=== PATIENT | female | born 1985 | race Caucasian/White ===

== ENCOUNTER → 2020-08-26 15:55 | Outpatient (BNVA) | payer OTHER, SELFPAY | PROVIDERS: PCP Hospitalist; Visit Provider Internal Medicine Pulmonary Disease | DX: J30.2 Other seasonal allergic rhinitis (principal); J45.50 Severe persistent asthma, uncomplicated | CPT/HCPCS: 99212 ==

== ENCOUNTER → 2020-09-17 13:44 | Outpatient (BNVA) | payer OTHER, SELFPAY | PROVIDERS: PCP Hospitalist; Visit Provider Internal Medicine Pulmonary Disease | DX: J45.50 Severe persistent asthma, uncomplicated (principal); J30.2 Other seasonal allergic rhinitis; Z79.899 Other long term (current) drug therapy | CPT/HCPCS: 99212 ==

== ENCOUNTER 2021-01-05 08:18 | Emergency (ER) | payer OTHER, SELFPAY ==
[2021-01-05 08:37] VITALS: BP 130/92; PULSE 104; RESP 18; TEMP 36.5; O2SAT 97; BMI 40.4
--- NOTE | 2021-01-05 09:25 | ED_ITS ---
HPI - General Adult General Chief complaint: General Medical Stated complaint: needle stick Time Seen by Provider: 01/05/21 09:10 Source: patient Mode of arrival: ambulatory Limitations: no limitations History of Present Illness HPI narrative: 35-year-old female with a past medical history of asthma here with needlestick to the heel which occurred just prior to arrival. Patient tells me she was walking outside with her daughter with sandals on. She tells me that she felt a poking sensation in her heel and when she looked down she noticed that she had been stuck by a needle that was on the street. The site did bleed. Tetanus status unknown . Related Data Home Medications Medication Instructions Recorded Confirmed alcohol swabs pad TOPICAL DIRECTED 07/23/20 empty container ea MISCELLANEOUS DAILY 07/23/20 Previous Rx's Medication Instructions Recorded albuterol sulfate 2.5 mg INHALATION Q6H #90 ml 01/20/20 cetirizine 10 mg tablet 10 mg PO DAILY #30 tab 01/20/20 montelukast 10 mg tablet 10 mg PO BEDTIME #30 tab 01/20/20 budesonide-formoterol HFA 160 2 puff INHALATION BID #10.2 g 03/27/20 mcg-4.5 mcg/actuation aerosol inhaler (Symbicort) fluticasone propionate 50 1 spray INTRANASAL DAILY 30 Days 04/15/20 mcg/actuation nasal #9.9 ml spray,suspension triamcinolone acetonide 0.025 % 1 appl TOPICAL BID #15 g 05/15/20 topical cream sumatriptan succinate 50 mg tablet See Rx Instructions PO .COMPLEX 30 07/23/20 Days #10 tab dupilumab 300 mg/2 mL subcutaneous 300 mg SUBCUT Q2W #4 ml 07/30/20 syringe (Dupixent) prednisone 10 mg tablet 40 mg PO DAILY 5 Days #20 tab 09/17/20 albuterol sulfate 90 mcg/actuation 2 puff PO Q4-6H PRN #8.5 g 09/21/20 aerosol inhaler (ProAir HFA) tiotropium bromide 2.5 2 puff INHALATION QAM #4 ml 09/22/20 mcg/actuation mist for inhalation (Spiriva Respimat) loratadine 10 mg tablet 10 mg PO DAILY #30 tab 10/08/20 topiramate 50 mg tablet 50 mg PO BID 30 Days #60 tab 10/08/20 famotidine 40 mg tablet 40 mg PO DAILY #30 tab 10/20/20 ipratropium 20 mcg-albuterol 100 1 puff PO Q6H PRN #4 ml 11/17/20 mcg/actuation mist for inhalation (Combivent Respimat) Allergies Allergy/AdvReac Type Severity Reaction Status Date / Time No Known Allergies Allergy Verified 09/17/20 13:48 [No Known Allergies*] Review of Systems Review of Systems: Yes all other systems are reviewed and are negative Constitutional: Constitutional: Reports no additional constitutional complaints, Denies body ache(s), Denies chills, Denies fever(s), Denies head ache(s) and Denies weakness Eyes: Eyes: Reports no additional eye complaints and Denies change in vision ENT: Reports system reviewed and no additional complaints, except as documented, Denies dizziness, Denies headache(s), Denies nasal congestion, Denies nasal discharge and Denies neck pain Cardiovascular: Cardiovascular: Reports no additional cardiovascular complaints, Denies chest pain, Denies leg edema and Denies dyspnea Respiratory: Respiratory: Reports no additional respiratory complaints, Denies cough and Denies dyspnea Gastrointestinal: Gastrointestinal: Reports no additional gastrointestinal complaints, Denies abdominal pain, Denies diarrhea, Denies nausea and Denies vomiting Genitourinary: Genitourinary: Reports no additional female genitourinary complaints and Denies urinary incontinence Musculoskeletal: Musculoskeletal: Reports no additional musculoskeletal complaints, Denies back pain, Denies arthralgias, Denies joint swelling, Denies neck pain, Denies numbness and Denies tingling Integumentary/Breasts: Skin/Breast: Reports system reviewed and no additional complaints, except as docu and Denies rash Neurologic: Reports system reviewed and no additional complaints, except as documented, Denies Abnormal speech present, Denies dizziness, Denies headache(s), Denies numbness, Denies tingling and Denies weakness PMF Past Medical History Attestation statement: The following information was validated with the patient. Source: old records reviewed and nursing notes reviewed Medical History Asthma Social History Social History Advance Directives: No Advance Directives Information Provided: No Patient : No Physical Exam Vital Signs: Vital Signs: Last Vital Signs Temp 97.7 F 01/05/21 08:37 Pulse 104 H 01/05/21 08:37 Resp 18 01/05/21 08:37 BP 130/92 H 01/05/21 08:37 Pulse Ox 97 01/05/21 08:37 Body Mass Index 40.4 Const: General: cooperative, healthy appearing, comfortable and no acute distress Orientation/consciousness: patient oriented x3 Limitations: no limitations HENMT: Head: Yes normal to inspection Ears: hearing grossly normal bilaterally General nose exam: Normal external nose present Face and sinus: Yes normal facial exam Mouth: Normal oral and palatal mucosa present Throat: Yes posterior oropharynx normal Eyes: General: appearance normal, both eyes and all related structures Pupils: Equal, round and reactive pupils present Neck: Neck: Yes normal visual inspection Chest: Chest palpation & inspection: normal inspection of the chest Resp: Effort & Inspection: normal respiratory effort Auscultation: clear to auscultation bilaterally Cardio: Rate: regular rate Rhythm: regular rhythm Peripheral pulses: Peripheral pulses 2+ throughout GI: Inspection: Yes normal to inspection Palpation (GI): Soft to palpation and nontender Auscultation: normal bowel sounds Back/Spine/Pelvis: Thoracic/Lumbar Spine: thoracic and lumbar spine normal to inspection Skin: General skin exam: no rashes or lesions noted Neuro: General: patient oriented x3, no focal motor deficits and normal sensation to monofilament Cranial nerves: Yes Equal, round and reactive pupils present Cognition (Neuro): normal cognition Speech: No Abnormal speech present Gait exam (Neuro): Normal gait present Motor exam (neuro): 5/5 motor strength present throughout Extrem: Other: Puncture site noted to the right heel. No active bleeding. No palpable foreign body General: Yes normal to inspection Course Course Course Narrative: 35-year-old female here with needlestick to the right heel from the street. Will need labs including hepatitis and HIV panel, urine . Will need PEP kit and tetanus updated. 1010-Reviewed labs and PEP kit with patient. Tetanus updated. Referred to PCP for follow-up. Reviewed worrisome signs and symptoms of when to return to the emergency department. Comfortable discharge home. Medical Decision Making Medical Records Medical records reviewed: Yes I reviewed the patient's medical records. Lab Data Lab results reviewed: Yes I reviewed the patient's lab results. Result diagrams: 01/05/21 09:37 01/05/21 09:37 Labs: Lab Results 01/05/21 01/05/21 01/05/21 Range/Units 09:37 09:37 09:46 WBC 12.0 H (4.8-10.8) X10*3/uL RBC 4.84 (4.20-5.50) X10*6/uL Hgb 14.7 (12.0-16.0) g/dl Hct 43.5 (37-47) % MCV 89.9 (80-98) fL MCH 30.4 (27.0-33.0) pg MCHC 33.8 (31.0-35.0) g/dl RDW 13.2 (11.0-16.0) % Plt Count 368 (160-400) X10*3/uL MPV 11.0 (9.4-12.3) fL Immature Gran % (Auto) 0.4 (0.0-0.4) % Neut % (Auto) 65.4 (45-73) % Lymph % (Auto) 25.7 (20-40) % [place] % (Auto) 5.9 (2-11) % Eos % (Auto) 2.3 (0-4) % Baso % (Auto) 0.3 (0-2) % Lymph # (Auto) 3.1 (1.2-4.9) X10*3/uL [place] # (Auto) 0.7 (0.1-1.2) X10*3/uL Eos # (Auto) 0.3 (0.0-0.4) X10*3/uL Baso # (Auto) 0.0 (0.0-0.2) X10*3/uL Abs Immat Gran (auto) 0.05 H (0.00-0.03) X10*3/uL Absolute Neuts (auto) 7.8 (2.0-8.3) X10*3/uL Absolute Nucleated RBC 0.000 (0.0-0.012) X10*3/uL Nucleated RBC % (auto) 0.0 (0.0-0.2) /100WBC Sodium 140 (135-145) mmol/L Potassium 4.3 (3.3-5.1) mmol/L Chloride 109 H (96-108) mmol/L Carbon Dioxide 22 (22-29) mmol/L Anion Gap 13 (12-20) BUN 15 (9-16) mg/dL Creatinine 0.85 (0.5-1.4) mg/dL Estim Creat Clear Calc 137.1 Estimated GFR > 60 Random Glucose 89 (60-115) mg/dL Calcium 9.2 (8.4-10.2) mg/dL Total Bilirubin 0.5 (0.0-1.0) mg/dL Direct Bilirubin 0.2 (0.0-0.5) mg/dL AST 23 (5-31) U/L ALT 28 (0-31) U/L Alkaline Phosphatase 118 H (39-117) U/L Total Protein 7.9 (6.5-8.0) g/dL Albumin 4.5 (3.5-5.0) g/dL Urine Test NEGATIVE (NEGATIVE) Discharge Plan Discharge Clinical Impression: Accidental hypodermic needlestick injury Patient Disposition: Home, Self-Care Instructions: Needle Stick Injuries (ED) Additional Instructions: Take the kit as prescribed You will need to take these medications for 30 days (we have provided you with a four day supply). Call your primary care doctor for additional prescription as discussed. Take them with food. These medications are antivirals which are for HIV prophy laxis. Prescriptions: No Action cetirizine 10 mg tablet 10 mg PO DAILY Qty: 30 RF: 0 albuterol sulfate 2.5 mg /3 mL (0.083 %) solution for nebulization 2.5 mg inhalation Q6H Qty: 90 RF: 0 montelukast 10 mg tablet 10 mg PO BEDTIME Qty: 30 RF: 0 budesonide-formoterol [Symbicort] 160-4.5 mcg/actuation HFA aerosol inhaler 2 puff inhalation BID Qty: 10.2 RF: 0 fluticasone propionate 50 mcg/actuation spray,suspension 1 spray intranasal DAILY 30 Days Qty: 9.9 RF: 6 triamcinolone acetonide 0.025 % cream 1 appl topical BID Qty: 15 RF: 0 dupilumab [Dupixent Syringe] 300 mg/2 mL syringe 300 mg subcut Q2W Qty: 4 RF: 12 albuterol sulfate [ProAir HFA] 90 mcg/actuation HFA aerosol inhaler 2 puff PO Q4-6H PRN (Reason: for wheezing) Qty: 8.5 RF: 11 tiotropium bromide [Spiriva Respimat] 2.5 mcg/actuation mist 2 puff inhalation QAM Qty: 4 RF: 3 loratadine 10 mg tablet 10 mg PO DAILY Qty: 30 RF: 2 topiramate 50 mg tablet 50 mg PO BID 30 Days Qty: 60 RF: 1 famotidine 40 mg tablet 40 mg PO DAILY Qty: 30 RF: 5 Combivent Respimat 20-100 mcg/actuation mist 1 puff PO Q6H PRN (Reason: for wheezing) Qty: 4 RF: 6 alcohol swabs Pads, Medicated topical DIRECTED RF: 0 Sharps Container Misc miscellaneous DAILY RF: 0 sumatriptan succinate 50 mg tablet See Rx Instructions PO .COMPLEX 30 Days Qty: 10 RF: 0 prednisone 10 mg tablet 40 mg PO DAILY 5 Days Qty: 20 RF: 0 Referrals: Lolly Brown NP [Primary Care Provider] - 2 days Interventions: ED Discharge Assessment Last Done: 01/05/21 10:05 Discharge Date/Time: 01/05/21 10:06
[2021-01-05 09:41] LABS: MANUAL DIFF FLAG NO
[2021-01-05] MEDS: Diphth,Pertus(ACell),Tet Adult 0.5 ML SYRINGE IM (09:47)
[2021-01-05] MEDS: Post Exposure Medication Kit 1 KIT PO (09:47)
[2021-01-05 09:57] LABS: Alanine Aminotransferase 28 U/L (0-31); Albumin Level 4.5 g/dL (3.5-5.0); Alkaline Phosphatase 118 U/L (39-117); Anion Gap 13 (12-20); Aspartate Amino Transferase 23 U/L (5-31); Bilirubin Direct 0.2 mg/dL (0.0-0.5); Bilirubin Total 0.5 mg/dL (0.0-1.0); Blood Urea Nitrogen 15 mg/dL (9-16); Calcium 9.2 mg/dL (8.4-10.2); Carbon Dioxide 22 mmol/L (22-29); Chloride 109 mmol/L (96-108); Creatinine Clr Calc Pharmacy 137.1; Estimated Glomerular Filt Rate > 60; Glucose Random 89 mg/dL (60-115); Potassium 4.3 mmol/L (3.3-5.1); Sodium 140 mmol/L (135-145); Total Protein 7.9 g/dL (6.5-8.0)
[2021-01-05 10:02] LABS: UPreg QC Valid YES; Urine Pregnancy NEGATIVE (NEGATIVE)
[2021-01-05 10:05] LABS: Basophils Percent Auto 0.3 % (0-2); Eosinophils Absolute Auto 0.3 X10*3/uL (0.0-0.4); Eosinophils Percent Auto 2.3 % (0-4); Hematocrit 43.5 % (37-47); Hemoglobin 14.7 g/dl (12.0-16.0); Imm Gran Abs Auto 0.05 X10*3/uL (0.00-0.03); Imm Gran Pct Auto 0.4 % (0.0-0.4); Lymphocytes Absolute Auto 3.1 X10*3/uL (1.2-4.9); Lymphocytes Percent Auto 25.7 % (20-40); Mean Corpuscular HGB Conc 33.8 g/dl (31.0-35.0); Mean Corpuscular Hemoglobin 30.4 pg (27.0-33.0); Mean Corpuscular Volume 89.9 fL (80-98); Monocytes Absolute Auto 0.7 X10*3/uL (0.1-1.2); Monocytes Percent Auto 5.9 % (2-11); Neutrophils Absolute Auto 7.8 X10*3/uL (2.0-8.3); Neutrophils Percent Auto 65.4 % (45-73); Platelet Count 368 X10*3/uL (160-400); Red Blood Count 4.84 X10*6/uL (4.20-5.50); Red Cell Distribution Width 13.2 % (11.0-16.0)
[2021-01-05 10:20] LABS: HBsAGNum1 0.21 S/CO (0.00-0.99); Hepatitis B Core Antibody Nonreactive (Nonreactive); Hepatitis B Surface Antigen Negative (Negative); ~Hepatitis C Antibody Nonreactive (Nonreactive)
[2021-01-05 10:24] LABS: HBS Num1 35.13 mIU/mL (0-7.99); HIV AB/AG Nonreactive (Nonreactive); HIV Num 1 0.08 S/CO (0.00-0.99); ~Hepatitis B Surface Antibody REACTIVE (Nonreactive)
== END 2021-01-05 10:06 | disposition home or self-care (01) ==
PROVIDERS: Nurse Practitioner Family; Emergency Provider Emergency Medicine; PCP Hospitalist
DX: S91.331A Puncture wound without foreign body, right foot, initial encounter (principal); M79.671 Pain in right foot; Y28.9XXA Contact with unspecified sharp object, undetermined intent, initial encounter; Y93.9 Activity, unspecified; Y92.410 Unspecified street and highway as the place of occurrence of the external cause; Y99.9 Unspecified external cause status; Z20.9 Contact with and (suspected) exposure to unspecified communicable disease; Z23 Encounter for immunization
CPT/HCPCS: 36415; 80048; 80076; 81025; 85025; 86704; 86706; 86803; 87340; 87389; 90471; 90715; 99283; 99284

== ENCOUNTER → 2021-01-20 15:43 | Outpatient (BNVA) | payer OTHER, SELFPAY | PROVIDERS: PCP Hospitalist; Visit Provider Internal Medicine Pulmonary Disease | DX: J45.50 Severe persistent asthma, uncomplicated (principal); J30.2 Other seasonal allergic rhinitis; F17.210 Nicotine dependence, cigarettes, uncomplicated | CPT/HCPCS: 99212 ==

== ENCOUNTER → 2021-07-27 08:53 | Outpatient (BNVA) | payer OTHER, SELFPAY | PROVIDERS: PCP Hospitalist; Visit Provider Internal Medicine Pulmonary Disease | DX: J45.50 Severe persistent asthma, uncomplicated (principal); J30.2 Other seasonal allergic rhinitis; G47.33 Obstructive sleep apnea (adult) (pediatric); F17.210 Nicotine dependence, cigarettes, uncomplicated; Z79.899 Other long term (current) drug therapy | CPT/HCPCS: 99212 ==

== ENCOUNTER → 2021-09-07 10:57 | Outpatient (REF) | payer OTHER, SELFPAY | LOC: HO.SL 10:57 | PROVIDERS: PCP Hospitalist; Visit Provider Internal Medicine Pulmonary Disease | DX: G47.33 Obstructive sleep apnea (adult) (pediatric) (principal) | CPT/HCPCS: 95806 ==

== ENCOUNTER 2022-02-24 08:51 | Outpatient (REF) | payer OTHER, SELFPAY ==
[2022-02-24 12:16] LABS: Influenza A PCR POSITIVE (Negative); Influenza B PCR NEGATIVE (Negative); Resp Syncy Virus RNA Qual PCR NEGATIVE (Negative); SARS COV2 PCR INHOUSE NEGATIVE (Negative)
== END 2022-02-24 08:52 | disposition home or self-care (01) ==
LOC: HO.LAB 08:51
PROVIDERS: Visit Provider Nurse Practitioner Family
DX: Z20.822 Contact with and (suspected) exposure to COVID-19 (principal)
CPT/HCPCS: 0241U

== ENCOUNTER 2022-03-09 22:34 | Emergency (ER) | payer OTHER, SELFPAY ==
--- NOTE | 2022-03-09 | ECG_ITS ---
Test Reason : SOA Blood Pressure : / mmHG Vent. Rate : 095 BPM Atrial Rate : 095 BPM P-R Int : 150 ms QRS Dur : 074 ms QT Int : 352 ms P-R-T Axes : 058 035 053 degrees QTc Int : 442 ms Normal sinus rhythm Low voltage QRS Borderline ECG When compared with ECG of 23-JUN-2019 13:16, No significant change was found Referred By: Generic ED Physician Electronically Signed By:Alejandro Daniel
--- NOTE | ~2022-03-09 | XR_ITS ---
EXAMINATION: XR CHEST CLINICAL INFORMATION: Shortness of breath COMPARISON: 06/23/2019 TECHNIQUE: Frontal view of the chest was obtained. FINDINGS: The lungs are clear with no focal consolidation. No evidence of pneumothorax, pulmonary edema, or pleural effusions. The cardiomediastinal silhouette is unremarkable. No acute osseous findings. XR/XR chest 1V IMPRESSION: No acute cardiopulmonary findings.
[2022-03-09 22:36] VITALS: BP 158/107; PULSE 110; RESP 22; TEMP 36.5; O2SAT 93; BMI 41.3
--- NOTE | 2022-03-09 22:59 | ED.ASTHMA ---
HPI - Asthma General Chief Complaint: Asthma Stated Complaint: Asthma attack Time Seen by Provider: 03/09/22 22:53 Source: patient Mode of arrival: ambulatory Limitations: no limitations History of Present Illness HPI Narrative: Patient has history of asthma been feeling increased short of breath for last 2 days with dry cough use her inhaler and nebulizing treatment without much relief no other family member sick Related Data Home Medications Medication Instructions Recorded Confirmed alcohol swabs pad topical DIRECTED 07/23/20 01/07/21 empty container ea miscellaneous DAILY 07/23/20 01/07/21 Previous Rx's Medication Instructions Recorded albuterol sulfate 2.5 mg/3 mL 2.5 mg (3 mL) inhalation Q6H #90 mL 01/20/20 (0.083 %) solution for nebulization cetirizine 10 mg tablet 10 mg PO DAILY #30 tabs 01/20/20 famotidine 40 mg tablet 40 mg PO DAILY #30 tabs 10/20/20 raltegravir 400 mg tablet 400 mg PO BID Post exposure 01/07/21 prophylaxis 1 month #60 tabs sumatriptan succinate 50 mg tablet See Rx Instructions PO .COMPLEX 30 01/11/21 days #10 tabs topiramate 50 mg tablet 50 mg PO BID 30 days #60 tabs 01/11/21 emtricitabine 200 mg capsule 200 mg PO DAILY Post exposure 01/12/21 prophylaxis 1 month #30 caps tenofovir disoproxil fumarate 300 300 mg PO DAILY 1 month #30 tabs 01/29/21 mg tablet fluticasone propionate 50 1 spray intranasal DAILY #16 mL 04/15/21 mcg/actuation nasal spray,suspension dupilumab 300 mg/2 mL subcutaneous 300 mg (2 mL) subcut Q2W #4 mL 08/05/21 syringe (Dupixent) nicotine See Rx Instructions transdermal 09/02/21 21mg/24hr-14mg/24hr-7mg/24hr daily .COMPLEX 28 days #56 patches transderm patches,sequentl Combivent Respimat 20 mcg-100 1 puff PO Q6H PRN for wheezing #4 10/19/21 mcg/actuation solution for grams inhalation (ipratropium-albuterol) albuterol sulfate 90 mcg/actuation 2 puff PO Q4-6H PRN for wheezing 01/31/22 aerosol inhaler #1 ea azithromycin 250 mg tablet See Rx Instructions PO .COMPLEX #6 02/24/22 (Zithromax Z-Talat) tabs oseltamivir 75 mg capsule (Tamiflu) 75 mg PO BID 5 days #10 caps 02/24/22 benzonatate 200 mg capsule 200 mg PO TID PRN cough #30 caps 03/10/22 prednisone 20 mg tablet 40 mg PO DAILY #10 tabs 03/10/22 Allergies Allergy/AdvReac Type Severity Reaction Status Date / Time No Known Allergies Allergy Verified 02/24/22 08:41 [No Known Allergies*] Review of Systems Review of Systems: Yes all other systems are reviewed and are negative [facility] Past Medical History Medical History Asthma Social History Social History Housing: House Patient Tobacco Use Status: Never used Tobacco Cigarettes Per Day: 7 Advance Directives: No Current occupational status: employed Physical Exam Vital Signs: Vital Signs: Last Vital Signs Temp 97.7 F 03/09/22 22:36 Pulse 100 03/09/22 23:29 Resp 16 03/09/22 23:29 BP 158/107 H 03/09/22 22:36 Pulse Ox 93 03/09/22 22:36 O2 Del Method 03/09/22 22:36 BMI result Body Mass Index 41.3 Appearance: Alert. Oriented X3. No acute distress. Eyes: PERRLA, No Nystagmus ENT: Pharynx normal. Oral Mucosa moist Neck: Normal inspection. Neck supple. CVS: Normal heart rate and rhythm. Pulses normal. Respiratory: No respiratory distress. Bilateral wheezing and rhonchi no rales Abdomen: Soft and nontender. Bowel sounds are present, no mass palpable, no CVA tenderness Skin: Skin warm and dry. Normal skin color. Normal skin turgor. Extremities: No lower extremity edema. No calf tenderness Neuro: Oriented X 3. No motor deficit. Medications Administered Discontinued Medications Generic Name Dose Route Start Last Admin Trade Name Freq PRN Reason Stop Dose Admin Albuterol Sulfate 2.5 mg/ 0 mg 03/09/22 23:02 03/09/22 23:22 Albuterol/Ipratropium 3 ml INHALE 03/09/22 23:03 1 each ONCE ONE Administration Dexamethasone 10 mg 03/09/22 23:02 03/09/22 23:10 Dexamethasone 2 Mg Tablet PO 03/09/22 23:03 10 mg ONCE ONE Administration MDM - Asthma MDM Narrative Medical decision making narrative: Patient with asthma comes here for worsening of wheezing chest x-rays negative patient responded to prednisone and albuterol today on discharge patient home Differential Diagnosis Differential diagnosis: Likely Acute exacerbation Lab Data Attestation: I reviewed the patient's lab results. Labs: Lab Results 03/10/22 Range/Units 00:01 COVID-19 ([facility]) Negative (Negative) COVID-19 Clin Com See Note Discharge Plan Discharge Clinical Impression: Asthma with acute exacerbation Patient Disposition: Home, Self-Care Additional Instructions: Continue nebulizing treatment at home start taking prednisone for 5 days as prescribed Cough drops as prescribed Follow-up with PCP if not better Prescriptions: New benzonatate 200 mg capsule 200 mg PO TID PRN (Reason: cough) Qty: 30 0RF prednisone 20 mg tablet 40 mg PO DAILY Qty: 10 0RF No Action cetirizine 10 mg tablet 10 mg PO DAILY Qty: 30 0RF albuterol sulfate 2.5 mg /3 mL (0.083 %) solution for nebulization 2.5 mg inhalation Q6H Qty: 90 0RF famotidine 40 mg tablet 40 mg PO DAILY Qty: 30 5RF topiramate 50 mg tablet 50 mg PO BID 30 Days Qty: 60 5RF sumatriptan succinate 50 mg tablet See Rx Instructions PO .COMPLEX 30 Days Qty: 10 0RF Rx Instructions: take 1 tab at onset of headache; if no relief may repeat 1 tab after at least 2 hrs; max = 3 tabs/24 hr PO emtricitabine 200 mg capsule 200 mg PO DAILY 30 Days Qty: 30 0RF tenofovir disoproxil fumarate 300 mg tablet 300 mg PO DAILY 30 Days Qty: 30 0RF fluticasone propionate 50 mcg/actuation spray,suspension 1 spray intranasal DAILY Qty: 16 6RF Dupixent Syringe 300 mg/2 mL syringe 300 mg subcut Q2W Qty: 4 11RF nicotine 21-14-7 mg/24 hr patch, TD daily, sequential See Rx Instructions transdermal .COMPLEX 28 Days Qty: 56 0RF Rx Instructions: apply 1-21 mg NICOTINE PATCH daily for 28 days; follow with 1-14 mg PATCH daily for 14 days, then 1-7mg PATCH daily for 14 days transdermal Combivent Respimat 20-100 mcg/actuation mist 1 puff PO Q6H PRN (Reason: for wheezing) Qty: 4 6RF albuterol sulfate 90 mcg/actuation HFA aerosol inhaler 2 puff PO Q4-6H PRN (Reason: for wheezing) Qty: 1 11RF oseltamivir [Tamiflu] 75 mg capsule 75 mg PO BID 5 Days Qty: 10 0RF alcohol swabs Pads, Medicated topical DIRECTED Sharps Container Misc miscellaneous DAILY raltegravir 400 mg tablet 400 mg PO BID 30 Days Qty: 60 0RF azithromycin [Zithromax Z-Talat] 250 mg tablet See Rx Instructions PO .COMPLEX Qty: 6 0RF Rx Instructions: For 250 mg dose pack: take 500 mg today (day 1), then 250 mg for 4 days (days 2-5) PO Interventions: ED Discharge Assessment Last Done: 03/10/22 00:29 Discharge Date/Time: 03/10/22 00:30
[2022-03-09] MEDS: dexAMETHasone 2 MG TABLET 10 MG PO (23:10)
[2022-03-09] MEDS: Albuterol Sulfate 2.5 MG, Albuterol/Iprat 2.5/0.5MG 3 ML 3 ML INHALE (23:22)
[2022-03-09 23:29] VITALS: PULSE 100; RESP 16; O2SAT 95
[2022-03-10 00:20] LABS: COVID-19 Test Negative (Negative); IDNOW Serial# BCCEAD1C
== END 2022-03-10 00:30 | disposition home or self-care (01) ==
PROVIDERS: Emergency Provider Internal Medicine; PCP Hospitalist
DX: J45.901 Unspecified asthma with (acute) exacerbation (principal); Z20.822 Contact with and (suspected) exposure to COVID-19
CPT/HCPCS: 71045; 87635; 93005; 94640; 99284; J8540

== ENCOUNTER 2022-10-27 09:51 | Outpatient (AMB) | payer OTHER, SELFPAY ==
--- NOTE | 2022-10-27 10:03 | A.OFFVIS_ITS ---
Intake Vital Signs 10/27/22 10:04 Height 5 ft 9 in Weight 297 lb BMI 43.9 BP 128/90 H Pulse 109 H Pulse Oximetry (%) 96 Intake Visit Reasons: Check up Intake Note: pt continues to get injections she is doing well on them. she is still using her combivent and albuterol inhaler. pt has yet to know sleep study results. Allergies No Known Allergies [No Known Allergies*] Allergy (Verified 10/27/22 10:03) HPI Check up HPI Details 37-year-old lady active 10+ pack-year smoker followed for severe allergic asthma and environmental allergies. She has been using Dupixent and Combivent with good control of her underlying symptoms. the recently she has been using her albuterol twice per day. . She denies recent exacerbations. [facility] Medical History Asthma Social History Housing: House Patient Tobacco Use Status: Never used Tobacco Cigarettes Per Day: 7 Current occupational status: employed Review of Systems Const Denies daytime sleepiness, Denies excessive sweating, Denies fatigue, Denies fever(s), Denies lethargy, Denies malaise, Denies night sweats, Denies snoring and Denies weight loss Eyes Denies blurry vision and Denies itchy eyes ENT Denies nasal congestion, Denies post nasal drip, Denies sinus pain, Denies sinus pressure and Denies other ( Thrush) Card Denies chest pain, Denies pedal edema, Denies dyspnea, Denies orthopnea and Denies paroxysmal nocturnal dyspnea Resp Denies cough, Denies hemoptysis, Denies excessive phlegm production, Denies dyspnea, Denies snoring and Denies wheezing GI Denies abdominal pain and Denies heartburn Musc Denies myalgias, Denies arthralgias and Denies joint swelling Skin/Breast Denies rash Neuro Denies memory loss and Denies seizure-like activity Psych Denies abnormal sleep pattern, Denies anxiety and Denies memory loss Endo Denies excessive sweating, Denies fatigue and Denies heat intolerance Sukumar/Lymph Denies easy bruising Aller/Immun Denies itchy eyes, Denies seasonal rhinorrhea and Denies wheezing Physical Exam Vital Signs: Last Vital Signs Pulse 109 H 10/27/22 10:04 BP 128/90 H 10/27/22 10:04 Pulse Ox 96 10/27/22 10:04 BMI result Body Mass Index 43.9 Const General: no acute distress and alert Nutritional Appearance: obese Orientation/consciousness: Other orientation findings ( oriented) HEENT Head: Yes atraumatic Eyes General: appearance normal, both eyes and all related structures Sclerae: sclerae normal EOM: EOMs intact bilaterally Neck Neck: Yes supple Lymphatic: no lymphadenopathy noted Resp Effort & Inspection: normal respiratory effort and no use of accessory muscles Auscultation: clear to auscultation bilaterally Cardio Rate: regular rate Rhythm: regular rhythm Heart sounds: no gallops, no murmurs and no rubs Skin General skin exam: other ( warm) Extrem General: No clubbing, No cyanosis and No edema Assessment & Plan Assessment & Plan (1) Severe persistent allergic asthma: Code(s): J45.50 - Severe persistent asthma, uncomplicated Plan: Reasonable, but suboptimal control on Dupixent and Combivent. Will add Breo. Continue albuterol MDI. (2) Seasonal allergies: Code(s): J30.2 - Other seasonal allergic rhinitis Plan: Significantly improved control on Dupixent. Continue current regimen. Medications: New Breo Ellipta 200-25 mcg/dose (fluticasone furoate-vilanterol) 1 inh inhalation DAILY 1 ea 6RF 30 days NS ipratropium-albuterol 0.5 mg-3 mg(2.5 mg base)/3 mL 3 mL inhalation Q4-6H PRN 270 mL 6RF wheezing 30 days Coding Level of Care Code Est Pt Level 4 (76693) Diagnoses Severe persistent allergic asthma J45.50 Seasonal allergies J30.2
[2022-10-27 10:04] VITALS: BP 128/90; PULSE 109; O2SAT 96; BMI 43.9
== END 2022-10-27 10:27 | disposition home or self-care (01) ==
PROVIDERS: PCP Hospitalist; Visit Provider Internal Medicine Pulmonary Disease
DX: J45.50 Severe persistent asthma, uncomplicated (principal); J30.2 Other seasonal allergic rhinitis
CPT/HCPCS: 99214

== ENCOUNTER → 2022-10-27 09:51 | Outpatient (BNVA) | payer OTHER, SELFPAY | PROVIDERS: PCP Hospitalist; Visit Provider Internal Medicine Pulmonary Disease | DX: J45.50 Severe persistent asthma, uncomplicated (principal); J30.2 Other seasonal allergic rhinitis | CPT/HCPCS: 99212 ==

== ENCOUNTER 2022-11-16 16:21 | Outpatient (AMB) | payer OTHER, SELFPAY ==
[2022-11-16 16:23] VITALS: BP 132/74; PULSE 122; TEMP 36.1; O2SAT 98; BMI 42.7
--- NOTE | 2022-11-16 16:23 | MHC.PC.OV ---
Vital Signs 11/16/22 16:23 Height 5 ft 9 in Weight 289 lb BMI 42.7 BP 132/74 Blood Pressure Location Lt brachial Position Sitting Pulse 122 H Pulse Source Pulse Oximeter Temp 97.0 F Temp Source Temporal Artery Scan Pulse Oximetry (%) 98 Oxygen Delivery Method Room Air Intake Visit Reasons: Severe headaches daily Intake Note: Patient reports severe headaches/ migraines x3 weeks. Patient has tried ibuprofen/tylenol and the headache will partially subside and return stronger. Patient was prescribed sumatriptan and topiramate in the past for migraines. 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 Accompanied by: Self / Same As Patient Allergies No Known Allergies [No Known Allergies*] Allergy (Verified 11/16/22 16:33) Medication List - Last Reconciled 11/16/22 by Jake Coy CNP albuterol sulfate 2.5 mg (3 mL) inhalation Q6H alcohol swabs pad topical DIRECTED Breo Ellipta 200-25 mcg/dose (fluticasone furoate-vilanterol) 1 inh inhalation DAILY 30 days NS cetirizine 10 mg PO DAILY Combivent Respimat 20-100 mcg/actuation (ipratropium-albuterol) 1 puff PO Q6H PRN NS Dupixent Syringe (dupilumab) 300 mg (2 mL) subcut Q2W NS empty container ea miscellaneous DAILY emtricitabine 200 mg PO DAILY 1 month famotidine 40 mg PO DAILY fluticasone propionate 50 mcg/actuation 1 spray intranasal DAILY ipratropium-albuterol 0.5 mg-3 mg(2.5 mg base)/3 mL 3 mL inhalation Q4-6H PRN 30 days raltegravir 400 mg PO BID 1 month sumatriptan succinate take 1 tab at onset of headache; if no relief may repeat 1 tab after at least 2 hrs; max = 3 tabs/24 hr PO 30 days tenofovir disoproxil fumarate 300 mg PO DAILY 1 month topiramate 50 mg PO BID 30 days Ventolin HFA 90 mcg/actuation (albuterol sulfate) 2 puffs PO Q4-6H PRN NS Tobacco use date assessed: 11/16/22 Dental Screening Dental Screen Date: 11/16/22 Did you have a dental visit in the last 12 months?: Yes Did you have a dental problem in the last 6 months where you did not have access to dental care?: No Was dental information given to patient?: Patient has dentist HPI HPI Comments History of Present Illness Details 37-year-old female presents with complaints of intermittent headaches. She notes that her symptoms have been persistent in the past 3 weeks. The pain is usually localized to her left temporal region. Tylenol and Ibuprofen provide temporal relief. She denies visual disturbances, dizziness, n/v or any other associated symptoms. She has h/o migraines, was on sumatriptan and topiramate which she notes were ineffective. FORMERLY [facility] Medical History Asthma Social History Housing: House Patient Tobacco Use Status: Never used Tobacco Cigarettes Per Day: 7 e-Cigarette/Vaping Use: Former Use service: No Current occupational status: employed Cognitive needs: No Hearing needs: No Vision needs: No Questionnaire Thrive Questionnaire Date Thrive assessed: 01/07/21 CRISTELA-7 AMB Questionnaire CRISTELA-7 Date CRISTELA - 7 assessed: 01/07/21 Source: Developed by Drs. Perfecto Flowers, Catherine Ortiz, Dakota Mcfarland and colleagues, with an educational jermaine from [employer]. Review of Systems Const Details: Const Denies chills, Denies fatigue, Denies fever(s), Denies headache(s) and Denies weakness ENT Reports as per HPI Card Denies chest pain, Denies lightheadedness, Denies dyspnea and Denies other (Palpitations) Resp Denies cough, Denies dyspnea, Denies wheezing and Denies other ( shortness of breath) GI Denies abdominal pain, Denies melena, Denies hematochezia, Denies change in bowel habits, Denies dyspepsia and Denies nausea Denies hematuria and Denies dysuria Musc Denies abnormal gait, Denies myalgias, Denies arthralgias, Denies numbness and Denies tingling Skin/Breast Denies rash, Denies unusual bruising and Denies wounds Neuro Denies abnormal gait, Denies dizziness, Denies headache(s), Denies memory loss, Denies numbness, Denies Sensory deficit (Neuro), Denies tingling and Denies weakness Psych Denies anxiety, Denies depression, Denies memory loss Endo Denies cold intolerance, Denies fatigue, Denies heat intolerance, Denies polydipsia and Denies polyuria Aller/Immun Denies wheezing Physical exam (Primary Care) Vital Signs: Last Vital Signs Temp 97.0 F 11/16/22 16:23 Pulse 122 H 11/16/22 16:23 BP 132/74 11/16/22 16:23 Pulse Ox 98 11/16/22 16:23 Oxygen Delivery Method Room Air 11/16/22 16:23 BMI result Body Mass Index 42.7 Tobacco/Smoking Status: Tobacco use Status Tobacco use date assessed 11/16/22 11/16/22 16:30 Patient Tobacco Use Status Never used Tobacco 11/16/22 16:30 e-Cigarette/Vaping Use Former Use 11/16/22 16:30 Thrive Assessment: Date of Thrive Assessment Date Thrive assessed 01/07/21 11/16/22 16:30 Const Other: General: no acute distress and well developed Nutritional Appearance: well nourished Orientation/consciousness: patient oriented x3 HENMT Head is normocephalic Bilateral ear canal and TM are normal Nasal turbinates and oropharynx are pink and moist Sinuses are nontender with palpation No auricular or cervical lymphadenopathy Eyes General: appearance normal, both eyes and all related structures Pupils: Equal, round and reactive pupils present EOM: EOMs intact bilaterally Resp Effort & Inspection: normal respiratory effort Auscultation: clear to auscultation bilaterally Cardio Rate: regular rate Rhythm: regular rhythm Heart sounds: S1 normal heart sound present, S2 normal heart sound present, no gallops, no murmurs and no rubs GI Palpation (GI): No Abdominal aortic bruit present, Soft to palpation, nontender, No hepatosplenomegaly present and No Rebound tenderness present Auscultation: normal bowel sounds General: Yes no CVA tenderness Back/Spine/Pelvis Back: no CVA tenderness Cervical Spine: cervical ROM normal and No Cervical spine tenderness Thoracic/Lumbar Spine: thoraco-lumbar ROM normal, No pain with thoraco-lumbar ROM, No thoracic spinal tenderness and No lumbar spinal tenderness Extrem General: Yes normal to inspection, No edema and No calf tenderness Skin General: warm and dry. Normal skin color. Normal skin turgor Lesions: no lesions Rashes: no rashes Neuro General: patient oriented x3, gait normal and no focal neuro deficit Cranial nerves: Yes Equal, round and reactive pupils present Cognition (Neuro): normal cognition Gait exam (Neuro): Normal gait present Sensory Exam: No Sensory deficit (Neuro) Psych Appearance: grossly normal Affect: normal affect Attitude: cooperative Thought process: Normal thought process present Assessment and Plan Assessment & Plan (1) Migraine: Code(s): G43.909 - Migraine, unspecified, not intractable, without status migrainosus Plan: Reports persistent headache to the temporal region for the past 3 weeks. No associated symptoms. Likely migraines Magnesium oxide and riboflavin ordered May take Tylenol or Motrin Follow-up with worsening or new symptoms Verbalized understanding and agreed with treatment plan. Medications: New riboflavin (vitamin B2) 400 mg PO DAILY 30 tabs 3RF 30 days magnesium oxide 400 mg PO DAILY 30 tabs 3RF 30 days Discontinued raltegravir Discontinued Reason: Patient no longer taking 400 mg PO BID 60 tabs 0RF Post exposure prophylaxis 1 month Coding Level of Care Code Est Pt Level 3 (84138) Diagnoses Migraine G43.909
== END 2022-11-16 16:46 | disposition home or self-care (01) ==
PROVIDERS: PCP Hospitalist; Visit Provider Nurse Practitioner Family
DX: G43.909 Migraine, unspecified, not intractable, without status migrainosus (principal)
CPT/HCPCS: 99213

== ENCOUNTER 2022-11-30 18:56 | Emergency (ER) | payer OTHER, SELFPAY ==
[2022-11-30 19:03] VITALS: PULSE 120; O2SAT 98
[2022-11-30 19:07] VITALS: BMI 40.6
[2022-11-30 19:12] VITALS: BP 137/96; PULSE 104; RESP 20; TEMP 36.4; O2SAT 97
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
== END 2022-11-30 19:56 | disposition home or self-care (01) ==
PROVIDERS: Emergency Provider Emergency Medicine; PCP Hospitalist
DX: Z04.1 Encounter for examination and observation following transport accident (principal); M25.512 Pain in left shoulder; F17.210 Nicotine dependence, cigarettes, uncomplicated; Z79.899 Other long term (current) drug therapy
CPT/HCPCS: 99282

== ENCOUNTER 2023-02-15 09:52 | Outpatient (AMB) | payer OTHER, SELFPAY ==
[2023-02-15 09:54] VITALS: BP 138/90; PULSE 105; O2SAT 96; BMI 42.5
--- NOTE | 2023-02-15 09:54 | MHC.OFFVIS ---
Intake Vital Signs 02/15/23 09:54 Height 5 ft 9 in Weight 287 lb 11.252 oz BMI 42.5 BP 138/90 H Blood Pressure Location Rt brachial Position Sitting Pulse 105 H Pulse Oximetry (%) 96 Oxygen Delivery Method Room Air Intake Visit Reasons: Asthma Allergies No Known Allergies [No Known Allergies*] Allergy (Verified 02/15/23 09:55) HPI Asthma HPI Details 37-year-old lady active 10+ pack-year smoker followed for severe allergic asthma and environmental allergies. She has been using Dupixent and Combivent with good control of her underlying symptoms. After the last office visit she was started on Breo, however patient states that she does not seem to derive any symptomatic benefit from it. She denies acute exacerbations. FORMERLY [facility], [facility] Medical History (Updated 02/15/23 @ 10:11 by Manny Sams MD) Asthma Social History (Reviewed 02/15/23 @ 09:56 by Patricia Kirkland [facility]) Housing: House Patient Tobacco Use Status: Never used Tobacco Cigarettes Per Day: 7 e-Cigarette/Vaping Use: Former Use service: No Current occupational status: employed Cognitive needs: No Hearing needs: No Vision needs: No Review of Systems Const Denies daytime sleepiness, Denies excessive sweating, Denies fatigue, Denies fever(s), Denies lethargy, Denies malaise, Denies night sweats, Denies snoring and Denies weight loss Eyes Denies blurry vision and Denies itchy eyes ENT Denies nasal congestion, Denies post nasal drip, Denies sinus pain, Denies sinus pressure and Denies other ( Thrush) Card Denies chest pain, Denies pedal edema, Denies dyspnea, Denies orthopnea and Denies paroxysmal nocturnal dyspnea Resp Reports cough, Denies hemoptysis, Denies excessive phlegm production, Denies dyspnea, Denies snoring and Denies wheezing GI Denies abdominal pain and Denies heartburn Musc Denies myalgias, Denies arthralgias and Denies joint swelling Skin/Breast Denies rash Neuro Denies memory loss and Denies seizure-like activity Psych Denies abnormal sleep pattern, Denies anxiety and Denies memory loss Endo Denies excessive sweating, Denies fatigue and Denies heat intolerance Sukumar/Lymph Denies easy bruising Aller/Immun Denies itchy eyes, Denies seasonal rhinorrhea and Denies wheezing Physical Exam Vital Signs: Last Vital Signs Pulse 105 H 02/15/23 09:54 BP 138/90 H 02/15/23 09:54 Pulse Ox 96 02/15/23 09:54 Oxygen Delivery Method Room Air 02/15/23 09:54 BMI result Body Mass Index 42.5 Const General: no acute distress and alert Nutritional Appearance: obese Orientation/consciousness: Other orientation findings ( oriented) HEENT Head: Yes atraumatic Eyes General: appearance normal, both eyes and all related structures Sclerae: sclerae normal EOM: EOMs intact bilaterally Neck Neck: Yes supple Lymphatic: no lymphadenopathy noted Resp Effort & Inspection: normal respiratory effort and no use of accessory muscles Auscultation: clear to auscultation bilaterally Cardio Rate: regular rate Rhythm: regular rhythm Heart sounds: no gallops, no murmurs and no rubs Skin General skin exam: other ( warm) Extrem General: No clubbing, No cyanosis and No edema Assessment & Plan Assessment & Plan (1) Severe persistent asthma: Code(s): J45.50 - Severe persistent asthma, uncomplicated Plan: Well controlled on Dupixent and albuterol MDI/nebs. Start Breo. (2) Environmental allergies: Code(s): Z91.09 - Other allergy status, other than to drugs and biological substances Plan: Well controlled on Dupixent, if control starts to worsen, will consider switching to Xolair. Medications: New prednisone 40 mg (2 x 20 mg) PO DAILY 10 tabs 0RF 5 days Coding Level of Care Code Est Pt Level 4 (79737) Diagnoses Severe persistent asthma J45.50 Environmental allergies Z91.09
== END 2023-02-15 10:11 | disposition home or self-care (01) ==
PROVIDERS: PCP Hospitalist; Visit Provider Internal Medicine Pulmonary Disease
DX: J45.50 Severe persistent asthma, uncomplicated (principal); Z91.09 Other allergy status, other than to drugs and biological substances
CPT/HCPCS: 99214

== ENCOUNTER → 2023-02-15 09:52 | Outpatient (BNVA) | payer OTHER, SELFPAY | PROVIDERS: PCP Hospitalist; Visit Provider Internal Medicine Pulmonary Disease | DX: J45.50 Severe persistent asthma, uncomplicated (principal); Z91.09 Other allergy status, other than to drugs and biological substances | CPT/HCPCS: 99212 ==

== ENCOUNTER 2023-04-15 14:13 | Emergency (ER) | payer OTHER, SELFPAY ==
--- NOTE | 2023-04-15 15:01 | ED.URI ---
HPI - URI/Sore Throat General Chief Complaint: Dyspnea Stated Complaint: diff breathing Time Seen by Provider: 04/15/23 15:32 Source: patient Mode of arrival: ambulatory Limitations: no limitations History of Present Illness HPI Narrative: Patient is a 38 year old assigned female at with a history of asthma presenting to the emergency department today with increased wheezing. Patient states that over the last 2 months she has had increased wheezing and is almost out of her inhaler. Patient denies any dizziness, lightheadedness, abdominal pain, nausea, vomiting, fever, chills, blurry vision, double vision, loss of vision, chest pain, difficulty breathing, shortness of breath, back pain, night sweats, pain with urination, increased urinary frequency, increased urinary urgency, blood in her urine or stool, syncope or a near syncopal episode, recent trauma or falls, bowel incontinence, bladder incontinence, bowel retention, bladder retention, or any other complaints at this time. Pertinent past history: asthma Onset (ago): month(s) (2) Consistency: constant Severity: mild Able to tolerate fluids by mouth: No Treatments prior to arrival: none Related Data Home Medications Medication Instructions Recorded Confirmed alcohol swabs pad topical DIRECTED 07/23/20 11/16/22 empty container ea miscellaneous DAILY 07/23/20 11/16/22 Previous Rx's Medication Instructions Recorded cetirizine 10 mg tablet 10 mg PO DAILY #30 tabs 01/20/20 famotidine 40 mg tablet 40 mg PO DAILY #30 tabs 10/20/20 sumatriptan succinate 50 mg tablet See Rx Instructions PO .COMPLEX 30 01/11/21 days #10 tabs topiramate 50 mg tablet 50 mg PO BID 30 days #60 tabs 01/11/21 emtricitabine 200 mg capsule 200 mg PO DAILY Post exposure 01/12/21 prophylaxis 1 month #30 caps tenofovir disoproxil fumarate 300 300 mg PO DAILY 1 month #30 tabs 01/29/21 mg tablet fluticasone propionate 50 1 spray intranasal DAILY #16 mL 04/15/21 mcg/actuation nasal spray,suspension Dupixent Syringe 300 mg/2 mL 300 mg (2 mL) subcut Q2W #4 mL 08/15/22 subcutaneous syringe (dupilumab) albuterol sulfate 2.5 mg/3 mL 2.5 mg (3 mL) inhalation Q6H #90 mL 09/20/22 (0.083 %) solution for nebulization Breo Ellipta 200 mcg-25 mcg/dose 1 inh inhalation DAILY 30 days #1 10/27/22 powder for inhalation (fluticasone ea furoate-vilanterol) ipratropium 0.5 mg-albuterol 3 mg 3 ml inhalation Q4-6H PRN wheezing 10/27/22 (2.5 mg base)/3 mL nebulization 30 days #270 mL soln magnesium oxide 400 mg PO DAILY 30 days #30 tabs 11/16/22 riboflavin (vitamin B2) 400 mg 400 mg PO DAILY 30 days #30 tabs 11/16/22 tablet ipratropium 20 mcg-albuterol 100 1 puff PO Q6H PRN for wheezing #4 01/30/23 mcg/actuation mist for inhalation mL (Combivent Respimat) prednisone 20 mg tablet 40 mg (2 x 20 mg) PO DAILY 5 days 02/15/23 #10 tabs Ventolin HFA 90 mcg/actuation 2 puff PO Q4-6H PRN for wheezing 04/06/23 aerosol inhaler (albuterol sulfate) #18 ea albuterol sulfate 90 mcg/actuation 1 puff inhalation QID #8.5 grams 04/15/23 aerosol inhaler prednisone 20 mg tablet 20 mg PO DAILY 7 days #7 tabs 04/15/23 Allergies Allergy/AdvReac Type Severity Reaction Status Date / Time No Known Allergies Allergy Verified 04/15/23 15:02 [No Known Allergies*] Review of Systems Constitutional: Constitutional: Reports no additional constitutional complaints, Denies chills, Denies fever(s) and Denies night sweats Eyes: Eyes: Reports no additional eye complaints, Denies blurry vision, Denies change in vision, Denies diplopia, Denies eye discharge, Denies loss of vision and Denies eye pain ENT: Denies dizziness Cardiovascular: Cardiovascular: Reports no additional cardiovascular complaints, Denies chest pain, Denies lightheadedness and Denies Loss of Consciousness Respiratory: Respiratory: Reports no additional respiratory complaints and Reports wheezing Gastrointestinal: Gastrointestinal: Reports no additional gastrointestinal complaints, Denies abdominal pain, Denies melena, Denies hematochezia, Denies change in bowel habits and Denies change in stool character Genitourinary: Genitourinary: Denies hematuria, Denies urinary frequency, Denies dysuria, Denies urinary incontinence, Denies urinary hesitancy and Denies urinary urgency Musculoskeletal: Musculoskeletal: Reports no additional musculoskeletal complaints, Denies numbness and Denies tingling Neurologic: Denies dizziness, Denies loss of vision, Denies numbness and Denies tingling Psychiatric: Psychiatric: Reports no additional psychiatric complaints Endocrine: Endocrine: Reports no additional endocrine complaints Hematologic/Lymphatic: Hematologic/Lymphatic: Reports no additional hematologic/lymphatic complaints Allergic/Immunologic: Allergic/Immunologic: Reports no additional allergic/immunologic complaints and Reports wheezing PMFSH Past Medical History Attestation statement: The following information was validated with the patient. Source: old records reviewed and nursing notes reviewed Onset Date is defined in the Problem List Problems that require an onset date and time if occurred within 24 hrs of arrival to the ED Aortic Dissection and Rupture; Neurologic impairment; Cardiopulmonary Arrest; Endotracheal Intubation; Insertion or Replacement of Mechanical Circulatory Assist Device Medical History Severe persistent asthma Bilateral otitis media Upper respiratory infection Screening due Needle stick injury with contaminated needle Seasonal allergies Asthma Social History Social History Housing: House Patient Tobacco Use Status: Never used Tobacco Cigarettes Per Day: 7 e-Cigarette/Vaping Use: Former Use Advance Directives: No Advance Directives Information Provided: No service: No Current occupational status: employed Cognitive needs: No Hearing needs: No Vision needs: No Physical Exam Vital Signs: Vital Signs: Last Vital Signs Temp 98.4 F 04/15/23 15:02 Pulse 127 H 04/15/23 16:27 Resp 18 04/15/23 16:27 BP 126/75 04/15/23 15:02 Pulse Ox 93 04/15/23 15:02 O2 Del Method Room Air 04/15/23 15:02 BMI result Body Mass Index 42.7 Const: General: cooperative, no acute distress, alert and awake Nutritional Appearance: well nourished Orientation/consciousness: patient oriented x3 Limitations: no limitations HEENT: Head: Yes normal to inspection and Yes atraumatic Ears: hearing grossly normal bilaterally and external ears normal General nose exam: Normal external nose present, no nasal discharge noted and no epistaxis Face and sinus: Yes normal facial exam, No abrasion and No laceration Mouth: Normal oral and palatal mucosa present, no drooling and no muffled voice Eyes: General: appearance normal, both eyes and all related structures Periorbital: periorbital findings normal Eyelids: Yes eyelids normal Conjunctivae: conjunctivae normal Pupils: Equal, round and reactive pupils present EOM: EOMs intact bilaterally Neck: Neck: Yes normal visual inspection, Yes full ROM and Yes no lymphadenopathy Chest: Chest palpation & inspection: normal inspection of the chest Resp: Effort & Inspection: normal respiratory effort and able to speak in complete sentences Auscultation: wheezes scattered wheezes GI: Inspection: Yes normal to inspection Neuro: General: patient oriented x3 and moves all extremities Cranial nerves: Yes Equal, round and reactive pupils present Cognition (Neuro): normal cognition Motor exam (neuro): 5/5 motor strength present throughout Sensory Exam: Normal double simultaneous stimulation for sensation Coordination: [id number] test normal Extrem: General: Yes normal to inspection, Yes full ROM and Yes capillary refill normal Psych: Appearance: grossly normal Mental Status: mental status grossly normal Affect: normal affect Attitude: cooperative Thought process: Normal thought process present Thought content: Normal thought content present Insight: Good insight present (Psych) Course Course Course Narrative: This is a rapid medical exam. Deferred additional HPI, ROS, PE to primary provider. 38 yo female with history of asthma here with complaints of diff breathing, cough since last evening. Nebulizer machine is broken. No relief from albuterol MDI. No fevers, chills. Will obtain viral testing VSS Medications Administered Discontinued Medications Generic Name Dose Route Start Last Admin Trade Name Kee PRN Reason Stop Dose Admin Albuterol Sulfate 2.5 mg/ 0 mg 04/15/23 15:50 04/15/23 15:55 Albuterol/Ipratropium 3 ml INHALE 04/15/23 15:51 5 dose ONCE ONE Administration Levalbuterol HCl 2.5 mg 04/15/23 16:24 04/15/23 16:27 Levalbuterol Hcl 1.25 Mg/3 Ml Vial.Neb INHALE 04/15/23 16:25 2.5 mg ONCE ONE Administration Methylprednisolone Sodium Succinate 60 mg 04/15/23 15:32 04/15/23 16:30 Methylprednisolone Sod Succ 125 Mg/2 Ml Vial IM 04/15/23 15:33 60 mg ONCE ONE Administration Medical Decision Making Medical Decision Making [facility] Narrative: Patient is a 38 year old assigned female at with a history of asthma presenting to the emergency department today with worsening asthma. Patient's physical exam showed scattered wheezing. Patient's COVID-19, influenza, and RSV swabs were negative. I explained my physical exam findings as well as all test results to the patient. I answered all questions asked by the patient. I stressed the importance of the patient taking her medication as prescribed. I stressed the importance of the patient following up with her primary care provider. I stressed the importance of the patient returning to the emergency department immediately if her symptoms were to worsen or if she were to develop any dizziness, shortness of breath, difficulty breathing, chest pain, blurry vision, loss of vision, nausea, vomiting, abdominal pain, fever, chills, back pain, or any other complaints. Patient verbalized agreement and understanding with this treatment plan and discharge. Differential Diagnosis Differential Diagnoses: The differential diagnosis associated with the presentation includes Asthma Asthma exacerbation RSV COVID-19 Influenza Admission/Observation Consideration of admission/observation: Escalation of care including admission/observation considered Patient would have been admitted to the hospital had her work up had any findings where hospital admission was appropriate and her clinical presentation warranted hospital admission. Lab Data [facility] Lab Attestation statement: I reviewed the patient's lab results. My interpretation of these results are in the [facility] Rationale portion of this note. Labs: Lab Results 04/15/23 Range/Units 15:15 Influenza Type A (PCR) NEGATIVE (Negative) Influenza Type B (PCR) NEGATIVE (Negative) RSV RNA Qual (PCR) NEGATIVE (Negative) SARS-CoV-2 RNA (RT-PCR) NEGATIVE (Negative) Discharge Plan Discharge Clinical Impression: Asthma exacerbation Patient Disposition: Home, Self-Care Instructions: Asthma (DC) Additional Instructions: Follow up with your primary care provider. Return to the emergency department immediately if your symptoms worsen or if you develop any dizziness, shortness of breath, difficulty breathing, chest pain, blurry vision, loss of vision, nausea, vomiting, abdominal pain, fever, chills, back pain, or any other complaints. Prescriptions: New prednisone 20 mg tablet 20 mg PO DAILY 7 Days Qty: 7 0RF albuterol sulfate 90 mcg/actuation HFA aerosol inhaler 1 puff inhalation QID Qty: 8.5 0RF No Action cetirizine 10 mg tablet 10 mg PO DAILY Qty: 30 0RF famotidine 40 mg tablet 40 mg PO DAILY Qty: 30 5RF topiramate 50 mg tablet 50 mg PO BID 30 Days Qty: 60 5RF sumatriptan succinate 50 mg tablet See Rx Instructions PO .COMPLEX 30 Days Qty: 10 0RF Rx Instructions: take 1 tab at onset of headache; if no relief may repeat 1 tab after at least 2 hrs; max = 3 tabs/24 hr PO emtricitabine 200 mg capsule 200 mg PO DAILY 30 Days Qty: 30 0RF tenofovir disoproxil fumarate 300 mg tablet 300 mg PO DAILY 30 Days Qty: 30 0RF fluticasone propionate 50 mcg/actuation spray,suspension 1 spray intranasal DAILY Qty: 16 6RF Dupixent Syringe 300 mg/2 mL syringe 300 mg subcut Q2W Qty: 4 11RF albuterol sulfate 2.5 mg /3 mL (0.083 %) solution for nebulization 2.5 mg inhalation Q6H Qty: 90 0RF Combivent Respimat 20-100 mcg/actuation mist 1 puff PO Q6H PRN (Reason: for wheezing) Qty: 4 0RF albuterol sulfate [Ventolin HFA] 90 mcg/actuation HFA aerosol inhaler 2 puff PO Q4-6H PRN (Reason: for wheezing) Qty: 18 0RF alcohol swabs Pads, Medicated topical DIRECTED [employer] Misc miscellaneous DAILY riboflavin (vitamin B2) 400 mg tablet 400 mg PO DAILY 30 Days Qty: 30 3RF magnesium oxide 400 mg magnesium tablet 400 mg PO DAILY 30 Days Qty: 30 3RF fluticasone furoate-vilanterol [Breo Ellipta] 200-25 mcg/dose blister with device 1 inh inhalation DAILY 30 Days Qty: 1 6RF ipratropium-albuterol 0.5 mg-3 mg(2.5 mg base)/3 mL solution for nebulization 3 ml inhalation Q4-6H PRN (Reason: wheezing) 30 Days Qty: 270 6RF prednisone 20 mg tablet 40 mg PO DAILY 5 Days Qty: 10 0RF Referrals: [facility] [Provider Group] (Call to establish and follow up with a primary care provider. If you already have a primary care provider, please follow up with them.) [facility] [[facility]] (Call to establish and follow up with a primary care provider. If you already have a primary care provider, please follow up with them.) [facility] [Provider Group] (Call to establish and follow up with a primary care provider. If you already have a primary care provider, please follow up with them.) Stand Alone Forms: Work/School Release Interventions: ED Discharge Assessment Last Done: 04/15/23 17:01 Discharge Date/Time: 04/15/23 17:03 Print Language: Divehi
[2023-04-15 15:02] VITALS: BP 126/75; PULSE 115; RESP 20; TEMP 36.9; O2SAT 93; BMI 42.7
--- NOTE | 2023-04-15 15:05 | PC.NURSE ---
slight wheeze upper lobes. unlabored resp with ambulation
[2023-04-15 15:55] VITALS: PULSE 106; RESP 18; O2SAT 93
[2023-04-15 16:27] VITALS: PULSE 127; RESP 18; O2SAT 94
== END 2023-04-15 17:03 | disposition home or self-care (01) ==
PROVIDERS: Emergency Provider Student in an Organized Health Care Education/Training Program
DX: J45.901 Unspecified asthma with (acute) exacerbation (principal); Z20.822 Contact with and (suspected) exposure to COVID-19; Z20.828 Contact with and (suspected) exposure to other viral communicable diseases
CPT/HCPCS: 0241U; 94640; 96372; 99284; J2930

== ENCOUNTER 2023-06-22 08:44 | Emergency (ER) | payer OTHER, SELFPAY ==
[2023-06-22] VITALS (7 sets, daily range): BP systolic 118–150; BP diastolic 71–96; PULSE 87–106; RESP 16–20; TEMP 36.6–36.8; O2SAT 90–96; BMI 43.7
--- NOTE | ~2023-06-22 | XR_ITS ---
EXAMINATION: XR CHEST CLINICAL INFORMATION: SOB COMPARISON: Chest x-ray March 09, 2022 TECHNIQUE: 2 views of the chest were obtained. FINDINGS: Cardiac silhouette is normal in size. The lungs are well aerated. There is no lobar consolidation. No pleural effusion or pneumothorax. Mild degenerative changes of the spine. XR/XR chest 2V IMPRESSION: No acute pulmonary pathology.
--- NOTE | 2023-06-22 09:50 | ED_ITS ---
HPI - General Adult General Chief complaint: Dyspnea Stated complaint: SOB - asthma Time Seen by Provider: 06/22/23 09:41 History of Present Illness HPI narrative: The patient is a 38-year-old female with a history of asthma who has felt short of breath over the last 24 hours. Says that she has been coughing and when she coughs her chest hurts. She feels like this is an exacerbation of her asthma. She is frustrated because she says that for the last 5 months she has had what she considers recurrent episodes of shortness of breath that she attributes to asthma. She has been on multiple courses of prednisone over the last several months. Her last course of prednisone apparently finished a proximally 2 weeks ago. She has had a dry cough. No fever. No abdominal pain. No nausea or vomiting. No pain or swelling in her calves. The patient was last seen in the emergency room for something similar on April 15. At that time she was treated as an outpatient for an asthma exacerbation. She says that since that ER visit she has had other visits either with her PCP or at urgent care where she has been prescribed prednisone. Related Data Home Medications Medication Instructions Recorded Confirmed alcohol swabs pad topical DIRECTED 07/23/20 11/16/22 empty container ea miscellaneous DAILY 07/23/20 11/16/22 Previous Rx's Medication Instructions Recorded cetirizine 10 mg tablet 10 mg PO DAILY #30 tabs 01/20/20 sumatriptan succinate 50 mg tablet See Rx Instructions PO .COMPLEX 30 01/11/21 days #10 tabs topiramate 50 mg tablet 50 mg PO BID 30 days #60 tabs 01/11/21 emtricitabine 200 mg capsule 200 mg PO DAILY Post exposure 01/12/21 prophylaxis 1 month #30 caps tenofovir disoproxil fumarate 300 300 mg PO DAILY 1 month #30 tabs 01/29/21 mg tablet fluticasone propionate 50 1 spray intranasal DAILY #16 mL 04/15/21 mcg/actuation nasal spray,suspension Dupixent Syringe 300 mg/2 mL 300 mg (2 mL) subcut Q2W #4 mL 08/15/22 subcutaneous syringe (dupilumab) albuterol sulfate 2.5 mg/3 mL 2.5 mg (3 mL) inhalation Q6H #90 mL 09/20/22 (0.083 %) solution for nebulization Breo Ellipta 200 mcg-25 mcg/dose 1 inh inhalation DAILY 30 days #1 10/27/22 powder for inhalation (fluticasone ea furoate-vilanterol) ipratropium 0.5 mg-albuterol 3 mg 3 ml inhalation Q4-6H PRN wheezing 10/27/22 (2.5 mg base)/3 mL nebulization 30 days #270 mL soln magnesium oxide 400 mg PO DAILY 30 days #30 tabs 11/16/22 riboflavin (vitamin B2) 400 mg 400 mg PO DAILY 30 days #30 tabs 11/16/22 tablet prednisone 20 mg tablet 40 mg (2 x 20 mg) PO DAILY 5 days 02/15/23 #10 tabs albuterol sulfate 90 mcg/actuation 1 puff inhalation QID #8.5 grams 04/15/23 aerosol inhaler prednisone 20 mg tablet 20 mg PO DAILY 7 days #7 tabs 04/15/23 famotidine 40 mg tablet 40 mg PO DAILY #30 tabs 06/06/23 Ventolin HFA 90 mcg/actuation 2 puff PO Q4-6H PRN for wheezing 06/13/23 aerosol inhaler (albuterol sulfate) #18 ea ipratropium 20 mcg-albuterol 100 1 puff PO Q6H PRN for wheezing #4 06/13/23 mcg/actuation mist for inhalation mL (Combivent Respimat) azithromycin 250 mg tablet 250 mg PO DAILY 4 days #4 tabs 06/22/23 prednisone 20 mg tablet 40 mg (2 x 20 mg) PO DAILY 5 days 06/22/23 #10 tabs Allergies Allergy/AdvReac Type Severity Reaction Status Date / Time No Known Allergies Allergy Verified 04/15/23 15:02 [No Known Allergies*] Review of Systems Review of Systems: Yes all other systems are reviewed and are negative PMFSH Past Medical History Medical History Severe persistent asthma Bilateral otitis media Upper respiratory infection Screening due Needle stick injury with contaminated needle Seasonal allergies Asthma Social History Social History Housing: House Patient Tobacco Use Status: Never used Tobacco Cigarettes Per Day: 7 e-Cigarette/Vaping Use: Former Use Advance Directives: No Advance Directives Information Provided: Yes service: No Current occupational status: employed Cognitive needs: No Hearing needs: No Vision needs: No Physical Exam ED Vital Signs: Vital Signs - 24 hr 06/22/23 08:56 06/22/23 09:15 06/22/23 10:11 Temperature 98.2 F 98.1 F Pulse Rate 106 H 94 87 Respiratory Rate 18 20 16 Blood Pressure 150/96 H 131/91 H Pulse Oximetry 96 95 Oxygen Delivery Method Room Air Room Air 06/22/23 11:17 06/22/23 13:20 06/22/23 13:59 Temperature 97.8 F Pulse Rate 88 88 95 Respiratory Rate 18 20 20 Blood Pressure 118/92 H Pulse Oximetry 95 Oxygen Delivery Method Room Air BMI result Body Mass Index 43.7 Const Other: The patient is awake and alert. The patient does not appear in overt distress. There is occasional dry cough HENMT Other: Face is symmetrical. Mucous membranes moist. Pharynx unremarkable Eyes Other: Pupils are round equal, conjunctivae clear Neck Other: No significant adenopathy Resp Other: No obvious increased work of breathing. Diminished air entry bilaterally. Slight scattered wheezes bilaterally Cardio Other: The patient has a regular rate and rhythm with no murmur GI Other: Abdomen is soft and nontender Skin Other: Skin is dry and unremarkable Neuro Other: The patient is awake, alert, with a normal mental status. Cranial nerves are grossly intact. She moves all 4 extremities normally with normal coordination. She seems grossly neurologically intact. Extrem Other: No calf swelling or tenderness, no calf asymmetry, no edema. Medications Administered Discontinued Medications Generic Name Dose Route Start Last Admin Trade Name Freq PRN Reason Stop Dose Admin Albuterol Sulfate 5 mg 06/22/23 13:49 06/22/23 13:58 Albuterol Sulfate (0.083%) 2.5 Mg/3 Ml Vial.Neb INHALE 06/22/23 13:50 5 mg ONCE ONE Administration Albuterol/Ipratropium 3 ml 06/22/23 09:48 06/22/23 10:11 Albuterol/Iprat 2.5/0.5mg 3 Ml Ampul.Neb INHALE 06/22/23 09:49 3 ml ONCE ONE Administration Azithromycin 500 mg 06/22/23 12:31 06/22/23 13:42 Azithromycin 500 Mg Tablet PO 06/22/23 12:32 500 mg ONCE ONE Administration Albuterol Sulfate 2.5 mg/ 0 mg 06/22/23 12:43 06/22/23 12:46 Albuterol/Ipratropium 3 ml INHALE 06/22/23 12:44 1 dose ONCE ONE Administration Prednisone 60 mg 06/22/23 12:31 06/22/23 13:41 Prednisone 20 Mg Tablet PO 06/22/23 12:32 60 mg ONCE ONE Administration Medical Decision Making Medical Decision Making MDM Narrative: The patient presents with complaint of shortness of breath associated with wheezing. She feels this is similar to previous asthma exacerbations. She notes that she has had a lot of asthma exacerbations over the last 5 months and has been on several courses of prednisone. She says that very soon after finishing a course of prednisone her asthma seems to reactivate. Her last prednisone was 2 months ago. On exam today the patient has diminished air entry bilaterally with scattered wheezes bilaterally. She did not look acutely ill. Her exam seems consistent with asthma. Chest x-ray is negative. She is negative for influenza, RSV, and Covid. She was given updraft treatments here. She seemed to feel little bit better. Her oxygen saturation seems sufficiently adequate for outpatient management. She will be prescribed prednisone and azithromycin. 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 Given that she has had multiple asthma exacerbations and multiple courses of prednisone I have advised her to contact her hot metal mixer operator helper's office for follow-up. Lab Data Labs: Lab Results 06/22/23 Range/Units 09:19 Influenza Type A (PCR) NEGATIVE (Negative) Influenza Type B (PCR) NEGATIVE (Negative) RSV RNA Qual (PCR) NEGATIVE (Negative) SARS-CoV-2 RNA (RT-PCR) NEGATIVE (Negative) Discharge Plan Discharge Clinical Impression: Acute asthmatic bronchitis Patient Disposition: Home, Self-Care Instructions: Asthma (ED) Additional Instructions: You have been started on another course of prednisone. Please the prescription from the pharmacy and take your next dose tomorrow. You have also been started on a course of the antibiotic azithromycin. This alsi is once a day and next dose is tomorrow. Use your albuterol every 4 hours as needed for shortness of breath and wheezing. Please contact your pulmonology office and your primary care office. Please make sure you get follow-up with either or both next week. Return to the emergency room if significantly worse. Prescriptions: New prednisone 20 mg tablet 40 mg PO DAILY 5 Days Qty: 10 0RF azithromycin 250 mg tablet 250 mg PO DAILY 4 Days Qty: 4 0RF Rx Instructions: start on day 2 of therapy No Action cetirizine 10 mg tablet 10 mg PO DAILY Qty: 30 0RF topiramate 50 mg tablet 50 mg PO BID 30 Days Qty: 60 5RF sumatriptan succinate 50 mg tablet See Rx Instructions PO .COMPLEX 30 Days Qty: 10 0RF Rx Instructions: take 1 tab at onset of headache; if no relief may repeat 1 tab after at least 2 hrs; max = 3 tabs/24 hr PO emtricitabine 200 mg capsule 200 mg PO DAILY 30 Days Qty: 30 0RF tenofovir disoproxil fumarate 300 mg tablet 300 mg PO DAILY 30 Days Qty: 30 0RF fluticasone propionate 50 mcg/actuation spray,suspension 1 spray intranasal DAILY Qty: 16 6RF Dupixent Syringe 300 mg/2 mL syringe 300 mg subcut Q2W Qty: 4 11RF albuterol sulfate 2.5 mg /3 mL (0.083 %) solution for nebulization 2.5 mg inhalation Q6H Qty: 90 0RF famotidine 40 mg tablet 40 mg PO DAILY Qty: 30 5RF albuterol sulfate [Ventolin HFA] 90 mcg/actuation HFA aerosol inhaler 2 puff PO Q4-6H PRN (Reason: for wheezing) Qty: 18 0RF Combivent Respimat 20-100 mcg/actuation mist 1 puff PO Q6H PRN (Reason: for wheezing) Qty: 4 0RF prednisone 20 mg tablet 20 mg PO DAILY 7 Days Qty: 7 0RF albuterol sulfate 90 mcg/actuation HFA aerosol inhaler 1 puff inhalation QID Qty: 8.5 0RF alcohol swabs Pads, Medicated topical DIRECTED [employer] Misc miscellaneous DAILY riboflavin (vitamin B2) 400 mg tablet 400 mg PO DAILY 30 Days Qty: 30 3RF magnesium oxide 400 mg magnesium tablet 400 mg PO DAILY 30 Days Qty: 30 3RF fluticasone furoate-vilanterol [Breo Ellipta] 200-25 mcg/dose blister with device 1 inh inhalation DAILY 30 Days Qty: 1 6RF ipratropium-albuterol 0.5 mg-3 mg(2.5 mg base)/3 mL solution for nebulization 3 ml inhalation Q4-6H PRN (Reason: wheezing) 30 Days Qty: 270 6RF prednisone 20 mg tablet 40 mg PO DAILY 5 Days Qty: 10 0RF Referrals: Ryanne Guo MD [Primary Care Provider] - (recurrent asthma) Manny Sams MD [Physician] - (asthma, recurrent, persistent)
[2023-06-22 10:11] LABS: Influenza A PCR NEGATIVE (Negative); Influenza B PCR NEGATIVE (Negative); Resp Syncy Virus RNA Qual PCR NEGATIVE (Negative); SARS COV2 PCR INHOUSE NEGATIVE (Negative)
[2023-06-22] MEDS: Albuterol/Iprat 2.5/0.5MG 3 ML AMPUL.NEB INHALE (10:11)
[2023-06-22] MEDS: Albuterol Sulfate 2.5 MG, Albuterol/Iprat 2.5/0.5MG 3 ML 3 ML INHALE (12:46)
[2023-06-22] MEDS: predniSONE 20 MG TABLET 60 MG PO (13:41)
[2023-06-22] MEDS: Azithromycin 500 MG TABLET PO (13:42)
[2023-06-22] MEDS: Albuterol Sulfate (0.083%) 2.5 MG/3 ML VIAL.NEB 5 MG INHALE (13:58)
== END 2023-06-22 14:40 | disposition home or self-care (01) ==
PROVIDERS: Emergency Provider Emergency Medicine; PCP Internal Medicine
DX: J45.909 Unspecified asthma, uncomplicated (principal); R06.02 Shortness of breath; Z11.52 Encounter for screening for COVID-19; Z20.822 Contact with and (suspected) exposure to COVID-19
CPT/HCPCS: 0241U; 71046; 94640; 99283; 99285

== ENCOUNTER 2023-07-07 17:09 | Emergency (ER) | payer OTHER, SELFPAY ==
[2023-07-07] VITALS (7 sets, daily range): BP systolic 119–137; BP diastolic 68–86; PULSE 80–107; RESP 17–24; TEMP 36.7–36.8; O2SAT 91–96; BMI 43.1
--- NOTE | 2023-07-07 17:29 | PC.NURSE ---
Pt presents to ED from home via EMS for SOB since last night. Pt has hx of asthma with 2 past intubations, tried multiple treatments of albuterol at home with no improvements. EMS gave 1 duoneb and 125 mg of solu -medrol via IVP, pt reports some improvements after treatments but still feels short of breath. Pt also reports right sided sharp chest pains, 5/10, with breathing. Pt is alert and oriented, breathing slightly labored and elevated, skin clammy. Pt reports feeling anxious. Pt placed on bedside library monitor, NSR. RA SPO2 88-93%
[2023-07-07] MEDS: Magnesium Sulfate/H2O 2 GM/50 ML PIGGYBACK IV (18:00)
[2023-07-07] MEDS: Albuterol Sulfate 2.5 MG, Albuterol/Iprat 2.5/0.5MG 3 ML 3 ML INHALE (18:04)
--- NOTE | 2023-07-07 18:45 | ED.GENADULT ---
HPI - General Adult General Chief complaint: Dyspnea Stated complaint: Asthma exacerbation, on duo neb at 96% Time Seen by Provider: 07/07/23 17:34 Source: patient, RN notes reviewed and old records reviewed Mode of arrival: EMS Limitations: no limitations History of Present Illness HPI narrative: 38-year-old female presents for evaluation of shortness of breath. Patient reports that she has a long history of asthma. She reports that she uses albuterol, Dupixent and Breo for her asthma. She reports persistent asthma exacerbations over the last month or so. 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 Patient went to urgent care today and was told that she could not take prednisone because she was recently on it She states that after that visit she started to have a panic attack in her car and felt more shortness of breath prompting her to call an ambulance to come to the hospital Patient reports that at urgent care she was tested for COVID, influenza and was reportedly negative She denies any fevers, chest pain, leg swelling Related Data Home Medications Medication Instructions Recorded Confirmed alcohol swabs pad topical DIRECTED 07/23/20 11/16/22 empty container ea miscellaneous DAILY 07/23/20 11/16/22 Previous Rx's Medication Instructions Recorded cetirizine 10 mg tablet 10 mg PO DAILY #30 tabs 01/20/20 sumatriptan succinate 50 mg tablet See Rx Instructions PO .COMPLEX 30 01/11/21 days #10 tabs topiramate 50 mg tablet 50 mg PO BID 30 days #60 tabs 01/11/21 emtricitabine 200 mg capsule 200 mg PO DAILY Post exposure 01/12/21 prophylaxis 1 month #30 caps tenofovir disoproxil fumarate 300 300 mg PO DAILY 1 month #30 tabs 01/29/21 mg tablet fluticasone propionate 50 1 spray intranasal DAILY #16 mL 04/15/21 mcg/actuation nasal spray,suspension Dupixent Syringe 300 mg/2 mL 300 mg (2 mL) subcut Q2W #4 mL 08/15/22 subcutaneous syringe (dupilumab) albuterol sulfate 2.5 mg/3 mL 2.5 mg (3 mL) inhalation Q6H #90 mL 09/20/22 (0.083 %) solution for nebulization Breo Ellipta 200 mcg-25 mcg/dose 1 inh inhalation DAILY 30 days #1 10/27/22 powder for inhalation (fluticasone ea furoate-vilanterol) ipratropium 0.5 mg-albuterol 3 mg 3 ml inhalation Q4-6H PRN wheezing 10/27/22 (2.5 mg base)/3 mL nebulization 30 days #270 mL soln magnesium oxide 400 mg PO DAILY 30 days #30 tabs 11/16/22 riboflavin (vitamin B2) 400 mg 400 mg PO DAILY 30 days #30 tabs 11/16/22 tablet prednisone 20 mg tablet 40 mg (2 x 20 mg) PO DAILY 5 days 02/15/23 #10 tabs albuterol sulfate 90 mcg/actuation 1 puff inhalation QID #8.5 grams 04/15/23 aerosol inhaler prednisone 20 mg tablet 20 mg PO DAILY 7 days #7 tabs 04/15/23 famotidine 40 mg tablet 40 mg PO DAILY #30 tabs 06/06/23 ipratropium 20 mcg-albuterol 100 1 puff PO Q6H PRN for wheezing #4 06/13/23 mcg/actuation mist for inhalation mL (Combivent Respimat) azithromycin 250 mg tablet 250 mg PO DAILY 4 days #4 tabs 06/22/23 prednisone 20 mg tablet 40 mg (2 x 20 mg) PO DAILY 5 days 06/22/23 #10 tabs Ventolin HFA 90 mcg/actuation 2 puff PO Q4-6H PRN for wheezing 07/03/23 aerosol inhaler (albuterol sulfate) #18 ea prednisone 20 mg tablet 40 mg (2 x 20 mg) PO DAILY #10 tabs 07/07/23 Allergies Allergy/AdvReac Type Severity Reaction Status Date / Time No Known Allergies Allergy Verified 04/15/23 15:02 [No Known Allergies*] Review of Systems Constitutional: Constitutional: Denies body ache(s), Denies chills and Denies fever(s) ENT: Denies sore throat Cardiovascular: Cardiovascular: Denies chest pain and Reports dyspnea Respiratory: Respiratory: Reports dyspnea and Reports wheezing Gastrointestinal: Gastrointestinal: Denies abdominal pain and Denies nausea Musculoskeletal: Musculoskeletal: Denies back pain Integumentary/Breasts: Skin/Breast: Denies rash Allergic/Immunologic: Allergic/Immunologic: Reports wheezing PMFSH Past Medical History Medical History Severe persistent asthma Bilateral otitis media Upper respiratory infection Screening due Needle stick injury with contaminated needle Seasonal allergies Asthma Social History Social History Housing: House Patient Tobacco Use Status: Never used Tobacco Cigarettes Per Day: 7 Smoked in Last 30 Days: No e-Cigarette/Vaping Use: Former Use Use of substances other than those prescribed or required for medical reasons: No Advance Directives: No Advance Directives Information Provided: No service: No Current occupational status: employed Cognitive needs: No Hearing needs: No Vision needs: No Physical Exam ED Vital Signs: Vital Signs - 24 hr 07/07/23 17:18 07/07/23 17:27 07/07/23 18:06 Temperature 98.1 F 98.1 F Pulse Rate 100 96 80 Respiratory Rate 24 H 22 H 18 Blood Pressure 119/86 119/86 Pulse Oximetry 93 91 L Oxygen Delivery Method Room Air Room Air BMI result Body Mass Index 43.1 Const General: healthy appearing, no acute distress, alert and awake Nutritional Appearance: well nourished Orientation/consciousness: patient oriented x3 HENMT Head: Yes normocephalic and Yes atraumatic Eyes Eyelids: Yes eyelids normal Conjunctivae: conjunctivae normal Sclerae: sclerae normal Corneas: corneas normal Pupils: Equal, round and reactive pupils present EOM: EOMs intact bilaterally Neck Neck: Yes full ROM Resp Other: Slightly diminished breath sounds throughout. The patient does have bilateral wheezing in the expiratory phase.. She is able to speak in full sentences Effort & Inspection: normal respiratory effort, able to speak in complete sentences and not labored Cardio Rate: regular rate Rhythm: regular rhythm GI Inspection: No distended Palpation (GI): Soft to palpation, not firm, nontender, no guarding and not rigid Skin General skin exam: elasticity normal Neuro General: patient oriented x3 Cranial nerves: Yes Equal, round and reactive pupils present and Yes Bilaterally intact EOM present Cognition (Neuro): normal cognition Extrem Other: Moving all extremities well without any obvious deformities Medications Administered Generic Name Dose Route Start Last Admin Trade Name Freq PRN Reason Stop Dose Admin Magnesium Sulfate 2 gm in 50 mls @ 25 mls/hr 07/07/23 17:39 07/07/23 18:00 Magnesium Sulfate/H2o IV 07/07/23 19:38 25 mls/hr ONCE ONE Administration Discontinued Medications Generic Name Dose Route Start Last Admin Trade Name Kee PRN Reason Stop Dose Admin Albuterol Sulfate 2.5 mg/ 0 mg 07/07/23 18:02 07/07/23 18:04 Albuterol/Ipratropium 3 ml INHALE 07/07/23 18:03 1 dose ONCE ONE Administration Medical Decision Making Medical Decision Making [facility] Narrative: 38-year-old female with a long history of asthma presents for evaluation of shortness of breath. Clinically her exam is consistent with an asthma exacerbation. She was given a DuoNeb and Solu-Medrol from EMS prior to arrival. She reports feeling better already. She still has some wheeze on exam, so I will add on bronchodilator protocol and magnesium to be given IV. She has not tachycardic, her oxygen saturations around 91-94% on room air. Plan for treatment and re-evaluation, she had a chest x-ray 2 weeks ago, she is afebrile and denies coughing, I did not hear any unilateral adventitious breath sounds to suggest infectious cause. Will defer imaging at this time. I did discuss the patient avoidance of triggers such as smoking and secondhand smoke, PET dander and taking a daily allergy medication Differential Diagnosis Differential Diagnoses: The differential diagnosis associated with the presentation includes Asthma exacerbation Upper respiratory infection Bronchitis Pneumonia COVID-19 Influenza Tests considered The following testing was considered but not selected: Considered chest x-ray but ultimately deferred. Considered viral swabs however the patient had this done earlier today Discharge Plan Discharge Clinical Impression: Asthma Patient Disposition: Home, Self-Care Instructions: Asthma (ED) Additional Instructions: Take prednisone 40 mg daily for the next 5 days. Follow-up with your university demonstrator on Monday as planned I recommend taking daily allergy medication Use your inhalers as prescribed Return for new or worsening symptoms Prescriptions: New prednisone 20 mg tablet 40 mg PO DAILY Qty: 10 0RF No Action cetirizine 10 mg tablet 10 mg PO DAILY Qty: 30 0RF topiramate 50 mg tablet 50 mg PO BID 30 Days Qty: 60 5RF sumatriptan succinate 50 mg tablet See Rx Instructions PO .COMPLEX 30 Days Qty: 10 0RF Rx Instructions: take 1 tab at onset of headache; if no relief may repeat 1 tab after at least 2 hrs; max = 3 tabs/24 hr PO emtricitabine 200 mg capsule 200 mg PO DAILY 30 Days Qty: 30 0RF tenofovir disoproxil fumarate 300 mg tablet 300 mg PO DAILY 30 Days Qty: 30 0RF fluticasone propionate 50 mcg/actuation spray,suspension 1 spray intranasal DAILY Qty: 16 6RF Dupixent Syringe 300 mg/2 mL syringe 300 mg subcut Q2W Qty: 4 11RF albuterol sulfate 2.5 mg /3 mL (0.083 %) solution for nebulization 2.5 mg inhalation Q6H Qty: 90 0RF famotidine 40 mg tablet 40 mg PO DAILY Qty: 30 5RF Combivent Respimat 20-100 mcg/actuation mist 1 puff PO Q6H PRN (Reason: for wheezing) Qty: 4 0RF albuterol sulfate [Ventolin HFA] 90 mcg/actuation HFA aerosol inhaler 2 puff PO Q4-6H PRN (Reason: for wheezing) Qty: 18 0RF prednisone 20 mg tablet 40 mg PO DAILY 5 Days Qty: 10 0RF azithromycin 250 mg tablet 250 mg PO DAILY 4 Days Qty: 4 0RF Rx Instructions: start on day 2 of therapy prednisone 20 mg tablet 20 mg PO DAILY 7 Days Qty: 7 0RF albuterol sulfate 90 mcg/actuation HFA aerosol inhaler 1 puff inhalation QID Qty: 8.5 0RF alcohol swabs Pads, Medicated topical DIRECTED [employer] Misc miscellaneous DAILY riboflavin (vitamin B2) 400 mg tablet 400 mg PO DAILY 30 Days Qty: 30 3RF magnesium oxide 400 mg magnesium tablet 400 mg PO DAILY 30 Days Qty: 30 3RF fluticasone furoate-vilanterol [Breo Ellipta] 200-25 mcg/dose blister with device 1 inh inhalation DAILY 30 Days Qty: 1 6RF ipratropium-albuterol 0.5 mg-3 mg(2.5 mg base)/3 mL solution for nebulization 3 ml inhalation Q4-6H PRN (Reason: wheezing) 30 Days Qty: 270 6RF prednisone 20 mg tablet 40 mg PO DAILY 5 Days Qty: 10 0RF
--- NOTE | 2023-07-07 19:47 | MHC.EDTECH ---
Pt ambulated 100 ft with O2 being monitored. Pt tolerated activity well and O2 remained at a steady 96.
== END 2023-07-07 20:33 | disposition home or self-care (01) ==
PROVIDERS: Emergency Provider Internal Medicine; PCP Internal Medicine
DX: J45.50 Severe persistent asthma, uncomplicated (principal); R06.02 Shortness of breath; Z79.899 Other long term (current) drug therapy
CPT/HCPCS: 94640; 94664; 96374; 99284; 99285; J3475

== ENCOUNTER 2023-07-12 10:39 | Outpatient (AMB) | payer OTHER, SELFPAY ==
[2023-07-12 10:44] VITALS: BP 122/78; PULSE 104; O2SAT 97; BMI 42.1
--- NOTE | 2023-07-12 10:44 | MHC.OFFVIS ---
Intake Vital Signs 07/12/23 10:44 Height 5 ft 10 in Weight 293 lb 3.437 oz BMI 42.1 BP 122/78 Blood Pressure Location Rt brachial Position Sitting Pulse 104 H Pulse Source Doppler Pulse Oximetry (%) 97 Oxygen Delivery Method Room Air Intake Visit Reasons: Asthma follow-up Allergies No Known Allergies [No Known Allergies*] Allergy (Verified 07/12/23 10:48) HPI HPI Comments History of Present Illness Details 38-year-old lady active 10+ pack-year smoker followed for severe allergic asthma and environmental allergies. She has been using Breo, Dupixent, and Combivent previously with good control of her underlying symptoms. She has had a recent exacerbation treated with a course of prednisone. [facility] Medical History Severe persistent asthma Bilateral otitis media Upper respiratory infection Screening due Needle stick injury with contaminated needle Seasonal allergies Asthma Social History Housing: House Patient Tobacco Use Status: Never used Tobacco Cigarettes Per Day: 7 e-Cigarette/Vaping Use: Former Use service: No Current occupational status: employed Cognitive needs: No Hearing needs: No Vision needs: No Review of Systems Const Denies daytime sleepiness, Denies excessive sweating, Denies fatigue, Denies fever(s), Denies lethargy, Denies malaise, Denies night sweats, Denies snoring and Denies weight loss Eyes Denies blurry vision and Denies itchy eyes ENT Denies nasal congestion, Denies post nasal drip, Denies sinus pain, Denies sinus pressure and Denies other ( Thrush) Card Denies chest pain, Denies pedal edema, Denies dyspnea, Denies orthopnea and Denies paroxysmal nocturnal dyspnea Resp Denies cough, Denies hemoptysis, Denies excessive phlegm production, Denies dyspnea, Denies snoring and Denies wheezing GI Denies abdominal pain and Denies heartburn Musc Denies myalgias, Denies arthralgias and Denies joint swelling Skin/Breast Denies rash Neuro Denies memory loss and Denies seizure-like activity Psych Denies abnormal sleep pattern, Denies anxiety and Denies memory loss Endo Denies excessive sweating, Denies fatigue and Denies heat intolerance Sukumar/Lymph Denies easy bruising Aller/Immun Denies itchy eyes, Denies seasonal rhinorrhea and Denies wheezing Physical Exam Vital Signs: Last Vital Signs Pulse 104 H 07/12/23 10:44 BP 122/78 07/12/23 10:44 Pulse Ox 97 07/12/23 10:44 Oxygen Delivery Method Room Air 07/12/23 10:44 BMI result Body Mass Index 42.1 Const General: no acute distress and alert Nutritional Appearance: not obese Orientation/consciousness: Other orientation findings ( oriented) HEENT Head: Yes atraumatic Eyes General: appearance normal, both eyes and all related structures Sclerae: sclerae normal EOM: EOMs intact bilaterally Neck Neck: Yes supple Lymphatic: no lymphadenopathy noted Resp Effort & Inspection: normal respiratory effort and no use of accessory muscles Auscultation: clear to auscultation bilaterally Cardio Rate: regular rate Rhythm: regular rhythm Heart sounds: no gallops, no murmurs and no rubs Skin General skin exam: other ( warm) Extrem General: No clubbing, No cyanosis and No edema Assessment & Plan Assessment & Plan (1) Asthma: Code(s): J45.909 - Unspecified asthma, uncomplicated Plan: Now worsening control on Dupixent, Breo, albuterol MDI/nebs. Will request Xolair approval. (2) Environmental allergies: Code(s): Z91.09 - Other allergy status, other than to drugs and biological substances Plan: Worsening control on Dupixent, Zyrtec, Flonase. Will request Xolair approval. Coding Level of Care Code Est Pt Level 4 (18627) Diagnoses Asthma J45.909 Environmental allergies Z91.09
== END 2023-07-12 10:55 | disposition home or self-care (01) ==
PROVIDERS: PCP Internal Medicine; Visit Provider Internal Medicine Pulmonary Disease
DX: J45.909 Unspecified asthma, uncomplicated (principal); Z91.09 Other allergy status, other than to drugs and biological substances
CPT/HCPCS: 99214

== ENCOUNTER → 2023-07-12 10:39 | Outpatient (BNVA) | payer OTHER, SELFPAY | PROVIDERS: PCP Internal Medicine; Visit Provider Internal Medicine Pulmonary Disease | DX: J45.909 Unspecified asthma, uncomplicated (principal); Z91.09 Other allergy status, other than to drugs and biological substances | CPT/HCPCS: 99212 ==

== ENCOUNTER 2023-09-14 11:21 | Outpatient (AMB) | payer OTHER, SELFPAY ==
[2023-09-14 11:26] VITALS: BP 122/74; PULSE 116; O2SAT 96; BMI 41.4
--- NOTE | 2023-09-14 11:26 | MHC.OFFVIS ---
Vital Signs 09/14/23 11:26 Height 5 ft 10 in Weight 288 lb 12.889 oz BMI 41.4 BP 122/74 Blood Pressure Location Rt radial Position Sitting Pulse 116 H Pulse Source Doppler Pulse Oximetry (%) 96 Oxygen Delivery Method Room Air Intake Visit Reasons: Asthma Allergies No Known Allergies [No Known Allergies*] Allergy (Verified 07/12/23 10:48) HPI HPI Asthma: Details: 38-year-old lady active 10+ pack-year smoker followed for severe allergic asthma and environmental allergies. after the last office visit her Dupixent has been changed to Tezspire. She also continued on Breo and Combivent now with good control of her underlying asthma symptoms. patient also uses Zyrtec and Flonase for underlying environmental allergies. She denies any recent exacerbations. [facility] Medical History Severe persistent asthma Bilateral otitis media Upper respiratory infection Screening due Needle stick injury with contaminated needle Seasonal allergies Asthma Social History Housing: House Patient Tobacco Use Status: Never used Tobacco Cigarettes Per Day: 7 e-Cigarette/Vaping Use: Former Use service: No Current occupational status: employed Cognitive needs: No Hearing needs: No Vision needs: No Review of Systems Const Denies daytime sleepiness, Denies excessive sweating, Denies fatigue, Denies fever(s), Denies lethargy, Denies malaise, Denies night sweats, Denies snoring and Denies weight loss Eyes Denies blurry vision and Denies itchy eyes ENT Denies nasal congestion, Denies post nasal drip, Denies sinus pain, Denies sinus pressure and Denies other ( Thrush) Card Denies chest pain, Denies pedal edema, Denies dyspnea, Denies orthopnea and Denies paroxysmal nocturnal dyspnea Resp Denies cough, Denies hemoptysis, Denies excessive phlegm production, Denies dyspnea, Denies snoring and Denies wheezing GI Denies abdominal pain and Denies heartburn Musc Denies myalgias, Denies arthralgias and Denies joint swelling Skin/Breast Denies rash Neuro Denies memory loss and Denies seizure-like activity Psych Denies abnormal sleep pattern, Denies anxiety and Denies memory loss Endo Denies excessive sweating, Denies fatigue and Denies heat intolerance Sukumar/Lymph Denies easy bruising Aller/Immun Denies itchy eyes, Denies seasonal rhinorrhea and Denies wheezing Physical Exam Vital Signs: Last Vital Signs Pulse 116 H 09/14/23 11:26 BP 122/74 09/14/23 11:26 Pulse Ox 96 09/14/23 11:26 Oxygen Delivery Method Room Air 09/14/23 11:26 BMI result Body Mass Index 41.4 Const General: no acute distress and alert Nutritional Appearance: obese Orientation/consciousness: Other orientation findings ( oriented) HEENT Head: Yes atraumatic Eyes General: appearance normal, both eyes and all related structures Sclerae: sclerae normal EOM: EOMs intact bilaterally Neck Neck: Yes supple Lymphatic: no lymphadenopathy noted Resp Effort & Inspection: normal respiratory effort and no use of accessory muscles Auscultation: clear to auscultation bilaterally Cardio Rate: regular rate Rhythm: regular rhythm Heart sounds: no gallops, no murmurs and no rubs Skin General skin exam: other ( warm) Extrem General: No clubbing, No cyanosis and No edema Assessment & Plan Assessment & Plan (1) Asthma: Code(s): J45.909 - Unspecified asthma, uncomplicated Category: Medical Plan: Significantly improved control after switching Dupixent to Tezspire. continue current regimen including Breo, duo nebs, Combivent, and Tezspire. (2) Environmental allergies: Code(s): Z91.09 - Other allergy status, other than to drugs and biological substances Category: Medical Plan: Improved control after switching Dupixent to Tezspire. continue as needed Zyrtec and Flonase. Medications: Changed From albuterol sulfate 90 mcg/actuation 1 puff inhalation QID 8.5 grams 0RF To albuterol sulfate 90 mcg/actuation 1 puff inhalation QID PRN 8.5 grams 6RF shortness of breath or wheezing Refilled ipratropium-albuterol 20-100 mcg/actuation (Combivent Respimat) 1 puff PO Q6H PRN 4 mL 6RF for wheezing Breo Ellipta 200-25 mcg/dose (fluticasone furoate-vilanterol) 1 inh inhalation DAILY 1 ea 6RF 30 days NS Coding Level of Care Code Est Pt Level 4 (89653) Diagnoses Asthma J45.909 Environmental allergies Z91.09
== END 2023-09-14 11:38 | disposition home or self-care (01) ==
PROVIDERS: PCP Internal Medicine; Visit Provider Internal Medicine Pulmonary Disease
DX: J45.909 Unspecified asthma, uncomplicated (principal); Z91.09 Other allergy status, other than to drugs and biological substances
CPT/HCPCS: 99214

== ENCOUNTER → 2023-09-14 11:21 | Outpatient (BNVA) | payer OTHER, SELFPAY | PROVIDERS: PCP Internal Medicine; Visit Provider Internal Medicine Pulmonary Disease | DX: J45.909 Unspecified asthma, uncomplicated (principal); Z91.09 Other allergy status, other than to drugs and biological substances | CPT/HCPCS: 99212 ==

== ENCOUNTER 2024-02-27 16:09 | Outpatient (REF) | payer OTHER, SELFPAY | END 2024-02-27 16:10 | disposition home or self-care (01) | LOC: HO.LNP 16:09 | PROVIDERS: Visit Provider Internal Medicine Pulmonary Disease | DX: Z13.89 Encounter for screening for other disorder (principal) ==

== ENCOUNTER 2024-03-10 09:20 | Emergency (ER) | payer OTHER, SELFPAY ==
--- NOTE | ~2024-03-10 | XR_ITS ---
EXAMINATION: XR CHEST CLINICAL INFORMATION: cough COMPARISON: CXR on 06/22/23 TECHNIQUE: 2 views of the chest were obtained. FINDINGS: The cardiac silhouette is normal. There is mild diffuse bronchial wall thickening. There is consolidation in the lingula. There are no pleural effusions or pneumothoraces. The bones and soft tissues are unremarkable for the patient's age. XR/XR chest 2V IMPRESSION: Lingular pneumonia. Electronically signed by: Margret Junior MD 03/10/2024 09:56 AM [facility]
[2024-03-10 09:24] VITALS: BP 143/94; PULSE 126; RESP 20; TEMP 36.4; O2SAT 95; BMI 40.2
[2024-03-10 09:54] LABS: MANUAL DIFF FLAG NO
[2024-03-10 09:56] LABS: Basophils Absolute Auto 0.1 X10*3/uL (0.0-0.2); Basophils Percent Auto 0.3 % (0-2); Eosinophils Absolute Auto 0.4 X10*3/uL (0.0-0.4); Eosinophils Percent Auto 1.8 % (0-4); Hematocrit 43.2 % (37.0-47.0); Hemoglobin 14.8 g/dl (12.0-16.0); Imm Gran Pct Auto 0.5 % (0.0-0.4); Lymphocytes Absolute Auto 3.6 X10*3/uL (1.2-4.9); Lymphocytes Percent Auto 17.5 % (20-40); Mean Corpuscular HGB Conc 34.3 g/dl (31.0-35.0); Mean Corpuscular Volume 87.4 fL (80.0-98.0); Mean Platelet Volume 10.4 fL (9.4-12.3); Monocytes Absolute Auto 1.2 X10*3/uL (0.1-1.2); Neutrophils Absolute Auto 15.4 x10*3/uL (2.0-8.3); Neutrophils Percent Auto 73.9 % (45-73); Platelet Count 349 X10*3/uL (160-400); Red Blood Count 4.94 X10*6/uL (4.20-5.50); Red Cell Distribution Width 13.5 % (11.0-16.0); White Blood Count 20.8 X10*3/uL (4.8-10.8)
[2024-03-10 10:04] LABS: IDNOW Serial# 58CA691E; Strep A Nucleic Acid Negative (Negative)
[2024-03-10 10:18] LABS: Anion Gap 15 (12-20); Calcium 9.3 mg/dL (8.4-10.2); Carbon Dioxide 19 mmol/L (22-29); Chloride 107 mmol/L (96-108); Glucose Random 95 mg/dL (60-115); Potassium 3.7 mmol/L (3.3-5.1); Sodium 137 mmol/L (135-145)
[2024-03-10] MEDS: Albuterol Sulfate 2.5 MG, Albuterol/Iprat 2.5/0.5MG 3 ML 3 ML INHALE (10:18)
--- NOTE | 2024-03-10 10:19 | ED_ITS ---
HPI - General Adult General Chief complaint: Upper Respiratory Symptoms Stated complaint: sinus pressure,sob Time Seen by Provider: 03/10/24 09:46 Source: patient Mode of arrival: ambulatory Limitations: no limitations History of Present Illness ED Provider: Rhys Deleon PA-C HPI narrative: 39-year-old female with severe asthma, recent diagnosis of COVID 2 weeks ago presents to ED now with coughing up yellow phlegm, headache, sinus pain, body aches, chills, and slight shortness of breath due to asthma. Patient denies any leg swelling, calf pain, pleurisy, or coughing up blood. Patient was treated with Paxlovid for COVID. Patient was diagnosed with sinusitis yesterday at urgent care and prescribed Augmentin. Related Data Home Medications ?Medication ?Instructions ?Recorded ?Confirmed alcohol swabs pad topical DIRECTED 07/23/20 11/16/22 empty container ea miscellaneous DAILY 07/23/20 11/16/22 Previous Rx's ?Medication ?Instructions ?Recorded cetirizine 10 mg tablet 10 mg PO DAILY #30 tabs 01/20/20 sumatriptan succinate 50 mg tablet See Rx Instructions PO .COMPLEX 30 01/11/21 days #10 tabs topiramate 50 mg tablet 50 mg PO BID 30 days #60 tabs 01/11/21 emtricitabine 200 mg capsule 200 mg PO DAILY Post exposure 01/12/21 prophylaxis 1 month #30 caps tenofovir disoproxil fumarate 300 300 mg PO DAILY 1 month #30 tabs 01/29/21 mg tablet fluticasone propionate 50 1 spray intranasal DAILY #16 mL 04/15/21 mcg/actuation nasal spray,suspension albuterol sulfate 2.5 mg/3 mL 2.5 mg (3 mL) inhalation Q6H #90 mL 09/20/22 (0.083 %) solution for nebulization magnesium oxide 400 mg PO DAILY 30 days #30 tabs 11/16/22 riboflavin (vitamin B2) 400 mg 400 mg PO DAILY 30 days #30 tabs 11/16/22 tablet prednisone 20 mg tablet 20 mg PO DAILY 7 days #7 tabs 04/15/23 azithromycin 250 mg tablet 250 mg PO DAILY 4 days #4 tabs 06/22/23 tezepelumab-ekko 210 mg/1.91 mL 210 mg (1.91 mL) subcut Q4W 28 07/20/23 (110 mg/mL) subcutaneous syringe days #1.91 mL (Tezspire) Ventolin HFA 90 mcg/actuation 2 puff PO Q4-6H PRN for wheezing 08/31/23 aerosol inhaler (albuterol sulfate) #18 ea ipratropium 0.5 mg-albuterol 3 mg 3 ml inhalation Q4-6H PRN wheezing 09/13/23 (2.5 mg base)/3 mL nebulization 30 days #270 mL soln Breo Ellipta 200 mcg-25 mcg/dose 1 inh inhalation DAILY 30 days #1 09/14/23 powder for inhalation (fluticasone ea furoate-vilanterol) ipratropium 20 mcg-albuterol 100 1 puff PO Q6H PRN for wheezing #4 09/14/23 mcg/actuation mist for inhalation mL (Combivent Respimat) albuterol sulfate 90 mcg/actuation 1 puff inhalation QID PRN 10/30/23 aerosol inhaler shortness of breath or wheezing #8.5 grams famotidine 40 mg tablet 40 mg PO DAILY #90 tabs 12/08/23 nirmatrelvir 300 mg (150 mg See Rx Instructions PO .COMPLEX 02/28/24 x2)-ritonavir 100 mg tablet,dose #30 ea pack (Paxlovid) prednisone 20 mg tablet 40 mg (2 x 20 mg) PO DAILY #10 tabs 02/28/24 codeine 10 mg-guaifenesin 100 mg/5 5 ml PO Q6H PRN cold symptoms #118 03/10/24 mL oral liquid (Guaifenesin AC) mL doxycycline hyclate 100 mg tablet 100 mg PO BID 7 days #14 tabs 03/10/24 prednisone 20 mg tablet 40 mg (2 x 20 mg) PO DAILY 5 days 03/10/24 #10 tabs Allergies Allergy/AdvReac Type Severity Reaction Status Date / Time No Known Allergies Allergy Verified 03/10/24 09:26 [No Known Allergies*] Review of Systems 2 Review of Systems: Coughing, coughing yellow phlegm, body aches, chills, sinus pain Yes all other systems are reviewed and are negative PMFSH Past Medical History Medical History Severe persistent asthma Bilateral otitis media Upper respiratory infection Screening due Needle stick injury with contaminated needle Seasonal allergies Asthma Social History Social History Housing: House Patient Tobacco Use Status: Never used Tobacco Cigarettes Per Day: 7 Smoked in Last 30 Days: No e-Cigarette/Vaping Use: Former Use Use of substances other than those prescribed or required for medical reasons: No Advance Directives: No Advance Directives Information Provided: Yes Patient : No service: No Current occupational status: employed Cognitive needs: No Hearing needs: No Vision needs: No Physical Exam ED Vital Signs: Vital Signs - 24 hr 03/10/24 09:24 03/10/24 10:20 03/10/24 11:35 Temperature 97.5 F 97.7 F Pulse Rate 126 H 103 H 128 H Respiratory Rate 20 20 18 Blood Pressure 143/94 H 134/81 Pulse Oximetry 95 96 Oxygen Delivery Method Room Air Room Air 03/10/24 11:36 03/10/24 12:36 Temperature 97.7 F Pulse Rate 124 H Respiratory Rate 18 Blood Pressure 134/81 Pulse Oximetry 97 97 Oxygen Delivery Method Room Air BMI result Body Mass Index 40.2 Const General: cooperative, healthy appearing, comfortable, no acute distress, well developed, alert, awake and Physically active Orientation/consciousness: patient oriented x3 HENMT Head: Yes normal to inspection, Yes No palpable skull fracture present, Yes normocephalic and Yes atraumatic Throat: Yes posterior oropharynx normal, Yes tonsils normal and Yes uvula midline Eyes General: appearance normal, both eyes and all related structures Neck Neck: Yes normal visual inspection, Yes full ROM, Yes no lymphadenopathy, Yes no meningeal signs, Yes trachea midline, Yes supple, No anterior neck swelling and No tender Chest Chest palpation & inspection: normal inspection of the chest and normal palpation of entire chest wall Resp Effort & Inspection: normal respiratory effort and able to speak in complete sentences Auscultation: wheezes (Slight wheezing) Cardio Jugular venous distension: no JVD Heart sounds: S1 normal heart sound present and S2 normal heart sound present GI Inspection: Yes normal to inspection Palpation (GI): Soft to palpation, not firm, nontender, no guarding and not rigid General: Yes no CVA tenderness Back/Spine/Pelvis Back: no CVA tenderness and No back tenderness Skin General skin exam: no rashes or lesions noted, elasticity normal and turgor normal Neuro General: patient oriented x3, gait normal, tone normal, moves all extremities, Normal light touch and pain sensation, no meningeal signs, no focal motor deficits, CN's II-XI intact bilaterally and normal sensation to monofilament Extrem General: Yes normal to inspection, Yes full ROM and Yes capillary refill normal Psych Appearance: grossly normal, well kempt and not disheveled Medications Administered Discontinued Medications Generic Name Dose Route Start Last Admin Trade Name Kee PRN Reason Stop Dose Admin Acetaminophen 975 mg 03/10/24 11:09 03/10/24 11:13 Acetaminophen 325 Mg Tablet PO 03/10/24 11:10 975 mg ONCE ONE Administration Albuterol Sulfate 2.5 mg/ 0 mg 03/10/24 10:15 03/10/24 10:18 Albuterol/Ipratropium 3 ml INHALE 03/10/24 10:16 5 dose ONCE ONE Administration Sodium Chloride 1,000 mls @ 999 mls/hr 03/10/24 10:22 03/10/24 11:55 Ns IV 03/10/24 11:22 Infused .Q1H1M STA Infusion Medical Decision Making Medical Decision Making MDM Narrative: 39-year-old female presents to ED for shortness of breath with coughing yellow phlegm body aches and chills. Initial chest x-ray [place] [id number] tachycardic 126. Will add lactic and blood culture albuterol treatment ambulatory oxygen test and fluids. 12:04pm: Patient's oxygen saturation maintain at at 97% on ambulation test. Patient is not in any respiratory distress. Lactic acid is negative. Case discussed with hospitalist Bernard who states on the unlikely patient will be admitted but recommend speaking with supervising attending to evaluate patient. Case discussed with supervising Dr. Youssef who agree patient could be discharged but recommend adding doxycycline. Patient was prescribed augmentin yesterday. Patient had COVID about a week and half ago no need for Decadron. Patient informed to follow-up with her legal editor tomorrow Dr. Sams. Not suspecting PE, myocarditis, CHF, pericarditis, myocardial infarction, pneumothorax, hemothroax. Patient explained worrisome signs and informed to return to the ED immediately. Patient informed to continue taking her Augmentin and also take doxycycline. Patient has sustained tachycardia due to albuterol inhaler. 12;41pm: Patient states she was informed by pharmacy that they do not cover benzonatate coughing medication. Patient has severe coughing wants medication to help with coughing sleep. guasenefine witht codeine was sent to the pharmacy. Patient informed to take as prescribed and only for 3 days days. Patient explained risk of respiratory compromise/depression if she overdose on coughing medication. Differential Diagnosis Differential Diagnoses: The differential diagnosis associated with the presentation includes (Pneumonia) Admission/Observation Consideration of admission/observation: Escalation of care including admission/observation considered Consult Healthcare Provider Management of the patient was discussed with: Hospitalist (Dr. Wagner) Lab Data MDM Lab Attestation statement: I reviewed the patient's lab results. 03/10/24 09:50 03/10/24 09:50 Labs: Lab Results 03/10/24 03/10/24 Range/Units 09:50 10:43 WBC 20.8 H (4.8-10.8) X10*3/uL RBC 4.94 (4.20-5.50) X10*6/uL Hgb 14.8 (12.0-16.0) g/dl Hct 43.2 (37.0-47.0) % MCV 87.4 (80.0-98.0) fL MCH 30.0 (27.0-33.0) pg MCHC 34.3 (31.0-35.0) g/dl RDW 13.5 (11.0-16.0) % Plt Count 349 (160-400) X10*3/uL MPV 10.4 (9.4-12.3) fL Immature Gran % (Auto) 0.5 H (0.0-0.4) % Neut % (Auto) 73.9 H (45-73) % Lymph % (Auto) 17.5 L (20-40) % [place] % (Auto) 6.0 (2-11) % Eos % (Auto) 1.8 (0-4) % Baso % (Auto) 0.3 (0-2) % Lymph # (Auto) 3.6 (1.2-4.9) X10*3/uL [place] # (Auto) 1.2 (0.1-1.2) X10*3/uL Eos # (Auto) 0.4 (0.0-0.4) X10*3/uL Baso # (Auto) 0.1 (0.0-0.2) X10*3/uL Abs Immat Gran (auto) 0.10 H (0.00-0.03) X10*3/uL Absolute Neuts (auto) 15.4 H (2.0-8.3) x10*3/uL Absolute Nucleated RBC 0.000 (0.0-0.012) X10*3/uL Nucleated RBC % (auto) 0.0 (0.0-0.2) /100WBC Sodium 137 (135-145) mmol/L Potassium 3.7 (3.3-5.1) mmol/L Chloride 107 (96-108) mmol/L Carbon Dioxide 19 L (22-29) mmol/L Anion Gap 15 (12-20) BUN 12 (9-16) mg/dL Creatinine 0.89 (0.5-1.4) mg/dL Estim Creat Clear Calc 125.5 Estimated GFR > 60 Random Glucose 95 (60-115) mg/dL Lactic Acid 1.2 (0.5-2.0) mmol/L Calcium 9.3 (8.4-10.2) mg/dL Influenza Type A (PCR) NEGATIVE (Negative) Influenza Type B (PCR) NEGATIVE (Negative) RSV RNA Qual (PCR) NEGATIVE (Negative) SARS-CoV-2 RNA (RT-PCR) POSITIVE A (Negative) S. pyogenes GrpA DAVID Negative (Negative) Independent Interpretation I performed an independent interpretation of an: Plain X-Ray Radiology Impression Discussion of test interpretation with radiology: I have reviewed the radiologist's reading. Independent Historian Clinical information obtained from an independent historian. History obtained from or confirmed by: Other (patient) External Record Review External record reviewed: Other (Prior visits) Prescription Management I considered prescription management with: Antibiotic Discharge Plan Discharge Clinical Impression: Pneumonia Patient Disposition: Home, Self-Care Instructions: Community Acquired Pneumonia (ED), COVID-19 (Coronavirus Disease 2019) (ED) Additional Instructions: You still tested positive COVID which is not unusual due to you testing positive for COVID on the 02/26. Paxlovid can cause balance by COVID symptoms. Your chest x-ray did show a new pneumonia. Continue taking Augmentin you were prescribed yesterday. Doxycycline will be added for you to take. Recommend calling your legal editor Dr. Sams tomorrow for immediate follow-up. Return to ED immeteiadely for Shortness of breath, coughing up blood, calf pain, fever, chills, weakness, dizziness, chest pain, or any other concerning symptoms. FINDINGS: The cardiac silhouette is normal. There is mild diffuse bronchial wall thickening. There is consolidation in the lingula. There are no pleural effusions or pneumothoraces. The bones and soft tissues are unremarkable for the patient's age. XR/XR chest 2V IMPRESSION: Lingular pneumonia. Electronically signed by: Margret Junior MD 03/10/2024 09:56 AM [facility] [place]criptions: New doxycycline hyclate 100 mg tablet 100 mg PO BID 7 Days Qty: 14 0RF prednisone 20 mg tablet 40 mg PO DAILY 5 Days Qty: 10 0RF codeine-guaifenesin [Guaifenesin AC] 10-100 mg/5 mL liquid 5 ml PO Q6H PRN (Reason: cold symptoms) Qty: 118 0RF No Action cetirizine 10 mg tablet 10 mg PO DAILY Qty: 30 0RF topiramate 50 mg tablet 50 mg PO BID 30 Days Qty: 60 5RF sumatriptan succinate 50 mg tablet See Rx Instructions PO .COMPLEX 30 Days Qty: 10 0RF Rx Instructions: take 1 tab at onset of headache; if no relief may repeat 1 tab after at least 2 hrs; max = 3 tabs/24 hr PO emtricitabine 200 mg capsule 200 mg PO DAILY 30 Days Qty: 30 0RF tenofovir disoproxil fumarate 300 mg tablet 300 mg PO DAILY 30 Days Qty: 30 0RF fluticasone propionate 50 mcg/actuation spray,suspension 1 spray intranasal DAILY Qty: 16 6RF albuterol sulfate 2.5 mg /3 mL (0.083 %) solution for nebulization 2.5 mg inhalation Q6H Qty: 90 0RF Tezspire 210 mg/1.91 mL (110 mg/mL) syringe 210 mg subcut Q4W 28 Days Qty: 1.91 12RF albuterol sulfate [Ventolin HFA] 90 mcg/actuation HFA aerosol inhaler 2 puff PO Q4-6H PRN (Reason: for wheezing) Qty: 18 0RF ipratropium-albuterol 0.5 mg-3 mg(2.5 mg base)/3 mL solution for nebulization 3 ml inhalation Q4-6H PRN (Reason: wheezing) 30 Days Qty: 270 6RF albuterol sulfate 90 mcg/actuation HFA aerosol inhaler 1 puff inhalation QID PRN (Reason: shortness of breath or wheezing) Qty: 8.5 6RF famotidine 40 mg tablet 40 mg PO DAILY Qty: 90 1RF Paxlovid 300 mg (150 mg x 2)-100 mg tablets,dose pack See Rx Instructions PO .COMPLEX Qty: 30 0RF Rx Instructions: take TWO 150 mg tablets of nirmatrelvir with ONE 100 mg tablet of ritonavir twice daily for 5 days PO prednisone 20 mg tablet 40 mg PO DAILY Qty: 10 0RF azithromycin 250 mg tablet 250 mg PO DAILY 4 Days Qty: 4 0RF Rx Instructions: start on day 2 of therapy prednisone 20 mg tablet 20 mg PO DAILY 7 Days Qty: 7 0RF alcohol swabs Pads, Medicated topical DIRECTED [employer] Misc miscellaneous DAILY riboflavin (vitamin B2) 400 mg tablet 400 mg PO DAILY 30 Days Qty: 30 3RF magnesium oxide 400 mg magnesium tablet 400 mg PO DAILY 30 Days Qty: 30 3RF fluticasone furoate-vilanterol [Breo Ellipta] 200-25 mcg/dose blister with device 1 inh inhalation DAILY 30 Days Qty: 1 6RF Combivent Respimat 20-100 mcg/actuation mist 1 puff PO Q6H PRN (Reason: for wheezing) Qty: 4 6RF Referrals: Ryanne Guo MD [Primary Care Provider] - (COVID with superimposed pneumonia) Manny Sams MD [Physician] - (COVID with now superimposed pneumonia) Stand Alone Forms: Work/School Release Interventions: ED Discharge Assessment Last Done: 03/10/24 12:36 Discharge Date/Time: 03/10/24 12:38 Print Language: Stateless
[2024-03-10 10:20] VITALS: PULSE 103; RESP 20; O2SAT 95
[2024-03-10 10:33] LABS: Influenza A PCR NEGATIVE (Negative); Influenza B PCR NEGATIVE (Negative); Resp Syncy Virus RNA Qual PCR NEGATIVE (Negative); SARS COV2 PCR INHOUSE POSITIVE (Negative)
[2024-03-10 10:38] LABS: Blood Urea Nitrogen 12 mg/dL (9-16); Creatinine Clr Calc Pharmacy 125.5; Estimated Glomerular Filt Rate > 60
[2024-03-10] MEDS: 0.9 % Sodium Chloride 1,000 ML 999 ML IV (10:55)
[2024-03-10 11:04] LABS: Lactic Acid 1.2 mmol/L (0.5-2.0)
[2024-03-10] MEDS: Acetaminophen 325 MG TABLET 975 MG PO (11:13)
[2024-03-10 11:35] VITALS: BP 134/81; PULSE 128; RESP 18; TEMP 36.5; O2SAT 96
[2024-03-10 11:36] VITALS: O2SAT 97
[2024-03-10 12:36] VITALS: BP 134/81; PULSE 124; RESP 18; TEMP 36.5; O2SAT 97
== END 2024-03-10 12:38 | disposition home or self-care (01) ==
PROVIDERS: Physician Assistant; Emergency Provider Emergency Medicine; PCP Internal Medicine
DX: J18.9 Pneumonia, unspecified organism (principal); R05.9 Cough, unspecified; M79.10 Myalgia, unspecified site; R51.9 Headache, unspecified; Z03.818 Encounter for observation for suspected exposure to other biological agents ruled out; Z79.899 Other long term (current) drug therapy
CPT/HCPCS: 0241U; 36415; 71046; 80048; 83605; 85025; 87040; 87651; 94640; 96360; 99284; 99285

== ENCOUNTER 2024-03-12 19:39 | Inpatient (IN) | payer OTHER, SELFPAY ==
--- NOTE | ~2024-03-12 | CT_ITS ---
EXAMINATION: CT ANGIOGRAM OF THE CHEST WITH AND WITHOUT CONTRAST (CT PULMONARY ANGIOGRAM FOR PE) CLINICAL INFORMATION: Hypoxia after COVID COMPARISON: Chest radiograph 03/10/2024, CT PE study 04/11/2017 TECHNIQUE: Prior to contrast administration, noncontrast localization images were obtained. Subsequently, multidetector volumetric imaging was performed from the thoracic inlet to the pubic symphysis through the chest, abdomen, and pelvis following the administration of 85 mL Omnipaque 350 intravenous contrast. No contrast reaction reported Sagittal, coronal, and MIP oblique sagittal (through the chest only) reformatted images were obtained on the CT workstation, uploaded to PACS, and reviewed. This CT examination was performed using dose optimization techniques as appropriate, variously including the following: *Automated exposure control *Adjustment of mA and/or kV according to patient size (this includes techniques or standardized protocols for targeted exams where dose is matched to indication/reason for exam; i.e. extremities or head) *Use of iterative reconstruction technique Total exam dose-length product: 352 mGy-cm FINDINGS: QUALITY OF STUDY/CONTRAST BOLUS: Borderline PULMONARY ARTERIES: No central or segmental pulmonary emboli. CORONARY ARTERY CALCIUM: None appreciated THORACIC AORTA: No aneurysm or dissection. Marked artifact present in the thoracic aorta LUNG: There is mild emphysema and bronchial thickening. There is a left upper lobe groundglass opacity measuring 0.8 x 1.3 x 1.0 cm (6:105+ rodriguez image). No solid nodules. PLEURA: No pleural effusion or pneumothorax. MEDIASTINUM: Normal heart size. No pericardial effusion. No hilar or mediastinal lymphadenopathy. No evidence of septal bowing or right heart strain. CHEST WALL/AXILLA: No axillary or internal mammary lymphadenopathy. OSSEOUS STRUCTURES: No acute or suspicious osseous abnormality. VISUALIZED ABDOMEN: No significant findings in the upper abdomen. CT/CT angio chest PE protocol IMPRESSION: 1. No evidence of pulmonary emboli. 2. Mild emphysema and bronchial thickening. 3. Left upper lobe groundglass opacity measuring 0.8 x 1.3 x 1.0 cm. VTE: negative. Fleischner guidelines were followed. Electronically signed by: Mitchell Collins MD 03/13/2024 12:[address] [facility]
[2024-03-12 19:49] VITALS: BP 122/53; BP 137/80; PULSE 120; PULSE 124; RESP 17; TEMP 36.8; O2SAT 92; O2SAT 93; BMI 40.2
[2024-03-12 20:00] VITALS: PULSE 118
[2024-03-12] MEDS: 0.9 % Sodium Chloride 1,000 ML 999 ML IV (20:13)
[2024-03-12] MEDS: methylPREDNISolone Sod Succ 125 MG/2 ML VIAL 60 MG IVPUSH (20:13)
[2024-03-12] MEDS: cefTRIAXone sodium 1 GM VIAL IVPUSH (20:13)
[2024-03-12] MEDS: Magnesium Sulfate/H2O 2 GM/50 ML PIGGYBACK IV (20:13)
[2024-03-12 20:16] LABS: MANUAL DIFF FLAG NO
[2024-03-12 20:19] LABS: Basophils Percent Auto 0.2 % (0-2); Hematocrit 40.2 % (37.0-47.0); Hemoglobin 13.7 g/dl (12.0-16.0); Imm Gran Abs Auto 0.11 X10*3/uL (0.00-0.03); Imm Gran Pct Auto 0.6 % (0.0-0.4); Lymphocytes Absolute Auto 1.8 X10*3/uL (1.2-4.9); Lymphocytes Percent Auto 10.3 % (20-40); Mean Corpuscular HGB Conc 34.1 g/dl (31.0-35.0); Mean Corpuscular Volume 88.2 fL (80.0-98.0); Mean Platelet Volume 10.1 fL (9.4-12.3); Monocytes Absolute Auto 0.4 X10*3/uL (0.1-1.2); Monocytes Percent Auto 2.3 % (2-11); Neutrophils Absolute Auto 15.2 x10*3/uL (2.0-8.3); Neutrophils Percent Auto 86.6 % (45-73); Platelet Count 355 X10*3/uL (160-400); Red Blood Count 4.56 X10*6/uL (4.20-5.50); Red Cell Distribution Width 13.7 % (11.0-16.0); White Blood Count 17.6 X10*3/uL (4.8-10.8)
--- NOTE | 2024-03-12 20:35 | ED.SOB ---
HPI - SOB/Dyspnea General Chief Complaint: Dyspnea Stated Complaint: Asthma exacerbation Time Seen by Provider: 03/12/24 19:42 Source: patient, EMS and old records reviewed Mode of arrival: EMS Limitations: no limitations History of Present Illness ED Provider: KASI HUGHES Narrative: 39 yo female with PMH of severe allergic asthma managed by Dr. Sams she receives Tezspire, breo and combivent - she is vaccinated against COVID. She is a 10+ pack year smoker. She was sick with COVID since 02/26 and ever since then she cannot get better. She was started on augmentin 03/09 for sinusitis, seen here 03/10 and started on 5 day prednisone and doxy for lingula pneumonia. She states she is using her nebs all day. O2 sats are 89-93% on RA. She states she is exhausted she gets tearful at times. Placed on 2L NC by EMS for 89% and given meredith VORA elicited complaint: shortness of breath and cough Pertinent past history: asthma Onset (ago): week(s) (since 02/26) Context: recent illness Timing: progressively worsening Severity: severe Exacerbating factors: exertion, movement and coughing Relieving factors: rest and bronchodilators Known history of: asthma Associated symptoms: cough, wheezing and sputum production Treatment prior to arrival: oxygen and bronchodilator Related Data Home Medications ?Medication ?Instructions ?Recorded ?Confirmed alcohol swabs pad topical DIRECTED 07/23/20 11/16/22 empty container ea miscellaneous DAILY 07/23/20 11/16/22 Previous Rx's ?Medication ?Instructions ?Recorded cetirizine 10 mg tablet 10 mg PO DAILY #30 tabs 01/20/20 sumatriptan succinate 50 mg tablet See Rx Instructions PO .COMPLEX 30 01/11/21 days #10 tabs topiramate 50 mg tablet 50 mg PO BID 30 days #60 tabs 01/11/21 emtricitabine 200 mg capsule 200 mg PO DAILY Post exposure 01/12/21 prophylaxis 1 month #30 caps tenofovir disoproxil fumarate 300 300 mg PO DAILY 1 month #30 tabs 01/29/21 mg tablet fluticasone propionate 50 1 spray intranasal DAILY #16 mL 04/15/21 mcg/actuation nasal spray,suspension albuterol sulfate 2.5 mg/3 mL 2.5 mg (3 mL) inhalation Q6H #90 mL 09/20/22 (0.083 %) solution for nebulization magnesium oxide 400 mg PO DAILY 30 days #30 tabs 11/16/22 riboflavin (vitamin B2) 400 mg 400 mg PO DAILY 30 days #30 tabs 11/16/22 tablet prednisone 20 mg tablet 20 mg PO DAILY 7 days #7 tabs 04/15/23 azithromycin 250 mg tablet 250 mg PO DAILY 4 days #4 tabs 06/22/23 tezepelumab-ekko 210 mg/1.91 mL 210 mg (1.91 mL) subcut Q4W 28 07/20/23 (110 mg/mL) subcutaneous syringe days #1.91 mL (Tezspire) Ventolin HFA 90 mcg/actuation 2 puff PO Q4-6H PRN for wheezing 08/31/23 aerosol inhaler (albuterol sulfate) #18 ea ipratropium 0.5 mg-albuterol 3 mg 3 ml inhalation Q4-6H PRN wheezing 09/13/23 (2.5 mg base)/3 mL nebulization 30 days #270 mL soln Breo Ellipta 200 mcg-25 mcg/dose 1 inh inhalation DAILY 30 days #1 09/14/23 powder for inhalation (fluticasone ea furoate-vilanterol) ipratropium 20 mcg-albuterol 100 1 puff PO Q6H PRN for wheezing #4 09/14/23 mcg/actuation mist for inhalation mL (Combivent Respimat) albuterol sulfate 90 mcg/actuation 1 puff inhalation QID PRN 10/30/23 aerosol inhaler shortness of breath or wheezing #8.5 grams famotidine 40 mg tablet 40 mg PO DAILY #90 tabs 12/08/23 nirmatrelvir 300 mg (150 mg See Rx Instructions PO .COMPLEX 02/28/24 x2)-ritonavir 100 mg tablet,dose #30 ea pack (Paxlovid) prednisone 20 mg tablet 40 mg (2 x 20 mg) PO DAILY #10 tabs 02/28/24 codeine 10 mg-guaifenesin 100 mg/5 5 ml PO Q6H PRN cold symptoms #118 03/10/24 mL oral liquid (Guaifenesin AC) mL doxycycline hyclate 100 mg tablet 100 mg PO BID 7 days #14 tabs 03/10/24 prednisone 20 mg tablet 40 mg (2 x 20 mg) PO DAILY 5 days 03/10/24 #10 tabs Allergies Allergy/AdvReac Type Severity Reaction Status Date / Time No Known Allergies Allergy Verified 03/12/24 19:51 [No Known Allergies*] Review of Systems Review of Systems: Constitutional : No Fever, pos Chills ENT/Mouth : No Hoarseness, No sore throat, pos Rhinorrhea Eyes: No Redness, No Discharge, No Vision Changes Cardiovascular : No Chest Pain, positive SOB, positive Dyspnea on Exertion, No Edema Respiratory : positive Cough, pos Sputum, positive Wheezing, Gastrointestinal : No Nausea, No Vomiting, No Diarrhea, No abdominal Pain Genitourinary : No Dysuria, No Hematuria Musculoskeletal : No joint pain, No Myalgias Skin : No rash Neuro : No Weakness, No Numbness, No Headache Psych : No anxiety, depression Heme/Lymph: No Bruising, No Bleeding Endocrine : No Polyuria, No Polydipsia All other systems reviewed and are negative PMFSH Past Medical History Attestation statement: The following information was validated with the patient. Source: old records reviewed Medical History Severe persistent asthma Bilateral otitis media Upper respiratory infection Screening due Needle stick injury with contaminated needle Seasonal allergies Asthma Social History Social History Housing: House Patient Tobacco Use Status: Never used Tobacco Cigarettes Per Day: 7 e-Cigarette/Vaping Use: Former Use service: No Current occupational status: employed Cognitive needs: No Hearing needs: No Vision needs: No Physical Exam Vital Signs: Vital Signs: Last Vital Signs Temp 98.2 F 03/12/24 19:49 Pulse 124 H 03/12/24 19:49 Resp 17 03/12/24 19:49 BP 137/0 L 03/12/24 19:49 Pulse Ox 93 03/12/24 19:49 O2 Del Method Room Air 03/12/24 19:49 BMI result Body Mass Index 40.2 Appearance: Alert. Oriented X3. Mild acute distress. Eyes: Pupils equal, round and reactive to light. ENT: Pharynx normal. Neck: Normal inspection. Neck supple. CVS: tachycardic heart rate and rhythm. Pulses normal. Respiratory: Mild respiratory distress - tachypnea and retractions. Breath sounds coarse and exp wheezes throughout Abdomen: Soft and non-tender. Skin: Skin warm and dry. Normal skin color. Extremities: No lower extremity edema. Neuro: Oriented X 3. No motor deficit. No sensory deficit. Course Course Course Narrative: signed out to Monty PENG pending labs and CTA. Medications Administered Generic Name Dose Route Start Last Admin Trade Name Freq PRN Reason Stop Dose Admin Sodium Chloride 1,000 mls @ 999 mls/hr 03/12/24 19:52 03/12/24 20:13 Ns IV 03/12/24 20:52 999 mls/hr .Q1H1M ONE Administration Discontinued Medications Generic Name Dose Route Start Last Admin Trade Name Freq PRN Reason Stop Dose Admin Ceftriaxone Sodium 1 gm 03/12/24 19:52 03/12/24 20:13 Ceftriaxone Sodium 1 Gm Vial IVPUSH 03/12/24 19:53 1 gm ONCE ONE Administration Magnesium Sulfate 2 gm in 50 mls @ 150 mls/hr 03/12/24 19:56 03/12/24 20:13 Magnesium Sulfate/H2o IV 03/12/24 20:15 150 mls/hr ONCE ONE Administration Methylprednisolone Sodium Succinate 60 mg 03/12/24 19:52 03/12/24 20:13 Methylprednisolone Sod Succ 125 Mg/2 Ml Vial IVPUSH 03/12/24 19:53 60 mg ONCE ONE Administration Medical Decision Making Medical Decision Making [facility] Narrative: 39 yo female with PMH of severe allergic asthma managed by Dr. Sams here with c/o worsening asthma, dyspnea since 02/26 - at this time will need basic labs, cultures, lactic acid, IV steroids, IV magnesium, empiric ceftriaxone given her presentation and symptoms persistent and no improvement with treatments after starting with COVID I am going to obtain CTA of chest. Differential Diagnosis Differential Diagnoses: The differential diagnosis associated with the presentation includes pneumonia, asthma, VTE Admission/Observation Consideration of admission/observation: Escalation of care including admission/observation considered Lab Data [facility] Lab Attestation statement: I reviewed the patient's lab results. 03/12/24 20:09 03/12/24 20:09 Labs: Lab Results 03/12/24 Range/Units 20:09 WBC 17.6 H (4.8-10.8) X10*3/uL RBC 4.56 (4.20-5.50) X10*6/uL Hgb 13.7 (12.0-16.0) g/dl Hct 40.2 (37.0-47.0) % MCV 88.2 (80.0-98.0) fL MCH 30.0 (27.0-33.0) pg MCHC 34.1 (31.0-35.0) g/dl RDW 13.7 (11.0-16.0) % Plt Count 355 (160-400) X10*3/uL MPV 10.1 (9.4-12.3) fL Immature Gran % (Auto) 0.6 H (0.0-0.4) % Neut % (Auto) 86.6 H (45-73) % Lymph % (Auto) 10.3 L (20-40) % [place] % (Auto) 2.3 (2-11) % Eos % (Auto) 0.0 (0-4) % Baso % (Auto) 0.2 (0-2) % Lymph # (Auto) 1.8 (1.2-4.9) X10*3/uL [place] # (Auto) 0.4 (0.1-1.2) X10*3/uL Eos # (Auto) 0.0 (0.0-0.4) X10*3/uL Baso # (Auto) 0.0 (0.0-0.2) X10*3/uL Abs Immat Gran (auto) 0.11 H (0.00-0.03) X10*3/uL Absolute Neuts (auto) 15.2 H (2.0-8.3) x10*3/uL Absolute Nucleated RBC 0.000 (0.0-0.012) X10*3/uL Nucleated RBC % (auto) 0.0 (0.0-0.2) /100WBC Independent Historian Clinical information obtained from an independent historian. History obtained from or confirmed by: Spouse and EMS External Record Review External record reviewed: Outpatient record Discharge Plan Discharge Clinical Impression: Asthma with exacerbation, Acidosis, lactic, Hypoxia Patient Disposition: Still a Patient Prescriptions: No Action cetirizine 10 mg tablet 10 mg PO DAILY Qty: 30 0RF topiramate 50 mg tablet 50 mg PO BID 30 Days Qty: 60 5RF sumatriptan succinate 50 mg tablet See Rx Instructions PO .COMPLEX 30 Days Qty: 10 0RF Rx Instructions: take 1 tab at onset of headache; if no relief may repeat 1 tab after at least 2 hrs; max = 3 tabs/24 hr PO emtricitabine 200 mg capsule 200 mg PO DAILY 30 Days Qty: 30 0RF tenofovir disoproxil fumarate 300 mg tablet 300 mg PO DAILY 30 Days Qty: 30 0RF fluticasone propionate 50 mcg/actuation spray,suspension 1 spray intranasal DAILY Qty: 16 6RF albuterol sulfate 2.5 mg /3 mL (0.083 %) solution for nebulization 2.5 mg inhalation Q6H Qty: 90 0RF Tezspire 210 mg/1.91 mL (110 mg/mL) syringe 210 mg subcut Q4W 28 Days Qty: 1.91 12RF albuterol sulfate [Ventolin HFA] 90 mcg/actuation HFA aerosol inhaler 2 puff PO Q4-6H PRN (Reason: for wheezing) Qty: 18 0RF ipratropium-albuterol 0.5 mg-3 mg(2.5 mg base)/3 mL solution for nebulization 3 ml inhalation Q4-6H PRN (Reason: wheezing) 30 Days Qty: 270 6RF albuterol sulfate 90 mcg/actuation HFA aerosol inhaler 1 puff inhalation QID PRN (Reason: shortness of breath or wheezing) Qty: 8.5 6RF famotidine 40 mg tablet 40 mg PO DAILY Qty: 90 1RF Paxlovid 300 mg (150 mg x 2)-100 mg tablets,dose pack See Rx Instructions PO .COMPLEX Qty: 30 0RF Rx Instructions: take TWO 150 mg tablets of nirmatrelvir with ONE 100 mg tablet of ritonavir twice daily for 5 days PO prednisone 20 mg tablet 40 mg PO DAILY Qty: 10 0RF azithromycin 250 mg tablet 250 mg PO DAILY 4 Days Qty: 4 0RF Rx Instructions: start on day 2 of therapy doxycycline hyclate 100 mg tablet 100 mg PO BID 7 Days Qty: 14 0RF prednisone 20 mg tablet 40 mg PO DAILY 5 Days Qty: 10 0RF codeine-guaifenesin [Guaifenesin AC] 10-100 mg/5 mL liquid 5 ml PO Q6H PRN (Reason: cold symptoms) Qty: 118 0RF prednisone 20 mg tablet 20 mg PO DAILY 7 Days Qty: 7 0RF alcohol swabs Pads, Medicated topical DIRECTED [employer] Misc miscellaneous DAILY riboflavin (vitamin B2) 400 mg tablet 400 mg PO DAILY 30 Days Qty: 30 3RF magnesium oxide 400 mg magnesium tablet 400 mg PO DAILY 30 Days Qty: 30 3RF fluticasone furoate-vilanterol [Breo Ellipta] 200-25 mcg/dose blister with device 1 inh inhalation DAILY 30 Days Qty: 1 6RF Combivent Respimat 20-100 mcg/actuation mist 1 puff PO Q6H PRN (Reason: for wheezing) Qty: 4 6RF Print Language: Prydeinig
[2024-03-12 20:43] LABS: Alanine Aminotransferase 35 U/L (0-31); Alkaline Phosphatase 84 U/L (39-117); Anion Gap 14 (12-20); Aspartate Amino Transferase 25 U/L (5-31); Bilirubin Direct < 0.2 mg/dL (0.0-0.5); Bilirubin Total 0.2 mg/dL (0.0-1.0); Blood Urea Nitrogen 20 mg/dL (9-16); Carbon Dioxide 23 mmol/L (22-29); Chloride 106 mmol/L (96-108); Creatinine Clr Calc Pharmacy 124.1; Estimated Glomerular Filt Rate > 60; Glucose Random 182 mg/dL (60-115); Magnesium 1.9 mg/dL (1.6-2.6); Potassium 3.9 mmol/L (3.3-5.1); Sodium 139 mmol/L (135-145); Total Protein 7.4 g/dL (6.5-8.0)
[2024-03-12 20:45] LABS: Lactic Acid 2.7 mmol/L (0.5-2.0)
[2024-03-12] MEDS: ALPRAZolam 0.5 MG TABLET PO (20:57)
[2024-03-12 20:58] LABS: Influenza A PCR NEGATIVE (Negative); Influenza B PCR NEGATIVE (Negative); Resp Syncy Virus RNA Qual PCR NEGATIVE (Negative); SARS COV2 PCR INHOUSE NEGATIVE (Negative)
[2024-03-12 21:05] LABS: Troponin-I High Sensitivity < 2.7 ng/L (<3.5-17.0)
[2024-03-12 21:07] LABS: HCG Quantitative < 2 mIU/mL
[2024-03-12] MEDS: iohexoL 350 MG/ML 100 ML INFUS..BTL IV (21:24)
[2024-03-12 22:03] VITALS: BP 131/73; PULSE 100; RESP 16; TEMP 36.9; O2SAT 94
[2024-03-12 22:15] LABS: Reflex Lactate? Lactic Acid Added
[2024-03-12 22:20] LABS: Appearance Urine Clear; Color Urine Yellow; Glucose Urine UA Negative (Negative); Leukocyte Esterase Urine Negative (Negative); Nitrite Urine Negative (Negative); Specific Gravity - Urine >= 1.030 (1.005-1.025); Urine Blood Negative (Negative); Urine Ketones Negative (Negative); Urine Protein Trace mg/dL (Neg-Trace)
[2024-03-12 22:52] VITALS: BP 117/72; PULSE 100; RESP 18; O2SAT 94
[2024-03-12 22:53] VITALS: BP 133/74; PULSE 100; RESP 18; O2SAT 95
[2024-03-12 22:54] LABS: ~Lactic Acid-LAB USE ONLY 2.6 mmol/L (0.5-2.0)
[2024-03-13] VITALS (8 sets, daily range): BP systolic 110–136; BP diastolic 57–89; PULSE 82–101; RESP 16–18; TEMP 36.2–37; O2SAT 93–97
[2024-03-13 00:25] LABS: Reflex Lactate? 2 Y
[2024-03-13] MEDS: Albuterol Sulfate 5 MG, Albuterol/Iprat 2.5/0.5MG 3 ML 3 ML INHALE (01:39)
--- NOTE | 2024-03-13 02:24 | PM.IMHP ---
History of Present Illness Date of Service: 03/13/24 Attending physician on admission: Elvin Rouse Chief Complaint: SOB, wheezing Patient is a 39-year-old female with a past medical history significant for severe asthma followed by Dr. Sams, migraines and recently diagnosed with post COVID pneumonia and sinusitis, who presented to the ED today with worsening shortness of breath since yesterday. She reports that she has been using her nebulizer at home almost every hour without any improvement. She was started on doxycycline and Augmentin for the sinusitis and pneumonia. She has also been taking prednisone 40 mg daily. She reports the wheezing and shortness of breath worsened to which brought her back to the ED. She continues to have a productive cough with yellow sputum. No fever, chills, abdominal pain, nausea, vomiting, diarrhea, lower extremity edema. She reports a history of ICU admissions due to her asthma, no known history of intubation. Review of Systems Constitutional: Constitutional: Denies chills, Denies fatigue, Denies fever(s) and Reports headache(s) Eyes: Eyes: Denies change in vision ENT: Reports headache(s), Denies nasal congestion, Denies nasal discharge, Reports sinus pain and Denies sore throat Cardiovascular: Cardiovascular: Denies chest pain, Denies lightheadedness and Reports dyspnea Respiratory: Respiratory: Reports chest congestion, Reports cough, Reports pain with cough, Reports dyspnea and Reports wheezing Gastrointestinal: Gastrointestinal: Denies constipation, Denies diarrhea, Denies nausea and Denies vomiting Genitourinary: Genitourinary: Denies difficulty voiding, Denies dysuria and Denies urinary urgency Musculoskeletal: Musculoskeletal: Denies myalgias Integumentary/Breasts: Skin/Breast: Denies rash Neurologic: Denies confusion and Reports headache(s) Psychiatric: Psychiatric: Denies confusion Endocrine: Endocrine: Denies fatigue Hematologic/Lymphatic: Hematologic/Lymphatic: Denies easy bleeding and Denies easy bruising Allergic/Immunologic: Allergic/Immunologic: Reports wheezing [facility] Medical History (Updated 03/13/24 @ 02:43 by Maria Hilliard PA-C) Migraine Severe persistent asthma Bilateral otitis media Upper respiratory infection Screening due Needle stick injury with contaminated needle Seasonal allergies Asthma Functional capacity: independent ambulation Social History Housing: House Patient Tobacco Use Status: Never used Tobacco Cigarettes Per Day: 7 Smoked in Last 30 Days: No e-Cigarette/Vaping Use: Former Use Use of substances other than those prescribed or required for medical reasons: No Advance Directives: No Advance Directives Information Provided: No Do you have a plan to hurt others: No Plan service: No Current occupational status: employed Cognitive needs: No Hearing needs: No Vision needs: No Meds Allergies Allergy/AdvReac Type Severity Reaction Status Date / Time No Known Allergies Allergy Verified 03/12/24 19:51 [No Known Allergies*] Home Medications ?Medication ?Instructions ?Recorded ?Confirmed ?Last Taken ?Type alcohol swabs pad topical DIRECTED 07/23/20 11/16/22 Unknown History empty container ea miscellaneous DAILY 07/23/20 11/16/22 Unknown History Physical Exam Vital Signs and Narrative: Vital Signs: Last Vital Signs Temp 97.5 F 03/13/24 02:10 Pulse 99 03/13/24 02:10 Resp 16 03/13/24 02:10 BP 124/57 L 03/13/24 02:10 Pulse Ox 95 03/13/24 02:10 O2 Del Method Nasal Cannula 03/13/24 02:10 O2 Flow Rate 2 03/13/24 02:10 BMI result Body Mass Index 40.2 General: AOx3, no acute distress Resp: crackles bilateral lung bases, mild inspiratory and expiratory wheezing throughout CVS: S1, S2, RRR GI: +BS, NT, no distention Skin: Warm, dry Neuro: Cranial nerves II-XII grossly intact bilaterally. Motor grossly intact bilaterally Extremities: No LE edema Psych: Appropriate affect Const: General: No confusion Orientation/consciousness: No confusion Neuro: General: No confusion Results Labs 03/12/24 20:09 03/12/24 20:09 Labs: Laboratory Results - last 24 hr 03/12/24 03/12/24 03/12/24 20:09 22:05 22:22 MCV 88.2 MCH 30.0 MCHC 34.1 RDW 13.7 Plt Count 355 MPV 10.1 Immature Gran % (Auto) 0.6 H Neut % (Auto) 86.6 H Lymph % (Auto) 10.3 L [place] % (Auto) 2.3 Eos % (Auto) 0.0 Baso % (Auto) 0.2 Lymph # (Auto) 1.8 [place] # (Auto) 0.4 Eos # (Auto) 0.0 Baso # (Auto) 0.0 Abs Immat Gran (auto) 0.11 H Absolute Neuts (auto) 15.2 H Absolute Nucleated RBC 0.000 Nucleated RBC % (auto) 0.0 Anion Gap 14 Estim Creat Clear Calc 124.1 Estimated GFR > 60 Random Glucose 182 H Lactic Acid 2.7 H* Lactic Acid F/U @ 2Hr 2.6 H* Calcium 9.0 Magnesium 1.9 Total Bilirubin 0.2 Direct Bilirubin < 0.2 AST 25 ALT 35 H Alkaline Phosphatase 84 Troponin I High Sens < 2.7 Total Protein 7.4 Albumin 4.0 Beta HCG, Quant < 2 Urine Color Yellow Urine Appearance Clear Urine pH 6.0 Ur Specific [place] >= 1.030 H Urine Protein Trace Urine Glucose (UA) Negative Urine Ketones Negative Urine Blood Negative Urine Nitrite Negative Ur Leukocyte Esterase Negative Influenza Type A (PCR) NEGATIVE Influenza Type B (PCR) NEGATIVE RSV RNA Qual (PCR) NEGATIVE SARS-CoV-2 RNA (RT-PCR) NEGATIVE Imaging Radiologist's Impressions: Impressions Chest CTA 03/12/24 19:57 IMPRESSION: 1. No evidence of pulmonary emboli. 2. Mild emphysema and bronchial thickening. 3. Left upper lobe groundglass opacity measuring 0.8 x 1.3 x 1.0 cm. VTE: negative. Fleischner guidelines were followed. Electronically signed by: Mitchell Collins MD 03/13/2024 12:46 AM [facility] Assessment and Plan (1) Acute hypoxic respiratory failure: Status: Acute (2) Asthma with exacerbation: Qualifiers: Asthma persistence: persistent Asthma severity: severe Qualified Code(s): J45.51 - Severe persistent asthma with (acute) exacerbation Status: Acute (3) Pneumonia: Status: Acute (4) Morbid obesity with BMI of 40.0-44.9, adult: Status: Chronic Plan Patient is a 39-year-old female with a past medical history significant for severe asthma followed by Dr. Sams, and obesity, recently diagnosed with post COVID pneumonia and sinusitis, who presented to the ED today with worsening shortness of breath since yesterday. Now presenting with acute asthma exacerbation with pneumonia and hypoxic respiratory failure and new O2 requirement. acute asthma exacerbation and recently diagnosed pneumonia - leukocytosis secondary to prednisone use, tachycardia and elevated lactic acid due to albuterol and hypoxia, not sepsis, blood cultures x2 pending - CTA negative for PE - CXR from 03/10 with lingular pneumonia, on doxy and augmentin - COVID/flu/RSV negative, COVID was + on 03/10 but pt reported +02/25 at home - given IV mag in ED, duoneb and solumedrol 60mg - continue duonebs Q4H while awake - solumedrol 40mg BID - continue ceftraixone and doxycycline for previously diagnosed pneumonia - monitor CBC and BMP full code VTE prophy: lovenox Patient with severe asthma and acute asthma exacerbation complicated by post COVID pneumonia requiring admission for at least 2 midnights stay for IV steroids, antibiotics and breathing treatments. Quality Stroke Does the patient have a stroke diagnosis?: No VTE Prior VTE?: No VTE Risk Level:: Medical - moderate - high VTE Device Contraindication: Treatment Not Indicated VTE Drug Contraindication: N/A - Med Ordered
[2024-03-13 03:42] LABS: Procalcitonin 0.03 ng/mL
[2024-03-13] MEDS: Enoxaparin Sodium 40 MG/0.4 ML SYRINGE SUBCUT (04:26)
[2024-03-13 04:46] LABS: MANUAL DIFF FLAG NO
[2024-03-13 04:47] LABS: Basophils Percent Auto 0.1 % (0-2); Hemoglobin 13.3 g/dl (12.0-16.0); Imm Gran Abs Auto 0.18 X10*3/uL (0.00-0.03); Imm Gran Pct Auto 1.1 % (0.0-0.4); Lymphocytes Absolute Auto 1.7 X10*3/uL (1.2-4.9); Lymphocytes Percent Auto 10.4 % (20-40); Mean Corpuscular HGB Conc 33.3 g/dl (31.0-35.0); Mean Corpuscular Hemoglobin 29.7 pg (27.0-33.0); Mean Corpuscular Volume 89.3 fL (80.0-98.0); Mean Platelet Volume 10.4 fL (9.4-12.3); Monocytes Absolute Auto 0.3 X10*3/uL (0.1-1.2); Monocytes Percent Auto 1.7 % (2-11); Neutrophils Absolute Auto 14.4 x10*3/uL (2.0-8.3); Neutrophils Percent Auto 86.7 % (45-73); Platelet Count 353 X10*3/uL (160-400); Red Blood Count 4.48 X10*6/uL (4.20-5.50); Red Cell Distribution Width 13.7 % (11.0-16.0); White Blood Count 16.6 X10*3/uL (4.8-10.8)
[2024-03-13 05:03] LABS: Anion Gap 16 (12-20); Blood Urea Nitrogen 18 mg/dL (9-16); Calcium 9.2 mg/dL (8.4-10.2); Carbon Dioxide 20 mmol/L (22-29); Chloride 107 mmol/L (96-108); Creatinine Clr Calc Pharmacy 129.9; Estimated Glomerular Filt Rate > 60; Glucose Random 140 mg/dL (60-115); Potassium 4.5 mmol/L (3.3-5.1); Sodium 138 mmol/L (135-145)
[2024-03-13 06:19] LABS: Estimated Average Glucose 111 mg/dL; Hemoglobin A1C 129.0457 umol/L; Hemoglobin A1c % 5.5 % (<6.0)
[2024-03-13] MEDS: methylPREDNISolone Sod Succ 40 MG/ML VIAL IVPUSH ×2 (08:49→21:53)
[2024-03-13] MEDS: 0.9 % Sodium Chloride Flush 3 ML SYRINGE IVFLUSH ×2 (08:50→15:36)
[2024-03-13] MEDS: Acetaminophen 325 MG TABLET 650 MG PO ×2 (08:51→22:01)
[2024-03-13] MEDS: Doxycycline Hyclate 100 MG in 0.9 % Sodium Chloride 250 ML 166.67 MG IV (08:52)
--- NOTE | 2024-03-13 09:40 | PHA.MEDREC ---
Addendum entered by Nedra Han RPh 03/13/24 09:59: Note correction: Prednisone 20mg tabs (40 mg daily), not prednisone 2 mg Med rec was reviewed by [facility]. Original Note: Pharmacy Consult ? Medication Reconciliation Pharmacy has completed the medication reconciliation. Confirmed medications with patient. She confirmed she is still taking the Amoxicillin 875mg tab once BID and states she started that Monday night 03/09 and stated she had once tab to take tonight and one more for tomorrow morning and then she was gonna be done with that medication. She confirmed the Doxycycline 100mg tab once BID and states she started that on Monday and confirmed she has 4 days left of that medication. She confirmed she is taking the Prednisone 2mg tab 2 tabs daily and confirmed she started that Monday and has 2 days left of that. She confirmed her Tezspire injection once every 4 weeks and she confirmed she just got it 03/06 and has an appointment set up April 04 for the next one. She confirmed she took her Antibiotics last yesterday morning and the rest of her medications 2 days ago.
--- NOTE | 2024-03-13 09:58 | P.EN_ITS ---
Event Note Date of Service: 03/13/24 Event Note: Admitted due to persistent worsening shortness of breath, with underlying history of asthma and recently diagnosed to have pneumonia failed outpatient antibiotics. On examination feeling better, less shortness of breath,, no fevers, no chills. Lungs. Bilateral expiratory wheeze. 39-year-old female with a past medical history significant for severe asthma followed by Dr. Sams, and obesity, recently diagnosed with post COVID pneumonia and sinusitis, who presented to the ED today with worsening shortness of breath since yesterday. Now presenting with acute asthma exacerbation with pneumonia and hypoxic respiratory failure and new O2 requirement. acute asthma exacerbation and recently diagnosed pneumonia - leukocytosis secondary to prednisone use, tachycardia and elevated lactic acid due to albuterol and hypoxia, not sepsis, blood cultures x2 pending - CTA negative for PE - CXR from 03/10 with lingular pneumonia, on doxy and augmentin - COVID/flu/RSV negative, COVID was + on 03/10 but pt reported +02/25 at home - given IV mag in ED, duoneb and solumedrol 60mg - continue duonebs Q4H while awake,iv solumedrol 40mg BID, add cough medication - continue ceftraixone and doxycycline for previously diagnosed pneumonia - monitor CBC and BMP -med reconciliation done full code VTE prophy: lovenox Patient with severe asthma and acute asthma exacerbation complicated by post COVID pneumonia requiring admission for at least 2 midnights stay for IV st eroids, antibiotics and breathing treatments. Time Spent With Patient Time: Total time managing care of this patient today ____ minutes.
[2024-03-13] MEDS: Albuterol/Iprat 2.5/0.5MG 3 ML AMPUL.NEB INHALE ×3 (11:16→20:06)
[2024-03-13] MEDS: cefTRIAXone sodium 1 GM VIAL IVPUSH (21:53)
[2024-03-13] MEDS: Doxycycline Hyclate 100 MG in 0.9 % Sodium Chloride 250 ML 166.6 MG IV (21:53)
[2024-03-13] MEDS: Calcium Carbonate 750 MG TAB.CHEW PO (22:02)
[2024-03-14] VITALS (8 sets, daily range): BP systolic 135–138; BP diastolic 67–79; PULSE 79–109; RESP 16–18; TEMP 36.8–37.2; O2SAT 93–98
[2024-03-14] MEDS: 0.9 % Sodium Chloride Flush 3 ML SYRINGE IVFLUSH ×2 (00:08→19:51)
[2024-03-14] MEDS: Enoxaparin Sodium 40 MG/0.4 ML SYRINGE SUBCUT (02:09)
[2024-03-14] MEDS: Famotidine 20 MG TABLET 40 MG PO ×2 (03:26→20:51)
--- NOTE | 2024-03-14 07:27 | P.CDIM_ITS ---
PROVIDER RESPONSE TEXT: To clarify, the appropriate diagnosis supported by the clinical indicators: Severe persistent QUERY TEXT: PHYSICIAN'S DOCUMENTATION REQUEST Date of Query: 03/14/2024 07:16 AM EST Patient Name: Norma Olsno Admit Date: 03/13/2024 Dear Eleonora Vargas MD, A review of the medical record indicates additional documentation may be needed. Please review below and update the documentation accordingly. Clinical indicators: Acute asthma exacerbation Duonebs, solumedrol, and cough medication. Patient with severe asthma and acute asthma exacerbation complicated by COVID pneumonia. Based on the above, please clarify in the Progress Notes further specificity regarding the type of as thma: Mild intermittent Mild persistent Moderate persistent Severe persistent Exercise induced Other (explain) Clinically unable to determine (explain) Thank you, Madelin Alfaro, CCS, CDIS Use of terms such as suspected, likely, concern for, or probable (associated with a specific diagnosi s that is being evaluated, monitored, or treated as if it exists) are acceptable and can be coded in the inpatient se tting, when documented at the time of discharge. Please use your independent medical judgment in providing your response. THIS QUERY IS PART OF THE PERMANENT MEDICAL RECORD
[2024-03-14 07:53] LABS: MANUAL DIFF FLAG NO
[2024-03-14 08:17] LABS: Basophils Percent Auto 0.2 % (0-2); Eosinophils Percent Auto 0.1 % (0-4); Hematocrit 42.2 % (37.0-47.0); Hemoglobin 13.8 g/dl (12.0-16.0); Imm Gran Abs Auto 0.24 X10*3/uL (0.00-0.03); Imm Gran Pct Auto 1.2 % (0.0-0.4); Lymphocytes Absolute Auto 3.2 X10*3/uL (1.2-4.9); Lymphocytes Percent Auto 16.2 % (20-40); Mean Corpuscular HGB Conc 32.7 g/dl (31.0-35.0); Mean Corpuscular Hemoglobin 29.6 pg (27.0-33.0); Mean Corpuscular Volume 90.6 fL (80.0-98.0); Mean Platelet Volume 11.2 fL (9.4-12.3); Monocytes Percent Auto 5.3 % (2-11); Neutrophils Absolute Auto 15.1 x10*3/uL (2.0-8.3); Platelet Count 345 X10*3/uL (160-400); Red Blood Count 4.66 X10*6/uL (4.20-5.50); Red Cell Distribution Width 13.8 % (11.0-16.0); White Blood Count 19.6 X10*3/uL (4.8-10.8)
[2024-03-14] MEDS: methylPREDNISolone Sod Succ 40 MG/ML VIAL IVPUSH ×2 (08:27→20:52)
[2024-03-14] MEDS: Doxycycline Hyclate 100 MG in 0.9 % Sodium Chloride 250 ML 166.6 MG IV ×2 (08:27→20:53)
[2024-03-14] MEDS: Albuterol/Iprat 2.5/0.5MG 3 ML AMPUL.NEB INHALE ×4 (08:35→19:40)
[2024-03-14] MEDS: Fluticasone/Vilanterol 200/25 BLST.W.DEV 1 PUFF INHALE (08:51)
[2024-03-14 10:34] LABS: Anion Gap 12 (12-20); Blood Urea Nitrogen 14 mg/dL (9-16); Carbon Dioxide 28 mmol/L (22-29); Chloride 104 mmol/L (96-108); Creatinine Clr Calc Pharmacy 136.3; Estimated Glomerular Filt Rate > 60; Glucose Random 97 mg/dL (60-115); Potassium 4.3 mmol/L (3.3-5.1); Sodium 140 mmol/L (135-145)
[2024-03-14] MEDS: Loratadine 10 MG TABLET PO (10:51)
[2024-03-14] MEDS: Fluticasone Propionate Nasal 16 GM SPRAY 1 SPRAY NOSTRIL-B ×2 (10:51→20:52)
--- NOTE | 2024-03-14 11:15 | MHC.CM.PN ---
PATIENT LIVES IN A MULTIFAMILY HOME ON 2ND FLOOR W/ HER PARTNER AND 2 YOUNG CHILDREN. MOTHER LIVES ON THE FIRST FLOOR. FUNCTIONALLY INDEPENDENT. HAS A NEBULIZER AND RECEIVES SUPPLIES THROUGH [employer]. PCP IVETT DELGADO MD REPORTS SHE HAS AN HCP NAMING HER [facility]. COPY REQUESTED. DP: GOAL IS HOME SELF CARE, FAMILY TO TRANSPORT. CM WILL CONTINUE TO FOLLOW.
--- NOTE | 2024-03-14 11:59 | HO.PM.IMPN ---
Subjective Subjective Date of Service: 03/14/24 Interval History: Complaining of shortness of breath, nasal stuffiness blocked ears, feels she is struggling to breathe, denies fever, no chills, no allergy symptoms. Review of Systems All other system reviewed and are negative. Constitutional Constitutional: Denies chills, Denies fatigue, Denies fever(s) and Reports headache(s) Eyes Eyes: Denies change in vision ENT Ears, Nose, Mouth, and Throat: Reports headache(s), Denies nasal congestion, Denies nasal discharge, Reports sinus pain and Denies sore throat Cardiovascular Cardiovascular: Denies chest pain, Denies lightheadedness and Reports dyspnea Respiratory Respiratory: Reports chest congestion, Reports cough, Reports pain with cough, Reports dyspnea and Reports wheezing Gastrointestinal Gastrointestinal: Denies constipation, Denies diarrhea, Denies nausea and Denies vomiting Musculoskeletal Musculoskeletal: Denies myalgias Integumentary/Breasts Skin/Breast: Denies rash Neurologic Neurologic: Denies confusion and Reports headache(s) Psychiatric Psychiatric: Denies confusion Endocrine Endocrine: Denies fatigue Hematologic/Lymphatic Hematologic/Lymphatic: Denies easy bleeding and Denies easy bruising Allergic/Immunologic Allergic/Immunologic: Reports wheezing Physical Exam Vital Signs: Vital Signs: Last Vital Signs Temp 98.9 F 03/14/24 08:15 Pulse 107 H 03/14/24 11:56 Resp 16 03/14/24 11:56 BP 138/79 03/14/24 08:15 Pulse Ox 96 03/14/24 08:15 O2 Del Method Nasal Cannula 03/14/24 08:15 O2 Flow Rate 2 03/14/24 08:15 BMI result Body Mass Index 40.2 Const: Other: General resting comfortably in no acute distress. Neck supple no JVD. CVS regular rate rhythm, Respiratory lungs clear to auscultation, no respiratory distress, occasional wheeze. Gastrointestinal abdomen soft, non tender, bowel sounds audible. Extremities no edema. Neuro non focal Skin no rash General: No confusion Orientation/consciousness: No confusion Neuro: General: No confusion Objective Data Active Medications Acetaminophen (Acetaminophen 325 Mg Tablet) 650 mg PO Q6H PRN PRN Reason: Pain, Mild (Pain Scale 1-3), fever or headache Last Admin: 03/13/24 22:01 Dose: 650 mg Documented By: SARAY Albuterol/Ipratropium (Albuterol/Iprat 2.5/0.5mg 3 Ml Ampul.Neb) 3 ml INHALE RQ4H WHILE AWAKE [facility] Last Admin: 03/14/24 11:55 Dose: 3 ml Documented By: VITOR Calcium Carbonate (Calcium Carbonate 750 Mg Tab.Chew) 750 mg PO Q4H PRN PRN Reason: Heartburn Last Admin: 03/13/24 22:02 Dose: 750 mg Documented By: SARAY Ceftriaxone Sodium (Ceftriaxone Sodium 1 Gm Vial) 1 gm IVPUSH Q24H [facility] Last Admin: 03/13/24 21:53 Dose: 1 gm Documented By: SARAY Enoxaparin Sodium (Enoxaparin Sodium 40 Mg/0.4 Ml Syringe) 40 mg SUBCUT Q24H [facility] Last Admin: 03/14/24 02:09 Dose: 40 mg Documented By: SARAY Famotidine (Famotidine 20 Mg Tablet) 40 mg PO BEDTIME [facility] Last Admin: 03/14/24 03:26 Dose: 40 mg Documented By: SARAY Fluticasone Propionate (Fluticasone Propionate Nasal 16 Gm [place]) 1 spray NOSTRIL-B BID [facility] Last Admin: 03/14/24 10:51 Dose: 1 spray Documented By: CHRISS Fluticasone/Vilanterol (Fluticasone/Vilanterol 200/25 Blst.W.Dev) 1 puff INHALE RDAILY [facility] Last Admin: 03/14/24 08:51 Dose: 1 puff Documented By: VITOR Doxycycline Hyclate 100 mg/ (Sodium Chloride) 250 mls @ 166.67 mls/hr IV BID [facility] Last Infusion: 03/14/24 09:58 Dose: Infused Documented By: CHRISS Ketorolac Tromethamine (Ketorolac Tromethamine 30 Mg/Ml Vial) 30 mg IVPUSH Q6H PRN PRN Reason: Pain, Moderate(Pain Scale 4-6) Stop: 03/18/24 02:47 Loratadine (Loratadine 10 Mg Tablet) 10 mg PO DAILY [facility] Last Admin: 03/14/24 10:51 Dose: 10 mg Documented By: CHRISS Magnesium Hydroxide (Milk Of Magnesia 30 Ml Oral.Susp) 30 ml PO DAILY PRN PRN Reason: Constipation Melatonin (Melatonin 3 Mg Tablet) 6 mg PO BEDTIME PRN PRN Reason: Insomnia Methylprednisolone Sodium Succinate (Methylprednisolone Sod Succ 40 Mg/Ml Vial) 40 mg IVPUSH BID [facility] Last Admin: 03/14/24 08:27 Dose: 40 mg Documented By: CHRISS Ondansetron HCl (Ondansetron Hcl 4 Mg/2 Ml Vial) 4 mg IVPUSH Q8H PRN PRN Reason: Nausea and Vomiting Oxycodone HCl (Oxycodone Hcl Immed Release 5 Mg Tablet) 5 mg PO Q6H PRN PRN Reason: Pain, Severe (Pain Scale 7-10) Sodium Chloride (0.9 % Sodium Chloride Flush 3 Ml Syringe) 3 ml IVFLUSH QSHIFT [facility] Last Admin: 03/14/24 07:19 Dose: Not Given Documented By: CHRISS Non-Admin Reason: Previously Administered Sodium Chloride (Sodium Chloride 0.65 % Nasal 44 Ml Sprbtl) 1 spray NOSTRIL-B Q1H PRN PRN Reason: congestion Labs 03/14/24 06:29 03/14/24 09:18 Labs: Laboratory Results - last 24 hr 03/14/24 03/14/24 06:29 09:18 MCV 90.6 MCH 29.6 MCHC 32.7 RDW 13.8 Plt Count 345 MPV 11.2 Immature Gran % (Auto) 1.2 H Neut % (Auto) 77.0 H Lymph % (Auto) 16.2 L [place] % (Auto) 5.3 Eos % (Auto) 0.1 Baso % (Auto) 0.2 Lymph # (Auto) 3.2 [place] # (Auto) 1.0 Eos # (Auto) 0.0 Baso # (Auto) 0.0 Abs Immat Gran (auto) 0.24 H Absolute Neuts (auto) 15.1 H Absolute Nucleated RBC 0.000 Nucleated RBC % (auto) 0.0 Anion Gap 12 Estim Creat Clear Calc 136.3 Estimated GFR > 60 Random Glucose 97 Calcium 9.0 Microbiology Microbiology Results: Microbiology 03/12/24 20:09 Blood Culture - Preliminary Blood - Venous No growth after 24 hours. 03/12/24 20:09 Blood Culture - Preliminary Blood - Venous No growth after 24 hours. Assessment and Plan (1) Pneumonia: Status: Acute (2) Acute hypoxic respiratory failure: Status: Acute Plan Patient is a 39-year-old female with a past medical history significant for severe asthma followed by Dr. Sams, and obesity, recently diagnosed with post COVID pneumonia and sinusitis, who presented to the ED today with worsening shortness of breath since yesterday. Now presenting with acute asthma exacerbation with pneumonia and hypoxic respiratory failure and new O2 requirement. acute severe persistent asthma exacerbation and recently diagnosed pneumonia - complaining of nasal congestion/blocked ear , sounds congested - leukocytosis secondary to prednisone use, tachycardia and elevated lactic acid due to albuterol and hypoxia, no sepsis, blood cultures x2 neg - CTA negative for PE, left upper lobe ground-glass opacity - CXR from 03/10 with lingular pneumonia, on doxy and augmentin - COVID/flu/RSV negative, COVID was + on 03/10 but pt reported +02/25 at home - continue duonebs Q4H while awake, solumedrol 40mg BID - continue ceftraixone and doxycycline d2 (on abx since 03/10) -will add nasal saline spray, Flonase and Claritin for nasal stuffiness -recommend out of bed to chair and ambulation as tolerated -possible discharge at a.m. if continue to improve on tapering dose of steroids, antibiotics and updraft Acute hypoxic respiratory failure wean oxygen as tolerated, not on home O2 Class 3 obesity recommend low-calorie diet and exercise. full code VTE prophy: lovenox Patient with severe asthma and acute asthma exacerbation complicated by post COVID pneumonia requiring continued inpatient hospitalization for IV steroids, antibiotics and breathing treatments. Quality Stroke Does the patient have a stroke diagnosis?: No VTE Prior VTE?: No VTE Risk Level:: Medical - moderate - high VTE Device Contraindication: Treatment Not Indicated VTE Drug Contraindication: N/A - Med Ordered
--- NOTE | 2024-03-14 18:39 | PC.NURSE ---
Pt was unable to be weaned off O2 this shift. While on room air, pt desat to 90%.
[2024-03-14] MEDS: Acetaminophen 325 MG TABLET 650 MG PO (19:50)
[2024-03-14] MEDS: Calcium Carbonate 750 MG TAB.CHEW PO (19:51)
[2024-03-14] MEDS: cefTRIAXone sodium 1 GM VIAL IVPUSH (19:51)
[2024-03-15] MEDS: Enoxaparin Sodium 40 MG/0.4 ML SYRINGE SUBCUT (03:53)
[2024-03-15 03:59] VITALS: BP 114/79; PULSE 90; RESP 18; TEMP 36.4; O2SAT 96
[2024-03-15 06:12] LABS: MANUAL DIFF FLAG NO
[2024-03-15 06:35] LABS: Anion Gap 13 (12-20); Blood Urea Nitrogen 16 mg/dL (9-16); Calcium 9.3 mg/dL (8.4-10.2); Carbon Dioxide 23 mmol/L (22-29); Chloride 105 mmol/L (96-108); Creatinine Clr Calc Pharmacy 141.4; Estimated Glomerular Filt Rate > 60; Glucose Random 126 mg/dL (60-115); Potassium 4.4 mmol/L (3.3-5.1); Sodium 137 mmol/L (135-145)
[2024-03-15 07:06] LABS: Basophils Absolute Auto 0.1 X10*3/uL (0.0-0.2); Basophils Percent Auto 0.2 % (0-2); Hematocrit 44.2 % (37.0-47.0); Hemoglobin 14.7 g/dl (12.0-16.0); Imm Gran Abs Auto 0.37 X10*3/uL (0.00-0.03); Imm Gran Pct Auto 1.5 % (0.0-0.4); Lymphocytes Absolute Auto 3.9 X10*3/uL (1.2-4.9); Lymphocytes Percent Auto 16.2 % (20-40); Mean Corpuscular HGB Conc 33.3 g/dl (31.0-35.0); Mean Corpuscular Hemoglobin 29.8 pg (27.0-33.0); Mean Corpuscular Volume 89.7 fL (80.0-98.0); Mean Platelet Volume 10.4 fL (9.4-12.3); Monocytes Absolute Auto 1.1 X10*3/uL (0.1-1.2); Monocytes Percent Auto 4.3 % (2-11); Neutrophils Absolute Auto 18.8 x10*3/uL (2.0-8.3); Neutrophils Percent Auto 77.8 % (45-73); Platelet Count 400 X10*3/uL (160-400); Red Blood Count 4.93 X10*6/uL (4.20-5.50); Red Cell Distribution Width 13.8 % (11.0-16.0); White Blood Count 24.2 X10*3/uL (4.8-10.8)
[2024-03-15] MEDS: Albuterol/Iprat 2.5/0.5MG 3 ML AMPUL.NEB INHALE ×3 (08:07→15:08)
[2024-03-15] MEDS: Doxycycline Hyclate 100 MG in 0.9 % Sodium Chloride 250 ML 166.6 MG IV (08:09)
[2024-03-15 08:10] VITALS: BP 132/63; PULSE 87; RESP 18; TEMP 36.2; O2SAT 93
[2024-03-15] MEDS: 0.9 % Sodium Chloride Flush 3 ML SYRINGE IVFLUSH ×2 (08:10→17:33)
[2024-03-15] MEDS: methylPREDNISolone Sod Succ 40 MG/ML VIAL IVPUSH (08:10)
[2024-03-15] MEDS: Loratadine 10 MG TABLET PO (08:10)
[2024-03-15] MEDS: Fluticasone/Vilanterol 200/25 BLST.W.DEV 1 PUFF INHALE (09:00)
[2024-03-15 09:05] VITALS: PULSE 88; RESP 16; O2SAT 95
[2024-03-15] MEDS: Fluticasone Propionate Nasal 16 GM SPRAY 1 SPRAY NOSTRIL-B (10:19)
[2024-03-15 11:31] VITALS: PULSE 111; RESP 16; O2SAT 97
--- NOTE | 2024-03-15 11:51 | P.DS_ITS ---
DS: Providers Provider Date of Service: 03/15/24 Date of admission: 03/13/24 02:48 Primary care physician: Ryanne Guo MD DS: Diagnosis Discharge Diagnosis (1) Pneumonia: Status: Acute (2) Acute hypoxic respiratory failure: Status: Acute DS: Summary Hospital Course Hospital Course: admission hpi Chief Complaint: SOB, wheezing Patient is a 39-year-old female with a past medical history significant for severe asthma followed by Dr. Sams, migraines and recently diagnosed with post COVID pneumonia and sinusitis, who presented to the ED today with worsening shortness of breath since yesterday. She reports that she has been using her nebulizer at home almost every hour without any improvement. She was started on doxycycline and Augmentin for the sinusitis and pneumonia. She has also been taking prednisone 40 mg daily. She reports the wheezing and shortness of breath worsened to which brought her back to the ED. She continues to have a productive cough with yellow sputum. No fever, chills, abdominal pain, nausea, vomiting, diarrhea, lower extremity edema. She reports a history of ICU admissions due to her asthma, no known history of intubation. hospital course: Patient is a 39-year-old female with a past medical history significant for severe asthma followed by Dr. Sams, and obesity, recently diagnosed with post COVID pneumonia and sinusitis, who presented to the ED today with worsening shortness of breath since yesterday. Now presenting with acute asthma exacerbation with pneumonia and hypoxic respiratory failure and new O2 requirement. acute severe persistent asthma exacerbation and recently diagnosed pneumonia - complaining of nasal congestion/blocked ear , sounds congested - leukocytosis secondary to prednisone use, tachycardia and elevated lactic acid due to albuterol and hypoxia, no sepsis, blood cultures x2 neg - CTA negative for PE, left upper lobe ground-glass opacity - CXR from 03/10 with lingular pneumonia, on doxy and augmentin - COVID/flu/RSV negative, COVID was + on 03/10 but pt reported +02/25 at home - continue duonebs Q4H while awake, solumedrol 40mg BID - continue ceftraixone and doxycycline d2 (on abx since 03/10) -will add nasal saline spray, Flonase and Claritin for nasal stuffiness -recommend out of bed to chair and ambulation as tolerated -possible discharge at a.m. if continue to improve on tapering dose of steroids, antibiotics and updraft Acute hypoxic respiratory failure wean oxygen as tolerated, not on home O2 Class 3 obesity recommend low-calorie diet and exercise. Time Attestation Discharge Coordination Time (in mins): 35 Quality: Safe Use of Opioids Does Pt have an Active Cancer Diagnosis on the Problem List?: No Quality: Stroke Does the patient have a stroke diagnosis?: No Physical Exam Vital Signs: Vital Signs: Last Vital Signs Temp 97.1 F 03/15/24 08:10 Pulse 111 H 03/15/24 11:31 Resp 16 03/15/24 11:31 BP 132/63 03/15/24 08:10 Pulse Ox 93 03/15/24 08:10 O2 Del Method Nasal Cannula 03/15/24 08:10 O2 Flow Rate 2 03/15/24 08:10 BMI result Body Mass Index 40.2 Const: Other: General: AO X 3, no acute distress Resp: CTA bilateral CVS: S1,S2,RRR GI: +BS, NT, no distention Skin: No rash Neuro: motor grossly intact Psych: appropriate affect DS: Data Data Completed and Pending Labs on day of discharge: Laboratory Results - last 24 hr 03/15/24 05:31 WBC 24.2 H RBC 4.93 Hgb 14.7 Hct 44.2 MCV 89.7 MCH 29.8 MCHC 33.3 RDW 13.8 Plt Count 400 MPV 10.4 Immature Gran % (Auto) 1.5 H Neut % (Auto) 77.8 H Lymph % (Auto) 16.2 L [place] % (Auto) 4.3 Eos % (Auto) 0.0 Baso % (Auto) 0.2 Lymph # (Auto) 3.9 [place] # (Auto) 1.1 Eos # (Auto) 0.0 Baso # (Auto) 0.1 Abs Immat Gran (auto) 0.37 H Absolute Neuts (auto) 18.8 H Absolute Nucleated RBC 0.000 Nucleated RBC % (auto) 0.0 Sodium 137 Potassium 4.4 Chloride 105 Carbon Dioxide 23 Anion Gap 13 BUN 16 Creatinine 0.79 Estim Creat Clear Calc 141.4 Estimated GFR > 60 Random Glucose 126 H Calcium 9.3 Preliminary micro results at discharge 03/12/24 20:09 Blood Culture - Preliminary Blood - Venous No growth after 48 hours. 03/12/24 20:09 Blood Culture - Preliminary Blood - Venous No growth after 48 hours. Discharge Plan Discharge Anticipated Discharge Date/Time: 03/15/24 11:49 Patient Disposition: Home, Self-Care Discharge Diagnosis: Acute hypoxic respiratory failure, asthma exacerbation, pneumonia Referrals: Ryanne Guo MD [Primary Care Provider] - 1 Week Discharge Medications: No Action cetirizine 10 mg tablet 10 mg PO DAILY Qty: 30 0RF fluticasone propionate 50 mcg/actuation spray,suspension 1 spray intranasal DAILY Qty: 16 6RF albuterol sulfate 2.5 mg /3 mL (0.083 %) solution for nebulization 2.5 mg inhalation Q6H Qty: 90 0RF Tezspire 210 mg/1.91 mL (110 mg/mL) syringe 210 mg subcut Q4W 28 Days Qty: 1.91 12RF ipratropium-albuterol 0.5 mg-3 mg(2.5 mg base)/3 mL solution for nebulization 3 ml inhalation Q4-6H PRN (Reason: wheezing) 30 Days Qty: 270 6RF albuterol sulfate 90 mcg/actuation HFA aerosol inhaler 1 puff inhalation QID PRN (Reason: shortness of breath or wheezing) Qty: 8.5 6RF famotidine 40 mg tablet 40 mg PO DAILY Qty: 90 1RF prednisone 20 mg tablet 40 mg PO DAILY 5 Days Qty: 10 0RF codeine-guaifenesin [Guaifenesin AC] 10-100 mg/5 mL liquid 5 ml PO Q6H PRN (Reason: cold symptoms) Qty: 118 0RF amoxicillin 875 mg tablet 875 mg PO BID doxycycline hyclate 100 mg tablet 100 mg PO BID fluticasone furoate-vilanterol [Breo Ellipta] 200-25 mcg/dose blister with device 1 inh inhalation DAILY 30 Days Qty: 1 6RF Combivent Respimat 20-100 mcg/actuation mist 1 puff PO Q6H PRN (Reason: for wheezing) Qty: 4 6RF Diet: Advance to usual diet Activity on Discharge: As tolerated Stand Alone Forms: Patient Portal Discharge page Print Language: Mauritian Care Plan Goals: Recovery from asthma exacerbation, pneumonia and acute hypoxic respiratory failure. Health Concerns: Asthma, pneumonia, respiratory failure, Plan of Treatment: Continue inhalers as before, finish the course of antibiotics. Follow-up with your primary care doctor within a week, call for appointment. Assessment: See above
--- NOTE | 2024-03-15 14:44 | MHC.CM.PN ---
Patient not medically cleared for dc at this time. CM will continue to follow.
[2024-03-15 15:08] VITALS: PULSE 78; RESP 18; O2SAT 96
[2024-03-15 16:19] VITALS: BP 117/69; PULSE 108; RESP 18; TEMP 36.7; O2SAT 93
== END 2024-03-15 17:47 | disposition home or self-care (01) | DRG 139 ==
LOC: HO.ED 21:10 → HO.EDOVER 03-13 02:56 → HO.S3 03-13 06:32
PROVIDERS: Emergency Medicine; Admitting Provider Physician Assistant; Emergency Provider Internal Medicine; PCP Internal Medicine; Visit Provider Internal Medicine
DX: J18.9 Pneumonia, unspecified organism (principal); J45.51 Severe persistent asthma with (acute) exacerbation; U09.9 Post COVID-19 condition, unspecified; E66.813 Obesity, class 3; Z71.3 Dietary counseling and surveillance; Z20.822 Contact with and (suspected) exposure to COVID-19; Z68.41 Body mass index [BMI] 40.0-44.9, adult; Z79.51 Long term (current) use of inhaled steroids; Z87.891 Personal history of nicotine dependence; Z79.899 Other long term (current) drug therapy
CPT/HCPCS: 0241U; 36415; 71275; 80048; 80076; 81003; 83036; 83605; 83735; 84145; 84484; 84702; 85025; 87040; 94640; 99285; J0696; J1650; J2919; J3475; Q9967

== ENCOUNTER → 2024-03-13 02:48 | Outpatient (BNV) | payer OTHER, SELFPAY | PROVIDERS: Admitting Provider Physician Assistant; Emergency Provider Internal Medicine; PCP Internal Medicine; Visit Provider Physician Assistant | DX: J96.01 Acute respiratory failure with hypoxia (principal); J18.9 Pneumonia, unspecified organism | CPT/HCPCS: 99232 ==

== ENCOUNTER 2024-03-19 10:24 | Outpatient (AMB) | payer OTHER, SELFPAY ==
--- NOTE | 2024-03-19 10:31 | A.OFFVIS_ITS ---
Vital Signs 03/19/24 10:32 Height 5 ft 10 in Weight 297 lb 2 oz BMI 42.6 BP 136/88 Blood Pressure Location Rt brachial Position Sitting Pulse 114 H Pulse Source Pulse Oximeter Pulse Oximetry (%) 96 Oxygen Delivery Method Room Air Intake Visit Reasons: Post Covid (Dr. Sams PT) Allergies No Known Allergies [No Known Allergies*] Allergy (Verified 03/19/24 10:36) HPI HPI Post Covid (Dr. Sams PT): Details: Norma is a pleasant 38-year-old female, currently vaping nicotine, 10+pyh with underlying severe allergic asthma and environmental allergies. She is moderately controlled on Breo, albuterol MDI, Duoneb, singulair and Tezspire. She is under the care of Dr. Sams and presents today for a hospital follow up. She initially was COVID+ 02/25 on home test, treated with augmentin for sinusitis on 03/09 then presented to [facility] [place] [place] ED on 03/10 with worsening asthma symptoms. CXR revealed lingular pneumoniay, treated with doxycycline and prednisone then discharged. She returned to ED on 03/15 with worsening symptoms ultimately admitted with acute respiratory failure with hypoxia admitted until 03/17. She was treated with nebulized therapies, solumedrol, magnesium and IV ceftriaxone and doxycyline. BCx 2 negative, CTA negative for PE, GRISELDA 1 cm ggo. Since discharge she continues to report productive cough with bright yellow sputum, has one dose left of cefuroxime and continues to report wheezing, chest tightness and dyspnea. She denies fevers or chills. [facility] Medical History (Updated 03/18/24 @ 00:02 by Edgard Murray) Migraine Severe persistent asthma Bilateral otitis media Upper respiratory infection Screening due Needle stick injury with contaminated needle Seasonal allergies Asthma Social History (Updated 03/19/24 @ 19:49 by Sakshi Chu NP) Household Members: Family Housing: House Do you presently have visiting nurse or other home services: No Patient Tobacco Use Status: Former Tobacco user Cigarettes Per Day: 7 e-Cigarette/Vaping Use: Currently Using service: No Current occupational status: employed Cognitive needs: No Hearing needs: No Vision needs: No Review of Systems Const Denies chills, Denies excessive sweating, Denies fever(s), Denies headache(s) and Denies night sweats Eyes Denies dry eyes, Denies irritation and Denies itchy eyes ENT Reports Normal hearing present, Denies headache(s) and Denies sore throat Card Denies chest pain, Denies chest pain at rest, Denies chest pain with activity, Denies claudication, Denies leg edema, Denies orthopnea and Denies paroxysmal nocturnal dyspnea Resp Denies excessive phlegm production, Denies pain on inspiration, Denies pain with cough and Denies stridor Musc Denies myalgias Neuro Reports Normal hearing present and Denies headache(s) Endo Denies excessive sweating Sukumar/Lymph Denies lymphadenopathy Aller/Immun Denies itchy eyes and Denies seasonal rhinorrhea Physical Exam Vital Signs: Last Vital Signs Pulse 114 H 03/19/24 10:32 BP 136/88 03/19/24 10:32 Pulse Ox 96 03/19/24 10:32 Oxygen Delivery Method Room Air 03/19/24 10:32 BMI result Body Mass Index 42.6 Const General: cooperative, healthy appearing, comfortable, no acute distress, well developed and alert Nutritional Appearance: obese Orientation/consciousness: patient oriented x3 Limitations: no limitations HEENT Head: Yes normal to inspection, Yes normocephalic and Yes atraumatic Ears: hearing grossly normal bilaterally and external ears normal Eyes General: appearance normal, both eyes and all related structures Eyelids: Yes eyelids normal Sclerae: sclerae normal EOM: EOMs intact bilaterally Neck Neck: Yes normal visual inspection and Yes no lymphadenopathy Lymphatic: no lymphadenopathy noted Chest Chest palpation & inspection: normal inspection of the chest Resp Effort & Inspection: normal respiratory effort, able to speak in complete sentences, audible wheezes, no stridor, not tachypneic, no tripod positioning and no use of accessory muscles Auscultation: wheezes expiratory wheezes Cardio Jugular venous distension: no JVD Rate: regular rate Rhythm: regular rhythm Skin Other: warm, dry General skin exam: no rashes or lesions noted Neuro General: patient oriented x3 Cranial nerves: Yes Normal hearing present Cognition (Neuro): normal cognition Gait exam (Neuro): Normal gait present Extrem General: Yes normal to inspection, Yes capillary refill normal, Yes no clubbing, cyanosis or edema and Yes no pedal edema Psych Appearance: grossly normal and well kempt Speech and movement: Normal speech and movement present and Clear speech present Affect: normal affect Attitude: cooperative Thought process: Normal thought process present Thought content: Normal thought content present Insight: Good insight present (Psych) Judgement: Good judgement present (Psych) Assessment & Plan Assessment & Plan (1) Asthma: Code(s): J45.909 - Unspecified asthma, uncomplicated Category: Medical (2) Environmental allergies: Code(s): Z91.09 - Other allergy status, other than to drugs and biological substances Category: Medical Plan: Improved control after switching Dupixent to Tezspire. continue as needed Zyrtec and Flonase. Plan Norma presents after hospital discharge for acute respiratory failure with hypoxia secondary to asthma exacerbation. She continues to report productive cough, wheezing, dyspnea and chest tightness. Will prescribe levaquin and prednisone. She is aware if symptoms do not improve to call office , will obtain CXR and sputum. If symptoms worsen will seek emergent care. Will send for repeat CT to assess resolution of 1 cm opacity of GRISELDA in 8-10 weeks. Smoking cessation reviewed. She does note that she vapes frequently throughout the day and is awar e of the adverse effects. She is motivated to quit and is requesting NRT. Advised to continue current regimen and will add spiriva to regimen. All questions were answered and patient is in agreement of plan. Will schedule follow up with Dr. Sams. Orders: Orders CT chest wo IV con 8 Weeks J18.9 - Pneumonia, unspecified organism Medications: New nicotine (polacrilex) (Nicorette) 2 mg buccal Q2H 50 ea 0RF fluconazole 150 mg PO Q3D 2 tabs 0RF prednisone see taper instructions; 40 mg Daily x3 days, 30 mg daily x3 days, 20 mg daily x3 days, 10 mg daily x3 days 10 mg PO DIRECTED 30 tabs 0RF tiotropium bromide 2.5 mcg/actuation (Spiriva Respimat) 2 puffs inhalation DAILY 4 grams 6RF levofloxacin 750 mg PO DAILY 7 tabs 0RF Refilled nicotine apply 1-21 mg NICOTINE PATCH daily for 28 days; follow with 1-14 mg PATCH daily for 14 days, then 1-7mg PATCH daily for 14 days transdermal 28 days 56 patches 0RF Breo Ellipta 200-25 mcg/dose (fluticasone furoate-vilanterol) 1 inh inhalation DAILY 30 days 1 ea 6RF NS albuterol sulfate 90 mcg/actuation 1 puff inhalation QID PRN 8.5 grams 6RF shortness of breath or wheezing Discontinued prednisone Discontinued Reason: Patient Completed Course 20 mg PO DAILY 2 tabs 0RF prednisone Discontinued Reason: Patient Completed Course 40 mg (2 x 20 mg) PO DAILY 5 days 10 tabs 0RF Coding Level of Care Code Est Pt Level 4 (51236) Complex EM visit Add On G2211 Diagnoses Asthma J45.909 Environmental allergies Z91.09
[2024-03-19 10:32] VITALS: BP 136/88; PULSE 114; O2SAT 96; BMI 42.6
== END 2024-03-19 11:19 | disposition home or self-care (01) ==
PROVIDERS: PCP Internal Medicine; Referring Provider Physician Assistant; Visit Provider Nurse Practitioner Family
DX: J45.909 Unspecified asthma, uncomplicated (principal); Z91.09 Other allergy status, other than to drugs and biological substances
CPT/HCPCS: 99214; G2211

== ENCOUNTER → 2024-03-19 10:24 | Outpatient (BNVA) | payer OTHER, SELFPAY | PROVIDERS: PCP Internal Medicine; Referring Provider Physician Assistant; Visit Provider Nurse Practitioner Family | DX: J45.909 Unspecified asthma, uncomplicated (principal); Z91.09 Other allergy status, other than to drugs and biological substances | CPT/HCPCS: 99212 ==

== ENCOUNTER 2024-04-05 15:42 | Emergency (ER) | payer OTHER, SELFPAY ==
--- NOTE | ~2024-04-05 | XR_ITS ---
EXAMINATION: XR CHEST CLINICAL INFORMATION: sob cough COMPARISON: None available. TECHNIQUE: 2 views of the chest were obtained. FINDINGS: No significant abnormality is noted involving the heart, lungs, mediastinum, bony thorax or soft tissues. XR/XR chest 2V IMPRESSION: Unremarkable chest examination. Electronically signed by: Javier Alfaro MD 04/05/2024 05:44 PM [facility] [place]
[2024-04-05 16:01] VITALS: BP 129/85; PULSE 100; RESP 19; TEMP 36.6; O2SAT 99; BMI 40.2
--- NOTE | 2024-04-05 16:13 | ED_ITS ---
HPI - General Adult General Chief complaint: Upper Respiratory Symptoms Stated complaint: Headache Source: patient Mode of arrival: ambulatory Limitations: no limitations History of Present Illness ED Provider: Umu Hazel PA-C HPI narrative: Patient is a 39 year old assigned female at with a history of asthma and migraines presenting to the emergency department today with a cough, congestion, and sinus pain. Patient states that for the last few weeks she has had a cough, congestion, and sinus pressure / pain. Patient denies any dizziness, lightheadedness, abdominal pain, nausea, vomiting, fever, chills, blurry vision, double vision, loss of vision, chest pain, difficulty breathing, shortness of breath, back pain, night sweats, pain with urination, increased urinary frequ ency, increased urinary urgency, blood in her urine or stool, syncope or a near syncopal episode, recent trauma or falls, bowel incontinence, bladder incontinence, or any other complaints at this time. Relieving factors: none Exacerbating factors: none Associated symptoms: cough Treatments prior to arrival: none Related Data Home Medications ?Medication ?Instructions ?Recorded ?Confirmed doxycycline hyclate 100 mg tablet 100 mg PO BID 03/13/24 03/13/24 Previous Rx's ?Medication ?Instructions ?Recorded cetirizine 10 mg tablet 10 mg PO DAILY #30 tabs 01/20/20 fluticasone propionate 50 1 spray intranasal DAILY #16 mL 04/15/21 mcg/actuation nasal spray,suspension albuterol sulfate 2.5 mg/3 mL 2.5 mg (3 mL) inhalation Q6H #90 mL 09/20/22 (0.083 %) solution for nebulization tezepelumab-ekko 210 mg/1.91 mL 210 mg (1.91 mL) subcut Q4W 28 07/20/23 (110 mg/mL) subcutaneous syringe days #1.91 mL (Tezspire) ipratropium 0.5 mg-albuterol 3 mg 3 ml inhalation Q4-6H PRN wheezing 09/13/23 (2.5 mg base)/3 mL nebulization 30 days #270 mL soln famotidine 40 mg tablet 40 mg PO DAILY #90 tabs 12/08/23 codeine 10 mg-guaifenesin 100 mg/5 5 ml PO Q6H PRN cold symptoms #118 03/10/24 mL oral liquid (Guaifenesin AC) mL cefuroxime axetil 500 mg tablet 500 mg PO BID 7 days #8 tabs 03/15/24 Breo Ellipta 200 mcg-25 mcg/dose 1 inh inhalation DAILY 30 days #1 03/19/24 powder for inhalation (fluticasone ea furoate-vilanterol) albuterol sulfate 90 mcg/actuation 1 puff inhalation QID PRN 03/19/24 aerosol inhaler shortness of breath or wheezing #8.5 grams fluconazole 150 mg tablet 150 mg PO Q3D 2 doses #2 tabs 03/19/24 levofloxacin 750 mg tablet 750 mg PO DAILY #7 tabs 03/19/24 nicotine (polacrilex) 2 mg gum 2 mg buccal Q2H #50 ea 03/19/24 (Nicorette) nicotine See Rx Instructions transdermal 03/19/24 21mg/24hr-14mg/24hr-7mg/24hr daily .COMPLEX 28 days #56 patches transderm patches,sequentl prednisone 10 mg tablet 10 mg PO DIRECTED #30 tabs 03/19/24 tiotropium bromide 2.5 2 puff inhalation DAILY #4 grams 03/19/24 mcg/actuation mist for inhalation (Spiriva Respimat) ipratropium 20 mcg-albuterol 100 1 puff PO Q6H PRN for wheezing #4 03/28/24 mcg/actuation mist for inhalation mL (Combivent Respimat) Allergies Allergy/AdvReac Type Severity Reaction Status Date / Time No Known Allergies Allergy Verified 04/05/24 16:03 [No Known Allergies*] Review of Systems Constitutional: Constitutional: Reports no additional constitutional complaints, Denies chills, Denies fever(s) and Denies night sweats Eyes: Eyes: Reports no additional eye complaints, Denies blurry vision, Denies change in vision, Denies diplopia, Denies eye discharge, Denies loss of vision and Denies eye pain ENT: Denies dizziness and Reports nasal congestion Cardiovascular: Cardiovascular: Reports no additional cardiovascular complaints, Denies chest pain, Denies lightheadedness, Denies Loss of Consciousness and Denies dyspnea Respiratory: Respiratory: Reports no additional respiratory complaints, Reports cough and Denies dyspnea Gastrointestinal: Gastrointestinal: Reports no additional gastrointestinal complaints, Denies abdominal pain, Denies melena, Denies hematochezia, Denies change in bowel habits and Denies change in stool character Genitourinary: Genitourinary: Denies hematuria, Denies urinary frequency, Denies dysuria, Denies urinary incontinence, Denies urinary hesitancy and Denies urinary urgency Musculoskeletal: Musculoskeletal: Reports no additional musculoskeletal complaints, Denies numbness and Denies tingling Neurologic: Denies dizziness, Denies loss of vision, Denies numbness and Denies tingling Psychiatric: Psychiatric: Reports no additional psychiatric complaints Endocrine: Endocrine: Reports no additional endocrine complaints Hematologic/Lymphatic: Hematologic/Lymphatic: Reports no additional hematologic/lymphatic complaints Allergic/Immunologic: Allergic/Immunologic: Reports no additional allergic/immunologic complaints [facility] Past Medical History Attestation statement: The following information was validated with the patient. Source: old records reviewed and nursing notes reviewed Medical History Migraine Severe persistent asthma Bilateral otitis media Upper respiratory infection Screening due Needle stick injury with contaminated needle Seasonal allergies Asthma Social History Social History Household Members: Family Housing: House Do you presently have visiting nurse or other home services: No Patient Tobacco Use Status: Former Tobacco user Cigarettes Per Day: 7 e-Cigarette/Vaping Use: Currently Using Advance Directives: No Advance Directives Information Provided: No Do you have a plan to hurt others: No Plan service: No Current occupational status: employed Cognitive needs: No Hearing needs: No Vision needs: No Physical Exam ED Vital Signs: Vital Signs - 24 hr 04/05/24 16:01 Temperature 98 F Pulse Rate 100 Respiratory Rate 19 Blood Pressure 129/85 Pulse Oximetry 99 Oxygen Delivery Method Room Air BMI result Body Mass Index 40.2 Const General: cooperative, no acute distress, alert and awake Nutritional Appearance: well nourished Orientation/consciousness: patient oriented x3 Limitations: no limitations HENMT Head: Yes normal to inspection and Yes atraumatic Ears: hearing grossly normal bilaterally and external ears normal General nose exam: Normal external nose present, no nasal discharge noted and no epistaxis Face and sinus: Yes normal facial exam, No abrasion and No laceration Mouth: Normal oral and palatal mucosa present, no drooling and no muffled voice Eyes General: appearance normal, both eyes and all related structures Periorbital: periorbital findings normal Eyelids: Yes eyelids normal Conjunctivae: conjunctivae normal Pupils: Equal, round and reactive pupils present EOM: EOMs intact bilaterally Neck Neck: Yes normal visual inspection, Yes full ROM and Yes no lymphadenopathy Chest Chest palpation & inspection: normal inspection of the chest Resp Effort & Inspection: normal respiratory effort and able to speak in complete sentences GI Inspection: Yes normal to inspection Neuro General: patient oriented x3 and moves all extremities Cranial nerves: Yes Equal, round and reactive pupils present Cognition (Neuro): normal cognition Extrem General: Yes normal to inspection, Yes full ROM and Yes capillary refill normal Psych Appearance: grossly normal Mental Status: mental status grossly normal Affect: normal affect Attitude: cooperative Thought process: Normal thought process present Thought content: Normal thought content present Insight: Good insight present (Psych) Course Course Course Narrative: RME performed by Umu Hazel PA-C. Patient is a 39 year old assigned female at presenting to the emergency department with sinus pressure / pain and congestion for weeks. Detailed physical exam and review of systems are deferred to the psychiatric clinician. Swabs ordered. Patient placed back in the waiting room pending room availability and results. Medical Decision Making Medical Decision Making MDM Narrative: Patient is a 39 year old assigned female at with a history of asthma and migraines presenting to the emergency department today with a cough, congestion, and sinus pain. Patient's limited physical exam performed in triage was unremarkable. Patient's influenza, RSV, and COVID-19 swabs were negative. Patient left the department without completing treatment. Patient left the department before myself or any of the other emergency department clinicians could explain to or review with the patient; physical exam findings, test results, need or lack there of for additional testing, need or lack there of for a procedure to be performed, need or lack there of for hospital admission / transfer, need or lack there of for prescription medication, treatment options, or a treatment plan. Differential Diagnosis Differential Diagnoses: The differential diagnosis associated with the presentation includes Congestion Viral illness Sinusitis COVID-19 Influenza RSV Admission/Observation Consideration of admission/observation: Escalation of care including admission/observation considered Patient would have been admitted to the hospital had she completed her work up and it had any findings where hospital admission was appropriate, her clinical presentation warranted hospital admission, had myself or any other emergency supervisor partial denture department had the ability to discuss need or lack there of for hosp ital admission, and the patient hadn't left the department without completing treatment. Lab Data [facility] Lab Attestation statement: I reviewed the patient's lab results. My interpretation of these results are in the [facility] Rationale portion of this note. Labs: Lab Results 04/05/24 Range/Units 16:41 Influenza Type A (PCR) NEGATIVE (Negative) Influenza Type B (PCR) NEGATIVE (Negative) RSV RNA Qual (PCR) NEGATIVE (Negative) SARS-CoV-2 RNA (RT-PCR) NEGATIVE (Negative) Discharge Plan Discharge Clinical Impression: Nasal congestion Patient Disposition: Left W/O Completing Treatment Prescriptions: No Action cetirizine 10 mg tablet 10 mg PO DAILY Qty: 30 0RF fluticasone propionate 50 mcg/actuation spray,suspension 1 spray intranasal DAILY Qty: 16 6RF albuterol sulfate 2.5 mg /3 mL (0.083 %) solution for nebulization 2.5 mg inhalation Q6H Qty: 90 0RF Tezspire 210 mg/1.91 mL (110 mg/mL) syringe 210 mg subcut Q4W 28 Days Qty: 1.91 12RF ipratropium-albuterol 0.5 mg-3 mg(2.5 mg base)/3 mL solution for nebulization 3 ml inhalation Q4-6H PRN (Reason: wheezing) 30 Days Qty: 270 6RF famotidine 40 mg tablet 40 mg PO DAILY Qty: 90 1RF Combivent Respimat 20-100 mcg/actuation mist 1 puff PO Q6H PRN (Reason: for wheezing) Qty: 4 6RF codeine-guaifenesin [Guaifenesin AC] 10-100 mg/5 mL liquid 5 ml PO Q6H PRN (Reason: cold symptoms) Qty: 118 0RF doxycycline hyclate 100 mg tablet 100 mg PO BID cefuroxime axetil 500 mg tablet 500 mg PO BID 7 Days Qty: 8 0RF nicotine 21-14-7 mg/24 hr patch, TD daily, sequential See Rx Instructions transdermal .COMPLEX 28 Days Qty: 56 0RF Rx Instructions: apply 1-21 mg NICOTINE PATCH daily for 28 days; follow with 1-14 mg PATCH daily for 14 days, then 1-7mg PATCH daily for 14 days transdermal nicotine (polacrilex) [Nicorette] 2 mg gum 2 mg buccal Q2H Qty: 50 0RF fluconazole 150 mg tablet 150 mg PO Q3D Qty: 2 0RF fluticasone furoate-vilanterol [Breo Ellipta] 200-25 mcg/dose blister with device 1 inh inhalation DAILY 30 Days Qty: 1 6RF albuterol sulfate 90 mcg/actuation HFA aerosol inhaler 1 puff inhalation QID PRN (Reason: shortness of breath or wheezing) Qty: 8.5 6RF prednisone 10 mg tablet 10 mg PO DIRECTED Qty: 30 0RF Rx Instructions: see taper instructions; 40 mg Daily x3 days, 30 mg daily x3 days, 20 mg daily x3 days, 10 mg daily x3 days Spiriva Respimat 2.5 mcg/actuation mist 2 puff inhalation DAILY Qty: 4 6RF levofloxacin 750 mg tablet 750 mg PO DAILY Qty: 7 0RF Discharge Date/Time: 04/05/24 19:17
[2024-04-05 17:40] LABS: Influenza A PCR NEGATIVE (Negative); Influenza B PCR NEGATIVE (Negative); Resp Syncy Virus RNA Qual PCR NEGATIVE (Negative); SARS COV2 PCR INHOUSE NEGATIVE (Negative)
== END 2024-04-05 19:17 | disposition left against medical advice (07) ==
PROVIDERS: Emergency Provider Emergency Medicine; PCP Internal Medicine
DX: R09.81 Nasal congestion (principal); R51.9 Headache, unspecified; R06.02 Shortness of breath; R05.9 Cough, unspecified; Z03.818 Encounter for observation for suspected exposure to other biological agents ruled out
CPT/HCPCS: 0241U; 71046; 99281; 99283

== ENCOUNTER → 2024-04-05 16:04 | Outpatient (BNV) | payer OTHER, SELFPAY | PROVIDERS: PCP Internal Medicine; Visit Provider Radiology Diagnostic Radiology | DX: R06.02 Shortness of breath (principal); R05.9 Cough, unspecified | CPT/HCPCS: 71046 ==

== ENCOUNTER → 2024-05-14 16:19 | Outpatient (BNV) | payer OTHER, SELFPAY | PROVIDERS: PCP Internal Medicine; Visit Provider Radiology Diagnostic Radiology | DX: J18.9 Pneumonia, unspecified organism (principal) | CPT/HCPCS: 71250 ==

== ENCOUNTER 2024-06-11 10:51 | Outpatient (AMB) | payer OTHER, SELFPAY ==
--- NOTE | 2024-06-11 10:56 | A.OFFVIS_ITS ---
Vital Signs 06/11/24 10:57 Height 5 ft 10 in Weight 282 lb BMI 40.5 BP 130/88 Blood Pressure Location Rt brachial Position Sitting Pulse 112 H Pulse Source Pulse Oximeter Pulse Oximetry (%) 97 Oxygen Delivery Method Room Air Intake Visit Reasons: SV prednisone Nuclear Weapons Custodian Required: No Community Arts Officer: Community Arts Officer offered & declined Accompanied by: Self / Same As Patient Allergies No Known Allergies [No Known Allergies*] Allergy (Verified 06/11/24 11:01) Medication List - Last Reconciled 06/11/24 by Ana Iniguez LPN albuterol sulfate 2.5 mg (3 mL) inhalation Q6H albuterol sulfate 90 mcg/actuation 1 puff inhalation QID PRN albuterol-budesonide 90-80 mcg/actuation (Airsupra) 2 inhalations inhalation BID PRN Breo Ellipta 200-25 mcg/dose (fluticasone furoate-vilanterol) 1 inh inhalation DAILY 30 days NS cetirizine 10 mg PO DAILY famotidine 40 mg PO DAILY fluticasone propionate 50 mcg/actuation 1 spray intranasal DAILY ipratropium-albuterol 0.5 mg-3 mg(2.5 mg base)/3 mL 3 mL inhalation Q4-6H PRN 30 days ipratropium-albuterol 20-100 mcg/actuation (Combivent Respimat) 1 puff PO Q6H PRN nicotine apply 1-21 mg NICOTINE PATCH daily for 28 days; follow with 1-14 mg PATCH daily for 14 days, then 1-7mg PATCH daily for 14 days transdermal 28 days tezepelumab-ekko (Tezspire) 210 mg (1.91 mL) subcut Q4W 28 days tiotropium bromide 2.5 mcg/actuation (Spiriva Respimat) 2 puffs inhalation DAILY HPI HPI SV prednisone: Details: Norma is a pleasant 39-year-old female, former smoker, recently quit with 10+pyh with underlying severe allergic asthma and environmental allergies. She is moderately controlled on Breo, albuterol MDI, Duoneb, singulair and Tezspire. She is under the care of Dr. Sams and presents for an acute visit. She was last seen for a hospital follow up after COVID+ 02/25 on home test, treated with augmentin for sinusitis on 03/09 then presented [place] [facility] [place]10 with worsening asthma symptoms. CXR revealed lingular pneumonia, treated with doxycycline and prednisone then discharged. She returned to ED on 03/15 with worsening symptoms ultimately admitted with acute respiratory failure with hypoxia admitted until 03/17. She was treated with nebulized therapies, solumedrol, magnesium and IV ceftriaxone and doxycyline. BCx 2 negative, CTA negative for PE, GRISELDA 1 cm ggo. At the last visit in March, she reported continuation of symptoms treated with levaquin and prednisone with minimal relief. She continues with nasal and chest congestion, cough with green sputum, and chronic fatigue. Tested positive to flu two weeks ago. She denies fevers or chills. [facility] Medical History Migraine Severe persistent asthma Bilateral otitis media Upper respiratory infection Screening due Needle stick injury with contaminated needle Seasonal allergies Asthma Social History Household Members: Family Housing: House Do you presently have visiting nurse or other home services: No Patient Tobacco Use Status: Former Tobacco user Cigarettes Per Day: 7 e-Cigarette/Vaping Use: Currently Using service: No Current occupational status: employed Cognitive needs: No Hearing needs: No Vision needs: No Review of Systems Const Denies chills, Denies excessive sweating, Denies fever(s), Denies headache(s) and Denies night sweats Eyes Denies dry eyes, Denies irritation and Denies itchy eyes ENT Reports Normal hearing present, Denies headache(s) and Denies sore throat Card Denies chest pain, Denies chest pain at rest, Denies chest pain with activity, Denies claudication, Denies leg edema, Denies orthopnea and Denies paroxysmal nocturnal dyspnea Resp Denies excessive phlegm production, Denies pain on inspiration, Denies pain with cough and Denies stridor Musc Denies myalgias Neuro Reports Normal hearing present and Denies headache(s) Endo Denies excessive sweating Sukumar/Lymph Denies lymphadenopathy Aller/Immun Denies itchy eyes and Denies seasonal rhinorrhea Physical Exam Vital Signs: Last Vital Signs Pulse 112 H 06/11/24 10:57 BP 130/88 06/11/24 10:57 Pulse Ox 97 06/11/24 10:57 Oxygen Delivery Method Room Air 06/11/24 10:57 BMI result Body Mass Index 40.5 Const General: cooperative, healthy appearing, comfortable, no acute distress, well developed and alert Nutritional Appearance: obese Orientation/consciousness: patient oriented x3 Limitations: no limitations HEENT Head: Yes normal to inspection, Yes normocephalic and Yes atraumatic Ears: hearing grossly normal bilaterally and external ears normal Eyes General: appearance normal, both eyes and all related structures Eyelids: Yes eyelids normal Sclerae: sclerae normal EOM: EOMs intact bilaterally Neck Neck: Yes normal visual inspection and Yes no lymphadenopathy Lymphatic: no lymphadenopathy noted Chest Chest palpation & inspection: normal inspection of the chest Resp Effort & Inspection: normal respiratory effort, able to speak in complete sentences, no stridor, not tachypneic, no tripod positioning and no use of accessory muscles Auscultation: clear to auscultation bilaterally and no wheezes Cardio Jugular venous distension: no JVD Rate: regular rate Rhythm: regular rhythm Skin Other: warm, dry General skin exam: no rashes or lesions noted Neuro General: patient oriented x3 Cranial nerves: Yes Normal hearing present Cognition (Neuro): normal cognition Gait exam (Neuro): Normal gait present Extrem General: Yes normal to inspection, Yes capillary refill normal, Yes no clubbing, cyanosis or edema and Yes no pedal edema Psych Appearance: grossly normal and well kempt Speech and movement: Normal speech and movement present and Clear speech present Affect: normal affect Attitude: cooperative Thought process: Normal thought process present Thought content: Normal thought content present Insight: Good insight present (Psych) Judgement: Good judgement present (Psych) Assessment & Plan Assessment & Plan (1) Asthma: Code(s): J45.909 - Unspecified asthma, uncomplicated Category: Medical (2) Environmental allergies: Code(s): Z91.09 - Other allergy status, other than to drugs and biological substances Category: Medical Plan Will treat bronchitic symptoms with Augmentin. She is aware to call if symptoms do not improve, will consider sputum at that time. Advised to continue current regimen of Tezspire, Breo, Airsupra and Spiriva. Reviewed recent CT chest with Dr. Sams, will repeat in 3 months as there was note of multiple linear changes in both lower lobes, right middle lobe and lingula suggesting multifocal parenchymal lung scarring as well as linear and ground- glass attenuation focus in the medial segment right middle lobe may also reflect scar possibly evolving. All questions were answered and patient is in agreement of plan. Will schedule follow up with Dr. Sams. Orders: Orders CT chest wo IV con 10 Weeks R93.89 - Abnormal findings on diagnostic imaging of other specified body structures Medications: New amoxicillin-pot clavulanate 875-125 mg 1 tab PO Q12H 20 tabs 0RF Refilled tiotropium bromide 2.5 mcg/actuation (Spiriva Respimat) 2 puffs inhalation DAILY 4 grams 6RF Coding Level of Care Code Est Pt Level 4 (43798) Diagnoses Asthma J45.909 Environmental allergies Z91.09
[2024-06-11 10:57] VITALS: BP 130/88; PULSE 112; O2SAT 97; BMI 40.5
--- OUTSIDE RECORDS SUMMARY | 2024-06-11 13:24 | XMS_ITS | Clinical Summary ---
Author Organization [employer] Address [address] [place] [address] Care Team Providers Care Investigator Internal Revenue Name Role Phone Unavailable Primary Care Provider Unavailabl e Social History Tobacco Use Types Packs/Day Years Used Date Smoking Tobacco: Never Assessed Comments Unknown Sex and Gender Information Value Date Recorded Sex Assigned at Female 02/07/2022 10:36 AM EDT Legal Sex Female 10:36 AM EDT Gender Identity Female 02/07/2022 10:36 AM EDT Sexual Orientation Straight 02/07/2022 10 :36 AM EDT Plan of Treatment Health Maintenance Due Date Last Done Comments Depression Screening 1987 Alcohol/Substance Use Screening 1999 Tobacco Screening 1999 Family Planning (PISQ) 2002 DTaP/Tdap/Td Vaccines (1 - Tdap) 2006 Hepatitis B Vaccines (1 of 3 - 19+ 3-dose series) 2006 Pap Smear 2008 Cervical Cancer Screening 2017 HPV/Cotest 2017 COVID-19 Vaccine ( - 2023-2 5 season) 2023 Influenza Vaccine (#1) 2023 Zoster Vaccines (1 of 2) 2037 RSV Patients and Pa tients Aged 60 years or older (1 - 1-dose 75+ series) 2062 HIB Vaccines Aged Out No longer eligi ble based on patient's age to complete this topic HPV Vaccines Aged Out No longer eligi ble based on patient's age to complete this topic Hepatitis A Vaccines Aged Out No long er eligible based on patient's age to complete this topic IPV Vaccines Aged Out No longer eligi ble based on patient's age to complete this topic Meningococcal Vaccine Aged Out No yasemin rodney eligible based on patient's age to complete this topic Pneumococcal Vaccine: Pediat rics (0 to 5 Years) and At-Risk Patients (6 to 49) Years) Aged Out No longer eligible b ased on patient's age to complete this topic RSV under 20 months Aged Out No longe r eligible based on patient's age to complete this topic Rotavirus Vaccines Aged Out No longer eligible based on patient's age to complete this topic
--- OUTSIDE RECORDS SUMMARY | 2024-06-11 13:24 | XMS_ITS | Encounter Summary ---
Author Organization [employer] Address [address] [facility] [address] [place] [id number] Care Team Providers Care Air Traffic Control Specialist Name Role Phone Unavailable Primary Care Provider Unavailabl e Encounter Details Date Type Department Care Team (Latest Contact Info) Description 04/22/2019 Abstract C CONVERSIONS Dental, Provider, DDS Social History Tobacco Use Types Packs/Day Years Used Date Smoking Tobacco: Never Assessed Comments Unknown Sex and Gender Information Value Date Recorded Sex Assigned at Female 02/07/2022 10:36 AM EDT Legal Sex Female 10:36 AM EDT Gender Identity Female 02/07/2022 10:36 AM EDT Sexual Orientation Straight 02/07/2022 10 :36 AM EDT documented as of this encounter Plan of Treatment Not on file documented as of this encounter Visit Diagnoses Not on filedocumented in this encounter
== END 2024-06-11 11:21 | disposition home or self-care (01) ==
PROVIDERS: PCP Internal Medicine; Visit Provider Nurse Practitioner Family
DX: J45.909 Unspecified asthma, uncomplicated (principal); Z91.09 Other allergy status, other than to drugs and biological substances
CPT/HCPCS: 99214

== ENCOUNTER → 2024-06-11 10:51 | Outpatient (BNVA) | payer OTHER, SELFPAY | PROVIDERS: PCP Internal Medicine; Visit Provider Nurse Practitioner Family | DX: J45.909 Unspecified asthma, uncomplicated (principal); Z91.09 Other allergy status, other than to drugs and biological substances | CPT/HCPCS: 99212 ==

== ENCOUNTER 2024-07-30 08:40 | Outpatient (REF) | payer OTHER, SELFPAY ==
--- NOTE | ~2024-07-30 | CT_ITS ---
CLINICAL HISTORY: R93.89 - Abnormal findings on diagnostic imaging of other specified body... CT chest without contrast Comparison: CT/SR - CT CHEST WO IV CON - 05/14/24 16:29 EST Findings: The heart size is normal. No pericardial effusion. Thoracic aorta normal in size with no aneurysm. Interval resolution of ground-glass opacity in the right middle lobe and minimal residual linear opacities in the right middle lobe and lung bases. Lingular opacity which is mostly linear. No consolidation, pleural effusion or pneumothorax. Thyroid not completely imaged. Thoracic esophagus within normal limits. The upper abdomen is unremarkable. No acute fractures. IMPRESSION: 1. Interval resolution of right middle lobe ground-glass opacities with improvement and minimal residual linear opacities in the right middle lobe and bilateral lung bases. These likely represent scarring. 2. Lingular small mostly linear opacity which may represent atelectasis versus scarring. This document has been electronically signed by: Rox Sanders MD on 07/31/2024 17:01:38
--- OUTSIDE RECORDS SUMMARY | 2024-07-30 09:00 | XMS_ITS | Clinical Summary ---
Author Organization [employer] Address [address] [place] [address] Care Team Providers Care Rasper Machine Operator Name Role Phone Unavailable Primary Care Provider [...]
--- OUTSIDE RECORDS SUMMARY | 2024-07-30 09:00 | XMS_ITS | Encounter Summary ---
Author Organization [employer] Address [address] [place] [id number] Care Team Providers Care Regional Extension Service Specialist Name Role Phone Unavailable Primary Care [...]
== END 2024-07-30 08:41 | disposition home or self-care (01) ==
LOC: HO.CT 08:40
PROVIDERS: PCP Internal Medicine; Visit Provider Nurse Practitioner Family
DX: R93.89 Abnormal findings on diagnostic imaging of other specified body structures (principal)
CPT/HCPCS: 71250

== ENCOUNTER → 2024-07-30 08:42 | Outpatient (BNV) | payer OTHER, SELFPAY | PROVIDERS: PCP Internal Medicine; Visit Provider Specialist | DX: R93.89 Abnormal findings on diagnostic imaging of other specified body structures (principal) | CPT/HCPCS: 71250 ==

== ENCOUNTER → 2024-09-18 07:50 | Outpatient (BNV) | payer OTHER, SELFPAY | PROVIDERS: Emergency Provider Emergency Medicine; PCP Internal Medicine; Visit Provider Radiology Diagnostic Radiology | DX: R06.02 Shortness of breath (principal) | CPT/HCPCS: 71045 ==

== ENCOUNTER 2024-09-18 07:57 | Inpatient (IN) | payer OTHER, SELFPAY ==
[2024-09-18] VITALS (11 sets, daily range): BP systolic 119–139; BP diastolic 55–89; PULSE 98–120; RESP 16–26; TEMP 36.3–36.9; O2SAT 89–98; BMI 40.7
--- NOTE | ~2024-09-18 | XR_ITS ---
EXAMINATION: XR CHEST 1 VIEW HISTORY: shortness of breath COMPARISON: Comparison is made with the prior examination dated 04/05/2024. FINDINGS: A single AP portable view of the chest performed at 8:51 AM is submitted. The lungs are expanded and clear. There is no pleural effusion, pneumothorax, or pulmonary vascular congestion. The heart is normal in size. The bones are intact. XR/XR chest 1V IMPRESSION: No acute cardiopulmonary abnormality. Electronically signed by: Perfecto Ayala MD 09/18/2024 09:12 AM EDT
[2024-09-18] MEDS: Albuterol Sulfate 2.5 MG, Albuterol/Iprat 2.5/0.5MG 3 ML 3 ML INHALE (08:28)
--- NOTE | 2024-09-18 09:41 | ED.ASTHMA ---
HPI - Asthma General Chief Complaint: Dyspnea Stated Complaint: sob, asthma Time Seen by Provider: 09/18/24 09:41 Source: patient and old records reviewed Mode of arrival: ambulatory Limitations: no limitations History of Present Illness ED Provider: KASI HUGHES Narrative: 39 yo female with PMH of asthma, migraines, URIs, now here with wheezing and dyspnea but no fevers or sputum production. She has been outside a lot due to grad parties and thinks it is the weather. She has no chest pain. She takes inhalers and nebulizers at home. MD complaint: asthma attack , shortness of breath and wheezing Onset (ago): day(s) (1) Severity: moderate Context: none known Associated symptoms: dry cough Treatments Prior to Arrival: inhaled bronchodilator Related Data Previous Rx's ?Medication ?Instructions ?Recorded cetirizine 10 mg tablet 10 mg PO DAILY #30 tabs 01/20/20 fluticasone propionate 50 1 spray intranasal DAILY #16 mL 04/15/21 mcg/actuation nasal spray,suspension albuterol sulfate 2.5 mg/3 mL 2.5 mg (3 mL) inhalation Q6H #90 mL 09/20/22 (0.083 %) solution for nebulization tezepelumab-ekko 210 mg/1.91 mL 210 mg (1.91 mL) subcut Q4W 28 07/20/23 (110 mg/mL) subcutaneous syringe days #1.91 mL (Tezspire) Breo Ellipta 200 mcg-25 mcg/dose 1 inh inhalation DAILY 30 days #1 03/19/24 powder for inhalation (fluticasone ea furoate-vilanterol) albuterol sulfate 90 mcg/actuation 1 puff inhalation QID PRN 03/19/24 aerosol inhaler shortness of breath or wheezing #8.5 grams nicotine See Rx Instructions transdermal 03/19/24 21mg/24hr-14mg/24hr-7mg/24hr daily .COMPLEX 28 days #56 patches transderm patches,sequentl ipratropium 20 mcg-albuterol 100 1 puff PO Q6H PRN for wheezing #4 03/28/24 mcg/actuation mist for inhalation mL (Combivent Respimat) ipratropium 0.5 mg-albuterol 3 mg 3 ml inhalation Q4-6H PRN wheezing 04/15/24 (2.5 mg base)/3 mL nebulization 30 days #270 mL soln famotidine 40 mg tablet 40 mg PO DAILY #90 tabs 05/31/24 amoxicillin 875 mg-potassium 1 tab PO Q12H #20 tabs 06/11/24 clavulanate 125 mg tablet tiotropium bromide 2.5 2 puff inhalation DAILY #4 grams 06/11/24 mcg/actuation mist for inhalation (Spiriva Respimat) albuterol 90 mcg-budesonide 80 2 inh inhalation BID PRN shortness 07/24/24 mcg/actuation HFA aerosol inhaler of breath #10.7 grams (Airsupra) Allergies Allergy/AdvReac Type Severity Reaction Status Date / Time No Known Allergies Allergy Verified 09/18/24 08:16 [No Known Allergies*] Review of Systems Review of Systems: Constitutional : No Fever, No Chills ENT/Mouth : No Hoarseness, No sore throat, No Rhinorrhea Eyes: No Redness, No Discharge, No Vision Changes Cardiovascular : No Chest Pain, positive SOB, positive Dyspnea on Exertion, No Edema Respiratory : positive Cough, No Sputum, positive Wheezing, Gastrointestinal : No Nausea, No Vomiting, No Diarrhea, No abdominal Pain Genitourinary : No Dysuria, No Hematuria Musculoskeletal : No joint pain, No Myalgias Skin : No rash Neuro : No Weakness, No Numbness, No Headache All other systems reviewed and are negative [facility] Past Medical History Attestation statement: The following information was validated with the patient. Source: old records reviewed Medical History Migraine Severe persistent asthma Bilateral otitis media Upper respiratory infection Screening due Needle stick injury with contaminated needle Seasonal allergies Asthma Social History Social History Household Members: Family Housing: House Do you presently have visiting nurse or other home services: No Patient Tobacco Use Status: Former Tobacco user Cigarettes Per Day: 7 Smoked in Last 30 Days: No e-Cigarette/Vaping Use: Currently Using Use of substances other than those prescribed or required for medical reasons: No Advance Directives: No Advance Directives Information Provided: Yes Do you have a plan to hurt others: No Plan service: No Current occupational status: employed Cognitive needs: No Hearing needs: No Vision needs: No Physical Exam Vital Signs: Vital Signs: Last Vital Signs Temp 97.7 F 09/18/24 11:49 Pulse 107 H 09/18/24 11:49 Resp 16 09/18/24 11:49 BP 128/89 09/18/24 11:49 Pulse Ox 94 09/18/24 11:49 O2 Del Method Room Air 09/18/24 11:49 BMI result Body Mass Index 40.7 Appearance: Alert. Oriented X3. No acute distress. Eyes: Pupils equal, round and reactive to light. ENT: Pharynx normal. Neck: Normal inspection. Neck supple. CVS: Normal heart rate and rhythm. Pulses normal. Respiratory: No respiratory distress. Breath sounds normal. Abdomen: Soft and nontender. Skin: Skin warm and dry. Normal skin color. Extremities: No lower extremity edema. Neuro: Oriented X 3. No motor deficit. No sensory deficit. CN2-12 intact Course Course Course Narrative: 216pm patient is getting another xopenex still tachypneic and wheezy Medications Administered Discontinued Medications Generic Name Dose Route Start Last Admin Trade Name Freq PRN Reason Stop Dose Admin Albuterol Sulfate 2.5 mg/ 0 mg 09/18/24 08:24 09/18/24 08:28 Albuterol/Ipratropium 3 ml INHALE 09/18/24 08:25 5 dose ONCE ONE Administration Magnesium Sulfate 2 gm in 50 mls @ 150 mls/hr 09/18/24 11:21 09/18/24 12:05 Magnesium Sulfate/H2o IV 09/18/24 11:40 Infused ONCE ONE Infusion Lactated Ringer's 1,000 mls @ 999 mls/hr 09/18/24 12:00 09/18/24 12:02 Lr IV 09/18/24 13:00 999 mls/hr .Q1H1M GERALD Administration Levalbuterol HCl 2.5 mg 09/18/24 10:39 09/18/24 10:46 Levalbuterol Hcl 1.25 Mg/3 Ml Vial.Neb INHALE 09/18/24 10:40 2.5 mg ONCE ONE Administration Prednisone 60 mg 09/18/24 09:44 09/18/24 10:55 Prednisone 20 Mg Tablet PO 09/18/24 09:45 60 mg ONCE ONE Administration Medical Decision Making Medical Decision Making MDM Narrative: 39 yo female with PMH of asthma and pneumonia now here with asthma symptoms since yesterday she notes she has insp and exp wheezes. She will need nebs, steroids, IV magnesium, CXR but she has no fevers and no sputum doubt infection, will need repeat assessments Differential Diagnosis Differential Diagnoses: The differential diagnosis associated with the presentation includes asthma, URI Admission/Observation Consideration of admission/observation: Escalation of care including admission/observation considered no improvement after steroids, mag and repeat nebs will admit Consult Healthcare Provider Management of the patient was discussed with: Hospitalist (will admit) Lab Data [facility] Lab Attestation statement: I reviewed the patient's lab results. chronic leukocytosis and not related to infection or severe sepsis. 09/18/24 13:12 09/18/24 13:12 Labs: Lab Results 09/18/24 Range/Units 13:12 WBC 18.9 H (4.8-10.8) X10*3/uL RBC 4.49 (4.20-5.50) X10*6/uL Hgb 13.0 (12.0-16.0) g/dl Hct 38.6 (37.0-47.0) % MCV 86.0 (80.0-98.0) fL MCH 29.0 (27.0-33.0) pg MCHC 33.7 (31.0-35.0) g/dl RDW 13.8 (11.0-16.0) % Plt Count 286 D (160-400) X10*3/uL MPV 11.1 (9.4-12.3) fL Immature Gran % (Auto) 0.6 H (0.0-0.4) % Neut % (Auto) 89.0 H (45-73) % Lymph % (Auto) 7.2 L (20-40) % [place] % (Auto) 2.5 (2-11) % Eos % (Auto) 0.3 (0-4) % Baso % (Auto) 0.4 (0-2) % Lymph # (Auto) 1.4 (1.2-4.9) X10*3/uL [place] # (Auto) 0.5 (0.1-1.2) X10*3/uL Eos # (Auto) 0.1 (0.0-0.4) X10*3/uL Baso # (Auto) 0.1 (0.0-0.2) X10*3/uL Abs Immat Gran (auto) 0.12 H (0.00-0.03) X10*3/uL Absolute Neuts (auto) 16.9 H (2.0-8.3) x10*3/uL Absolute Nucleated RBC 0.000 (0.0-0.012) X10*3/uL Nucleated RBC % (auto) 0.0 (0.0-0.2) /100WBC Influenza Type A (PCR) NEGATIVE (Negative) Influenza Type B (PCR) NEGATIVE (Negative) RSV RNA Qual (PCR) NEGATIVE (Negative) SARS-CoV-2 RNA (RT-PCR) NEGATIVE (Negative) Independent Interpretation I performed an independent interpretation of an: Plain X-Ray (normal ) Radiology Impression Discussion of test interpretation with radiology: I have reviewed the radiologist's reading. External Record Review External record reviewed: Outpatient record Prescription Management I considered prescription management with: Other Critical Care Time Critical Care Time Critical Care Time: Yes Total Critical Care Time: 40 Attestation: IV magnesium for bronchospasm, review of records, repeat neb therapy, admission I attest to this time spent taking care of the patient Discharge Plan Discharge Clinical Impression: Asthma with exacerbation Patient Disposition: Admitted As Inpatient Prescriptions: No Action cetirizine 10 mg tablet 10 mg PO DAILY Qty: 30 0RF fluticasone propionate 50 mcg/actuation spray,suspension 1 spray intranasal DAILY Qty: 16 6RF albuterol sulfate 2.5 mg /3 mL (0.083 %) solution for nebulization 2.5 mg inhalation Q6H Qty: 90 0RF Tezspire 210 mg/1.91 mL (110 mg/mL) syringe 210 mg subcut Q4W 28 Days Qty: 1.91 12RF Combivent Respimat 20-100 mcg/actuation mist 1 puff PO Q6H PRN (Reason: for wheezing) Qty: 4 6RF ipratropium-albuterol 0.5 mg-3 mg(2.5 mg base)/3 mL solution for nebulization 3 ml inhalation Q4-6H PRN (Reason: wheezing) 30 Days Qty: 270 6RF famotidine 40 mg tablet 40 mg PO DAILY Qty: 90 3RF Airsupra 90-80 mcg/actuation HFA aerosol inhaler 2 inh inhalation BID PRN (Reason: shortness of breath) Qty: 10.7 0RF amoxicillin-pot clavulanate 875-125 mg tablet 1 tab PO Q12H Qty: 20 0RF Spiriva Respimat 2.5 mcg/actuation mist 2 puff inhalation DAILY Qty: 4 6RF nicotine 21-14-7 mg/24 hr patch, TD daily, sequential See Rx Instructions transdermal .COMPLEX 28 Days Qty: 56 0RF Rx Instructions: apply 1-21 mg NICOTINE PATCH daily for 28 days; follow with 1-14 mg PATCH daily for 14 days, then 1-7mg PATCH daily for 14 days transdermal fluticasone furoate-vilanterol [Breo Ellipta] 200-25 mcg/dose blister with device 1 inh inhalation DAILY 30 Days Qty: 1 6RF albuterol sulfate 90 mcg/actuation HFA aerosol inhaler 1 puff inhalation QID PRN (Reason: shortness of breath or wheezing) Qty: 8.5 6RF Print Language: Citizen Of [place]
[2024-09-18] MEDS: levalbuterol HCL 1.25 MG/3 ML VIAL.NEB 2.5 MG INHALE ×2 (10:46→14:39)
--- OUTSIDE RECORDS SUMMARY | 2024-09-18 10:53 | XMS_ITS | Encounter Summary ---
Author Organization [email or web address] Address [address] [place] [id number] Care Team Providers Care Brass Finisher Name Role Phone Unavailable Primary Care Provider [...]
[2024-09-18] MEDS: predniSONE 20 MG TABLET 60 MG PO (10:55)
[2024-09-18] MEDS: Magnesium Sulfate/H2O 2 GM/50 ML PIGGYBACK IV (11:46)
--- NOTE | 2024-09-18 11:50 | PC.NURSE ---
PT is AXO4, 22G IV access in Left hand. PT 94% on RA PT medicated per Jun.
[2024-09-18] MEDS: Lactated Ringers 1,000 ML 999 ML IV (12:02)
[2024-09-18 13:15] LABS: MANUAL DIFF FLAG NO
[2024-09-18 13:22] LABS: Basophils Absolute Auto 0.1 X10*3/uL (0.0-0.2); Basophils Percent Auto 0.4 % (0-2); Eosinophils Absolute Auto 0.1 X10*3/uL (0.0-0.4); Eosinophils Percent Auto 0.3 % (0-4); Hematocrit 38.6 % (37.0-47.0); Imm Gran Abs Auto 0.12 X10*3/uL (0.00-0.03); Imm Gran Pct Auto 0.6 % (0.0-0.4); Lymphocytes Absolute Auto 1.4 X10*3/uL (1.2-4.9); Lymphocytes Percent Auto 7.2 % (20-40); Mean Corpuscular HGB Conc 33.7 g/dl (31.0-35.0); Mean Platelet Volume 11.1 fL (9.4-12.3); Monocytes Absolute Auto 0.5 X10*3/uL (0.1-1.2); Monocytes Percent Auto 2.5 % (2-11); Neutrophils Absolute Auto 16.9 x10*3/uL (2.0-8.3); Platelet Count 286 X10*3/uL (160-400); Red Blood Count 4.49 X10*6/uL (4.20-5.50); Red Cell Distribution Width 13.8 % (11.0-16.0); White Blood Count 18.9 X10*3/uL (4.8-10.8)
--- NOTE | 2024-09-18 13:30 | PC.NURSE ---
IVF 0.9%NS still running.
--- NOTE | 2024-09-18 13:31 | PC.NURSE ---
PT assisted to the restroom gait steady, no complaints of dizziness.
[2024-09-18 14:04] LABS: Influenza A PCR NEGATIVE (Negative); Influenza B PCR NEGATIVE (Negative); Resp Syncy Virus RNA Qual PCR NEGATIVE (Negative); SARS COV2 PCR INHOUSE NEGATIVE (Negative)
[2024-09-18 14:16] LABS: Anion Gap 16 (12-20); Blood Urea Nitrogen 9 mg/dL (9-16); Calcium 8.6 mg/dL (8.4-10.2); Carbon Dioxide 15 mmol/L (22-29); Chloride 109 mmol/L (96-108); Creatinine Clr Calc Pharmacy 165.6; Estimated Glomerular Filt Rate > 60; Glucose Random 80 mg/dL (60-115); HCG Quantitative < 2 mIU/mL; Potassium 3.8 mmol/L (3.3-5.1); Sodium 136 mmol/L (135-145)
--- NOTE | 2024-09-18 15:00 | PC.NURSE ---
Pt. c/o SOB and noticed oxygenation wa 89-91% RA, applied oxygen , 1L/NC, now pt. saturation between 95-96%.
--- NOTE | 2024-09-18 15:03 | PM.IMHP ---
History of Present Illness Date of Service: 09/18/24 Attending physician on admission: Crys Kebede Chief Complaint: Shortness of breaths Norma Olson is a 39 years old woman past medical history significant for asthma presents to the ED complaining of worsening shortness on breath since yesterday associated with fever, chest tightness, congestion and nonproductive cough. She denies fever, chills, sore throat, headache or dizziness. The patient denied abdominal pain, nausea, vomiting or diarrhea. She did not report any acute urinary symptoms. She tried inhaler nebs at home without significant improvement of symptoms. She is a former tobacco smoker. She denied marijuana smoke, alcohol abuse or illicit drug use. We will In the ED, she was found to have tachycardia and tachypnea. Oxygen saturation is normal on room air. Blood workup was remarkable for leukocytosis of 18.9. Hemoglobin and platelets are normal. There are no significant electrolyte imbalances. CO2 is 15. test is negative. ED tx: Prednisone 60 mg p.o., Xopenex 5.0 mg total, magnesium 2 g IV, albuterol sulfate 2.5 mg neb. Review of Systems Review of Systems: All 12 systems were reviewed and normal except as noted in HPI. COUNTS INCLUDE 234 BEDS AT THE [facility] Medical History Migraine Severe persistent asthma Bilateral otitis media Upper respiratory infection Screening due Needle stick injury with contaminated needle Seasonal allergies Asthma Social History Household Members: Family Housing: House Do you presently have visiting nurse or other home services: No Patient Tobacco Use Status: Former Tobacco user Cigarettes Per Day: 7 Smoked in Last 30 Days: No e-Cigarette/Vaping Use: Currently Using Use of substances other than those prescribed or required for medical reasons: No Advance Directives: No Advance Directives Information Provided: Yes Do you have a plan to hurt others: No Plan service: No Current occupational status: employed Cognitive needs: No Hearing needs: No Vision needs: No Meds Allergies Allergy/AdvReac Type Severity Reaction Status Date / Time No Known Allergies Allergy Verified 09/18/24 08:16 [No Known Allergies*] Active Medications: Current Medications Acetaminophen (Acetaminophen 325 Mg Tablet) 650 mg PO Q6H PRN PRN Reason: Pain, Mild 1-3,fever,headache Melatonin (Melatonin 3 Mg Tablet) 6 mg PO BEDTIME PRN PRN Reason: Insomnia Sodium Chloride (0.9 % Sodium Chloride Flush 3 Ml Syringe) 3 ml IVFLUSH QSHIFT [facility] Home Medications ?Medication ?Instructions ?Recorded ?Confirmed ?Last Taken ?Type albuterol 90 mcg-budesonide 80 2 inh inhalation BID PRN dyspnea 09/18/24 Unknown History mcg/actuation HFA aerosol inhaler (Airsupra) ipratropium 20 mcg-albuterol 100 1 puff inhalation Q6H PRN wheezing 09/18/24 Unknown History mcg/actuation mist for inhalation (Combivent Respimat) Physical Exam Vital Signs and Narrative: Vital Signs: Last Vital Signs Temp 97.3 F 09/18/24 14:00 Pulse 117 H 09/18/24 14:34 Resp 26 H 09/18/24 14:34 BP 138/86 09/18/24 14:00 Pulse Ox 97 09/18/24 14:00 O2 Del Method Room Air 09/18/24 14:00 BMI result Body Mass Index 40.7 Constitutional - Awake and Alert, No apparent distress. HEENT - PERRLA, EOMI High - S1S2, RRR, No edema Lungs - Normal lung expansion, Normal respiratory effort, No respiratory distress, CTA bilaterally Abdomen - NT / ND; +BS; No rebound or guarding Extremities - no calf tenderness bilaterally, no swelling Musculoskeletal - Normal inspection, normal ROM Skin - Warm/Dry Neurological - Alert & oriented x3. Psychological - Appropriate affect Results Labs 09/18/24 13:12 09/18/24 13:12 Labs: Laboratory Results - last 24 hr 09/18/24 13:12 MCV 86.0 MCH 29.0 MCHC 33.7 RDW 13.8 Plt Count 286 D MPV 11.1 Immature Gran % (Auto) 0.6 H Neut % (Auto) 89.0 H Lymph % (Auto) 7.2 L [place] % (Auto) 2.5 Eos % (Auto) 0.3 Baso % (Auto) 0.4 Lymph # (Auto) 1.4 [place] # (Auto) 0.5 Eos # (Auto) 0.1 Baso # (Auto) 0.1 Abs Immat Gran (auto) 0.12 H Absolute Neuts (auto) 16.9 H Absolute Nucleated RBC 0.000 Nucleated RBC % (auto) 0.0 Anion Gap 16 Estim Creat Clear Calc 165.6 Estimated GFR > 60 Random Glucose 80 Calcium 8.6 D Beta HCG, Quant < 2 Influenza Type A (PCR) NEGATIVE Influenza Type B (PCR) NEGATIVE RSV RNA Qual (PCR) NEGATIVE SARS-CoV-2 RNA (RT-PCR) NEGATIVE Imaging Radiologist's Impressions: Impressions Chest X-Ray 09/18/24 07:50 IMPRESSION: No acute cardiopulmonary abnormality. Electronically signed by: Perfecto Ayala MD 09/18/2024 09:12 AM EDT RP Assessment and Plan (1) Asthma with exacerbation: Qualifiers: Asthma persistence: persistent Asthma severity: moderate Qualified Code(s): J45.41 - Moderate persistent asthma with (acute) exacerbation Status: Acute (2) Leukocytosis: Qualifiers: Leukocytosis type: unspecified Qualified Code(s): D72.829 - Elevated white blood cell count, unspecified Status: Acute Plan Norma Olson is a 39 y/o woman admitted with: Acute exacerbation of asthma, not responding well to treatment provided in the ED. Admit to hospitalist service. Telemetry. Pulse oximetry. Supplemental O2 to keep oxygen saturation > 90%. Continue bronchodilator therapy and IV steroids. Leukocytosis, likely secondary to prednisone/steroids. Continue to monitor. Obesity, class 3. BMI 40.7 kg/m2. Weight loss. DVT prophylaxis: Lovenox Code status: Full Patient will need hospitalization for at least 2 midnights for treatment of acute asthma exacerbation treatment with bronchodilator therapy obese IV steroids and supplemental oxygen as needed Quality Stroke Does the patient have a stroke diagnosis?: No VTE Prior VTE?: No VTE Risk Level:: Medical - moderate - high VTE Device Contraindication: Treatment Not Indicated VTE Drug Contraindication: N/A - Med Ordered
[2024-09-18] MEDS: 0.9 % Sodium Chloride Flush 3 ML SYRINGE IVFLUSH ×2 (16:04→23:42)
--- NOTE | 2024-09-18 16:55 | PHA.MEDREC ---
Addendum entered by Steffany Singleton [facility] 09/18/24 17:07: reviewed, patient states she is on all inhalers, claims are recent as well. PRN VS GERALD. Last office visit from 06/11/2024 showed patient to be on all as well. Original Note: Pharmacy Consult ? Medication Reconciliation Pharmacy has completed the medication reconciliation. Spoke to patient to confirm med list. Patient confirmed she is on Airsupra Inhaler last filled 07/24/24 for 30 days, Breo Ellipta 200 mcg, last filled 07/18/24 for 30 days, Combivent Respimat, last filled 08/23/24 for 30 days, and Spiriva 2.5 mg last filled 06/11/24 for 30 days. Patient confirmed Tezspire 210 mg every 4 weeks, last dose 08/27/24 and next fill is 09/24/24.
--- NOTE | 2024-09-18 19:30 | PC.NURSE ---
RT contacted for reassessment of pt.
--- NOTE | 2024-09-18 19:30 | PC.NURSE ---
Provider Bernardino, contacted about patient HR, pt was tachy in the 120's and pt had wheezing on MANUELA bases with tightness, pt also complained of SOB with chest tightness and expiratory wheezing as well, Provider Bernardino gave this nurse a verbal order to put in 4 MG Morphine IV Push to help with chest tightness on exertion.
[2024-09-18] MEDS: Morphine Sulfate 4 MG/ML CARTRIDGE IVPUSH (19:45)
[2024-09-18] MEDS: Albuterol/Iprat 2.5/0.5MG 3 ML AMPUL.NEB INHALE (19:56)
[2024-09-18 20:26] LABS: VBG HCO3 16 mmol/L (22-26); VBG pCO2 23 mmHg; VBG pH 7.45 (7.32-7.43); VBG pO2 83 mmHg
[2024-09-18 20:29] LABS: Venous Blood Gas Refer to POC result
[2024-09-18 20:32] LABS: D Dimer High Sensitivity < 150 NG/ML
--- NOTE | 2024-09-18 20:49 | PC.NURSE ---
PT reports feeling little better chest tightness as went down to a 3 out of 10. Call farrell placed within reach.
--- NOTE | 2024-09-18 20:50 | PC.NURSE ---
PT sating at 94% RA.
--- NOTE | 2024-09-18 21:47 | PC.NURSE ---
PT O2 sat at 88% on RA, pt denies any history of asleep apnea, pt placed on 2L NC and O2 sats went back u to 94%
[2024-09-19] VITALS (12 sets, daily range): BP systolic 124–140; BP diastolic 62–86; PULSE 105–115; RESP 17–23; TEMP 36.2–36.4; O2SAT 89–95; BMI 41.1
--- NOTE | 2024-09-19 05:03 | PC.NURSE ---
Pt reports SOB after getting up to use the restroom. Requesting a breathing tx at this time. Respiratory notified.
[2024-09-19] MEDS: Albuterol Sulfate (0.083%) 2.5 MG/3 ML VIAL.NEB INHALE (05:13)
[2024-09-19] MEDS: methylPREDNISolone Sod Succ 40 MG/ML VIAL IVPUSH ×2 (06:00→18:05)
[2024-09-19] MEDS: Acetaminophen 325 MG TABLET 650 MG PO ×2 (06:05→18:12)
[2024-09-19] MEDS: Albuterol/Iprat 2.5/0.5MG 3 ML AMPUL.NEB INHALE ×4 (07:43→19:11)
[2024-09-19] MEDS: Loratadine 10 MG TABLET PO (08:50)
[2024-09-19] MEDS: Enoxaparin Sodium 40 MG/0.4 ML SYRINGE SUBCUT (08:50)
[2024-09-19] MEDS: Famotidine 20 MG TABLET 40 MG PO (08:50)
[2024-09-19] MEDS: 0.9 % Sodium Chloride Flush 3 ML SYRINGE IVFLUSH ×3 (08:51→20:54)
--- NOTE | 2024-09-19 09:20 | MHC.CM.PN ---
Pt lives with her family, PCP confirmed: Ryanne Guo. HCP is on file and confirmed: [facility]. Pt. does not have home health services, for DME, she has a nebulizer. She can arrange transport home at [place], DCP: home, self care. CM to follow for [place] needs.
[2024-09-19] MEDS: Fluticasone Propionate Nasal 16 GM SPRAY 1 SPRAY NOSTRIL-B (10:16)
[2024-09-19] MEDS: Butalb/Acetamin/Caff 50/325/40 TABLET 2 TAB PO (11:18)
--- NOTE | 2024-09-19 12:50 | HO.PM.IMPN ---
Subjective Subjective Date of Service: 09/19/24 Interval History: seen and evaluated wheezy and dyspniec on O2 supplement, drops to early 80s with ambulation headache no other events Review of Systems Review of Systems: Yes all other systems are reviewed and are negative Physical Exam Vital Signs: Vital Signs: Last Vital Signs Temp 97.2 F 09/19/24 10:00 Pulse 114 H 09/19/24 11:04 Resp 18 09/19/24 11:04 BP 130/70 09/19/24 10:00 Pulse Ox 94 09/19/24 10:00 O2 Del Method Nasal Cannula 09/19/24 10:00 O2 Flow Rate 4 09/19/24 10:00 BMI result Body Mass Index 40.7 Const: Other: Constitutional : Awake, interactive, not in distress Neck : Normal inspection, Supple Cardiovascular : RRR, no JVP, no lower extremity edema Respiratory : decreased bilateral air entry, no crackles, bilateral expiratory wheezes , on O2 supplement Gastrointestinal: soft, lax, Normal bowel sounds, Non tender Skin : Warm, Dry Neurological : Alert & oriented x3, No focal deficit Objective Data Active Medications Acetaminophen (Acetaminophen 325 Mg Tablet) 650 mg PO Q6H PRN PRN Reason: Pain, Mild 1-3,fever,headache Last Admin: 09/19/24 06:05 Dose: 650 mg Documented By: MORENITA Albuterol Sulfate (Albuterol Sulfate (0.083%) 2.5 Mg/3 Ml Vial.Neb) 2.5 mg INHALE Q2H PRN PRN Reason: Shortness of Breath/Wheezing Last Admin: 09/19/24 05:13 Dose: 2.5 mg Documented By: FADUMO Albuterol/Ipratropium (Albuterol/Iprat 2.5/0.5mg 3 Ml Ampul.Neb) 3 ml INHALE RQ4H WHILE AWAKE [facility] Last Admin: 09/19/24 11:03 Dose: 3 ml Documented By: CHRIS Calcium Carbonate (Calcium Carbonate 750 Mg Tab.Chew) 750 mg PO Q4H PRN PRN Reason: Heartburn Enoxaparin Sodium (Enoxaparin Sodium 40 Mg/0.4 Ml Syringe) 40 mg SUBCUT Q24H [facility] Last Admin: 09/19/24 08:50 Dose: 40 mg Documented By: CAROLYNN Famotidine (Famotidine 20 Mg Tablet) 40 mg PO DAILY [facility] Last Admin: 09/19/24 08:50 Dose: 40 mg Documented By: CAROLYNN Fluticasone Propionate (Fluticasone Propionate Nasal 16 Gm [place]) 1 spray NOSTRIL-B DAILY [facility] Last Admin: 09/19/24 10:16 Dose: 1 spray Documented By: CAROLYNN Guaifenesin (Guaifenesin 200 Mg/10 Ml 10 Ml Liquid) 10 ml PO Q6H PRN PRN Reason: Cough Ibuprofen (Ibuprofen 400 Mg Tablet) 400 mg PO Q6H PRN PRN Reason: Headache/Pain, Scale 1-10 Loratadine (Loratadine 10 Mg Tablet) 10 mg PO DAILY [facility] Last Admin: 09/19/24 08:50 Dose: 10 mg Documented By: CAROLYNN Magnesium Hydroxide (Milk Of Magnesia 30 Ml Oral.Susp) 30 ml PO DAILY PRN PRN Reason: Constipation Melatonin (Melatonin 3 Mg Tablet) 6 mg PO BEDTIME PRN PRN Reason: Insomnia Methylprednisolone Sodium Succinate (Methylprednisolone Sod Succ 40 Mg/Ml Vial) 40 mg IVPUSH Q12H [facility] Last Admin: 09/19/24 06:00 Dose: 40 mg Documented By: MORENITA Sodium Chloride (0.9 % Sodium Chloride Flush 3 Ml Syringe) 3 ml IVFLUSH QSHIFT [facility] Last Admin: 09/19/24 08:51 Dose: 3 ml Documented By: CAROLYNN Labs 09/18/24 13:12 09/18/24 13:12 Labs: Laboratory Results - last 24 hr 09/18/24 09/18/24 09/18/24 13:12 20:09 20:14 MCV 86.0 MCH 29.0 MCHC 33.7 RDW 13.8 Plt Count 286 D MPV 11.1 Immature Gran % (Auto) 0.6 H Neut % (Auto) 89.0 H Lymph % (Auto) 7.2 L [place] % (Auto) 2.5 Eos % (Auto) 0.3 Baso % (Auto) 0.4 Lymph # (Auto) 1.4 [place] # (Auto) 0.5 Eos # (Auto) 0.1 Baso # (Auto) 0.1 Abs Immat Gran (auto) 0.12 H Absolute Neuts (auto) 16.9 H Absolute Nucleated RBC 0.000 Nucleated RBC % (auto) 0.0 D-Dimer High Sensitivty < 150 VBG pH 7.45 H VBG pCO2 23 VBG pO2 83 VBG HCO3 16 L VBG O2 Saturation 98.0 VBG Base Excess -5.0 Anion Gap 16 Estim Creat Clear Calc 165.6 Estimated GFR > 60 Random Glucose 80 Calcium 8.6 D Beta HCG, Quant < 2 Influenza Type A (PCR) NEGATIVE Influenza Type B (PCR) NEGATIVE RSV RNA Qual (PCR) NEGATIVE SARS-CoV-2 RNA (RT-PCR) NEGATIVE Assessment and Plan (1) Asthma with exacerbation: Status: Acute (2) Acute respiratory failure with hypoxia: Status: Acute Plan Norma Olson is a 39 y/o woman admitted with: Acute hypoxic respiratory failure 2/2 exacerbation of asthma Pulse oximetry Supplemental O2 to keep oxygen saturation > 90% Continue bronchodilator therapy IV steroids. Leukocytosis, likely secondary to prednisone/steroids Continue to monitor Obesity, class 3. BMI 40.7 kg/m2. Weight loss. DVT prophylaxis: Lovenox Code status: Full Patient will need hospitalization overnight for treatment of acute asthma exacerbation treatment with bronchodilator therapy obese IV steroids and supplemental oxygen as needed Quality Stroke Does the patient have a stroke diagnosis?: No VTE Prior VTE?: No VTE Risk Level:: Medical - moderate - high VTE Device Contraindication: Treatment Not Indicated VTE Drug Contraindication: N/A - Med Ordered
[2024-09-19] MEDS: Calcium Carbonate 750 MG TAB.CHEW PO (18:12)
[2024-09-19] MEDS: guaiFENesin 200 MG/10 ML 10 ML LIQUID PO (20:59)
[2024-09-19] MEDS: Melatonin 3 MG TABLET 6 MG PO (20:59)
[2024-09-20] VITALS (10 sets, daily range): BP systolic 126–142; BP diastolic 67–86; PULSE 101–116; RESP 16–20; TEMP 36.1–36.8; O2SAT 92–97
[2024-09-20] MEDS: methylPREDNISolone Sod Succ 40 MG/ML VIAL IVPUSH ×2 (05:10→17:38)
[2024-09-20] MEDS: Acetaminophen 325 MG TABLET 650 MG PO ×2 (06:30→17:38)
[2024-09-20] MEDS: Albuterol/Iprat 2.5/0.5MG 3 ML AMPUL.NEB INHALE ×4 (06:36→20:45)
[2024-09-20 06:58] LABS: Anion Gap 13 (12-20); Blood Urea Nitrogen 17 mg/dL (9-16); Calcium 9.4 mg/dL (8.4-10.2); Carbon Dioxide 25 mmol/L (22-29); Chloride 104 mmol/L (96-108); Estimated Glomerular Filt Rate > 60; Glucose Random 111 mg/dL (60-115); Potassium 4.6 mmol/L (3.3-5.1); Sodium 137 mmol/L (135-145)
[2024-09-20 06:59] LABS: Basophils Percent Auto 0.2 % (0-2); Hematocrit 42.7 % (37.0-47.0); Imm Gran Abs Auto 0.17 X10*3/uL (0.00-0.03); Imm Gran Pct Auto 0.7 % (0.0-0.4); Lymphocytes Absolute Auto 2.2 X10*3/uL (1.2-4.9); Lymphocytes Percent Auto 8.4 % (20-40); MANUAL DIFF FLAG SCAN; Mean Corpuscular HGB Conc 32.8 g/dl (31.0-35.0); Mean Corpuscular Hemoglobin 29.2 pg (27.0-33.0); Mean Platelet Volume 11.2 fL (9.4-12.3); Monocytes Absolute Auto 0.9 X10*3/uL (0.1-1.2); Monocytes Percent Auto 3.4 % (2-11); Neutrophils Absolute Auto 22.6 x10*3/uL (2.0-8.3); Neutrophils Percent Auto 87.3 % (45-73); Platelet Count 369 X10*3/uL (160-400); Red Cell Distribution Width 14.4 % (11.0-16.0); SCAN SMEAR FLAG 1; White Blood Count 25.9 X10*3/uL (4.8-10.8)
[2024-09-20 07:34] LABS: SLIDE REVIEW VERIFIED
[2024-09-20] MEDS: Loratadine 10 MG TABLET PO (08:07)
[2024-09-20] MEDS: guaiFENesin 200 MG/10 ML 10 ML LIQUID PO ×2 (08:07→21:50)
[2024-09-20] MEDS: Enoxaparin Sodium 40 MG/0.4 ML SYRINGE SUBCUT (08:07)
[2024-09-20] MEDS: Ibuprofen 400 MG TABLET PO (08:08)
[2024-09-20] MEDS: 0.9 % Sodium Chloride Flush 3 ML SYRINGE IVFLUSH ×3 (08:08→21:51)
[2024-09-20] MEDS: Milk of Magnesia 30 ML ORAL.SUSP PO (08:18)
[2024-09-20] MEDS: Fluticasone Propionate Nasal 16 GM SPRAY 1 SPRAY NOSTRIL-B (08:19)
--- NOTE | 2024-09-20 11:04 | MHC.CM.PN ---
Per rounds, pt is not ready to DC, she is still requiring supplemental O2. DCP remains, home, self care.
--- NOTE | 2024-09-20 12:43 | P.PNIM_ITS ---
Subjective Subjective Date of Service: 09/20/24 Interval History: seen and evaluated wheezy and dyspniec with minimal exertion on O2 supplement, drops to early 80s with ambulation no other events Physical Exam 2 Vital Signs: Vital Signs: Last Vital Signs Temp 97.0 F 09/20/24 11:21 Pulse 102 H 09/20/24 11:21 Resp 20 09/20/24 11:21 BP 135/86 09/20/24 11:21 Pulse Ox 95 09/20/24 11:21 O2 Del Method Room Air 09/20/24 11:21 O2 Flow Rate 92 09/20/24 07:27 BMI result Body Mass Index 41.1 Const: Other: Constitutional : Awake, interactive, not in distress Neck : Normal inspection, Supple Cardiovascular : RRR, no JVP, no lower extremity edema Respiratory : decreased bilateral air entry, no crackles, bilateral expiratory wheezes , on O2 supplement Gastrointestinal: soft, lax, Normal bowel sounds, Non tender Skin : Warm, Dry Neurological : Alert & oriented x3, No focal deficit Objective Data Active Medications Acetaminophen (Acetaminophen 325 Mg Tablet) 650 mg PO Q6H PRN PRN Reason: Pain, Mild 1-3,fever,headache Last Admin: 09/20/24 06:30 Dose: 650 mg Documented By: REN Albuterol Sulfate (Albuterol Sulfate (0.083%) 2.5 Mg/3 Ml Vial.Neb) 2.5 mg INHALE Q2H PRN PRN Reason: Shortness of Breath/Wheezing Last Admin: 09/19/24 05:13 Dose: 2.5 mg Documented By: FADUMO Albuterol/Ipratropium (Albuterol/Iprat 2.5/0.5mg 3 Ml Ampul.Neb) 3 ml INHALE RQ4H WHILE AWAKE [facility] Last Admin: 09/20/24 11:17 Dose: 3 ml Documented By: WESLY Calcium Carbonate (Calcium Carbonate 750 Mg Tab.Chew) 750 mg PO Q4H PRN PRN Reason: Heartburn Last Admin: 09/19/24 18:12 Dose: 750 mg Documented By: YAIMA Enoxaparin Sodium (Enoxaparin Sodium 40 Mg/0.4 Ml Syringe) 40 mg SUBCUT Q24H [facility] Last Admin: 09/20/24 08:07 Dose: 40 mg Documented By: YAIMA Famotidine (Famotidine 20 Mg Tablet) 40 mg PO DAILY [facility] Last Admin: 09/20/24 08:16 Dose: Not Given Documented By: YAIMA Non-Admin Reason: pt states she only takes it at night Fluticasone Propionate (Fluticasone Propionate Nasal 16 Gm [place]) 1 spray NOSTRIL-B DAILY [facility] Last Admin: 09/20/24 08:19 Dose: 1 spray Documented By: YAIMA Guaifenesin (Guaifenesin 200 Mg/10 Ml 10 Ml Liquid) 10 ml PO Q6H PRN PRN Reason: Cough Last Admin: 09/20/24 08:07 Dose: 10 ml Documented By: YAIMA Ibuprofen (Ibuprofen 400 Mg Tablet) 400 mg PO Q6H PRN PRN Reason: Headache/Pain, Scale 1-10 Last Admin: 09/20/24 08:08 Dose: 400 mg Documented By: YAIMA Loratadine (Loratadine 10 Mg Tablet) 10 mg PO DAILY [facility] Last Admin: 09/20/24 08:07 Dose: 10 mg Documented By: YAIMA Magnesium Hydroxide (Milk Of Magnesia 30 Ml Oral.Susp) 30 ml PO DAILY PRN PRN Reason: Constipation Last Admin: 09/20/24 08:18 Dose: 30 ml Documented By: YAMIA Melatonin (Melatonin 3 Mg Tablet) 6 mg PO BEDTIME PRN PRN Reason: Insomnia Last Admin: 09/19/24 20:59 Dose: 6 mg Documented By: REN Comments: for sleep Methylprednisolone Sodium Succinate (Methylprednisolone Sod Succ 40 Mg/Ml Vial) 40 mg IVPUSH Q12H [facility] Last Admin: 09/20/24 05:10 Dose: 40 mg Documented By: REN Sodium Chloride (0.9 % Sodium Chloride Flush 3 Ml Syringe) 3 ml IVFLUSH QSHIFT [facility] Last Admin: 09/20/24 08:08 Dose: 3 ml Documented By: YAIMA Labs 09/20/24 06:11 09/20/24 06:11 Labs: Laboratory Results - last 24 hr 09/20/24 06:11 MCV 89.0 MCH 29.2 MCHC 32.8 RDW 14.4 Plt Count 369 D MPV 11.2 Immature Gran % (Auto) 0.7 H Neut % (Auto) 87.3 H Lymph % (Auto) 8.4 L [place] % (Auto) 3.4 Eos % (Auto) 0.0 Baso % (Auto) 0.2 Lymph # (Auto) 2.2 [place] # (Auto) 0.9 Eos # (Auto) 0.0 Baso # (Auto) 0.0 Abs Immat Gran (auto) 0.17 H Absolute Neuts (auto) 22.6 H Absolute Nucleated RBC 0.000 Nucleated RBC % (auto) 0.0 Smear Tech's Comments VERIFIED Anion Gap 13 Estim Creat Clear Calc 147.0 Estimated GFR > 60 Random Glucose 111 Calcium 9.4 D Assessment and Plan (1) Acute respiratory failure with hypoxia: Status: Acute (2) Asthma with exacerbation: Status: Acute Plan Norma Olson is a 39 y/o woman admitted with: Acute hypoxic respiratory failure 2/2 exacerbation of asthma Supplemental O2 to keep oxygen saturation > 90% Continue bronchodilator therapy IV steroids. wean O2 down as tolerated Leukocytosis, likely secondary to prednisone/steroids Continue to monitor Obesity, class 3. BMI 40.7 kg/m2. Weight loss. DVT prophylaxis: Lovenox Code status: Full Patient will need hospitalization overnight for treatment of acute asthma exacerbation treatment with bronchodilator therapy obese IV steroids and supplemental oxygen as needed Quality Stroke Does the patient have a stroke diagnosis?: No VTE Prior VTE?: No VTE Risk Level:: Medical - moderate - high VTE Device Contraindication: Treatment Not Indicated VTE Drug Contraindication: N/A - Med Ordered
[2024-09-20] MEDS: Melatonin 3 MG TABLET 6 MG PO (21:50)
[2024-09-21 03:44] VITALS: BP 137/74; PULSE 89; RESP 17; TEMP 36.1; O2SAT 97
[2024-09-21] MEDS: methylPREDNISolone Sod Succ 40 MG/ML VIAL IVPUSH (04:52)
[2024-09-21 06:58] VITALS: BP 135/89; PULSE 89; RESP 20; TEMP 36.2; O2SAT 94
[2024-09-21 07:39] VITALS: PULSE 90; RESP 17; O2SAT 90
[2024-09-21] MEDS: Albuterol/Iprat 2.5/0.5MG 3 ML AMPUL.NEB INHALE ×2 (07:39→11:46)
[2024-09-21] MEDS: Famotidine 20 MG TABLET 40 MG PO (08:44)
[2024-09-21] MEDS: Acetaminophen 325 MG TABLET 650 MG PO (08:44)
[2024-09-21] MEDS: Enoxaparin Sodium 40 MG/0.4 ML SYRINGE SUBCUT (08:45)
[2024-09-21] MEDS: Loratadine 10 MG TABLET PO (08:45)
[2024-09-21] MEDS: 0.9 % Sodium Chloride Flush 3 ML SYRINGE IVFLUSH (08:46)
[2024-09-21] MEDS: Fluticasone Propionate Nasal 16 GM SPRAY 1 SPRAY NOSTRIL-B (08:46)
--- NOTE | 2024-09-21 09:41 | MHC.CM.PN ---
PER HOSPITALIST ANTIC PT WILL BE MEDICALLY CLEARED HOME SELF CARE, PT WILL ARRANGE RIDE HOME
[2024-09-21] MEDS: Butalb/Acetamin/Caff 50/325/40 TABLET 2 TAB PO (10:46)
[2024-09-21 10:58] VITALS: BP 136/69; PULSE 98; RESP 20; TEMP 36.7; O2SAT 96
[2024-09-21 11:47] VITALS: PULSE 89; RESP 17; O2SAT 96
--- NOTE | 2024-09-21 12:03 | PM.DS ---
DS: Providers Provider Date of Service: 09/21/24 Date of admission: 09/18/24 14:34 Date of discharge: 09/21/24 Primary care physician: Ryanne Guo MD DS: Diagnosis Discharge Diagnosis (1) Acute respiratory failure with hypoxia: Status: Acute (2) Asthma with exacerbation: Status: Acute DS: Summary Hospital Course Hospital Course: Admission note SAUL Olson is a 39 years old woman past medical history significant for asthma presents to the ED complaining of worsening shortness on breath since yesterday associated with fever, chest tightness, congestion and nonproductive cough. She denies fever, chills, sore throat, headache or dizziness. The patient denied abdominal pain, nausea, vomiting or diarrhea. She did not report any acute urinary symptoms. She tried inhaler nebs at home without significant improvement of symptoms. She is a former tobacco smoker. She denied marijuana smoke, alcohol abuse or illicit drug use. We will In the ED, she was found to have tachycardia and tachypnea. Oxygen saturation is normal on room air. Blood workup was remarkable for leukocytosis of 18.9. Hemoglobin and platelets are normal. There are no significant electrolyte imbalances. CO2 is 15. test is negative. ED tx: Prednisone 60 mg p.o., Xopenex 5.0 mg total, magnesium 2 g IV, albuterol sulfate 2.5 mg neb. Hospital course The patient was treated for Acute hypoxic respiratory failure secondary to exacerbation of asthma treated with Supplemental O2 to keep oxygen saturation > 90% that was weaned off as she was treated with bronchodilator therapy scheduled and as needed along with IV steroids with good tolerance as she was able to ambulate on room air with no reported dyspnea or hypoxia. She was also noted to have Leukocytosis, likely secondary to prednisone/steroids. Will need outpatient follow up with PCP. Discharge plan Continue Prednisone tapering dose Use home nebulizer 3-4 times a day for the next 3 days then as needed Time Attestation Discharge Coordination Time (in mins): 38 Quality: Safe Use of Opioids Does Pt have an Active Cancer Diagnosis on the Problem List?: No Quality: Stroke Does the patient have a stroke diagnosis?: No Physical Exam Vital Signs: Vital Signs: Last Vital Signs Temp 98.0 F 09/21/24 10:58 Pulse 89 09/21/24 11:47 Resp 17 09/21/24 11:47 BP 136/69 09/21/24 10:58 Pulse Ox 96 09/21/24 10:58 O2 Del Method Room Air 09/21/24 10:58 O2 Flow Rate 2 09/21/24 03:44 BMI result Body Mass Index 41.1 Const: Other: Constitutional : Awake, interactive, not in distress Neck : Normal inspection, Supple Cardiovascular : RRR, no JVP, no lower extremity edema Respiratory : decreased bilateral air entry, no crackles, no more wheezes , on O2 supplement Gastrointestinal: soft, lax, Normal bowel sounds, Non tender Skin : Warm, Dry Neurological : Alert & oriented x3, No focal deficit DS: Data Imaging CT scan - chest: Radiologist's impression: ITS Impressions Chest X-Ray 09/18/24 07:50 IMPRESSION: No acute cardiopulmonary abnormality. Electronically signed by: Perfecto Ayala MD 09/18/2024 09:12 AM EDT RP Discharge Plan Discharge Anticipated Discharge Date/Time: 09/21/24 12:01 Patient Disposition: Home, Self-Care Discharge Diagnosis: Asthma exacerbation Referrals: Ryanne Guo MD [Primary Care Provider] - 1 Week Discharge Medications: New prednisone 10 mg tablet See Taper PO DIRECTED Qty: 30 0RF Taper: Prednisone 40 mg daily for 3 Days and 0 Hour 30 mg daily for 3 Days and 0 Hour 20 mg daily for 3 Days and 0 Hour 10 mg daily for 3 Days and 0 Hour Rx Instructions: see taper instructions Continued cetirizine 10 mg tablet 10 mg PO DAILY Qty: 30 0RF fluticasone propionate 50 mcg/actuation spray,suspension 1 spray intranasal DAILY Qty: 16 6RF [place]zsp[place] 210 mg/1.91 mL (110 mg/mL) syringe 210 mg subcut Q4W 28 Days Qty: 1.91 12RF Rx Instructions: Next dose 09/24/24 ipratropium-albuterol 0.5 mg-3 mg(2.5 mg base)/3 mL solution for nebulization 3 ml inhalation Q4-6H PRN (Reason: wheezing) 30 Days Qty: 270 6RF famotidine 40 mg tablet 40 mg PO DAILY Qty: 90 3RF Combivent Respimat 20-100 mcg/actuation mist 1 puff INHALATION Q6H PRN (Reason: wheezing) Airsupra 90-80 mcg/actuation HFA aerosol inhaler 2 inh INHALATION BID PRN (Reason: dyspnea) albuterol sulfate 2.5 mg /3 mL (0.083 %) solution for nebulization 2.5 mg inhalation Q6H PRN (Reason: Shortness Of Breath Or Wheezing) Spiriva Respimat 2.5 mcg/actuation mist 2 puff inhalation DAILY Qty: 4 6RF fluticasone furoate-vilanterol [Breo Ellipta] 200-25 mcg/dose blister with device 1 inh inhalation DAILY 30 Days Qty: 1 6RF Discharge Orders: Discharge Order (Routine); Ordered 09/21/24 Ordered By: Flor Aguirre Diet: Advance to usual diet Activity on Discharge: As tolerated Stand Alone Forms: Patient Portal Discharge page Print Language: Singaporean Care Plan Goals: Continue Prednisone tapering dose Use home nebulizer 3-4 times a day for the next 3 days then as needed Health Concerns: asthma exacerbation Plan of Treatment: Prednisone Assessment: as above
== END 2024-09-21 12:51 | disposition home or self-care (01) | DRG 141 ==
LOC: HO.ED 14:17 → HO.EDOVER 14:53 → HO.IMC 17:20 → HO.EDOVER 18:38 → HO.IMC 09-19 13:42
PROVIDERS: Admitting Provider Internal Medicine; Emergency Provider Emergency Medicine; PCP Internal Medicine; Visit Provider Student in an Organized Health Care Education/Training Program
DX: J45.901 Unspecified asthma with (acute) exacerbation (principal); J96.01 Acute respiratory failure with hypoxia; E66.813 Obesity, class 3; Z71.3 Dietary counseling and surveillance; Z20.822 Contact with and (suspected) exposure to COVID-19; Z68.41 Body mass index [BMI] 40.0-44.9, adult; Z87.891 Personal history of nicotine dependence; Z79.51 Long term (current) use of inhaled steroids; Z79.899 Other long term (current) drug therapy
CPT/HCPCS: 0241U; 36415; 71045; 80048; 82803; 84702; 85025; 85379; 94640; 99285; J1650; J2270; J2919; J3475; J7120

== ENCOUNTER → 2024-09-18 14:34 | Outpatient (BNV) | payer OTHER, SELFPAY | PROVIDERS: Admitting Provider Internal Medicine; Emergency Provider Emergency Medicine; PCP Internal Medicine; Visit Provider Internal Medicine | DX: J45.41 Moderate persistent asthma with (acute) exacerbation (principal); J96.01 Acute respiratory failure with hypoxia | CPT/HCPCS: 99232 ==

== ENCOUNTER 2024-10-14 12:52 | Outpatient (AMB) | payer OTHER, SELFPAY ==
--- NOTE | 2024-10-14 12:58 | A.OFFVIS_ITS ---
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 She is moderately controlled on Breo, Spriva, albuterol MDI, Duoneb, Zyrtec, Flonase PRN, singulair and Tezspire. She is under the care of Dr. Sams and presents for a hospital follow up. She was admitted to [facility] 09/18-09/21 for Acute hypoxic respiratory failure secondary to exacerbation of asthma treated with nebs, steroids, IV mag and supplemental O2 to keep oxygen saturation > 90%. During these episodes, her oxygen saturation dropped to the low 80s on room air, necessitating treatment with steroids and other medications. Ultimately she was weaned off supplemental oxygen, discharged on room air with extended course of prednisone. Since discharge she reports symptoms have significantly improved however uses Combivent, albuterol and Airsupra as rescue inhalers, but often runs out before the month ends, indicating frequent use. She has been advised to use one inhaler consistently to avoid cardiac effects from excessive albuterol use. The patient has a history of allergic rhinitis, with a significant allergy to dust mites and dogs. Previous allergy testing in 2019 revealed multiple sensitivities, including dust mites and various trees and grasses. She does not currently see an instrumentation and control technician but has been considering allergy shots to manage her symptoms. [facility] Medical History Migraine Severe persistent asthma Bilateral otitis media Upper respiratory infection Screening due Needle stick injury with contaminated needle Seasonal allergies Asthma Social History Household Members: Family Housing: House Do you presently have visiting nurse or other home services: No Patient Tobacco Use Status: Former Tobacco user Cigarettes Per Day: 7 e-Cigarette/Vaping Use: Former Use Second Hand Smoke Exposure: No service: No Current occupational status: employed Cognitive needs: No Hearing needs: No Vision needs: No Review of Systems Const Denies chills, Denies excessive sweating, Denies fever(s), Denies headache(s) and Denies night sweats Eyes Denies dry eyes, Denies irritation and Denies itchy eyes ENT Reports Normal hearing present, Denies headache(s), Denies nasal congestion, Denies nasal discharge, Denies post nasal drip and Denies sore throat Card Denies chest pain, Denies chest pain at rest, Denies chest pain with activity, Denies claudication, Denies leg edema, Reports dyspnea on exertion, Denies orthopnea and Denies paroxysmal nocturnal dyspnea Resp Denies chest congestion, Denies cough, Denies excessive phlegm production, Denies pain on inspiration, Denies pain with cough, Reports dyspnea on exertion, Denies stridor and Denies wheezing Musc Denies myalgias Neuro Reports Normal hearing present and Denies headache(s) Endo Denies excessive sweating Sukumar/Lymph Denies lymphadenopathy Aller/Immun Denies itchy eyes, Denies seasonal rhinorrhea and Denies wheezing Physical Exam Vital Signs: Last Vital Signs Pulse 103 H 10/14/24 13:05 BP 110/90 H 10/14/24 13:05 Pulse Ox 96 10/14/24 13:05 Oxygen Delivery Method Room Air 10/14/24 13:05 BMI result Body Mass Index 40.8 Const General: cooperative, healthy appearing, comfortable, no acute distress, well developed and alert Nutritional Appearance: obese Orientation/consciousness: patient oriented x3 Limitations: no limitations HEENT Head: Yes normal to inspection, Yes normocephalic and Yes atraumatic Ears: hearing grossly normal bilaterally and external ears normal Eyes General: appearance normal, both eyes and all related structures Eyelids: Yes eyelids normal Sclerae: sclerae normal EOM: EOMs intact bilaterally Neck Neck: Yes normal visual inspection and Yes no lymphadenopathy Lymphatic: no lymphadenopathy noted Chest Chest palpation & inspection: normal inspection of the chest Resp Effort & Inspection: normal respiratory effort, able to speak in complete sentences, no audible wheezes, no cough, no stridor, not tachypneic, no tripod positioning and no use of accessory muscles Auscultation: diminished lung sounds Cardio Jugular venous distension: no JVD Rate: regular rate Rhythm: regular rhythm Skin Other: warm, dry General skin exam: no rashes or lesions noted Neuro General: patient oriented x3 Cranial nerves: Yes Normal hearing present Cognition (Neuro): normal cognition Gait exam (Neuro): Normal gait present Extrem General: Yes normal to inspection, Yes capillary refill normal, Yes no clubbing, cyanosis or edema and Yes no pedal edema Psych Appearance: grossly normal and well kempt Speech and movement: Normal speech and movement present and Clear speech present Affect: normal affect Attitude: cooperative Thought process: Normal thought process present Thought content: Normal thought content present Insight: Good insight present (Psych) Judgement: Good judgement present (Psych) Results Reviewed Results Reviewed: [address] [address] XRay Report Signed Patient: Norma Olson MR#: [id number] : 1985 Acct:[id number] Age/Sex: 39 / F ADM Date: 09/18/24 Loc: .ED Attending Dr: Ordering Physician: Generic ED Physician Date of Service: 09/18/24 Procedure(s): XR chest 1V Accession Number(s): [id number] cc: Generic ED Physician; Physician,Unknown ~ EXAMINATION: XR CHEST 1 VIEW HISTORY: shortness of breath COMPARISON: Comparison is made with the prior examination dated 04/05/2024. FINDINGS: A single AP portable view of the chest performed at 8:51 AM is submitted. The lungs are expanded and clear. There is no pleural effusion, pneumothorax, or pulmonary vascular congestion. The heart is normal in size. The bones are intact. XR/XR chest 1V IMPRESSION: No acute cardiopulmonary abnormality. Electronically signed by: Perfecto Ayala MD 09/18/2024 09:12 AM EDT RP Dictated By: Perfecto Ayala MD Signed By: <Electronically signed by Perfecto Ayala MD in OV> 09/18/24 0912 DD/ 0750 TD/TT: 09/18/24 0848 Professional Shopper: Assessment & Plan Assessment & Plan (1) Asthma: Code(s): J45.909 - Unspecified asthma, uncomplicated Category: Medical (2) Environmental allergies: Code(s): Z91.09 - Other allergy status, other than to drugs and biological substances Category: Medical Plan Discussed with the patient the importance of managing asthma and allergies to prevent exacerbations. We reviewed the potential benefits of switching to Trelegy if insurance approves it, and discontinue Breo and Spiriva, in addition to Combivent PRN and DuoNeb PRN. Discussed importance of limiting albuterol components of PRN inhalers. Recommendations regarding allergen avoidance measures and potential allergy shots to manage her allergic rhinitis, as prior RAST revealing significant environmental allergies. A referral to an instrumentation and control technician was suggested for further evaluation and management of her allergies. All questions were answered and patient is in agreement of plan. Will schedule follow up in 2-[address] Sams or sooner if needed. Orders: Referrals Allergy & Immunology Referral J45.909 - Unspecified asthma, uncomplicated, Z91.09 - Other allergy status, other than to drugs and biological substances Medications: New ipratropium-albuterol 20-100 mcg/actuation (Combivent Respimat) 1 puff inhalation Q6H PRN 4 grams 6RF wheezing dpwjjhanbkv-cyobocdyz-yaohoshl 200-62.5-25 mcg (Trelegy Ellipta) 1 inh inhalat ion DAILY 60 ea 6RF Refilled ipratropium-albuterol 0.5 mg-3 mg(2.5 mg base)/3 mL 3 mL inhalation Q4-6H PRN 270 mL 6RF wheezing 30 days Discontinued tiotropium bromide 2.5 mcg/actuation (Spiriva Respimat) Discontinued Reason: Patient Completed Course 2 puffs inhalation DAILY 4 grams 6RF Breo Ellipta 200-25 mcg/dose (fluticasone furoate-vilanterol) Discontinued Reason: Patient Completed Course 1 inh inhalation DAILY 30 days 1 ea 6RF NS Coding Level of Care Code Est Pt Level 4 (46769) Complex EM visit Add On G2211 Diagnoses Asthma J45.909 Environmental allergies Z91.09
[2024-10-14 13:05] VITALS: BP 110/90; PULSE 103; O2SAT 96; BMI 40.8
--- OUTSIDE RECORDS SUMMARY | 2024-10-14 13:20 | XMS_ITS | Encounter Summary ---
Author Organization [email or web address] Address [address] [place] [id number] Care Team Providers [place] Stocker Name Role Phone Unavailable Primary Care Provider [...]
== END 2024-10-14 13:32 | disposition home or self-care (01) ==
LOC: HO.HPS 12:53
PROVIDERS: PCP Internal Medicine; Visit Provider Nurse Practitioner Family
DX: J45.909 Unspecified asthma, uncomplicated (principal); Z91.09 Other allergy status, other than to drugs and biological substances
CPT/HCPCS: 99214; G2211

== ENCOUNTER → 2024-10-14 12:52 | Outpatient (BNVA) | payer OTHER, SELFPAY | PROVIDERS: PCP Internal Medicine; Visit Provider Nurse Practitioner Family | DX: J45.50 Severe persistent asthma, uncomplicated (principal); Z91.09 Other allergy status, other than to drugs and biological substances | CPT/HCPCS: 99212 ==

== ENCOUNTER 2024-12-31 17:41 | Emergency (ER) | payer OTHER, SELFPAY ==
--- NOTE | ~2024-12-31 | XR_ITS ---
CLINICAL HISTORY: short of breath EXAM: Two views of the chest. COMPARISON: CR/SR - XR CHEST 1 VIEW - 09/18/24 08:50 EDT FINDINGS: Normal cardiac, mediastinal, and hilar contours. Normal heart size. No pleural effusion or pneumothorax. Lungs are clear. No acute bone finding. IMPRESSION: 1. No acute cardiopulmonary process demonstrated. This document has been electronically signed by: Eugenio Mora MD on 12/31/2024 19:29:30
[2024-12-31 17:42] VITALS: BP 98/65; PULSE 110; RESP 18; TEMP 37.1; O2SAT 96; BMI 41.3
--- NOTE | 2024-12-31 17:44 | ECG_ITS ---
Test Reason : SOB Blood Pressure : */* mmHG Vent. Rate : 120 BPM Atrial Rate : 120 BPM P-R Int : 126 ms QRS Dur : 60 ms QT Int : 296 ms P-R-T Axes : 66 46 55 degrees QTcB Int : 418 ms Sinus tachycardia Otherwise normal ECG When compared with ECG of 09-Mar-2022 23:16, No significant change was found Referred By: Roshni Clayton Electronically Signed By: Alejandro Daniel
--- NOTE | 2024-12-31 17:49 | ED_ITS ---
HPI - General Adult General Chief complaint: Upper Respiratory Symptoms Stated complaint: Difficulty breathing (asthmatic). Time Seen by Provider: 12/31/24 21:06 Source: patient and family Mode of arrival: ambulatory Limitations: no limitations History of Present Illness ED Provider: Dr. Gustavo Mendoza Related Data Home Medications ?Medication ?Instructions ?Recorded ?Confirmed albuterol sulfate 2.5 mg/3 mL 2.5 mg inhalation Q6H DE N 09/18/24 09/18/24 (0.083 %) solution for nebulization Shortness Of Breat h Or Wheezing albuterol sulfate 90 mcg/actuation 2 puff inhalation Q 4-6H PRN 10/14/24 aerosol inhaler (Ventolin HFA) Previous Rx's ?Medication ?Instructions ?Recorded cetirizine 10 mg tablet 10 mg PO DAILY #30 tabs 01/08 05/30 fluticasone propionate 50 1 spray intranasal DAILY #16 mL 04/15/21 mcg/actuation nasal spray,suspension tezepelumab-ekko 210 mg/1.91 mL 210 mg (1.91 mL) subcu t Q4W 28 07/20/23 (110 mg/mL) subcutaneous syringe days #1.91 mL (Tezspire) famotidine 40 mg tablet 40 mg PO DAILY #90 tabs /05/04 ipratropium 0.5 mg-albuterol 3 mg 3 ml inhalation Q4-6 H PRN wheezing 10/14/24 (2.5 mg base)/3 mL nebulization 30 days #270 mL soln ipratropium 20 mcg-albuterol 100 1 puff inhalation Q6H PRN wheezing 10/14/24 mcg/actuation mist for inhalation #4 grams (Combivent Respimat) Breo Ellipta 200 mcg-25 mcg/dose 1 inh inhalation LINO Y 30 days #1 10/18/24 powder for inhalation (fluticasone ea furoate-vilanterol) umeclidinium 62.5 mcg/actuation 1 inh inhalation DAILY #30 ea 10/18/24 blister powder for inhalation (Incruse Ellipta) albuterol sulfate 90 mcg/actuation 2 inh inhalation Q4 -6H PRN 12/31/24 breath activated powder shortness of breath or wheez ing #1 inhaler,sensor (Proair Digihaler) ea prednisone 20 mg tablet 60 mg (3 x 20 mg) PO DAILY 5 days 12/31/24 #15 tabs Allergies Allergy/AdvReac Type Severity Reaction Status Date / Time No Known Allergies (No Known Allergy Verified 12/31/24 17:44 Allergies*) [facility] Past Medical History Medical History Migraine Severe persistent asthma Bilateral otitis media Upper respiratory infection Screening due Needle stick injury with contaminated needle Seasonal allergies Asthma Social History Social History Household Members: Family Housing: House Do you presently have visiting nurse or other home services: No Patient Tobacco Use Status: Former Tobacco user Cigarettes Per Day: 7 Smoked in Last 30 Days: No e-Cigarette/Vaping Use: Former Use Second Hand Smoke Exposure: No Use of substances other than those prescribed or required for medical reasons: No Advance Directives: No Advance Directives Information Provided: Yes Do you have a plan to hurt others: No Plan Patient : No service: No Current occupational status: employed Cognitive needs: No Hearing needs: No Vision needs: No Physical Exam ED Vital Signs: Vital Signs - 24 hr 12/31/24 17:42 12/31/24 20:59 12/31/24 21:27 Temperature 98.8 F Pulse Rate 110 H 101 H 90 Respiratory Rate 18 20 18 Blood Pressure 98/65 130/70 Pulse Oximetry 96 96 Oxygen Delivery Method Room Air Room Air Oxygen Flow Rate 12/31/24 21:32 12/31/24 21:34 Temperature 98.2 F Pulse Rate 92 Respiratory Rate 18 Blood Pressure Pulse Oximetry 98 96 Oxygen Delivery Method Oxygen Flow Rate 6 BMI result Body Mass Index 41.3 Course Course Course Narrative: This is a Rapid Medical Examination (RME) performed by Alan Clayton PA-C in triage. Full HPI, ROS, assessment and treatment plan per primary provider in the Main ED. Hx: 39 yo F hx asthma here for eval of cough and congestion x4 days. assoc sob. home nebs not working. PE/vitals: Faint expiratory wheezes primarily to left lower Plan:, EKG, chest x-ray, viral swabs Medications Administered Discontinued Medications Generic Name Dose Route Start Last Admin Trade Name Freq PRN Reason Stop Dose Admin Albuterol Sulfate 5 mg/ 0 mg 12/31/24 21:22 12/31/24 21:27 Albuterol/Ipratropium 3 ml INHALE 12/31/24 21:23 1 each ONCE ONE Administration Prednisone 100 mg 12/31/24 21:19 12/31/24 21:45 Prednisone 20 Mg Tablet PO 12/31/24 21:20 100 mg ONCE ONE Administration Medical Decision Making Lab Data 12/31/24 18:32 12/31/24 18:32 Labs: Lab Results 12/31/24 Range/Units 18:32 WBC 14.1 H (4.8-10.8) X10*3/uL RBC 4.87 (4.20-5.50) X10*6/uL Hgb 14.5 (12.0-16.0) g/dl Hct 42.7 (37.0-47.0) % MCV 87.7 (80.0-98.0) fL MCH 29.8 (27.0-33.0) pg MCHC 34.0 (31.0-35.0) g/dl RDW 13.5 (11.0-16.0) % Plt Count 376 (160-400) X10*3/uL MPV 10.9 (9.4-12.3) fL Immature Gran % (Auto) 0.4 (0.0-0.4) % Neut % (Auto) 68.4 (45-73) % Lymph % (Auto) 22.6 (20-40) % [place] % (Auto) 5.4 (2-11) % Eos % (Auto) 2.8 (0-4) % Baso % (Auto) 0.4 (0-2) % Lymph # (Auto) 3.2 (1.2-4.9) X10*3/uL [place] # (Auto) 0.8 (0.1-1.2) X10*3/uL Eos # (Auto) 0.4 (0.0-0.4) X10*3/uL Baso # (Auto) 0.1 (0.0-0.2) X10*3/uL Abs Immat Gran (auto) 0.05 H (0.00-0.03) X10*3/uL Absolute Neuts (auto) 9.7 H (2.0-8.3) x10*3/uL Absolute Nucleated RBC 0.000 (0.0-0.012) X10*3/uL Nucleated RBC % (auto) 0.0 (0.0-0.2) /100WBC Sodium 140 (135-145) mmol/L Potassium 3.8 (3.3-5.1) mmol/L Chloride 109 H (96-108) mmol/L Carbon Dioxide 23 (22-29) mmol/L Anion Gap 12 (12-20) BUN 12 (9-16) mg/dL Creatinine 0.91 (0.5-1.4) mg/dL Estim Creat Clear Calc 121.0 Estimated GFR > 60 Random Glucose 100 (60-115) mg/dL Calcium 9.2 (8.4-10.2) mg/dL Magnesium 1.9 (1.6-2.6) mg/dL Total Bilirubin 0.2 (0.0-1.0) mg/dL AST 26 (5-31) U/L ALT 33 H (0-31) U/L Alkaline Phosphatase 96 (39-117) U/L Troponin I High Sens < 2.7 (<3.5-17.0) ng/L Total Protein 8.0 (6.5-8.0) g/dL Albumin 4.4 (3.5-5.0) g/dL COVID-19 ([facility]) Negative (Negative) COVID-19 Clin Com See Note Influenza Type A ([facility]) Negative (Negative) Influenza Type B (DA[facility]ID) Negative (Negative) Influenza A & B Note See Note Discharge Plan Discharge Clinical Impression: Acute viral bronchitis, Asthma exacerbation Patient Disposition: Home, Self-Care Instructions: Asthma (ED) Additional Instructions: Your blood work was unremarkable. Your COVID 19 and influenza tests were negative. Your chest x-ray did not reveal any events for pneumonia which is reassuring. Your EKG was normal Your symptoms are consistent with a viral bronchitis which is caused a flare-up of your asthma. Take prednisone 20 mg pills, 3 pills once a day for 5 days. While you ?are taking prednisone, do not take any NSAIDs (Motrin, Advil, ibuprofen, Aleve, naproxen). Use the albuterol inhaler with the spacer, 2 puffs every 4-6 hours as needed for shortness of breath and wheezing. Continue using your preventive inhaler as prescribed Take Tylenol (acetaminophen) 500 mg pills, 2 pills every 6 hours as needed for pain or fever. Follow-up with your doctor in 2 days. Please return to the emergency department if your symptoms get worse or if you develop any symptoms that are concerning to you. Prescriptions: New prednisone 20 mg tablet 60 mg PO DAILY 5 Days Qty: 15 0RF Proair Digihaler 90 mcg/actuation aero powdr breath act w/sensor 2 inh inhalation Q4-6H PRN (Reason: shortness of breath or wheezing) Qty: 1 0RF No Action cetirizine 10 mg tablet 10 mg PO DAILY Qty: 30 0RF fluticasone propionate 50 mcg/actuation spray,suspension 1 spray intranasal DAILY Qty: 16 6RF Tezspire 210 mg/1.91 mL (110 mg/mL) syringe 210 mg subcut Q4W 28 Days Qty: 1.91 12RF Rx Instructions: Next dose 09/24/24 famotidine 40 mg tablet 40 mg PO DAILY Qty: 90 3RF fluticasone furoate-vilanterol [Breo Ellipta] 200-25 mcg/dose blister with device 1 inh inhalation DAILY 30 Days Qty: 1 6RF Incruse Ellipta 62.5 mcg/actuation blister with device 1 inh inhalation DAILY Qty: 30 6RF albuterol sulfate 2.5 mg /3 mL (0.083 %) solution for nebulization 2.5 mg inhalation Q6H PRN (Reason: Shortness Of Breath Or Wheezing) albuterol sulfate [Ventolin HFA] 90 mcg/actuation HFA aerosol inhaler 2 puff inhalation Q4-6H PRN Combivent Respimat 20-100 mcg/actuation mist 1 puff INHALATION Q6H PRN (Reason: wheezing) Qty: 4 6RF ipratropium-albuterol 0.5 mg-3 mg(2.5 mg base)/3 mL solution for nebulization 3 ml inhalation Q4-6H PRN (Reason: wheezing) 30 Days Qty: 270 6RF Print Language: [place]i
[2024-12-31 18:39] LABS: MANUAL DIFF FLAG NO
[2024-12-31 18:42] LABS: Hematocrit 42.7 % (37.0-47.0); Hemoglobin 14.5 g/dl (12.0-16.0); Imm Gran Abs Auto 0.05 X10*3/uL (0.00-0.03); Imm Gran Pct Auto 0.4 % (0.0-0.4); Lymphocytes Absolute Auto 3.2 X10*3/uL (1.2-4.9); Mean Corpuscular HGB Conc 34.0 g/dl (31.0-35.0); Mean Corpuscular Hemoglobin 29.8 pg (27.0-33.0); Mean Corpuscular Volume 87.7 fL (80.0-98.0); NRBC Abs Auto 0.000 X10*3/uL (0.0-0.012); NRBC Pct Auto 0.0 /100WBC (0.0-0.2); Platelet Count 376 X10*3/uL (160-400); Red Blood Count 4.87 X10*6/uL (4.20-5.50); White Blood Count 14.1 X10*3/uL (4.8-10.8)
[2024-12-31 18:55] LABS: Alanine Aminotransferase 33 U/L (0-31); Albumin Level 4.4 g/dL (3.5-5.0); Alkaline Phosphatase 96 U/L (39-117); Anion Gap 12 (12-20); Aspartate Amino Transferase 26 U/L (5-31); Blood Urea Nitrogen 12 mg/dL (9-16); Calcium 9.2 mg/dL (8.4-10.2); Carbon Dioxide 23 mmol/L (22-29); Chloride 109 mmol/L (96-108); Creatinine Clr Calc Pharmacy 121.0; Estimated Glomerular Filt Rate > 60; Magnesium 1.9 mg/dL (1.6-2.6); Potassium 3.8 mmol/L (3.3-5.1); Sodium 140 mmol/L (135-145); Total Protein 8.0 g/dL (6.5-8.0)
[2024-12-31 18:59] LABS: COVID-19 Test Negative (Negative); IDNOW Serial# 58CA691E
[2024-12-31 19:07] LABS: IDNOW Serial# 55D5AD1C; Influenza B2 Negative (Negative); Troponin-I High Sensitivity < 2.7 ng/L (<3.5-17.0)
[2024-12-31 20:59] VITALS: BP 130/70; PULSE 101; RESP 20; O2SAT 96
--- NOTE | 2024-12-31 21:09 | ED_ITS ---
HPI - URI/Sore Throat General Chief Complaint: Upper Respiratory Symptoms Stated Complaint: Difficulty breathing (asthmatic). Time Seen by Provider: 12/31/24 21:06 Source: patient Mode of arrival: ambulatory Limitations: no limitations History of Present Illness ED Provider: Dr. Gustavo Mendoza HPI Narrative: 39-year-old female with a history of asthma who presents emergency department for evaluation of shortness of breath, cough and tightness since 12/28/2024 (3 days). Patient states that she normally uses her albuterol inhaler 3 times a day for asthma and has been compliant with her Combivent preventative inhaler. She states that 3 days prior she developed a nonproductive cough and chest tightness. She states that since yesterday she has had shortness of breath in his now on exertion. She is also feeling weak and fatigued Related Data Home Medications ?Medication ?Instructions ?Recorded ?Confirmed albuterol sulfate 2.5 mg/3 mL 2.5 mg inhalation Q6H NE N 09/18/24 09/18/24 (0.083 %) solution for nebulization Shortness Of Breat h Or Wheezing albuterol sulfate 90 mcg/actuation 2 puff inhalation Q 4-6H PRN 10/14/24 aerosol inhaler (Ventolin HFA) Previous Rx's ?Medication ?Instructions ?Recorded cetirizine 10 mg tablet 10 mg PO DAILY #30 tabs 01/08 05/30 fluticasone propionate 50 1 spray intranasal DAILY #16 mL 04/15/21 mcg/actuation nasal spray,suspension tezepelumab-ekko 210 mg/1.91 mL 210 mg (1.91 mL) subcu t Q4W 28 07/20/23 (110 mg/mL) subcutaneous syringe days #1.91 mL (Tezspire) famotidine 40 mg tablet 40 mg PO DAILY #90 tabs /05/04 ipratropium 0.5 mg-albuterol 3 mg 3 ml inhalation Q4-6 H PRN wheezing 10/14/24 (2.5 mg base)/3 mL nebulization 30 days #270 mL soln ipratropium 20 mcg-albuterol 100 1 puff inhalation Q6H PRN wheezing 10/14/24 mcg/actuation mist for inhalation #4 grams (Combivent Respimat) Breo Ellipta 200 mcg-25 mcg/dose 1 inh inhalation LINO Y 30 days #1 10/18/24 powder for inhalation (fluticasone ea furoate-vilanterol) umeclidinium 62.5 mcg/actuation 1 inh inhalation DAILY #30 ea 10/18/24 blister powder for inhalation (Incruse Ellipta) albuterol sulfate 90 mcg/actuation 2 inh inhalation Q4 -6H PRN 12/31/24 breath activated powder shortness of breath or wheez ing #1 inhaler,sensor (Proair Digihaler) ea prednisone 20 mg tablet 60 mg (3 x 20 mg) PO DAILY 5 days 12/31/24 #15 tabs Allergies Allergy/AdvReac Type Severity Reaction Status Date / Time No Known Allergies (No Known Allergy Verified 12/31/24 17:44 Allergies*) [facility] Past Medical History [facility] Narrative: Social history: The patient denies tobacco use. She occasionally drinks alcohol. Medical History Migraine Severe persistent asthma Bilateral otitis media Upper respiratory infection Screening due Needle stick injury with contaminated needle Seasonal allergies Asthma Social History Social History Household Members: Family Housing: House Do you presently have visiting nurse or other home services: No Patient Tobacco Use Status: Former Tobacco user Cigarettes Per Day: 7 Smoked in Last 30 Days: No e-Cigarette/Vaping Use: Former Use Second Hand Smoke Exposure: No Use of substances other than those prescribed or required for medical reasons: No Advance Directives: No Advance Directives Information Provided: Yes Do you have a plan to hurt others: No Plan Patient : No service: No Current occupational status: employed Cognitive needs: No Hearing needs: No Vision needs: No Physical Exam 2 Vital Signs: Vital Signs: Last Vital Signs Temp 98.2 F 12/31/24 21:32 Pulse 92 12/31/24 21:32 Resp 18 12/31/24 21:32 BP 130/70 12/31/24 20:59 Pulse Ox 96 12/31/24 21:34 O2 Del Method Room Air 12/31/24 20:59 O2 Flow Rate 6 12/31/24 21:32 Oxygen Flow Rate 6 12/31/24 21:34 BMI result Body Mass Index 41.3 Initial vital signs revealed tachycardia otherwise unremarkable Exam: General: Awake, alert in no distress Head: Normocephalic, atraumatic EENT: PERRL, sclera and conjunctiva are normal, mouth with no erythema or exudates Neck: Supple, no adenopathy Lung: breath sounds symmetric, diffuse wheezing, no rales and no rhonchi Chest: symmetric movement, nontender Heart: regular rate and rhythm, normal S1, S2 no murmurs or rubs Abdomen: soft, non-tender, nondistended, normal bowel sounds Back: no vertebral tenderness, no CVAT Extremities: no deformities, moves all extremities symmetrically, no edema Neuro: Awake, alert, oriented, normal speech, cranial nerves 2-12 intact, moves all extremities symmetrically Psych: Pleasant, cooperative Medications Administered Discontinued Medications Generic Name Dose Route Start Last Admin Trade Name Freq PRN Reason Stop Dose Admin Albuterol Sulfate 5 mg/ 0 mg 12/31/24 21:22 12/31/24 21:27 Albuterol/Ipratropium 3 ml INHALE 12/31/24 21:23 1 each ONCE ONE Administration Prednisone 100 mg 12/31/24 21:19 12/31/24 21:45 Prednisone 20 Mg Tablet PO 12/31/24 21:20 100 mg ONCE ONE Administration Medical Decision Making Medical Decision Making MDM Narrative: 39-year-old female with a history of asthma who presents emergency department for evaluation of shortness of breath, cough and tightness since 12/28/2024 (3 days). Patient states that she normally uses her albuterol inhaler 3 times a day for asthma and has been compliant with her Combivent preventative inhaler. She states that 3 days prior she developed a nonproductive cough and chest tightness. She states that since yesterday she has had shortness of breath in his now on exertion. She is also feeling weak and fatigued. Vital signs revealed tachycardia otherwise unremarkable. Lung exam revealed diffuse wheezing. Differential diagnosis: ?Includes but is not limited to pneumonia, bronchitis, viral syndrome, asthma exacerbation, anemia, electrolyte abnormality Course: 05/30/2034 My independent interpretation patient's laboratory evaluation is as follows: WBC elevated 14,100. CMP was normal. Troponin was below detectable limits. COVID-19, influenza were negative. 12 EKG was unremarkable. Chest x-ray revealed no evidence of pneumonia. Bronchodilator protocol was ordered and the patient was treated with albuterol 7.5 mg and ipratropium 0.5 mg nebulized. Patient also received prednisone 100 mg orally. The patient is feeling significantly better and lung exam revealed no wheezing. Patient most likely has a viral bronchitis which is caused her to have an asthma exacerbation. I did discuss this with the patient. She was given a prescription for prednisone 60 mg once a day for 5 days. She was also given a prescription for an albuterol inhaler. She was given printed and verbal instructions and discharged home Differential Diagnosis Differential Diagnoses: The differential diagnosis associated with the presentation includes (See above) Admission/Observation Consideration of admission/observation: Escalation of care including admission/observation considered (Yes) Lab Data MDM Lab Attestation statement: I reviewed the patient's lab results. 12/31/24 18:32 12/31/24 18:32 Labs: Lab Results 12/31/24 Range/Units 18:32 WBC 14.1 H (4.8-10.8) X10*3/uL RBC 4.87 (4.20-5.50) X10*6/uL Hgb 14.5 (12.0-16.0) g/dl Hct 42.7 (37.0-47.0) % MCV 87.7 (80.0-98.0) fL MCH 29.8 (27.0-33.0) pg MCHC 34.0 (31.0-35.0) g/dl RDW 13.5 (11.0-16.0) % Plt Count 376 (160-400) X10*3/uL MPV 10.9 (9.4-12.3) fL Immature Gran % (Auto) 0.4 (0.0-0.4) % Neut % (Auto) 68.4 (45-73) % Lymph % (Auto) 22.6 (20-40) % [place] % (Auto) 5.4 (2-11) % Eos % (Auto) 2.8 (0-4) % Baso % (Auto) 0.4 (0-2) % Lymph # (Auto) 3.2 (1.2-4.9) X10*3/uL [place] # (Auto) 0.8 (0.1-1.2) X10*3/uL Eos # (Auto) 0.4 (0.0-0.4) X10*3/uL Baso # (Auto) 0.1 (0.0-0.2) X10*3/uL Abs Immat Gran (auto) 0.05 H (0.00-0.03) X10*3/uL Absolute Neuts (auto) 9.7 H (2.0-8.3) x10*3/uL Absolute Nucleated RBC 0.000 (0.0-0.012) X10*3/uL Nucleated RBC % (auto) 0.0 (0.0-0.2) /100WBC Sodium 140 (135-145) mmol/L Potassium 3.8 (3.3-5.1) mmol/L Chloride 109 H (96-108) mmol/L Carbon Dioxide 23 (22-29) mmol/L Anion Gap 12 (12-20) BUN 12 (9-16) mg/dL Creatinine 0.91 (0.5-1.4) mg/dL Estim Creat Clear Calc 121.0 Estimated GFR > 60 Random Glucose 100 (60-115) mg/dL Calcium 9.2 (8.4-10.2) mg/dL Magnesium 1.9 (1.6-2.6) mg/dL Total Bilirubin 0.2 (0.0-1.0) mg/dL AST 26 (5-31) U/L ALT 33 H (0-31) U/L Alkaline Phosphatase 96 (39-117) U/L Troponin I High Sens < 2.7 (<3.5-17.0) ng/L Total Protein 8.0 (6.5-8.0) g/dL Albumin 4.4 (3.5-5.0) g/dL COVID-19 ([facility]) Negative (Negative) COVID-19 Clin Com See Note Influenza Type A ([facility]) Negative (Negative) Influenza Type B ([facility]) Negative (Negative) Influenza A & B Note See Note Independent Interpretation I performed an independent interpretation of an: EKG and Plain X-Ray Interpretation: The patient's 12 EKG done on 12/31/2024 at 18:25 hours is as follows: Sinus tachycardia with a rate of 120, normal NE interval, QRS duration and QTC interval, no ST segment elevation, no ST segment depression, no significant T- wave abnormalities, no PACs, no PVCs. Compared to EKG dated 03/09/2022 sinus tachycardia is new, no other changes. My interpretation patient's chest x-ray is as follows: No acute disease Radiology Impression Radiologist Impression: EXAM: Two views of the chest. COMPARISON: CR/SR - XR CHEST 1 VIEW - 09/18/24 08:50 EDT FINDINGS: Normal cardiac, mediastinal, and hilar contours. Normal heart size. No pleural effusion or pneumothorax. Lungs are clear. No acute bone finding. IMPRESSION: 1. No acute cardiopulmonary process demonstrated. This document has been electronically signed by: Eugenio Mora MD on 12/31/2024 19:29:30 Prescription Management I considered prescription management with: Other (Anti-inflammatory steroids: Prednisone, bronchodilator call albuterol inhaler) Chronic Conditions Patient?s care impacted by: Other (Asthma) Discharge Plan Discharge Clinical Impression: Acute viral bronchitis, Asthma exacerbation Patient Disposition: Home, Self-Care Instructions: Asthma (ED) Additional Instructions: Your blood work was unremarkable. Your COVID 19 and influenza tests were negative. Your chest x-ray did not reveal any events for pneumonia which is reassuring. Your EKG was normal Your symptoms are consistent with a viral bronchitis which is caused a flare-up of your asthma. Take prednisone 20 mg pills, 3 pills once a day for 5 days. While you ?are taking prednisone, do not take any NSAIDs (Motrin, Advil, ibuprofen, Aleve, naproxen). Use the albuterol inhaler with the spacer, 2 puffs every 4-6 hours as needed for shortness of breath and wheezing. Continue using your preventive inhaler as prescribed Take Tylenol (acetaminophen) 500 mg pills, 2 pills every 6 hours as needed for pain or fever. Follow-up with your doctor in 2 days. Please return to the emergency department if your symptoms get worse or if you develop any symptoms that are concerning to you. Prescriptions: New prednisone 20 mg tablet 60 mg PO DAILY 5 Days Qty: 15 0RF Proair Digihaler 90 mcg/actuation aero powdr breath act w/sensor 2 inh inhalation Q4-6H PRN (Reason: shortness of breath or wheezing) Qty: 1 0RF No Action cetirizine 10 mg tablet 10 mg PO DAILY Qty: 30 0RF fluticasone propionate 50 mcg/actuation spray,suspension 1 spray intranasal DAILY Qty: 16 6RF Tezspire 210 mg/1.91 mL (110 mg/mL) syringe 210 mg subcut Q4W 28 Days Qty: 1.91 12RF Rx Instructions: Next dose 09/24/24 famotidine 40 mg tablet 40 mg PO DAILY Qty: 90 3RF fluticasone furoate-vilanterol [Breo Ellipta] 200-25 mcg/dose blister with device 1 inh inhalation DAILY 30 Days Qty: 1 6RF Incruse Ellipta 62.5 mcg/actuation blister with device 1 inh inhalation DAILY Qty: 30 6RF albuterol sulfate 2.5 mg /3 mL (0.083 %) solution for nebulization 2.5 mg inhalation Q6H PRN (Reason: Shortness Of Breath Or Wheezing) albuterol sulfate [Ventolin HFA] 90 mcg/actuation HFA aerosol inhaler 2 puff inhalation Q4-6H PRN Combivent Respimat 20-100 mcg/actuation mist 1 puff INHALATION Q6H PRN (Reason: wheezing) Qty: 4 6RF ipratropium-albuterol 0.5 mg-3 mg(2.5 mg base)/3 mL solution for nebulization 3 ml inhalation Q4-6H PRN (Reason: wheezing) 30 Days Qty: 270 6RF Print Language: [place] Islander
[2024-12-31 21:27] VITALS: PULSE 90; RESP 18; O2SAT 95
[2024-12-31] MEDS: Albuterol Sulfate 5 MG, Albuterol/Iprat 2.5/0.5MG 3 ML 3 ML INHALE (21:27)
--- OUTSIDE RECORDS SUMMARY | 2024-12-31 21:30 | XMS_ITS | Encounter Summary ---
Author Organization [email or web address] Address 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
--- OUTSIDE RECORDS SUMMARY | 2024-12-31 21:30 | XMS_ITS | Clinical Summary ---
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 Phone Unavailable Primary Care Provider [...] Date Last Done Comments Depression Screening 1987 Disability Screening 1987 Alcohol/Substance Use Screening 1999 Tobacco Screening 1999 Family Planning (PISQ) 2002 HPV Vaccines (1 - 3-dose series) 2002 DTaP/Tdap/Td Vaccines (1 - Tdap) 2006 Hepatitis B Vaccines (1 of 3 - 19+ 3-dose series) 2006 Pap Smear 2008 Cervical Cancer Screening 2017 HPV/Cotest 2017 COVID-19 Vaccine (1 - 2023-2 5 season) 2024 Influenza Vaccine (#1) 2024 Zoster Vaccines (1 of 2) 2037 RSV [...] patient's age to complete this topic Meningococcal B Vaccine Aged Out No l onger eligible based on patient's age to complete this topic Meningococcal Vaccine Aged Out No yasemin rodney eligible based on patient's age to complete this topic Pneumococcal Vaccine: Pediat rics (0 to 5 Years) and At-Risk Patients (6 to 49) Years Aged Out No longer eligible b ased on patient's age to complete this topic RSV under 20 months Aged Out No longe r eligible based on patient's age to complete this topic Rotavirus Vaccines Aged Out No longer eligible based on patient's age to complete this topic
[2024-12-31 21:32] VITALS: PULSE 92; RESP 18; TEMP 36.8; O2SAT 98
[2024-12-31 21:34] VITALS: O2SAT 96
--- NOTE | 2024-12-31 22:19 | PC.NURSE ---
pt confirms feeling better, respirations even and unlabored.
[2024-12-31 23:05] VITALS: BP 128/83; PULSE 100; RESP 16; TEMP 36.5; O2SAT 96
== END 2024-12-31 23:13 | disposition home or self-care (01) ==
PROVIDERS: Physician Assistant Medical; Emergency Provider Emergency Medicine Emergency Medical Services; PCP Internal Medicine
DX: J45.51 Severe persistent asthma with (acute) exacerbation (principal); J20.8 Acute bronchitis due to other specified organisms; G43.909 Migraine, unspecified, not intractable, without status migrainosus; Z87.891 Personal history of nicotine dependence; Z79.51 Long term (current) use of inhaled steroids
CPT/HCPCS: 36415; 71046; 80053; 83735; 84484; 85025; 87502; 87635; 93005; 94640; 99285

== ENCOUNTER → 2024-12-31 17:43 | Outpatient (BNV) | payer OTHER, SELFPAY | PROVIDERS: PCP Internal Medicine; Visit Provider Radiology Diagnostic Radiology | DX: R06.02 Shortness of breath (principal) | CPT/HCPCS: 71046 ==

== ENCOUNTER → 2024-12-31 17:44 | Outpatient (BNV) | payer OTHER, SELFPAY | PROVIDERS: Emergency Provider Emergency Medicine Emergency Medical Services; PCP Internal Medicine; Visit Provider Internal Medicine Cardiovascular Disease | DX: R00.0 Tachycardia, unspecified (principal) | CPT/HCPCS: 93010 ==

== ENCOUNTER 2025-01-15 09:08 | Outpatient (AMB) | payer OTHER, SELFPAY ==
[2025-01-15 09:15] VITALS: BP 127/82; PULSE 105; O2SAT 97; BMI 41.3
--- NOTE | 2025-01-15 09:15 | A.OFFVIS_ITS ---
Vital Signs 01/15/25 09:15 Height 5 ft 10 in Weight 287 lb 11.252 oz BMI 41.3 BP 127/82 Blood Pressure Location Lt brachial Position Sitting Pulse 105 H Pulse Oximetry (%) 97 Oxygen Delivery Method Room Air Intake Visit Reasons: asthma Allergies No Known Allergies (No Known Allergies*) Allergy (Verified 01/15/25 09:21) HPI HPI asthma: Details: 39-year-old lady active 10+ pack-year smoker followed for severe allergic asthma and environmental allergies. Patient previously has been using Tezspire, Breo, Spiriva, Combivent, duo nebs, and albuterol MDI with reasonable control of his symptoms until approximately 3 weeks prior when she had another exacerbation requiring visit to ER and prednisone course. She is currently awaiting ENT evaluation for possible antigen injections. [facility] Medical History Migraine Severe persistent asthma Bilateral otitis media Upper respiratory infection Screening due Needle stick injury with contaminated needle Seasonal allergies Asthma Social History Household Members: Family Housing: House Do you presently have visiting nurse or other home services: No Patient Tobacco Use Status: Former Tobacco user Cigarettes Per Day: 7 e-Cigarette/Vaping Use: Former Use Second Hand Smoke Exposure: No service: No Current occupational status: employed Cognitive needs: No Hearing needs: No Vision needs: No Review of Systems Const Denies daytime sleepiness, Denies excessive sweating, Denies fatigue, Denies fever(s), Denies lethargy, Denies malaise, Denies night sweats, Denies snoring and Denies weight loss Eyes Denies blurry vision and Denies itchy eyes ENT Denies nasal congestion, Denies post nasal drip, Denies sinus pain, Denies sinus pressure and Denies other ( Thrush) Card Denies chest pain, Denies pedal edema, Denies dyspnea, Denies orthopnea and Denies paroxysmal nocturnal dyspnea Resp Denies cough, Denies hemoptysis, Denies excessive phlegm production, Denies dyspnea, Denies snoring and Reports wheezing GI Denies abdominal pain and Denies heartburn Musc Denies myalgias, Denies arthralgias and Denies joint swelling Skin/Breast Denies rash Neuro Denies memory loss and Denies seizure-like activity Psych Denies abnormal sleep pattern, Denies anxiety and Denies memory loss Endo Denies excessive sweating, Denies fatigue and Denies heat intolerance Sukumar/Lymph Denies easy bruising Aller/Immun Denies itchy eyes, Denies seasonal rhinorrhea and Reports wheezing Physical Exam Vital Signs: Last Vital Signs Pulse 105 H 01/15/25 09:15 BP 127/82 01/15/25 09:15 Pulse Ox 97 01/15/25 09:15 Oxygen Delivery Method Room Air 01/15/25 09:15 BMI result Body Mass Index 41.3 Const General: no acute distress and alert Nutritional Appearance: obese Orientation/consciousness: Other orientation findings ( oriented) HEENT Head: Yes atraumatic Eyes General: appearance normal, both eyes and all related structures Sclerae: sclerae normal EOM: EOMs intact bilaterally Neck Neck: Yes supple Lymphatic: no lymphadenopathy noted Resp Effort & Inspection: normal respiratory effort and no use of accessory muscles Auscultation: clear to auscultation bilaterally Cardio Rate: regular rate Rhythm: regular rhythm Heart sounds: no gallops, no murmurs and no rubs Skin General skin exam: other ( warm) Extrem General: No clubbing, No cyanosis and No edema Assessment & Plan Assessment & Plan (1) Asthma: Code(s): J45.909 - Unspecified asthma, uncomplicated Category: Medical Plan: Overall reasonable control on current regimen with Tezspire, Breo, Spiriva, Combivent, duo nebs, and albuterol MDI. Continue current regimen. (2) Environmental allergies: Code(s): Z91.09 - Other allergy status, other than to drugs and biological substances Category: Medical Plan: Unfortunately still suboptimal control on Tezspire, cetirizine, and Flonase. Patient is awaiting evaluation for antigen injections with her ENT. Coding Level of Care Code Est Pt Level 4 (01163) Diagnoses Asthma J45.909 Environmental allergies Z91.09
== END 2025-01-15 09:34 | disposition home or self-care (01) ==
PROVIDERS: PCP Internal Medicine; Visit Provider Internal Medicine Pulmonary Disease
DX: J45.909 Unspecified asthma, uncomplicated (principal); Z91.09 Other allergy status, other than to drugs and biological substances
CPT/HCPCS: 99214

== ENCOUNTER → 2025-01-15 09:08 | Outpatient (BNVA) | payer OTHER, SELFPAY | PROVIDERS: PCP Internal Medicine; Visit Provider Internal Medicine Pulmonary Disease | DX: J45.50 Severe persistent asthma, uncomplicated (principal); Z91.09 Other allergy status, other than to drugs and biological substances; F17.210 Nicotine dependence, cigarettes, uncomplicated | CPT/HCPCS: 99212 ==

== ENCOUNTER 2025-03-21 13:37 | Outpatient (AMB) | payer OTHER, SELFPAY ==
[2025-03-21 13:42] VITALS: BP 122/84; PULSE 110; O2SAT 96; BMI 41.6
--- NOTE | 2025-03-21 13:42 | A.OFFVIS_ITS ---
Vital Signs 03/21/25 13:42 Height 5 ft 10 in Weight 290 lb BMI 41.6 BP 122/84 Blood Pressure Location Rt brachial Position Sitting Pulse 110 H Pulse Source Pulse Oximeter Pulse Oximetry (%) 96 Oxygen Delivery Method Room Air Intake Visit Reasons: Asthma Allergies No Known Allergies (No Known Allergies*) Allergy (Verified 01/15/25 09:21) HPI HPI Asthma: Details: 40-year-old lady active 10+ pack-year smoker followed for severe allergic asthma and environmental allergies. Patient continues on Tezspire, Breo, Spiriva, Combivent, duo nebs, and albuterol MDI with reasonable control of her symptoms. Patient also has been started on antigen injections by her ENT. She denies recent exacerbations. She has also been using cetirizine and Flonase. [facility] Medical History Migraine Severe persistent asthma Bilateral otitis media Upper respiratory infection Screening due Needle stick injury with contaminated needle Seasonal allergies Asthma Social History Household Members: Family Housing: House Do you presently have visiting nurse or other home services: No Patient Tobacco Use Status: Former Tobacco user Cigarettes Per Day: 7 e-Cigarette/Vaping Use: Former Use Second Hand Smoke Exposure: No service: No Current occupational status: employed Cognitive needs: No Hearing needs: No Vision needs: No Review of Systems Const Denies daytime sleepiness, Denies excessive sweating, Denies fatigue, Denies fever(s), Denies lethargy, Denies malaise, Denies night sweats, Denies snoring and Denies weight loss Eyes Denies blurry vision and Denies itchy eyes ENT Denies nasal congestion, Denies post nasal drip, Denies sinus pain, Denies sinus pressure and Denies other ( Thrush) Card Denies chest pain, Denies pedal edema, Denies dyspnea, Denies orthopnea and Denies paroxysmal nocturnal dyspnea Resp Denies cough, Denies hemoptysis, Denies excessive phlegm production, Denies dyspnea, Denies snoring and Denies wheezing GI Denies abdominal pain and Denies heartburn Musc Denies myalgias, Denies arthralgias and Denies joint swelling Skin/Breast Denies rash Neuro Denies memory loss and Denies seizure-like activity Psych Denies abnormal sleep pattern, Denies anxiety and Denies memory loss Endo Denies excessive sweating, Denies fatigue and Denies heat intolerance Sukumar/Lymph Denies easy bruising Aller/Immun Denies itchy eyes, Denies seasonal rhinorrhea and Denies wheezing Physical Exam Vital Signs: Last Vital Signs Pulse 110 H 03/21/25 13:42 BP 122/84 03/21/25 13:42 Pulse Ox 96 03/21/25 13:42 Oxygen Delivery Method Room Air 03/21/25 13:42 BMI result Body Mass Index 41.6 Const General: no acute distress and alert Orientation/consciousness: Other orientation findings ( oriented) HEENT Head: Yes atraumatic Eyes General: appearance normal, both eyes and all related structures Sclerae: sclerae normal EOM: EOMs intact bilaterally Neck Neck: Yes supple Lymphatic: no lymphadenopathy noted Resp Effort & Inspection: normal respiratory effort and no use of accessory muscles Auscultation: clear to auscultation bilaterally Cardio Rate: regular rate Rhythm: regular rhythm Heart sounds: no gallops, no murmurs and no rubs Skin General skin exam: other ( warm) Extrem General: No clubbing, No cyanosis and No edema Assessment & Plan Assessment & Plan (1) Asthma: Code(s): J45.909 - Unspecified asthma, uncomplicated Category: Medical Plan: Well controlled on current regimen of Tezspire, Breo, Spiriva, Combivent, duo nebs, and albuterol MDI. Continue current regimen. (2) Environmental allergies: Code(s): Z91.09 - Other allergy status, other than to drugs and biological substances Category: Medical Plan: Well controlled on Tezspire Flonase, Zyrtec, and antigen injections. Continue current regimen. Medications: Refilled ipratropium-albuterol 20-100 mcg/actuation (Combivent Respimat) 1 puff inhalation Q6H PRN 4 grams 6RF wheezing Coding Level of Care Code Est Pt Level 4 (11778) Diagnoses Asthma J45.909 Environmental allergies Z91.09
--- OUTSIDE RECORDS SUMMARY | 2025-03-21 19:02 | XMS_ITS | Encounter Summary ---
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
--- OUTSIDE RECORDS SUMMARY | 2025-03-21 19:02 | XMS_ITS | Continuity of Care Document ---
Author Organization [place] - [facility], Allergy Address [address] [address] Care Team Providers Care Nurse Examiner Name Role Phone IVETT DELGADO Primary Care Provider [phone] Assessment No assessment recorded. Plan of Treatment Reminders Order Date Submit Date Provider Last Modified By Organization Details Last Modified Time Details Appointments Allergy Shot 2024 09:50A M [facility] Not available Not available Not available Brandon hed- Allergy f-up 6mon 2025 09:00A M TANNA NAIK PA-C Not available Not available Not available Lab None recorded . Referral None recorded . Procedures None recorded . Surgeries None recorded . Imaging None recorded . Medication Orders None recorded . Patient TargetsNo targets recorded. Patient InstructionsNo instructions recorded. Reason for Referral None Reported. Results Created Date Observation Date Name Description Value Unit Range Abnormal Flag Note LastModifiedBy Organization Detail LastModifiedTime 01/10/2001/09/2025 CBC WITH DIFFE RENTI AL/PL ATELE T WBC 17.7 x10e3 /uL 3.4-10 .8 above high normal Not Available [facility] ([facility]) [address] [place], [address], 01/15/2025 01:32:48 01/10/2001/09/2025 CBC WITH DIFFE RENTI AL/PL ATELE T RBC 4.87 x10e6 /uL 3.77-5 .28 normal Not Available [facility] ([facility]) [address] [facility], [place], [address], 01/15/2025 01:32:48 01/10/2001/09/2025 CBC WITH DIFFE RENTI AL/PL ATELE T hemoglobin 14.4 g/dL 11.1-1 5.9 normal Not Available [facility] ([facility]) [address] [place], [address], 01/15/2025 01:32:48 01/10/2001/09/2025 CBC WITH DIFFE RENTI AL/PL ATELE T hematocrit 43.9 % 34.0-4 6.6 normal Not Available [facility] ([facility]) [address] [place], [address], 01/15/2025 01:32:48 01/10/2001/09/2025 CBC WITH DIFFE RENTI AL/PL ATELE T MCV 90 fL 79-97 normal Not Available [facility] ([facility]) [address] [place], [address], 01/15/2025 01:32:48 01/10/2001/09/2025 CBC WITH DIFFE RENTI AL/PL ATELE T MCH 29.6 pg 26.6-3 3.0 normal Not Available [facility] ([facility]) [address] [place], [address], 01/15/2025 01:32:48 01/10/2001/09/2025 CBC WITH DIFFE RENTI AL/PL ATELE T MCHC 32.8 g/dL 31.5-3 5.7 normal Not Available [facility] ([facility]) [address] [place], [address], 01/15/2025 01:32:48 01/10/2001/09/2025 CBC WITH DIFFE RENTI AL/PL ATELE T RDW 13.1 % 11.7-1 5.4 Not Available [facility] ([facility]) [address] [place], [address], 01/15/2025 01:32:48 01/10/20 25 01/09/2025 CBC WITH DIFFE RENTI AL/PL ATELE T platelets 361 x10e3 /uL 150-45 0 normal Not Available [facility] ([facility]) [address] [facility], [place], [address], 01/15/2025 01:32:48 01/10/2001/09/2025 CBC WITH DIFFE RENTI AL/PL ATELE T neutrophils 68 % not estab. normal Not Available [facility] ([facility]) [address] [facility], [place], [address], 01/15/2025 01:32:48 01/10/2001/09/2025 CBC WITH DIFFE RENTI AL/PL ATELE T lymphs 23 % not estab. normal Not Available [facility] ([facility]) [address] [facility], [place], [address], 01/15/2025 01:32:48 01/10/2001/09/2025 CBC WITH DIFFE RENTI AL/PL ATELE T monocytes 6 % not estab. normal Not Available [facility] ([facility]) [address] [facility], [place], [address], 01/15/2025 01:32:48 01/10/2001/09/2025 CBC WITH DIFFE RENTI AL/PL ATELE T eos 3 % not estab. normal Not Available [facility] ([facility]) [address] [facility], [place], [address], 01/15/2025 01:32:48 01/10/2001/09/2025 CBC WITH DIFFE RENTI AL/PL ATELE T basos 0 % not estab. normal Not Available [facility] (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) [address] [place], [address], 01/15/2025 01:32:48 01/10/20 25 01/09/2025 CBC WITH DIFFE RENTI AL/PL ATELE T neutrophils (absolute) 12.1 x10e3 /uL 1.4-7. 0 above high normal Not Available [facility] ([facility]) [address] [place], [address], 01/15/2025 01:32:48 01/10/20 25 01/09/2025 CBC WITH DIFFE RENTI AL/PL ATELE T lymphs (absolute) 4.0 x10e3 /uL 0.7-3. 1 above high normal Not Available [facility] ([facility]) [address] [place], [address], 01/15/2025 01:32:48 01/10/20 25 01/09/2025 CBC WITH DIFFE RENTI AL/PL ATELE T monocytes(ab solute) 1.1 x10e3 /uL 0.1-0. 9 above high normal Not Available [facility] ([facility]) [address] [place], [address], 01/15/2025 01:32:48 01/10/20 25 01/09/2025 CBC WITH DIFFE RENTI AL/PL ATELE T eos (absolute) 0.5 x10e3 /uL 0.0-0. 4 above high normal Not Available [facility] ([facility]) [address] [place], [address], 01/15/2025 01:32:48 01/10/20 25 01/09/2025 CBC WITH DIFFE RENTI AL/PL ATELE T baso (absolute) 0.0 x10e3 /uL 0.0-0. 2 normal Not Available [facility] ([facility]) [address] [place], [address], 01/15/2025 01:32:48 01/10/2001/09/2025 CBC WITH DIFFE RENTI AL/PL ATELE T immature granulocytes 0 % not estab. Not Available [facility] ([facility]) [address] [facility], [place], [address], 01/15/2025 01:32:48 01/10/2001/09/2025 CBC WITH DIFFE RENTI AL/PL ATELE T immature grans (abs) 0.0 x10e3 /uL 0.0-0. 1 Not Available [facility] (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) [address] [facility], [place], [address], 01/15/2025 01:32:48 01/10/2001/09/2025 CBC WITH DIFFE RENTI AL/PL ATELE T hematology comments: INSULATION BOARD CALENDER OPERATOR Not Available [facility] ([facility]) [address] [facility], [place], [address], 01/15/2025 01:32:48 01/10/2001/15/2025 PNEUM OCOCC AL AB (23 SEROT YPE) pneumo Ab type 1* 0.4 ug/mL >1.3 below low normal Not Available [facility] [address] [place], [address], 01/15/2025 01:32:48 01/10/2001/15/2025 PNEUM OCOCC AL AB (23 SEROT YPE) pneumo Ab type 3* <0.1 ug/mL >1.3 below low normal Not Available [facility] [address] [place], [address], 01/15/2025 01:32:48 01/10/2001/15/2025 PNEUM OCOCC AL AB (23 SEROT YPE) pneumo Ab type 4* <0.1 ug/mL >1.3 below low normal Not Available [facility] [address] [place], [address], 01/15/2025 01:32:48 01/10/2001/15/2025 PNEUM OCOCC AL AB (23 SEROT YPE) pneumo Ab type 8* 1.4 ug/mL >1.3 Not Available [facility] [address] [place], [address], 01/15/2025 01:32:48 01/10/2001/15/2025 PNEUM OCOCC AL AB (23 SEROT YPE) pneumo Ab type 9 (9N)* 0.4 ug/mL >1.3 below low normal Not Available [facility] [address] [place], [address], 01/15/2025 01:32:48 01/10/2001/15/2025 PNEUM OCOCC AL AB (23 SEROT YPE) pneumo Ab type 12 (12F)* 0.2 ug/mL >1.3 below low normal Not Available [facility] [address] [place], [address], 01/15/2025 01:32:48 01/10/2001/15/2025 PNEUM OCOCC AL AB (23 SEROT YPE) pneumo Ab type 14* 0.1 ug/mL >1.3 below low normal Not Available [facility] [address] [place], [address], 01/15/2025 01:32:48 01/10/2001/15/2025 PNEUM OCOCC AL AB (23 SEROT YPE) pneumo Ab type 17 (17F)* <0.1 ug/mL >1.3 below low normal Not Available [facility] [address] [place], [address], 01/15/2025 01:32:48 01/10/2001/15/2025 PNEUM OCOCC AL AB (23 SEROT YPE) pneumo Ab type 19 (19F)* 0.3 ug/mL >1.3 below low normal Not Available [facility] [address] [place], [address], 01/15/2025 01:32:48 01/10/2001/15/2025 PNEUM OCOCC AL AB (23 SEROT YPE) pneumo Ab type 2* 1.3 ug/mL >1.3 below low normal Not Available [facility] [address] [place], [address], 01/15/2025 01:32:48 01/10/2001/15/2025 PNEUM OCOCC AL AB (23 SEROT YPE) pneumo Ab type 20* 1.5 ug/mL >1.3 Not Available [facility] [address] [place], [address], 01/15/2025 01:32:48 01/10/2001/15/2025 PNEUM OCOCC AL AB (23 SEROT YPE) pneumo Ab type 22 (22F)* <0.1 ug/mL >1.3 below low normal Not Available [facility] [place], [address], 01/15/2025 01:32:48 01/10/2001/15/2025 PNEUM OCOCC AL AB (23 SEROT YPE) pneumo Ab type 23 (23F)* 0.2 ug/mL >1.3 below low normal Not Available [facility] [place], [address], 01/15/2025 01:32:48 01/10/20 25 01/15/2025 PNEUM OCOCC AL AB (23 SEROT YPE) pneumo Ab type 26 (6B)* <0.1 ug/mL >1.3 below low normal Not Available [facility] [address] [place], [address], 01/15/2025 01:32:48 01/10/2001/15/2025 PNEUM OCOCC AL AB (23 SEROT YPE) pneumo Ab type 34 (10A)* <0.1 ug/mL >1.3 below low normal Not Available [facility] [address] [place], [address], 01/15/2025 01:32:48 01/10/2001/15/2025 PNEUM OCOCC AL AB (23 SEROT YPE) pneumo Ab type 43 (11A)* 0.7 ug/mL >1.3 below low normal Not Available [facility] [address] [place], [address], 01/15/2025 01:32:48 01/10/2001/15/2025 PNEUM OCOCC AL AB (23 SEROT YPE) pneumo Ab type 5* <0.1 ug/mL >1.3 below low normal Not Available [facility] [address] [place], [address], 01/15/2025 01:32:48 01/10/2001/15/2025 PNEUM OCOCC AL AB (23 SEROT YPE) pneumo Ab type 51 (7F)* 0.4 ug/mL >1.3 below low normal Not Available [facility] [address] [place], [address], 01/15/2025 01:32:48 01/10/2001/15/2025 PNEUM OCOCC AL AB (23 SEROT YPE) pneumo Ab type 54 (15B)* 0.8 ug/mL >1.3 below low normal Not Available [facility] [address] [place], [address], 01/15/2025 01:32:48 01/10/2001/15/2025 PNEUM OCOCC AL AB (23 SEROT YPE) pneumo Ab type 56 (18C)* 0.3 ug/mL >1.3 below low normal Not Available [facility] [address] [place], [address], 01/15/2025 01:32:48 01/10/2001/15/2025 PNEUM OCOCC AL AB (23 SEROT YPE) pneumo Ab type 57 (19A)* 1.0 ug/mL >1.3 below low normal Not Available [facility] [address] [place], [address], 01/15/2025 01:32:48 01/10/2001/15/2025 PNEUM OCOCC AL AB (23 SEROT YPE) pneumo Ab type 68 (9V)* <0.1 ug/mL >1.3 below low normal Not Available [facility] [address] [place], [address], 01/15/2025 01:32:48 01/10/2001/15/2025 PNEUM OCOCC AL AB (23 SEROT YPE) pneumo Ab type 70 (33F)* 1.8 ug/mL >1.3 *This test was devel oped and its perfo rmanc e alba cteri stics deter mined by [employer] [facility]. It has not been clear ed or appro paris by the U.S. Food and Drug Admin istra tion. FLAG Inter preta tion: A = Abnor mal, H = High, L = Low Not Available [facility] [address] [place], [address], 01/15/2025 01:32:48 01/10/2001/09/2025 IGG, SUBCL ASSES (1-4) immunoglobul in g, qn, serum 1379 mg/dL 586-16 02 Not Available [facility] ([facility]) [address] [facility], [place], [address], 01/15/2025 01:32:49 01/10/2001/10/2025 IGG, SUBCL ASSES (1-4) IgG, subclass 1 814 mg/dL 248-81 0 above high normal Not Available [facility] ([facility]) [address] [facility], [place], [address], 01/15/2025 01:32:49 01/10/2001/10/2025 IGG, SUBCL ASSES (1-4) IgG, subclass 2 228 mg/dL 130-55 5 Not Available [facility] ([facility]) [address] [facility], [place], [address], 01/15/2025 01:32:49 01/10/2001/10/2025 IGG, SUBCL ASSES (1-4) IgG, subclass 3 58 mg/dL 15-102 Not Available [facility] ([facility]) [address] [facility], [place], [address], 01/15/2025 01:32:49 01/10/2001/10/2025 IGG, SUBCL ASSES (1-4) IgG, subclass 4 50 mg/dL 2-96 Not Available [facility] ([facility]) [address] [facility], [place], [address], 01/15/2025 01:32:49 01/10/2001/09/2025 IMMUN OGLOB ULINS A/G/M , QN, SER immunoglobul in M, qn, serum 148 mg/dL 26-217 Not Available [facility] ([facility]) [address] [place], [address], 01/15/2025 01:32:49 01/10/2001/10/2025 IMMUN OGLOB ULINS A/G/M , QN, SER immunoglobul in A, qn, serum 312 mg/dL 87-352 normal Not Available [facility] ([facility]) [address] [facility], [place], [address], 01/15/2025 01:32:49 01/10/2001/10/2025 HAEMO PHILU S INFLU ENZAE B IGG haemophilus influenzae B IgG 0.60 ug/mL NOTE: An anti- Hib level of 0.15 ug/mL is gener ally accep shelby as the minim um level for prote ction . Optim al prote ction post- vacci natio n requi res a level great er than 1.00 ug/mL . Not Available [facility] ([facility]) [address] [facility], [place], [address], 01/15/2025 01:32:49 01/10/2001/11/2025 TETAN US ANTIT OXOID IGG AB tetanus antitoxoid IgG Ab 0.71 IU/mL <0.10 Inter preta tion: Non-P rotec tive <0.10 Prote ctive >=0.1 0 Resul ts for this test are for resea rch purpo ses only by the assay 's manuf actur er. The perfo rmanc e alba cteri stics of this produ ct have not been estab brandt d. Resul ts shoul d not be used as a diagn ostic proce dure witho ut confi rmati on of the diagn osis by [facility] er medic ally estab lishe d diagn ostic produ ct or proce dure. Not Available [facility] ([facility]) [address] [facility], [place], [address], 01/15/2025 01:32:49 01/10/2001/11/2025 IMMUN OGLOB ULIN E, TOTAL immunoglobul in E, total 312 IU/mL 6-495 Not Available [facility] ([facility]) [address] [facility], [place], [address], 01/15/2025 01:32:49 12/24/19 advi metry testi ng* No observ ation record ed. Not Available 2024 11:00:36 Result Notes None recorded. Problems Name Problem SNOMED Code Status Onset Date Resolution Date Notes Provider Name and Address Organization Details Recorded Time Chronic rhinitis 76610661 Completed 202401/17/2025 GINETTE SPENCER [address] [facility],[address], [place], [address], [facility] - [facility] 09:56:43 Nasal congestion 09512045 Completed 202401/17/2025 GINETTE SPENCER [address] [facility],[address], [place], [address], [facility] - [facility] 09:56:45 Nasal sinus pressure sensation Active 2024 GINETTE MONTENEGRO [address] [facility],[address], [place], [address], [facility] - [facility] 13:47:15 Perennial allergic rhinitis 556362840 Active 2024 JOHN CARDENAS [address] [facility],[address], [place], [address], [facility] - [facility] 10:58:31 Perennial allergic rhinitis 134711762 Active 2024 JOHN CARDENAS [address] [facility],[address], [place], [address], [facility] - [facility] 11:05:43 Uncomplicat ed severe persistent asthma 216938936 Active 2024 GINETTE SPENCER [address] [facility],[address], [place], [address], [facility] - [facility] 09:57:34 Migraine 69482023 Active 2024 GINETTE SPENCER [address] [facility],[address], [place], [address], [facility] - [facility] 12:16:11 Problem Notes None recorded. Procedures Surgical History Date Name Laterality Status Provider Name and Address Organization Details Recorded Time 03/21/20 25 Allergy Immunotherapy Injections completed JOHN CARDENAS [address], [place], [address], [facility] - [facility] 03/21/2025 09:40:54 03/13/20 25 Allergy Immunotherapy Injections completed Eduar Roa [address], [place], [address], [facility] - [facility] 03/13/2025 09:48:19 03/03/20 25 Allergy Immunotherapy Injections completed RONEL ANDREWS RN [address], [place], [address], [facility] - [facility] 03/03/2025 13:17:36 01/10/20 Allergy Testing-Full completed JOHN CARDENAS [address], [place], [address], [facility] 01/09/2025 11:12:54 12/24/19 Allergy Testing Modified- Quantitative Testing (MQT) Only completed JOHN CARDENAS [address], [place], [address], [facility] 12/23/2024 11:30:49 Imaging Results None recorded. Procedure Notes None recorded. Medical Equipment None Reported. Allergies No known drug allergies Medications Name Sig Start Date Stop Date Status Note LastModified by Organization Details LastModified Time prednisone 10 mg tablet PLEASE SEE ATTACHED FOR DETAILED DIRECTION S 12/23 completed Not Available Not Available Not Available ipratropium 0.5 mg-albutero l 3 mg (2.5 mg base)/3 mL nebulizatio n soln USE 1 VIAL INHALED EVERY 4 TO 6 HOURS NEEDED FOR WHEEZING FOR 30 DAYS 01/17 completed Not Available Not Available Not Available nicotine (polacrilex ) 2 mg gum CHEW 1 GUM BUCCALLY EVERY 2 HOURS 12/23 completed Not Available Not Available Not Available fluconazole 150 mg tablet TAKE 1 TABLET ORALLY EVERY 3 DAYS FOR 2 DOSES 01/17 completed Not Available Not Available Not Available sumatriptan 25 mg tablet TAKE 1 TABLET BY MOUTH TWICE A DAY FOR 14 DAYS 12/23 completed Not Available Not Available Not Available famotidine 40 mg tablet TAKE 1 TABLET BY MOUTH EVERY DAY active Not Available Not Available No t Available prednisone 20 mg tablet TAKE 3 TABLETS ORALLY DAILY FOR 5 DAYS 01/17 completed Not Available Not Available Not Available amoxicillin 875 mg tablet TAKE 1 TABLET BY MOUTH 2 TIMES A DAY FOR 5 DAYS. 12/23 completed Not Available Not Available Not Available montelukast 10 mg tablet TAKE 1 TABLET BY MOUTH EVERY DAY IN THE EVENING active Not Available Not Available No t Available codeine 10 mg-guaifene sin 100 mg/5 mL oral liquid TAKE 5 ML BY MOUTH EVERY 6 HOURS NEEDED FOR COLD SYMPTOMS 12/23 completed Not Available Not Available Not Available epinephrine 0.3 mg/0.3 mL injection, auto-inject or INJECT 1 PEN SUBCUTANE OUSLY DIRECTED. active Not Available Not Available No t Available cefuroxime axetil 500 mg tablet TAKE 1 TABLET BY MOUTH TWICE A DAY FOR 7 DAYS 12/23 completed Not Available Not Available Not Available levofloxaci n 750 mg tablet TAKE 1 TABLET BY MOUTH EVERY DAY 12/23 completed Not Available Not Available Not Available fluticasone propionate 50 mcg/actuati on nasal spray,suspe nsion TAKE 1 SPRAY (INTRANAS AL) DAILY FOR 10 DAYS ADMINISTE R INTO EACH NOSTRIL active Not Available Not Available No t Available doxycycline hyclate 100 mg tablet TAKE 1 TABLET BY MOUTH TWICE A DAY FOR 7 DAYS 12/23 completed Not Available Not Available Not Available amoxicillin 875 mg-potassiu m clavulanate 125 mg tablet TAKE 1 TABLET BY MOUTH EVERY 12 HOURS 12/23 completed Not Available Not Available Not Available Ventolin HFA 90 mcg/actuati on aerosol inhaler TAKE 1 PUFF EVERY 6 HOURS NEEDED FOR SHORTNESS OF BREATH OR WHEEZING 01/17 completed Not Available Not Available Not Available nicotine 21mg/24hr-1 4mg/24hr-7m g/24hr daily transderm patches,seq uentl PLEASE SEE ATTACHED FOR DETAILED DIRECTION S 12/23 completed Not Available Not Available Not Available Combivent Respimat 20 mcg-100 mcg/actuati on solution for inhalation TAKE 1 PUFF INHALED EVERY 6 HOURS NEEDED FOR WHEEZING active Not Available Not Available No t Available Spiriva Respimat 2.5 mcg/actuati on solution for inhalation TAKE 2 PUFFS BY MOUTH EVERY DAY active Not Available Not Available No t Available Breo Ellipta 200 mcg-25 mcg/dose powder for inhalation INHALE 1 PUFF BY MOUTH DAILY FOR 30 DAYS active Not Available Not Available No t Available Paxlovid 300 mg (150 mg x 2)-100 mg tablets in a dose pack TAKE 2 TABLETS (NIRMATRE LVIR) AND TAKE 1 TABLET (RITONAVI R) BY MOUTH TWICE A DAY FOR 5 DAYS 12/23 completed Not Available Not Available Not Available Tezspire active Not Available Not Avai lable Not Available Airsupra 90 mcg-80 mcg/actuati on HFA aerosol inhaler INHALE 2 PUFFS BY MOUTH TWICE A DAY NEEDED FOR SHORTNESS OF BREATH 12/23 completed Not Available Not Available Not Available Vitals Date Recorded Body height Oxygen saturation Provider Name and Address Organization Details Last Updated DateTime 01/09/2025 177.8 cm 97 % JOHN CARDENAS [address] [facility] [address], [address], [place] - [facility] 01/09/2025 10:50:16 Social History None recorded. Functional Status Question Answer Note LastModified by Organization D etails LastModified Time What is your level of alcohol consumption? None [email or web address] Information not available 12/03/2024 Mental Status None recorded. Family History Nothing Reported. Medical History Condition Response Allergies/Hayfever N Heart Problems N Anxiety N Tonsil Infections N Emphysema N Migraines Y Thyroid Problems N Glaucoma N Depression N COPD N Developmental Delay N Nasal or Sinus Problems N Anemia N Immune System Disorder N Anesthesia Complications N Heart Attack (DC) N Other Skin Condition N Diabetes N Rhinitis N Bleeding Disorder N Food Allergy N Arthritis N Hearing Loss N Hyperlipidemia N Cancer N Stroke N Dementia N Nasal polyps N Asthma Y Sleep Disorder N GERD/Reflux N High Cholesterol N Liver Disease N Headaches Y Fibromyalgia N Hypertension N Speech Delay N Kidney Disease N Gynecological HistoryNo gynecological history recorded. Obstetrics History GPAL:G 0 P 0 0 0 0 Past Encounters Encounter ID Performer Location Encounter Start Date Encounter Closed Date Diagnosis/Indication Diagnosis SNOMED-CT Code Diagnosis ICD10 Code Diagnosis IMO Codes Diagnosis Note [id number] JOHN CARDENAS [facility] [address] [place] [address] 12/23/2024 10:24:18 12/23/2024 12:01:53 Perennial allergic rhinitis 651690669 J30.89 [id number] JOHN CARDENAS Allergy [address] [facility] [place] [address] 01/09/2025 10:25:12 01/09/2025 11:13:27 Perennial allergic rhinitis [id number] J30.89 [id number] Health Concerns Section Related Observation LastModified by Organization Detai ls LastModified Time None Recorded Concern Status LastModified by Organization Details LastModified Time None Recorded Payers Encounter Date Sequence Insurance Name Policy Number Policy Bell Covered Member ID Bell Member ID Guarantor Name 01/09/2025 1 [facility] - HEALTH NET PLAN (MEDICAID HMO) BETH Olson [id number] Norma Olson OBGyn Episode No OBEpisode recorded.
--- OUTSIDE RECORDS SUMMARY | 2025-03-21 19:02 | XMS_ITS | Continuity of Care Document ---
Author Organization [place] - [facility], Allergy Address [address] [place] [address] Care Team Providers Care Set Illustrator Name Role Phone IVETT DELGADO Primary Care Provider Assessment Encounter Date Assessment Date Assessment LastModified by Organization Details LastModified Time 03/03/2025 03/03/2025 Visit With: Ronel Andrews RN Use of Antihistamine s: No If yes: Vial Test Yes Change in medications: No If yes Increase in asthma symptoms No If yes, inhaler use: Reaction to last injections: If yes: Allergy Symptoms: Other: Missed: Dose Aware of Vial Test Aware: Notes: [email or web address] Not available 03/03/2025 13:17:53 Plan of Treatment Reminders Order Date Submit Date Provider Last Modified By Organization Details Last Modified Time Details Appointments Allergy Shot 2024 09:50A M [facility] Not available [facility] available Not [facility] 6mon 2025 09:00A M TANNA NAIK PA-C Not available Not available Not available Lab None recorded . Referral None recorded . Procedures None recorded . Surgeries None recorded . Imaging None recorded . Medication Orders None recorded . Patient TargetsNo targets recorded. Patient InstructionsNo instructions recorded. Reason for Referral None Reported. Problems Name Problem SNOMED Code Status Onset Date Resolution Date Notes Provider Name and Address Organization Details Recorded Time Chronic rhinitis 28271106 Completed 202401/17/2025 GINETTE SPENCER 100 [facility] [address], [address] [facility] [place] - [facility] 09:56:43 Nasal congestion 98979178 Completed 202401/17/2025 GINETTE SPENCER 100 [facility], [facility] [place], [address], [facility] - [facility] [place] 09:56:45 Nasal sinus pressure sensation Active 2024 GINETTE MONTENEGRO 100 [facility], [facility] [place], [address], [facility] - [facility] [place] 13:47:15 Perennial allergic rhinitis 872780249 Active 2024 JOHN CARDENAS 100 [facility],[address], [facility] [place], [address], [facility] - [facility] [place] 10:58:31 Perennial allergic rhinitis 200023351 Active 2024 JOHN CARDENAS 100 [facility],[address], [facility] [place], [address], [facility] - [facility] [place] 11:05:43 Uncomplicat ed severe persistent asthma 171587981 Active 2024 GINETTE SPENCER 100 [facility], [facility] [place], [address], [facility] - [facility] 09:57:34 Migraine 46774870 Active 2024 GINETTE SPENCER 100 [facility],[address], [facility] [place], [address], [facility] - [facility] 12:16:11 Problem Notes None recorded. Procedures Surgical History Date Name Laterality Status Provider Name and Address Organization Details Recorded Time 03/21/20 25 Allergy Immunotherapy Injections completed JOHN CARDENAS 100 [facility],[address], [address], [facility] - [facility] 03/21/2025 09:40:54 03/13/20 25 Allergy Immunotherapy Injections completed Eduar Roa 100 [facility],[address] [address], [place], [address], [facility] - [facility] 03/13/2025 09:48:19 03/03/20 Allergy Immunotherapy Injections completed RONEL ANDREWS RN 100 [facility],[address] [address], [place], [address], [facility] - [facility] 03/03/2025 13:17:36 01/10/20 Allergy Testing-Full completed JOHN CARDENAS 100 [facility],[address] [address], [place], [address], [facility] 01/09/2025 11:12:54 12/24/19 Allergy Testing Modified- Quantitative Testing (MQT) Only completed JOHN CARDENAS 100 [facility],[address] [address], [place], [address], [facility] 12/23/2024 11:30:49 Imaging Results None recorded. Procedure [...] Not Available Vitals Date Recorded Body height Body mass index (BMI) Body weight Heart rate Heart rate Heart rate Systolic And Diastolic Provider Name and Address Organization Details Last Updated DateTime 5 177.8 cm 40.2 kg/m2 594343. 86 g 114 /min 102 /min 97 /min 139/97 mm[Hg] RONEL ANDREWS RN [address] [address], [place], [address], [facility] - [facility] 13:18:29 Social History None recorded. Functional Status Question Answer Note LastModified by Organization D etails LastModified Time What is your level of alcohol consumption? None [email or web address] Information not available 12/03/2024 Mental Status None recorded. Family History Nothing Reported. Medical History Condition Response Allergies/Hayfever N Heart Problems N Anxiety N Tonsil Infections N Emphysema N Migraines Y Thyroid Problems N COPD N Depression N Developmental Delay N Glaucoma N Nasal or Sinus Problems N Anemia N Immune System Disorder N Anesthesia Complications N Heart Attack ([place]) N Other Skin Condition N Diabetes N Rhinitis N Bleeding Disorder N Food Allergy N Hearing Loss N Arthritis N Hyperlipidemia N Cancer N Stroke N Dementia N Nasal polyps N Asthma Y Sleep Disorder N High Cholesterol N GERD/Reflux N Liver Disease N Headaches Y Fibromyalgia N Hypertension N Speech Delay N Kidney Disease N Gynecological HistoryNo gynecological history recorded. Obstetrics History GPAL:G 0 P 0 0 0 0 Past Encounters Encounter ID Performer Location Encounter Start Date Encounter Closed Date Diagnosis/Indication Diagnosis SNOMED-CT Code Diagnosis ICD10 Code Diagnosis IMO Codes Diagnosis Note [id number] RONEL ANDREWS RN Allergy 100 [facility] [address] [place] [address] 03/03/2025 08:56:14 03/03/2025 13:19:16 Perennial allergic rhinitis 065984091 J30.89 246878 Health Concerns Section Related Observation LastModified by Organization Detai ls LastModified Time None Recorded Concern Status LastModified by Organization Details LastModified Time None Recorded Payers Encounter Date Sequence Insurance Name Policy Number Policy Bell Covered Member ID Bell Member ID Guarantor Name 03/03/2025 1 [facility] - HEALTH NET PLAN (MEDICAID HMO) BETH Olson [id number] Norma Olson OBGyn Episode No OBEpisode recorded.
--- OUTSIDE RECORDS SUMMARY | 2025-03-21 19:02 | XMS_ITS | Continuity of Care Document ---
Author Organization [place] - [facility], Allergy Address [address] [place] [address] Care Team Providers Care Steamfitter Name Role Phone IVETT DELGADO Primary Care Provider [phone] Assessment Encounter Date Assessment Date Assessment LastModified by Organization Details LastModified Time 03/13/2025 03/13/2025 Visit With: Eduar Roa [place] Use of Antihistamine s: No If yes: Vial Test Change in medications: No If yes Increase in asthma symptoms No If yes, inhaler use: Reaction to last injections: No If yes: Allergy Symptoms: Other: Missed: Dose Aware of Vial Test Aware: Notes: Not available 03/13/2025 09:48:36 Plan of Treatment Reminders Order Date Submit Date Provider Last Modified By Organization Details Last Modified Time Details Appointments Allergy Shot 2024 09:50A [facility] Not available Not available Not available Brandon [...] Address Organization Details Recorded Time Chronic rhinitis 32872433 Completed 202401/17/[address] [facility] [address], [address] [facility] [place] - [facility] 09:56:43 Nasal congestion 14489734 Completed 202401/17/2025 GINETTE SPENCER 100 [facility] [place],[address], [place], [address], [facility] - [facility] [place] 09:56:45 Nasal sinus pressure sensation Active 2024 GINETTE MONTENEGRO 100 [facility] [place],[address], [place], [address], [facility] - [facility] [place] 13:47:15 Perennial allergic rhinitis 424496744 Active 2024 JOHN CARDENAS 100 [facility] [place],[address], [place], [address], [facility] - [facility] [place] 10:58:31 Perennial allergic rhinitis 027442458 Active 2024 JOHN CARDENAS 100 [facility] [place],[address], [place], [address], [facility] - [facility] [place] 11:05:43 Uncomplicat ed severe persistent asthma 675261710 Active 2024 GINETTE SPENCER 100 [facility] [place],[address], [place], [address], [facility] - [facility] 09:57:34 Migraine 60847145 Active [address] [facility],[address], [place], [address], [facility] - [facility] 12:16:11 Problem Notes None recorded. Procedures Surgical History Date Name Laterality Status Provider Name and Address Organization Details Recorded Time 03/21/20 25 Allergy Immunotherapy Injections completed JOHN CARDENAS 100 [facility] [place],[address], [address], [facility] - [facility] 03/21/2025 09:40:54 03/13/20 25 Allergy Immunotherapy Injections completed Eduar Roa 100 [facility] [place],[address] [address], [place], [address], [facility] - [facility] 03/13/2025 09:48:19 03/03/20 Allergy Immunotherapy Injections completed RONEL ANDREWS RN 100 [facility],[address] [address], [place], [address], [facility] - [facility] 03/03/2025 13:17:36 01/10/20 Allergy Testing-Full completed JOHN CARDENAS 100 [facility],[address] [address], [place], [address], [facility] 01/09/2025 11:12:54 12/24/19 Allergy Testing Modified- Quantitative Testing (MQT) Only completed JOHN CARDENAS 100 [facility],[address] [address], [place], [address], [facility] 12/23/2024 11:30:49 Imaging Results None recorded. [...] Not Available Not Available Not Available Vitals None Recorded Social History None recorded. Functional Status Question Answer Note LastModified by Organization D etails LastModified Time What is your level of alcohol consumption? None [email or web address] Information not available 12/03/2024 Mental Status None recorded. Family History Nothing Reported. Medical History Condition Response Allergies/Hayfever N Heart Problems N Anxiety N Tonsil Infections N Emphysema N Migraines Y Thyroid Problems N Depression N COPD N Developmental Delay N Glaucoma N Nasal or Sinus Problems N Anemia N Immune System Disorder N Anesthesia Complications N Heart Attack ([place]) N Other Skin Condition N Diabetes N [...] ICD10 Code Diagnosis IMO Codes Diagnosis Note [id number] RONEL ANDREWS RN Allergy [address] [place] [address] [address] [place] [address] 03/03/2025 08:56:14 03/03/2025 13:19:16 Perennial allergic rhinitis 507419944 J30.89 081963 [id number] Eduar Roa Allergy [address] [place] [address] 100 [place] [address] 03/13/2025 09:36:09 03/13/2025 09:50:03 Perennial allergic rhinitis 156867112 J30.89 Health Concerns Section Related Observation LastModified by Organization Detai ls LastModified Time None Recorded Concern Status LastModified by Organization Details LastModified Time None Recorded Payers Encounter Date Sequence Insurance Name Policy Number Policy Bell Covered Member ID Bell Member ID Guarantor Name 03/13/2025 1 [facility] - HEALTH NET PLAN (MEDICAID HMO) BETH Valdivias [id number] Norma Angers OBGyn Episode No OBEpisode recorded.
--- OUTSIDE RECORDS SUMMARY | 2025-03-21 19:03 | XMS_ITS | Continuity of Care Document ---
Author Organization [place] - [facility], Allergy Address [address] [address] Care Team Providers Care Quality Assurance Lab Technician Name Role Phone IVETT DELGADO Primary Care Provider Assessment No assessment recorded. Plan of Treatment [...] Abnormal Flag Note LastModifiedBy Organization Detail LastModifiedTime 12/24/19 25 davi metry testi ng* No observ ation record ed. [email or web address] Not Available 2024 11:00:36 Result Notes None recorded. Problems Name Problem SNOMED Code Status Onset Date Resolution Date Notes Provider Name and Address Organization Details Recorded Time Chronic rhinitis 60314739 Completed 202401/17/2025 GINETTE SPENCER [address] [address], [place], [address] [place] [address] - [facility] 09:56:43 Nasal congestion 15739015 Completed 202401/17/2025 GINETTE SPENCER [address] [address], [place], [address], [facility] - [facility] [place] 09:56:45 Nasal sinus pressure sensation Active 2024 GINETTE MONTENEGRO 100 [facility], [address], [place], [address], [facility] - [facility] [place] 13:47:15 Perennial allergic rhinitis 863510298 Active 2024 JOHN CARDENAS 100 [facility], [address] [facility], [place], [address], [facility] - [facility] [place] 10:58:31 Perennial allergic rhinitis 728754398 Active 2024 JOHN CARDENAS 100 [facility], [address] [facility], [place], [address], [facility] - [facility] [place] 11:05:43 Uncomplicat ed severe persistent asthma 147575135 Active 2024 GINETTE SPENCER 100 [facility], [address], [place], [address], [facility] - [facility] [place] 09:57:34 Migraine 49672068 Active 2024 GINETTE SPENCER 100 [facility], [address], [place], [address], [facility] - [facility] [place] 12:16:11 Problem Notes None recorded. Procedures Surgical History Date Name Laterality Status Provider Name and Address Organization Details Recorded Time 03/21/20 25 Allergy Immunotherapy Injections completed JOHN CARDENAS 100 [facility] [place],[address], [address], [facility] - [facility] [place] 03/21/2025 09:40:54 03/13/20 25 Allergy Immunotherapy Injections completed Eduar Roa 100 [facility] [place],[address], [address], [facility] - [facility] [place] 03/13/2025 09:48:19 03/03/20 25 Allergy Immunotherapy Injections completed RONEL ANDREWS RN 100 [facility],[address] [address], [place], [address], [facility] - [facility] 03/03/2025 13:17:36 01/10/20 Allergy Testing-Full completed JOHN CARDENAS 100 [facility],[address] [address], [place], [address], [facility] 01/09/2025 11:12:54 12/24/19 Allergy Testing Modified- Quantitative Testing (MQT) Only completed VLADISLAV SOREN JOHN 100 [facility],[address] [address], [place], [address], [facility] - [facility] 12/23/2024 11:30:49 Imaging Results None recorded. [...] Vitals Date Recorded Body height Oxygen saturation Heart rate Body mass index (BMI) Body weight Systolic And Diastolic Provider Name and Address Organization Details Last Updated DateTime 5 177.8 cm 96 % 100 /min 40.2 kg/m2 692565. 86 g 140/90 mm[Hg] JOHN CARDENAS [address] [place] [address], [address], [place] - [facility] 5 10:57:15 Social History None recorded. Functional Status Question [...] Disorder N Anesthesia Complications N Heart Attack ([place]) N Other Skin Condition N Diabetes N Rhinitis N Bleeding Disorder N Food Allergy N Arthritis N Hearing Loss N Hyperlipidemia N Cancer N Stroke N Dementia N Nasal polyps N Asthma Y High Cholesterol N Sleep Disorder N GERD/Reflux N Liver Disease N Headaches Y Fibromyalgia N Hypertension N Speech Delay N Kidney Disease N Gynecological HistoryNo gynecological history recorded. Obstetrics History GPAL:G 0 P 0 0 0 0 Past Encounters Encounter ID Performer Location Encounter Start Date Encounter Closed Date Diagnosis/Indication Diagnosis SNOMED-CT Code Diagnosis ICD10 Code Diagnosis IMO Codes Diagnosis Note [id number] TANNA NAIK PA-C [facility] of [address] [address] 12/03/2024 12:50:50 12/03/2024 13:31:52 Chronic rhinitis 89875642 J31.0 [id number] JOHN CARDENAS Allergy [address] [address] 12/23/2024 10:24:18 12/23/2024 12:01:53 Perennial allergic rhinitis 575861254 J30.89 683024 Health Concerns Section Related Observation LastModified by Organization Detai ls LastModified Time None Recorded Concern Status LastModified by Organization Details LastModified Time None Recorded Payers Encounter Date Sequence Insurance Name Policy Number Policy Bell Covered Member ID Bell Member ID Guarantor Name 12/23/2024 1 [facility] - HEALTH NET PLAN (MEDICAID HMO) BETH Olson [id number] Norma Olson OBGyn Episode No OBEpisode recorded.
--- OUTSIDE RECORDS SUMMARY | 2025-03-21 19:03 | XMS_ITS | Continuity of Care Document ---
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 Skin prick testing performed 12/23/24 revealed mild to moderate reactions to most trees, weeds, grasses, and dust mite; severe reactions to birch tree, alternaria mold, cat, and dog. Immune panel was also significant for slightly elevated white blood cell count, neutrophils, lymphocytes, monocytes, eosinophils, and IgG level, as well as low pneumococcal titers. Patient would certainly benefit from immunotherapy to better manage her allergies. We discussed the options of subcutaneous versus sublingual as described below, as well as continuing Zyrtec and Flonase as needed to maximize medical therapy. Given the severity of her asthma, we would likely need to dilute her solutions to reduce the risk of recurrent exacerbations. We will also plan to restart her on montelukast once daily and updated her pneumococcal titers with booster vaccines. After a detailed discussion, patient would like to proceed with SCIT. EpiPen was sent to the pharmacy. Recommend repeating her CBC to ensure her levels return to normal range. Otherwise, I will see her back in 6 months for allergy follow up. All questions were answered. Case discussed with Dr. Martini who agrees with this plan. Immunotherapy - Subcutaneous We also discussed the role of immunotherapy. I explained that this is instituted for the most significant of allergies and involves the introduction of increasingly graduated dosages of the appropriate allergens by subcutaneous injection to facilitate tolerance. I explained about the likelihood of improvement usually within a three to six month time period provided that the patient is compliant with therapy. We spoke about the duration of therapy, which typically lasts from three to five years though at times can be indefinite. We also discussed the risk of anaphylaxis with this. Immunotherapy - Sublingual We discussed the role of immunotherapy. I explained that this involves the introduction of increasingly graduated dosages of the appropriate allergens by sublingual immunotherapy to facilitate tolerance. I explained about the likelihood of improvement usually within a three to six month time period provided that the patient is compliant with therapy. We spoke about the duration of therapy, which typically lasts from three to five years though at times can be indefinite. We also discussed the risk of anaphylaxis with sublingual immunotherapy. [email or web address] Not available 01/17/2025 12:17:59 Plan of Treatment Reminders Order Date Submit Date Provider Last Modified By Organization Details Last Modified Time Details Appointments Allergy Shot 2024 09:50A M [facility] Not available Not available Not available Establish ed- Allergy f-up 6mon 2025 09:00A M TANNA NAIK PA-C Not available Not available Not available Lab CBC w/ auto diff 2024 [place] [facility] (Centralized Electronic Ordering - All Locations), Patient Can Go To The Location Of Their Choice, [address] 01/17/2025 23:16:51 Referral None recorded. Procedures allergen immunothe rapy; multiple injection s (PROC) 2024 [email or web address] Not available 01/20/2025 10:58:27 Surgeries None recorded. Imaging None recorded. Medication Orders epinephri ne 0.3 mg/0.3 mL injection , auto-inje ctor 2024 [facility] #[id number], [address], [place], [address], 01/17/2025 09:41:[address] 10 mg tablet 2024 025 [facility] #[id number], [address], [place], [address], 01/17/2025 09:41:40 Patient TargetsNo targets recorded. Patient InstructionsNo instructions recorded. Reason for Referral None Reported. Results Created Date Observation Date Name Description Value Unit Range Abnormal Flag Note LastModifiedBy Organization Detail LastModifiedTime 01/10/2001/09/2025 CBC WITH DIFFE RENTI AL/PL ATELE T WBC 17.7 x10e3 /uL 3.4-10 .8 above high normal Not Available [facility] ([facility]) [address] [place], [address], 01/15/2025 01:32:48 01/10/2001/09/2025 CBC WITH DIFFE RENTI AL/PL ATELE T RBC 4.87 x10e6 /uL 3.77-5 .28 normal Not Available [facility] ([facility]) [address] [place], [address], 01/15/2025 01:32:48 01/10/2001/09/2025 CBC WITH DIFFE RENTI AL/PL ATELE T hemoglobin 14.4 g/dL 11.1-1 5.9 normal Not Available [facility] ([facility]) [address] [place], [address], 01/15/2025 01:32:48 01/10/20 25 01/09/2025 CBC WITH DIFFE RENTI AL/PL ATELE T hematocrit 43.9 % 34.0-4 6.6 normal Not Available [facility] ([facility]) [address] [place], [address], 01/15/2025 01:32:48 01/10/2001/09/2025 CBC WITH DIFFE RENTI AL/PL ATELE T MCV 90 fL 79-97 normal Not Available [facility] ([facility]) [address] [place], [address], 01/15/2025 01:32:48 01/10/20 25 01/09/2025 CBC WITH DIFFE RENTI AL/PL ATELE T MCH 29.6 pg 26.6-3 3.0 normal Not Available [facility] ([facility]) [address] [facility], [place], [address], 01/15/2025 01:32:48 01/10/20 25 01/09/2025 CBC WITH DIFFE RENTI AL/PL ATELE T MCHC 32.8 g/dL 31.5-3 5.7 normal Not Available [facility] ([facility]) [address] [facility], [place], [address], 01/15/2025 01:32:48 01/10/2001/09/2025 CBC WITH DIFFE RENTI AL/PL ATELE T RDW 13.1 % 11.7-1 5.4 Not Available [facility] ([facility]) [address] [place], [address], 01/15/2025 01:32:48 01/10/20 25 01/09/2025 CBC WITH DIFFE RENTI AL/PL ATELE T platelets 361 x10e3 /uL 150-45 0 normal Not Available [facility] ([facility]) [address] [place], [address], 01/15/2025 01:32:48 01/10/20 25 01/09/2025 CBC WITH DIFFE RENTI AL/PL ATELE T neutrophils 68 % not estab. normal Not Available [facility] ([facility]) [address] [place], [address], 01/15/2025 01:32:48 01/10/20 25 01/09/2025 CBC WITH DIFFE RENTI AL/PL ATELE T lymphs 23 % not estab. normal Not Available [facility] ([facility]) [address] [place], [address], 01/15/2025 01:32:48 01/10/20 25 01/09/2025 CBC WITH DIFFE RENTI AL/PL ATELE T monocytes 6 % not estab. normal Not Available [facility] ([facility]) [address] [facility], [place], [address], 01/15/2025 01:32:48 01/10/20 25 01/09/2025 CBC WITH DIFFE RENTI AL/PL ATELE T eos 3 % not estab. normal Not Available [facility] ([facility]) [address] [facility], [place], [address], 01/15/2025 01:32:48 01/10/20 25 01/09/2025 CBC WITH DIFFE RENTI AL/PL ATELE T basos 0 % not estab. normal Not Available [facility] ([facility]) [address] [facility], [place], [address], 01/15/2025 01:32:48 01/10/20 25 01/09/2025 CBC WITH DIFFE RENTI AL/PL ATELE T immature cells WELDING MACHINE FEEDER Not Available [facility] ([facility]) [address] [place], [address], 01/15/2025 01:32:48 01/10/20 25 01/09/2025 CBC WITH DIFFE RENTI AL/PL ATELE T neutrophils (absolute) 12.1 x10e3 /uL 1.4-7. 0 above high normal Not Available [facility] ([facility]) [address] [place], [address], 01/15/2025 01:32:48 01/10/20 25 01/09/2025 CBC WITH DIFFE RENTI AL/PL ATELE T lymphs (absolute) 4.0 x10e3 /uL 0.7-3. 1 above high normal Not Available [facility] ([facility]) [address] [place], [address], 01/15/2025 01:32:48 01/10/20 25 01/09/2025 CBC WITH DIFFE RENTI AL/PL ATELE T monocytes(ab solute) 1.1 x10e3 /uL 0.1-0. 9 above high normal Not Available [facility] ([facility]) [address] [facility], [place], [address], 01/15/2025 01:32:48 01/10/20 25 01/09/2025 CBC WITH DIFFE RENTI AL/PL ATELE T eos (absolute) 0.5 x10e3 /uL 0.0-0. 4 above high normal Not Available [facility] ([facility]) [address] [facility], [place], [address], 01/15/2025 01:32:48 01/10/2001/09/2025 CBC WITH DIFFE RENTI AL/PL ATELE T baso (absolute) 0.0 x10e3 /uL 0.0-0. 2 normal Not Available [facility] ([facility]) [address] [facility], [place], [address], 01/15/2025 01:32:48 01/10/2001/09/2025 CBC WITH DIFFE RENTI AL/PL ATELE T immature granulocytes 0 % not estab. Not Available [facility] ([facility]) [address] [facility], [place], [address], 01/15/2025 01:32:48 01/10/20 25 01/09/2025 CBC WITH DIFFE RENTI AL/PL ATELE T immature grans (abs) 0.0 x10e3 /uL 0.0-0. 1 Not Available [facility] ([facility]) [address] [facility], [place], [address], 01/15/2025 01:32:48 01/10/2001/09/2025 CBC WITH DIFFE RENTI AL/PL ATELE T NRBC WELDING MACHINE FEEDER Not Available [facility] ([facility]) [address] [facility], [place], [address], 01/15/2025 01:32:48 01/10/20 25 01/09/2025 CBC WITH DIFFE RENTI AL/PL ATELE T hematology comments: WELDING MACHINE FEEDER Not Available [facility] ([facility]) [address], [place], [address], 01/15/2025 01:32:48 01/10/2001/15/2025 PNEUM OCOCC AL AB (23 SEROT YPE) pneumo Ab type 1* 0.4 ug/mL >1.3 below low normal Not Available [facility] [address] [place], [address], 01/15/2025 01:32:48 01/10/2001/15/2025 PNEUM OCOCC AL AB (23 SEROT YPE) pneumo Ab type 3* <0.1 ug/mL >1.3 below low normal Not Available [facility] [address] [place], [address], 01/15/2025 01:32:48 01/10/2001/15/2025 PNEUM OCOCC AL AB (23 SEROT YPE) pneumo Ab type 4* <0.1 ug/mL >1.3 below low normal Not Available [facility] [address] [place], [address], 01/15/2025 01:32:48 01/10/2001/15/2025 PNEUM OCOCC AL AB (23 SEROT YPE) pneumo Ab type 8* 1.4 ug/mL >1.3 Not Available [facility] [address] [place], [address], 01/15/2025 01:32:48 01/10/2001/15/2025 PNEUM OCOCC AL AB (23 SEROT YPE) pneumo Ab type 9 (9N)* 0.4 ug/mL >1.3 below low normal Not Available [facility] [address] [place], [address], 01/15/2025 01:32:48 01/10/2001/15/2025 PNEUM OCOCC AL AB (23 SEROT YPE) pneumo Ab type 12 (12F)* 0.2 ug/mL >1.3 below low normal Not Available [facility] [address] [place], [address], 01/15/2025 01:32:48 01/10/2001/15/2025 PNEUM OCOCC AL AB (23 SEROT YPE) pneumo Ab type 14* 0.1 ug/mL >1.3 below low normal Not Available [facility] [address] [place], [address], 01/15/2025 01:32:48 01/10/2001/15/2025 PNEUM OCOCC AL AB (23 SEROT YPE) pneumo Ab type 17 (17F)* <0.1 ug/mL >1.3 below low normal Not Available [facility] [address] [place], [address], 01/15/2025 01:32:48 01/10/2001/15/2025 PNEUM OCOCC AL AB (23 SEROT YPE) pneumo Ab type 19 (19F)* 0.3 ug/mL >1.3 below low normal Not Available [facility] [address] [place], [address], 01/15/2025 01:32:48 01/10/2001/15/2025 PNEUM OCOCC AL AB (23 SEROT YPE) pneumo Ab type 2* 1.3 ug/mL >1.3 below low normal Not Available [facility] [address] [place], [address], 01/15/2025 01:32:48 01/10/20 25 01/15/2025 PNEUM OCOCC AL AB (23 SEROT YPE) pneumo Ab type 20* 1.5 ug/mL >1.3 Not Available [facility] [address] [place], [address], 01/15/2025 01:32:48 01/10/2001/15/2025 PNEUM OCOCC AL AB (23 SEROT YPE) pneumo Ab type 22 (22F)* <0.1 ug/mL >1.3 below low normal Not Available [facility] [address] [place], [address], 01/15/2025 01:32:48 01/10/2001/15/2025 PNEUM OCOCC AL AB (23 SEROT YPE) pneumo Ab type 23 (23F)* 0.2 ug/mL >1.3 below low normal Not Available [facility] [address] [place], [address], 01/15/2025 01:32:48 01/10/2001/15/2025 PNEUM OCOCC AL AB (23 SEROT YPE) pneumo Ab type 26 (6B)* <0.1 ug/mL >1.3 below low normal Not Available [facility] [address] [place], [address], 01/15/2025 01:32:48 01/10/20 25 01/15/2025 PNEUM OCOCC AL AB (23 SEROT YPE) pneumo Ab type 34 (10A)* <0.1 ug/mL >1.3 below low normal Not Available [facility] [address] [place], [address], 01/15/2025 01:32:48 01/10/20 25 01/15/2025 PNEUM OCOCC AL AB (23 SEROT YPE) pneumo Ab type 43 (11A)* 0.7 ug/mL >1.3 below low normal Not Available [facility] [address] [place], [address], 01/15/2025 01:32:48 01/10/20 25 01/15/2025 PNEUM OCOCC AL AB (23 SEROT YPE) pneumo Ab type 5* <0.1 ug/mL >1.3 below low normal Not Available [facility] [address] [place], [address], 01/15/2025 01:32:48 01/10/2001/15/2025 PNEUM OCOCC AL AB (23 SEROT YPE) pneumo Ab type 51 (7F)* 0.4 ug/mL >1.3 below low normal Not Available [facility] [address] [place], [address], 01/15/2025 01:32:48 01/10/2001/15/2025 PNEUM OCOCC AL AB (23 SEROT YPE) pneumo Ab type 54 (15B)* 0.8 ug/mL >1.3 below low normal Not Available [facility] [address] [place], [address], 01/15/2025 01:32:48 01/10/2001/15/2025 PNEUM OCOCC AL AB (23 SEROT YPE) pneumo Ab type 56 (18C)* 0.3 ug/mL >1.3 below low normal Not Available [facility] [address] [place], [address], 01/15/2025 01:32:48 01/10/2001/15/2025 PNEUM OCOCC AL AB (23 SEROT YPE) pneumo Ab type 57 (19A)* 1.0 ug/mL >1.3 below low normal Not Available [facility] [address] [place], [address], 01/15/2025 01:32:48 01/10/2001/15/2025 PNEUM OCOCC AL AB (23 SEROT YPE) pneumo Ab type 68 (9V)* <0.1 ug/mL >1.3 below low normal Not Available [facility] [address] [place], [address], 01/15/2025 01:32:48 01/10/2001/15/2025 PNEUM OCOCC AL AB (23 SEROT YPE) pneumo Ab type 70 (33F)* 1.8 ug/mL >1.3 *This test was malcom staley and its perfo rmanc e alba cteri stics deter mined by [employer] [facility]. It has not been clear ed or appro paris by the U.S. Food and Drug Admin istra tion. FLAG Inter preta tion: A = Abnor mal, H = High, L = Low Not Available [facility] [address] [place], [address], 01/15/2025 01:32:48 01/10/2001/09/2025 IGG, SUBCL ASSES (1-4) immunoglobul in g, qn, serum 1379 mg/dL 586-16 02 Not Available [facility] ([facility]) [address] [place], [address], 01/15/2025 01:32:49 01/10/2001/10/2025 IGG, SUBCL ASSES (1-4) IgG, subclass 1 814 mg/dL 248-81 0 above high normal Not Available [facility] ([facility]) [address] [place], [address], 01/15/2025 01:32:49 01/10/2001/10/2025 IGG, SUBCL ASSES (1-4) IgG, subclass 2 228 mg/dL 130-55 5 Not Available [facility] ([facility]) [address] [place], [address], 01/15/2025 01:32:49 01/10/2001/10/2025 IGG, SUBCL ASSES (1-4) IgG, subclass 3 58 mg/dL 15-102 Not Available [facility]) [address] [place], [address], 01/15/2025 01:32:49 01/10/2001/10/2025 IGG, SUBCL ASSES (1-4) IgG, subclass 4 50 mg/dL 2-96 Not Available [facility]) [address] [facility], [place], [address], 01/15/2025 01:32:49 01/10/2001/09/2025 IMMUN OGLOB ULINS A/G/M , QN, SER immunoglobul in M, qn, serum 148 mg/dL 26-217 Not Available [facility] ([facility]) [address] [facility], [place], [address], 01/15/2025 01:32:49 01/10/2001/10/2025 IMMUN OGLOB ULINS A/G/M , QN, SER immunoglobul in A, qn, serum 312 mg/dL 87-352 normal Not Available [facility] ([facility]) [address] [facility], [place], [address], 01/15/2025 01:32:49 01/10/2001/10/2025 HAEMO PHILU S INFLU ENZAE B IGG haemophilus influenzae B IgG 0.60 ug/mL NOTE: An anti- Hib level of 0.15 ug/mL is gener ally accep shelby as the minim um level for prote ction . Optim al prote ction post- vacci natio n requi res a level great er than 1.00 ug/mL . Not Available [facility] ([facility]) [address] [facility], [place], [address], 01/15/2025 01:32:49 01/10/2001/11/2025 TETAN US ANTIT OXOID IGG AB tetanus antitoxoid IgG Ab 0.71 IU/mL <0.10 Inter preta tion: Non-P rotec tive <0.10 Prote ctive >=0.1 0 Resul ts for this test are for resea rch purpo ses only by the assay 's manuf actur er. The perfo rmanc e alba cteri stics of this produ ct have not been estab brandt palomares. Resul ts shoul d not be used as a diagn ostic proce dure witho ut confi rmati on of the diagn osis by [facility] ally estab brandt palomares diagn ostic produ ct or proce dure. Not Available [facility] ([facility]) [address] [facility], [place], [address], 01/15/2025 01:32:49 01/10/2001/11/2025 IMMUN OGLOB ULIN E, TOTAL immunoglobul in E, total 312 IU/mL 6-495 Not Available [facility] [address] [place], [address], 01/15/2025 01:32:49 01/18/2001/17/2025 CBC WITH DIFFE RENTI AL/PL ATELE T WBC 13.4 x10e3 /uL 3.4-10 .8 above high normal Not Available [facility] ([facility]) [address] [place], [address], 01/17/2025 23:16:51 01/18/20 25 01/17/2025 CBC WITH DIFFE RENTI AL/PL ATELE T RBC 4.88 x10e6 /uL 3.77-5 .28 normal Not Available [facility] ([facility]) [address] [place], [address], 01/17/2025 23:16:51 01/18/2001/17/2025 CBC WITH DIFFE RENTI AL/PL ATELE T hemoglobin 14.3 g/dL 11.1-1 5.9 normal Not Available [facility] ([facility]) [address] [place], [address], 01/17/2025 23:16:51 01/18/20 25 01/17/2025 CBC WITH DIFFE RENTI AL/PL ATELE T hematocrit 43.8 % 34.0-4 6.6 normal Not Available [facility] ([facility]) [address] [facility], [place], [address], 01/17/2025 23:16:51 01/18/2001/17/2025 CBC WITH DIFFE RENTI AL/PL ATELE T MCV 90 fL 79-97 normal Not Available [facility] ([facility]) [address] [facility], [place], [address], 01/17/2025 23:16:51 01/18/20 25 01/17/2025 CBC WITH DIFFE RENTI AL/PL ATELE T MCH 29.3 pg 26.6-3 3.0 normal Not Available [facility] ([facility]) [address] [facility], [place], [address], 01/17/2025 23:16:51 01/18/20 25 01/17/2025 CBC WITH DIFFE RENTI AL/PL ATELE T MCHC 32.6 g/dL 31.5-3 5.7 normal Not Available [facility] ([facility]) [address] [facility], [place], [address], 01/17/2025 23:16:51 01/18/2001/17/2025 CBC WITH DIFFE RENTI AL/PL ATELE T RDW 12.9 % 11.7-1 5.4 Not Available [facility] ([facility]) [address] [place], [address], 01/17/2025 23:16:51 01/18/2001/17/2025 CBC WITH DIFFE RENTI AL/PL ATELE T platelets 361 x10e3 /uL 150-45 0 normal Not Available [facility] ([facility]) [address] [place], [address], 01/17/2025 23:16:51 01/18/20 25 01/17/2025 CBC WITH DIFFE RENTI AL/PL ATELE T neutrophils 70 % not estab. normal Not Available [facility] ([facility]) [address] [place], [address], 01/17/2025 23:16:51 01/18/20 25 01/17/2025 CBC WITH DIFFE RENTI AL/PL ATELE T lymphs 22 % not estab. normal Not Available [facility] ([facility]) [address] [facility], [place], [address], 01/17/2025 23:16:51 01/18/2001/17/2025 CBC WITH DIFFE RENTI AL/PL ATELE T monocytes 6 % not estab. normal Not Available [facility] ([facility]) [address] [facility], [place], [address], 01/17/2025 23:16:51 01/18/2001/17/2025 CBC WITH DIFFE RENTI AL/PL ATELE T eos 2 % not estab. normal Not Available [facility] ([facility]) [address] [facility], [place], [address], 01/17/2025 23:16:51 01/18/20 25 01/17/2025 CBC WITH DIFFE RENTI AL/PL ATELE T basos 0 % not estab. normal Not Available [facility] ([facility]) [address] [facility], [place], [address], 01/17/2025 23:16:51 01/18/20 25 01/17/2025 CBC WITH DIFFE RENTI AL/PL ATELE T immature cells WELDING MACHINE FEEDER Not Available [facility] ([facility] [address] [facility], [place], [address], 01/17/2025 23:16:51 01/18/20 25 01/17/2025 CBC WITH DIFFE RENTI AL/PL ATELE T neutrophils (absolute) 9.3 x10e3 /uL 1.4-7. 0 above high normal Not Available [facility] ([facility]) [address] [facility], [place], [address], 01/17/2025 23:16:51 01/18/20 25 01/17/2025 CBC WITH DIFFE RENTI AL/PL ATELE T lymphs (absolute) 2.9 x10e3 /uL 0.7-3. 1 normal Not Available [facility] ([facility]) [address] [facility], [place], [address], 01/17/2025 23:16:51 01/18/20 25 01/17/2025 CBC WITH DIFFE RENTI AL/PL ATELE T monocytes(ab solute) 0.8 x10e3 /uL 0.1-0. 9 normal Not Available [facility] ([facility]) [address] [place], [address], 01/17/2025 23:16:51 01/18/20 25 01/17/2025 CBC WITH DIFFE RENTI AL/PL ATELE T eos (absolute) 0.3 x10e3 /uL 0.0-0. 4 normal Not Available [facility] ([facility]) [address] [facility], [place], [address], 01/17/2025 23:16:51 01/18/20 25 01/17/2025 CBC WITH DIFFE RENTI AL/PL ATELE T baso (absolute) 0.1 x10e3 /uL 0.0-0. 2 normal Not Available [facility] ([facility]) [address] [place], [address], 01/17/2025 23:16:51 01/18/20 25 01/17/2025 CBC WITH DIFFE RENTI AL/PL ATELE T immature granulocytes 0 % not estab. Not Available [facility] ([facility]) [address] [place], [address], 01/17/2025 23:16:51 01/18/20 25 01/17/2025 CBC WITH DIFFE RENTI AL/PL ATELE T immature grans (abs) 0.0 x10e3 /uL 0.0-0. 1 Not Available [facility] ([facility]) [address] [facility], [place], [address], 01/17/2025 23:16:51 01/18/2001/17/2025 CBC WITH DIFFE RENTI AL/PL ATELE T NRBC WELDING MACHINE FEEDER Not Available [facility] ([facility]) [address] [facility], [place], [address], 01/17/2025 23:16:51 01/18/20 25 01/17/2025 CBC WITH DIFFE RENTI AL/PL ATELE T hematology comments: WELDING MACHINE FEEDER Not Available [facility] ([facility]) [address] [facility], [place], [address], 01/17/2025 23:16:51 12/24/19 davi metry testi ng* No observ ation record ed. [email or web address] Not Available 2024 11:00:36 Result Notes None recorded. Problems Name Problem SNOMED Code Status Onset Date Resolution Date Notes Provider Name and Address Organization Details Recorded Time Chronic rhinitis 98505476 Completed 202401/17/2025 GINETTE SPENCER [address] [facility] [place], [address], [facility] 09:56:43 Nasal congestion 18740529 Completed 202401/17/2025 GINETTE SPENCER [address] [facility], [address], [place], [address], [facility] 09:56:45 Nasal sinus pressure sensation Active 2024 GINETTE MONTENEGRO [address] [facility],[address], [place], [address], [facility] 13:47:15 Perennial allergic rhinitis [id number] Active 2024 JOHN CARDENAS [address] [facility], [place], [address], [facility] 10:58:31 Perennial allergic rhinitis [id number] Active 2024 JOHN CARDENAS [address] [facility],[address], [place], [address], [facility] [place] 11:05:43 Uncomplicat ed severe persistent asthma [id number] Active 2024 GINETTE SPENCER [address] [facility],[address], [place], [address], [facility] [place] 09:57:34 Migraine 59130131 Active 2024 GINETTE SPENCER [address] [facility], [place], [address], [facility] [place] 12:16:11 Problem Notes None recorded. Procedures Surgical History Date Name Laterality Status Provider Name and Address Organization Details Recorded Time 03/21/20 25 Allergy Immunotherapy Injections completed JOHN CARDENAS [address] [facility],[address], [address], [facility] 03/21/2025 09:40:54 03/13/20 25 Allergy Immunotherapy Injections completed Eduar Roa 100 [facility],[address], [address], [facility] - [facility] 03/13/2025 09:48:19 03/03/20 25 Allergy Immunotherapy Injections completed RONEL ANDREWS RN 100 [facility],[address], [address], [facility] - [facility] 03/03/2025 13:17:36 01/10/20 25 Allergy Testing-Full completed JOHN CARDENAS 100 [facility],[address], [address], [facility] - [facility] 01/09/2025 11:12:54 12/24/19 Allergy Testing Modified- Quantitative Testing (MQT) Only completed JOHN CARDENAS 100 [facility],MICHAEL [address] [place] [address], [phone], [facility] - [facility] 12/23/2024 11:30:49 Imaging Results None recorded. [...] Not Available Vitals Date Recorded Body height Provider Name an d Address Organization Details Last Updated DateTime 01/17/2025 177.8 cm COLLINS DE LA TORRE [place] - [facility] 01/17/2025 09:00:49 Social History None recorded. Functional Status Question Answer Note LastModified by Organization D etails LastModified Time What is your level of alcohol consumption? None [email or web address] Information not available 12/03/2024 Mental Status None recorded. Family History Nothing Reported. Medical History Condition Response Allergies/Hayfever N Heart Problems N Anxiety N Tonsil Infections N Emphysema N Migraines Y Thyroid Problems N Glaucoma N Developmental Delay N Depression N COPD N Nasal or Sinus Problems N Anemia N Immune System Disorder N Anesthesia Complications N Heart Attack ([place]) N Other Skin Condition N Diabetes N [...] ICD10 Code Diagnosis IMO Codes Diagnosis Note [id number] HEIDE CARDENAS Allergy [address] [place] [phone] 12/23/2024 10:24:18 12/23/2024 12:01:53 Perennial allergic rhinitis 285109198 J30.89 150914 69563 VLADISLAV DOTY [facility] [address] [place] [address] 01/09/2025 10:25:12 01/09/2025 11:13:27 Perennial allergic rhinitis [id number] J30.89 [id number] GINETTE SPENCER [facility] of [address] [address] 01/17/2025 08:59:03 01/17/2025 09:41:39 Perennial allergic rhinitis 508608502 J30.89 139422 Uncomplica shelby severe persistent asthma 557870779 J45.50 [id number] Migraine 01965169 G43.80 9 [id number] Health Concerns Section Related Observation LastModified by Organization Detai ls LastModified Time None Recorded Concern Status LastModified by Organization Details LastModified Time None Recorded Payers Encounter Date Sequence Insurance Name Policy Number Policy Bell Covered Member ID Bell Member ID Guarantor Name 01/17/2025 1 [facility] PLAN (MEDICAID HMO) BETH Olson [id number] Norma Olson Notes Date Note Type Note Provider Name and Address Organization Details Recorded Time 01/17/2025 text/html ROS as noted in the HPI 39 year old female, with a history of severe asthma and migraine, presents for allergy test review. Patient reports she was on oral prednisone a week prior to her lab work being done. She is interested in pursuing immunotherapy, but worries that this might exacerbate her asthma. Patient is currently on multiple medications for it including: Breo Ellipta, Combivent, Spiriva, and Tezspire. She tried montelukast in the past with no significant improvement. Patient has been prone to recurrent asthma exacerbations and pneumonia infections. 39yo female with history of asthma presents for evaluation of the sinuses. Patient reports being sick with COVID in 02/2024 and was diagnosed clinically with pansinusitis a week later at an urgent care due to symptoms of forehead pressure and nasal congestion. Patient denies ever having nasal drainage. She was prescribed a course of amoxicillin and started on Flonase. Patient developed pneumonia and experienced asthma exacerbations shortly after, causing a brief hospitalization and 3 additional rounds of oral antibiotics and oral prednisone. She never received any imaging of her sinuses or head. From 02/2024 - 05/2024 the patient experienced symptoms of sinus pressure, nasal obstruction, dizziness, and ear fullness, but they all ultimately resolved. During this time an urgent care provider suggested a diagnosis of migraine causing her forehead pressure and prescribed sumatriptan, but it was ineffective. Patient has a lifelong history of headaches but has never seen neurology and has not tried any other migraine medications. Today the patient denies sinus pressure, nasal congestion, rhinorrhea, cough, anosmia, otalgia, otorrhea, ear fullness, and dizziness. She currently uses nasal rinses 2-3 times weekly, Flonase once daily, and oral cetirizine daily. Her PCP has her scheduled for allergy testing in March. She reports getting sick every winter season with similar symptoms. Patient has had a PSG within the last few years that she states was negative for PATO. She denies any history of head and neck surgeries. ZOILA MARTINI MD [address] [place] [address], [place], [address], [facility] - [facility] 01/17/2025 16:08:08 OBGyn Episode No OBEpisode recorded.
--- OUTSIDE RECORDS SUMMARY | 2025-03-21 19:03 | XMS_ITS | Clinical Summary ---
Author Organization [employer] Address [address] [facility] [address] [place] [address] Care Team Providers Care Social Research Assistant Name Role Phone Unavailable Primary Care Provider [...] 2017 HPV/Cotest 2017 COVID-19 Vaccine ( - 2024-2 6 season) 2024 Influenza Vaccine (#1) 2024 Zoster [...]
--- OUTSIDE RECORDS SUMMARY | 2025-03-21 19:03 | XMS_ITS | Continuity of Care Document ---
Author Organization [place] - [facility], Allergy Address [address] [address] Care Team Providers Care Head Golf Professional Name Role Phone IVETT DELGADO Primary Care Provider Assessment Encounter Date Assessment Date Assessment LastModified by Organization Details LastModified Time 03/21/2025 03/21/2025 Visit With: Kaycee Saravia Use of Antihistamine s: No If yes: Vial Test Change in medications: No If yes Increase in asthma symptoms If yes, inhaler use: Reaction to last injections: No If yes: Allergy Symptoms: Other: Missed: Dose Decreased Aware of Vial Test Aware: Notes: Not available 03/21/2025 09:41:18 Plan of Treatment Reminders Order Date Submit Date Provider Last Modified By Organization Details Last Modified Time Details Appointments Allergy Shot 2024 09:50A M [facility] Not available Not available Not available Kerrinena hed- Allergy f-up 6mon 2025 09:00A M [...] Address Organization Details Recorded Time Chronic rhinitis [id number] Completed 202401/17/2025 GINETTE SPENCER 100 [facility] 100, [place], [address] [facility] [place] [facility] 09:56:43 Nasal congestion [id number] Completed 202401/17/2025 GINETTE SPENCER 100 [facility], [place], [address], [facility] - [facility] [place] 09:56:45 Nasal sinus pressure sensation Active 2024 GINETTE MONTENEGRO 100 [facility],[address], [place], [address], [facility] - [facility] [place] 13:47:15 Perennial allergic rhinitis 157901989 Active 2024 JOHN CARDENAS 100 [facility] [place], [place], [address], [facility] - [facility] [place] 10:58:31 Perennial allergic rhinitis 122414986 Active 2024 JOHN CARDENAS 100 [facility],[address], [place], [address], [facility] - [facility] [place] 11:05:43 Uncomplicat ed severe persistent asthma 003313098 Active 2024 GINETTE SPENCER 100 [facility], [place], [address], [facility] - [facility] [place] 09:57:34 Migraine 19139486 Active 2024 GINETTE SPENCER 100 [facility],[address], [place], [address], [facility] - [facility] [place] 12:16:11 Problem Notes None recorded. Procedures Surgical History Date Name Laterality Status Provider Name and Address Organization Details Recorded Time 03/21/20 25 Allergy Immunotherapy Injections completed JOHN CARDENAS 100 [facility],[address], [address], [facility] - [facility] 03/21/2025 09:40:54 03/13/20 25 Allergy Immunotherapy Injections completed Eduar Roa 100 [facility],[place] [address], [place], [address], [facility] - [facility] 03/13/2025 09:48:19 03/03/20 Allergy Immunotherapy Injections completed RONEL ANDREWS RN 100 [facility],[place] [address], [place], [address], [facility] 03/03/2025 13:17:36 01/10/20 Allergy Testing-Full completed JOHN CARDENAS 100 [facility],[place] [address], [place], [address], [facility] - [facility] 01/09/2025 11:12:54 12/24/19 Allergy Testing Modified- Quantitative Testing (MQT) Only completed JOHN CARDENAS 100 [facility],[place] [address], [place], [address], [facility] 12/23/2024 11:30:49 Imaging Results None recorded. [...] Disorder N Anesthesia Complications N Heart Attack ([place]) N Other Skin Condition N Diabetes N [...] ICD10 Code Diagnosis IMO Codes Diagnosis Note [id number] RONEL ANDREWS RN Allergy [address] [place] [phone] 03/03/2025 08:56:14 03/03/2025 13:19:16 Perennial allergic rhinitis [id number] J30.89 844392 [id number] Eduar Roa All[facility] [address] [place] [address] 100 [place] [address] 03/13/2025 09:36:09 03/13/2025 09:50:03 Perennial allergic rhinitis 643826018 J30.89 [id number] JOHN CARDENAS Allergy [address] [place] [address],[facility] 100 [place] [address] 03/21/2025 09:40:11 03/21/2025 09:41:32 Perennial allergic rhinitis 782350495 J30.89 Health Concerns Section Related Observation LastModified by Organization Detai ls LastModified Time None Recorded Concern Status LastModified by Organization Details LastModified Time None Recorded Payers Encounter Date Sequence Insurance Name Policy Number Policy Bell Covered Member ID Bell Member ID Guarantor Name 03/21/2025 1 [facility] PLAN (MEDICAID HMO) BETH Olson [id number] Norma Olson OBGyn Episode No OBEpisode recorded.
--- OUTSIDE RECORDS SUMMARY | 2025-03-21 19:03 | XMS_ITS | Data Portability ---
Author Organization [place] [facility], Allergy Address [address] [place] [phone] Care Team Providers Care [employer] Buyer Name Role Phone IVETT DELGADO Primary Care [...] sublingual immunotherapy. [email or web address] Not available 01/17/2025 12:17:59 03/03/2025 03/03/2025 Visit With: Ronel Andrews RN Use of Antihistamines: No If yes: Vial Test Yes Change in medications: No If yes Increase in asthma symptoms No If yes, inhaler use: Reaction to last injections: If yes: Allergy Symptoms: Other: Missed: Dose Aware of Vial Test Aware: Notes: [email or web address] Not available 03/03/2025 13:17:53 03/13/2025 03/13/2025 Visit With: Eduar Roa [place] Use of Antihistamines: No If yes: Vial Test Change in medications: No If yes Increase in asthma symptoms No If yes, inhaler use: Reaction to last injections: No If yes: Allergy Symptoms: Other: Missed: Dose Aware of Vial Test Aware: Notes: [email or web address] Not available 03/13/2025 09:48:36 03/21/2025 03/21/2025 Visit With: Kaycee Saravia Use of Antihistamines: No If yes: Vial Test Change in medications: No If yes Increase in asthma symptoms If yes, inhaler use: Reaction to last injections: No If yes: Allergy Symptoms: Other: Missed: Dose Decreased Aware of Vial Test Aware: Notes: [email or web address] Not available 03/21/2025 09:41:18 Plan of Treatment Reminders Order Date Submit Date Provider Last Modified By Organization Details Last Modified Time Details Appointments Allergy Shot 2024 09:50A [facility] Not available Not available Not available Establish ed- Allergy f-up 6mon 2025 09:00A M TANNA NAIK PA-C Not available Not available Not available Lab CBC w/ auto diff 2024 [facility] (Centralized Electronic Ordering - All Locations), Patient Can Go To The Location Of Their Choice, [address] 01/17/2025 23:16:51 Referral None recorded. Procedures allergen immunothe rapy; multiple injection s (PROC) 2024 025 [email or web address] Not available 01/20/2025 10:58:27 Surgeries None recorded. Imaging None recorded. Medication Orders epinephri ne 0.3 mg/0.3 mL injection , auto-inje ctor 2024 [facility] ([place], [place]Pharmacy #[id number], [address] [place], [address], 01/17/2025 09:41:[address] 10 mg tablet [address] [facility] ([place], [place])/Pharmacy #[id number], [address] [place], [address], 01/17/2025 09:41:40 Patient TargetsNo targets recorded. Patient InstructionsNo instructions recorded. Reason for Referral None Reported. Results Created Date Observation Date Name Description Value Unit Range Abnormal Flag Note LastModifiedBy Organization Detail LastModifiedTime 01/10/2001/09/2025 CBC WITH DIFFE RENTI AL/PL ATELE T WBC 17.7 x10e3 /uL 3.4-10 .8 above high normal Not Available [facility] ([facility]) [address] [place], [address], 01/15/2025 01:32:48 01/10/2001/09/2025 CBC WITH DIFFE RENTI AL/PL ATELE T RBC 4.87 x10e6 /uL 3.77-5 .28 normal Not Available [facility] ([facility]) [address] [facility], [place], [address], 01/15/2025 01:32:48 01/10/2001/09/2025 CBC WITH DIFFE RENTI AL/PL ATELE T hemoglobin 14.4 g/dL 11.1-1 5.9 normal Not Available [facility] ([facility]) [address] [place], [address], 01/15/2025 01:32:48 01/10/2001/09/2025 CBC WITH DIFFE RENTI AL/PL ATELE T hematocrit 43.9 % 34.0-4 6.6 normal Not Available [facility] ([facility]) [address] [place], [address], 01/15/2025 01:32:48 01/10/2001/09/2025 CBC WITH DIFFE RENTI AL/PL ATELE T MCV 90 fL 79-97 normal Not Available [facility] ([facility]) [address] [place], [address], 01/15/2025 01:32:48 01/10/2001/09/2025 CBC WITH DIFFE RENTI AL/PL ATELE T MCH 29.6 pg 26.6-3 3.0 normal Not Available [facility] ([facility]) [address] [place], [address], 01/15/2025 01:32:48 01/10/2001/09/2025 CBC WITH DIFFE RENTI AL/PL ATELE T MCHC 32.8 g/dL 31.5-3 5.7 normal Not Available [facility] ([facility]) [address] [place], [address], 01/15/2025 01:32:48 01/10/20 25 01/09/2025 CBC WITH DIFFE RENTI AL/PL ATELE T RDW 13.1 % 11.7-1 5.4 Not Available [facility] ([facility]) [address] [place], [address], 01/15/2025 01:32:48 01/10/2001/09/2025 CBC WITH DIFFE RENTI AL/PL ATELE T platelets 361 x10e3 /uL 150-45 0 normal Not Available [facility] ([facility]) [address] [facility], [place], [address], 01/15/2025 01:32:48 01/10/2001/09/2025 CBC WITH DIFFE RENTI AL/PL ATELE T neutrophils 68 % not estab. normal Not Available [facility] ([facility]) [address] [facility], [place], [address], 01/15/2025 01:32:48 01/10/2001/09/2025 CBC WITH DIFFE RENTI AL/PL ATELE T lymphs 23 % not estab. normal Not Available [facility] ([facility]) [address] [facility], [place], [address], 01/15/2025 01:32:48 01/10/2001/09/2025 CBC WITH DIFFE RENTI AL/PL ATELE T monocytes 6 % not estab. normal Not Available [facility] ([facility]) [address] [facility], [place], [address], 01/15/2025 01:32:48 01/10/2001/09/2025 CBC WITH DIFFE RENTI AL/PL ATELE T eos 3 % not estab. normal Not Available [facility] ([facility]) [address] [facility], [place], [address], 01/15/2025 01:32:48 01/10/2001/09/2025 CBC WITH DIFFE RENTI AL/PL ATELE T basos 0 % not estab. normal Not Available [facility] ([facility]) [address] [facility], [place], [address], 01/15/2025 01:32:48 01/10/2001/09/2025 CBC WITH DIFFE RENTI AL/PL ATELE T immature cells HAND II BLOCKER Not Available [facility] ([facility]) [address] [place], [address], 01/15/2025 01:32:48 01/10/20 25 01/09/2025 CBC WITH DIFFE RENTI AL/PL ATELE T neutrophils (absolute) 12.1 x10e3 /uL 1.4-7. 0 above high normal Not Available [facility] ([facility]) [address] [place], [address], 01/15/2025 01:32:48 01/10/20 25 01/09/2025 CBC WITH DIFFE RENTI AL/PL ATELE T lymphs (absolute) 4.0 x10e3 /uL 0.7-3. 1 above high normal Not Available [facility] ([facility]) [address] [place], [address], 01/15/2025 01:32:48 01/10/20 25 01/09/2025 CBC WITH DIFFE RENTI AL/PL ATELE T monocytes(ab solute) 1.1 x10e3 /uL 0.1-0. 9 above high normal Not Available [facility] ([facility]) [address] [place], [address], 01/15/2025 01:32:48 01/10/20 25 01/09/2025 CBC WITH DIFFE RENTI AL/PL ATELE T eos (absolute) 0.5 x10e3 /uL 0.0-0. 4 above high normal Not Available [facility] ([facility]) [address] [place], [address], 01/15/2025 01:32:48 01/10/20 25 01/09/2025 CBC WITH DIFFE RENTI AL/PL ATELE T baso (absolute) 0.0 x10e3 /uL 0.0-0. 2 normal Not Available [facility] ([facility]) [address] [place], [address], 01/15/2025 01:32:48 01/10/2001/09/2025 CBC WITH DIFFE RENTI AL/PL ATELE T immature granulocytes 0 % not estab. Not Available [facility] ([facility]) [address] [facility], [place], [address], 01/15/2025 01:32:48 01/10/2001/09/2025 CBC WITH DIFFE RENTI AL/PL ATELE T immature grans (abs) 0.0 x10e3 /uL 0.0-0. 1 Not Available [facility] ([facility]) [address] [facility], [place], [address], 01/15/2025 01:32:48 01/10/2001/09/2025 CBC WITH DIFFE RENTI AL/PL ATELE T NRBC HAND II BLOCKER Not Available [facility] ([facility]) [address] [facility], [place], [address], 01/15/2025 01:32:48 01/10/2001/09/2025 CBC WITH DIFFE RENTI AL/PL ATELE T hematology comments: HAND II BLOCKER Not Available [facility] ([facility]) [address] [facility], [place], [address], 01/15/2025 01:32:48 01/10/2001/15/2025 PNEUM OCOCC AL AB (23 SEROT YPE) pneumo Ab type 1* 0.4 ug/mL >1.3 below low normal Not Available [facility] [address] [place], [address], 01/15/2025 01:32:48 01/10/2001/15/2025 PNEUM OCOCC AL AB (23 SEROT YPE) pneumo Ab type 3* <0.1 ug/mL >1.3 below low normal Not Available [facility] [address] [place], [address], 01/15/2025 01:32:48 01/10/2001/15/2025 PNEUM OCOCC AL AB (23 SEROT YPE) pneumo Ab type 4* <0.1 ug/mL >1.3 below low normal Not Available [facility] [employer] [place], [address], 01/15/2025 01:32:48 01/10/2001/15/2025 PNEUM OCOCC AL AB (23 SEROT YPE) pneumo Ab type 8* 1.4 ug/mL >1.3 Not Available [facility] [employer] [place], [address], 01/15/2025 01:32:48 01/10/2001/15/2025 PNEUM OCOCC AL AB (23 SEROT YPE) pneumo Ab type 9 (9N)* 0.4 ug/mL >1.3 below low normal Not Available [facility] [employer] [place], [address], 01/15/2025 01:32:48 01/10/2001/15/2025 PNEUM OCOCC AL AB (23 SEROT YPE) pneumo Ab type 12 (12F)* 0.2 ug/mL >1.3 below low normal Not Available [facility] [employer] [place], [address], 01/15/2025 01:32:48 01/10/2001/15/2025 PNEUM OCOCC AL AB (23 SEROT YPE) pneumo Ab type 14* 0.1 ug/mL >1.3 below low normal Not Available [facility] [employer] [place], [address], 01/15/2025 01:32:48 01/10/20 25 01/15/2025 PNEUM OCOCC AL AB (23 SEROT YPE) pneumo Ab type 17 (17F)* <0.1 ug/mL >1.3 below low normal Not Available [facility] [place], [address], 01/15/2025 01:32:48 01/10/2001/15/2025 PNEUM OCOCC AL AB (23 SEROT YPE) pneumo Ab type 19 (19F)* 0.3 ug/mL >1.3 below low normal Not Available [facility] [place], [address], 01/15/2025 01:32:48 01/10/2001/15/2025 PNEUM OCOCC AL AB (23 SEROT YPE) pneumo Ab type 2* 1.3 ug/mL >1.3 below low normal Not Available [facility] [place], [address], 01/15/2025 01:32:48 01/10/2001/15/2025 PNEUM OCOCC AL AB (23 SEROT YPE) pneumo Ab type 20* 1.5 ug/mL >1.3 Not Available [facility] [place], [address], 01/15/2025 01:32:48 01/10/2001/15/2025 PNEUM OCOCC AL AB (23 SEROT YPE) pneumo Ab type 22 (22F)* <0.1 ug/mL >1.3 below low normal Not Available [facility] [place], [address], 01/15/2025 01:32:48 01/10/2001/15/2025 PNEUM OCOCC AL AB (23 SEROT YPE) pneumo Ab type 23 (23F)* 0.2 ug/mL >1.3 below low normal Not Available [facility] [place], [address], 01/15/2025 01:32:48 01/10/20 25 01/15/2025 PNEUM OCOCC AL AB (23 SEROT YPE) pneumo Ab type 26 (6B)* <0.1 ug/mL >1.3 below low normal Not Available [facility] [address] [place], [address], 01/15/2025 01:32:48 01/10/2001/15/2025 PNEUM OCOCC AL AB (23 SEROT YPE) pneumo Ab type 34 (10A)* <0.1 ug/mL >1.3 below low normal Not Available [facility] [address] [place], [address], 01/15/2025 01:32:48 01/10/2001/15/2025 PNEUM OCOCC AL AB (23 SEROT YPE) pneumo Ab type 43 (11A)* 0.7 ug/mL >1.3 below low normal Not Available [facility] [address] [place], [address], 01/15/2025 01:32:48 01/10/20 25 01/15/2025 PNEUM OCOCC AL AB (23 SEROT YPE) pneumo Ab type 5* <0.1 ug/mL >1.3 below low normal Not Available [facility] [address] [place], [address], 01/15/2025 01:32:48 01/10/20 25 01/15/2025 PNEUM OCOCC AL AB (23 SEROT YPE) pneumo Ab type 51 (7F)* 0.4 ug/mL >1.3 below low normal Not Available [facility] [address] [place], [address], 01/15/2025 01:32:48 01/10/20 25 01/15/2025 PNEUM OCOCC AL AB (23 SEROT YPE) pneumo Ab type 54 (15B)* 0.8 ug/mL >1.3 below low normal Not Available [facility] [address] [place], [address], 01/15/2025 01:32:48 01/10/2001/15/2025 PNEUM OCOCC AL AB (23 SEROT YPE) pneumo Ab type 56 (18C)* 0.3 ug/mL >1.3 below low normal Not Available [facility] [address] [place], [address], 01/15/2025 01:32:48 01/10/2001/15/2025 PNEUM OCOCC AL AB (23 SEROT YPE) pneumo Ab type 57 (19A)* 1.0 ug/mL >1.3 below low normal Not Available [facility] [address] [place], [address], 01/15/2025 01:32:48 01/10/2001/15/2025 PNEUM OCOCC AL AB (23 SEROT YPE) pneumo Ab type 68 (9V)* <0.1 ug/mL >1.3 below low normal Not Available [facility] [address] [place], [address], 01/15/2025 01:32:48 01/10/2001/15/2025 PNEUM OCOCC AL AB [...] Laboratories [address] [place], [address], 01/15/2025 01:32:48 01/10/2001/09/2025 IGG, SUBCL ASSES (1-4) immunoglobul in g, qn, serum 1379 mg/dL 586-16 02 Not Available [facility] ([facility]) [address] [facility], [place], [address], 01/15/2025 01:32:49 01/10/2001/10/2025 IGG, SUBCL ASSES (1-4) IgG, subclass 1 814 mg/dL 248-81 0 above high normal Not Available [facility] ([facility]) [address] [facility], [place], [address], 01/15/2025 01:32:49 01/10/2001/10/2025 IGG, SUBCL ASSES (1-4) IgG, subclass 2 228 mg/dL 130-55 5 Not Available [facility] ([facility]) [address] [facility], [place], [address], 01/15/2025 01:32:49 01/10/2001/10/2025 IGG, SUBCL ASSES (1-4) IgG, subclass 3 58 mg/dL 15-102 Not Available [facility] ([facility]) [address] [facility], [place], [address], 01/15/2025 01:32:49 01/10/2001/10/2025 IGG, SUBCL ASSES (1-4) IgG, subclass 4 50 mg/dL 2-96 Not Available [facility] ([facility]) [address] [facility], [place], [address], 01/15/2025 01:32:49 01/10/2001/09/2025 IMMUN OGLOB ULINS A/G/M , QN, SER immunoglobul in M, qn, serum 148 mg/dL 26-217 Not Available [facility] ([facility]) [address] [place], [address], 01/15/2025 01:32:49 01/10/2001/10/2025 IMMUN OGLOB ULINS A/G/M , QN, SER immunoglobul in A, qn, serum 312 mg/dL 87-352 normal Not Available [facility] ([facility]) [address] [facility], [place], [address], 01/15/2025 01:32:49 01/10/2001/10/2025 HAEMO PHILU S INFLU ENZAE B IGG haemophilus influenzae B IgG 0.60 ug/mL NOTE: An anti- Hib level of 0.15 ug/mL is gener ally accep shelby as the minim um level for prote ction . Optim al prote ction post- vacci natio n requi res a level great er than 1.00 ug/mL . Not Available [facility] ([facility]) [address] [facility], [place], [address], 01/15/2025 01:32:49 01/10/2001/11/2025 TETAN US ANTIT OXOID IGG AB tetanus antitoxoid IgG Ab 0.71 IU/mL <0.10 Inter preta tion: Non-P rotec tive <0.10 Prote ctive >=0.1 0 Resul ts for this test are for resea rch purpo ses only by the assay 's manuf actur er. The perfo rmanc e alba cteri stics of this produ ct have not been estab liskonrad d. Resul ts shoul d not be used as a diagn ostic proce dure witho ut confi rmati on of the diagn osis by [facility] er medic ally estab lishe d diagn ostic produ ct or proce dure. Not Available [facility] ([facility]) [address] [facility], [place], [address], 01/15/2025 01:32:49 01/10/2001/11/2025 IMMUN OGLOB ULIN E, TOTAL immunoglobul in E, total 312 IU/mL 6-495 Not Available [facility] ([facility]) [address] [facility], [place], [address], 01/15/2025 01:32:49 01/18/2001/17/2025 CBC WITH DIFFE RENTI AL/PL ATELE T WBC 13.4 x10e3 /uL 3.4-10 .8 above high normal Not Available [facility] ([facility]) [address] [facility], [place], [address], 01/17/2025 23:16:51 01/18/20 25 01/17/2025 CBC WITH DIFFE RENTI AL/PL ATELE T RBC 4.88 x10e6 /uL 3.77-5 .28 normal Not Available [facility] ([facility]) [address] [facility], [place], [address], 01/17/2025 23:16:51 01/18/20 25 01/17/2025 CBC WITH DIFFE RENTI AL/PL ATELE T hemoglobin 14.3 g/dL 11.1-1 5.9 normal Not Available [facility] ([facility]) [address] [facility], [place], [address], 01/17/2025 23:16:51 01/18/20 25 01/17/2025 CBC WITH DIFFE RENTI AL/PL ATELE T hematocrit 43.8 % 34.0-4 6.6 normal Not Available [facility] ([facility]) [address] [place], [address], 01/17/2025 23:16:51 01/18/20 25 01/17/2025 CBC WITH DIFFE RENTI AL/PL ATELE T MCV 90 fL 79-97 normal Not Available [facility] ([facility]) [address] [place], [address], 01/17/2025 23:16:51 01/18/20 25 01/17/2025 CBC WITH DIFFE RENTI AL/PL ATELE T MCH 29.3 pg 26.6-3 3.0 normal Not Available [facility] ([facility]) [address] [place], [address], 01/17/2025 23:16:51 01/18/20 25 01/17/2025 CBC WITH DIFFE RENTI AL/PL ATELE T MCHC 32.6 g/dL 31.5-3 5.7 normal Not Available [facility] ([facility]) [address] [facility], [place], [address], 01/17/2025 23:16:51 01/18/20 25 01/17/2025 CBC WITH DIFFE RENTI AL/PL ATELE T RDW 12.9 % 11.7-1 5.4 Not Available [facility] ([facility]) [address] [facility], [place], [address], 01/17/2025 23:16:51 01/18/20 25 01/17/2025 CBC WITH DIFFE RENTI AL/PL ATELE T platelets 361 x10e3 /uL 150-45 0 normal Not Available [facility] ([facility]) [address] [facility], [place], [address], 01/17/2025 23:16:51 01/18/20 25 01/17/2025 CBC WITH DIFFE RENTI AL/PL ATELE T neutrophils 70 % not estab. normal Not Available [facility] ([facility]) [address] [place], [address], 01/17/2025 23:16:51 01/18/20 25 01/17/2025 CBC WITH DIFFE RENTI AL/PL ATELE T lymphs 22 % not estab. normal Not Available [facility] ([facility]) [address] [facility], [place], [address], 01/17/2025 23:16:51 01/18/20 25 01/17/2025 CBC WITH DIFFE RENTI AL/PL ATELE T monocytes 6 % not estab. normal Not Available [facility] ([facility]) [address] [place], [address], 01/17/2025 23:16:51 01/18/20 25 01/17/2025 CBC WITH DIFFE RENTI AL/PL ATELE T eos 2 % not estab. normal Not Available [facility] ([facility]) [address] [facility], [place], [address], 01/17/2025 23:16:51 01/18/20 25 01/17/2025 CBC WITH DIFFE RENTI AL/PL ATELE T basos 0 % not estab. normal Not Available [facility] ([facility]) [address] [facility], [place], [address], 01/17/2025 23:16:51 01/18/20 25 01/17/2025 CBC WITH DIFFE RENTI AL/PL ATELE T immature cells HAND II BLOCKER Not Available [facility] ([facility]) [address] [facility], [place], [address], 01/17/2025 23:16:51 01/18/20 25 01/17/2025 CBC WITH DIFFE RENTI AL/PL ATELE T neutrophils (absolute) 9.3 x10e3 /uL 1.4-7. 0 above high normal Not Available [facility] ([facility]) [address] [facility], [place], [address], 01/17/2025 23:16:51 01/18/20 25 01/17/2025 CBC WITH DIFFE RENTI AL/PL ATELE T lymphs (absolute) 2.9 x10e3 /uL 0.7-3. 1 normal Not Available [facility] ([facility]) [address] [place], [address], 01/17/2025 23:16:51 01/18/20 25 01/17/2025 CBC WITH DIFFE RENTI AL/PL ATELE T monocytes(ab solute) 0.8 x10e3 /uL 0.1-0. 9 normal Not Available [facility] ([facility]) [address] [place], [address], 01/17/2025 23:16:51 01/18/20 25 01/17/2025 CBC WITH DIFFE RENTI AL/PL ATELE T eos (absolute) 0.3 x10e3 /uL 0.0-0. 4 normal Not Available [facility] ([facility]) [address] [facility], [place], [address], 01/17/2025 23:16:51 01/18/20 25 01/17/2025 CBC WITH DIFFE RENTI AL/PL ATELE T baso (absolute) 0.1 x10e3 /uL 0.0-0. 2 normal Not Available [facility] ([facility]) [address] [facility], [place], [address], 01/17/2025 23:16:51 01/18/20 25 01/17/2025 CBC WITH DIFFE RENTI AL/PL ATELE T immature granulocytes 0 % not estab. Not Available [facility] ([facility]) [address] [facility], [place], [address], 01/17/2025 23:16:51 01/18/20 25 01/17/2025 CBC WITH DIFFE RENTI AL/PL ATELE T immature grans (abs) 0.0 x10e3 /uL 0.0-0. 1 Not Available [facility] ([facility]) [address] [facility], [place], [address], 01/17/2025 23:16:51 01/18/20 25 01/17/2025 CBC WITH DIFFE RENTI AL/PL ATELE T NRBC HAND II BLOCKER Not Available [facility] ([facility]) [address] [facility], [place], [address], 01/17/2025 23:16:51 01/18/20 25 01/17/2025 CBC WITH DIFFE RENTI AL/PL ATELE T hematology comments: HAND II BLOCKER Not Available [facility] ([facility]) [address] [facility], [place], [address], 01/17/2025 23:16:51 12/24/19 davi metry testi ng* No observ ation record ed. [email or web address] Not Available 2024 11:00:36 Result Notes None recorded. Problems Name Problem SNOMED Code Status Onset Date Resolution Date Notes Provider Name and Address Organization Details Recorded Time Chronic rhinitis 39375232 Completed 202401/17/2025 GINETTE SPENCER [address] [facility] [facility], [place], [address], [facility] [place] 09:56:43 Nasal congestion [id number] Completed 202401/17/2025 GINETTE SPENCER [address] [facility], [place], [address], [facility] [place] 09:56:45 Nasal sinus pressure sensation Active 2024 GINETTE MONTENEGRO [address] [facility], [place], [address], [facility] - [facility] [place] 13:47:15 Perennial allergic rhinitis [id number] Active 2024 JOHN CARDENAS [address] [facility], [address] [facility], [place], [address], [facility] - [facility] [place] 10:58:31 Perennial allergic rhinitis [id number] Active 2024 JOHN CARDENAS [address] [facility], [place], [address], [facility] [place] 11:05:43 Uncomplicat ed severe persistent asthma 349217221 Active 2024 GINETTE SPENCER [address] [facility], [place], [address], [facility] [place] 09:57:34 Migraine 08471309 Active 2024 GINETTE SPENCER [address] [facility], [place], [address], [facility] [place] 12:16:11 Problem Notes None recorded. Procedures Surgical History Date Name Laterality Status Provider Name and Address Organization Details Recorded Time 03/21/20 25 Allergy Immunotherapy Injections completed JOHN [address]DENAS [address], [place], [address], [facility] 03/21/2025 09:40:54 03/13/20 25 Allergy Immunotherapy Injections completed Eduar Crispin [address], [place], [address], [facility] 03/13/2025 09:48:19 03/03/20 25 Allergy Immunotherapy Injections completed RONEL ANDREWS RN [address], [place], [address], [facility] 03/03/2025 13:17:36 01/10/20 25 Allergy Testing-Full completed JOHN CARDENAS [address] [facility] [place] [facility], [place], [address], [facility] 01/09/2025 11:12:54 12/24/19 25 Allergy Testing Modified- Quantitative Testing (MQT) Only completed JOHN CARDENAS [address], [place], [address], [facility] - [facility] 12/23/2024 11:30:49 Imaging Results None recorded. [...] 177.8 cm 97 % JOHN CARDENAS 100 [facility],[address], [address], [place] - [facility] 01/09/2025 10:50:16 Date Recorded Body height Provider Name an d Address Organization Details Last Updated DateTime 01/17/2025 177.8 cm [place] [facility] 01/17/2025 09:00:49 Date Recorded Body height Body mass index (BMI) Body weight Heart rate Heart rate Heart rate Systolic And Diastolic Provider Name and Address Organization Details Last Updated DateTime 5 177.8 cm 40.2 kg/m2 567000. 86 g 114 /min 102 /min 97 /min 139/97 mm[Hg] RONEL ANDREWS RN [address] [facility], [place], [address], [place] [facility] 13:18:29 Social History None recorded. Functional Status Question Answer Note LastModified by Organization D etails LastModified Time What is your level of alcohol consumption? None [email or web address] Information not available 12/03/2024 Mental Status None recorded. Family History Nothing Reported. Medical History Condition Response Tonsil Infections N Emphysema N Depression N COPD N Arthritis N Cancer N Stroke N Headaches Y Fibromyalgia N Kidney Disease N Heart Problems N Anxiety N Migraines Y Other Skin Condition N Rhinitis N Bleeding Disorder N Food Allergy N Nasal polyps N Asthma Y Sleep Disorder N GERD/Reflux N Glaucoma N Nasal or Sinus Problems N Anesthesia Complications N Hearing Loss N High Cholesterol N Liver Disease N Speech Delay N Allergies/Hayfever N Thyroid Problems N Developmental Delay N Anemia N Immune System Disorder N Heart Attack ([place]) N Diabetes N Hyperlipidemia N Dementia N Hypertension N Gynecological HistoryNo gynecological history recorded. Obstetrics History GPAL:G 0 P 0 0 0 0 Past Encounters Encounter ID Performer Location Encounter Start Date Encounter Closed Date Diagnosis/Indication Diagnosis SNOMED-CT Code Diagnosis ICD10 Code Diagnosis IMO Codes Diagnosis Note [id number] TANNA NAIK PA-C [facility] [address] [address] 12/03/2024 12:50:50 12/03/2024 13:31:52 Chronic rhinitis 26020734 J31.0 [id number] [facility] [address] [place] [address] 12/23/2024 10:24:18 12/23/2024 12:01:53 Perennial allergic rhinitis 625461228 J30.89 [id number] [facility] All[facility] [address] [place] [address] 01/09/2025 10:25:12 01/09/2025 11:13:27 Perennial allergic rhinitis 199326506 J30.89 [id number] GINETTE SPENCER [facility] [address] [address] 01/17/2025 08:59:03 01/17/2025 09:41:39 Perennial allergic rhinitis 042139920 J30.89 [id number] Uncomplica shelby severe persistent asthma 015611645 J45.50 [id number] Migraine 00105556 G43.80 9 [id number] RONEL ANDREWS RN Allergy [address] [place] [phone] 03/03/2025 08:56:14 03/03/2025 13:19:16 Perennial allergic rhinitis 681238954 J30.89 [id number] Eduar Roa [facility] [address] [place] [address], [address] [place] [address] 03/13/2025 09:36:09 03/13/2025 09:50:03 Perennial allergic rhinitis 172565677 J30.89 [id number] JOHN CARDENAS [facility] [address] [facility], [address] [place] [address] 03/21/2025 09:40:11 03/21/2025 09:41:32 Perennial allergic rhinitis 572982151 J30.89 Health Concerns Section Related Observation LastModified by Organization Detai ls LastModified Time None Recorded Concern Status LastModified by Organization Details LastModified Time None Recorded Advance Directives Directive None Recorded Payers Insurance Date Sequence Insurance Name Policy Number Policy Bell Covered Member ID Bell Member ID Guarantor Name 03/21/2025 1 [facility] - HEALTH NET PLAN (MEDICAID HMO) BETH Olson [id number] Norma Olson Notes Date Note Type Note [...] head and neck surgeries. ZOILA MARTINI MD [address] [place] [address], [place], [address], [facility] 01/17/2025 16:08:08 OBGyn Episode No OBEpisode recorded.
== END 2025-03-21 13:50 | disposition home or self-care (01) ==
LOC: HO.HPS 13:38
PROVIDERS: PCP Internal Medicine; Visit Provider Internal Medicine Pulmonary Disease
DX: J45.909 Unspecified asthma, uncomplicated (principal); Z91.09 Other allergy status, other than to drugs and biological substances
CPT/HCPCS: 99214

== ENCOUNTER → 2025-03-21 13:37 | Outpatient (BNVA) | payer OTHER, SELFPAY | PROVIDERS: PCP Internal Medicine; Visit Provider Internal Medicine Pulmonary Disease | DX: J45.50 Severe persistent asthma, uncomplicated (principal); Z91.09 Other allergy status, other than to drugs and biological substances; Z87.891 Personal history of nicotine dependence; Z79.899 Other long term (current) drug therapy; Z79.51 Long term (current) use of inhaled steroids | CPT/HCPCS: 99212 ==